=== PATIENT | male | born 1940 | race Caucasian/White ===

== ENCOUNTER 2017-01-17 15:49 | Emergency (ER) | payer OTHER ==
[2017-01-17 15:56] VITALS: BP 139/70; BMI 36.5
--- NOTE | 2017-01-17 16:11 | DR.GENAD ---
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 HE IS HAVING ABDOMINAL PAIN AND INCREASING SOB FOR SEVERAL DAYS NOW. WORSE TODAY. COLOSTOMY BAG CLEAN THE ENTIRE DAY. NO FEVER. DID LAXITIVE WITHOUT RESULT. HE HAVE HISTORY OF CHF. HAVE CHRONIC UTI ALSO. - Complaint/Symptoms Chief Complaint Doctors Comments: ABDOMINAL PAIN, SOB FOR FEW DAYS. Chief Complaint:: patient stated he has a colostostomy bag that he said no body here knows anything about. he stated [facility]. he denies any pain or distress at this time. - Nurses notes reviewed Nurses Notes Review: Yes - Source History Provided: Patient - Mode of Arrival Mode of Arrival: EMS - Timing Onset of Chief Complaint: 01/17/17 Came on: Suddenly - Duration Duration: Constant Duration: Days - Severity Severity: Moderate PMH - PMH Past Medical History: Yes Past Medical History: Anemia, Anxiety, Arthritis, COPD, Coronary Artery Disease , Diabetes, Dyslipidemia, GERD, Hypertension Past Surgical History: Yes - Family History History of Family Medical Conditions: Yes Family Medical History: Diabetes Mellitus, Hypertension - Social History Does patient currently use any type of tobacco product: No Have you used tobacco products in the last 12 months: No Type of Tobacco Use: None Does any household member use tobacco: No Alcohol Use: None Do you use any recreational Drugs:: No Lives With: Family Lives Where: Home - infectious screening In the last 2 months have you had wt loss of >10#?: NO Have you had fever, night sweats or hemotysis?: No Have you traveled outside the country in the last 6 months?: No Isolation: Standard ROS - Review of Systems Constitutional: Weakness, Fatigue. negative: Chills, Diaphoresis, Fever Eyes: No Symptoms Reported. negative: Eye Pain, Discharge ENTM: No Symptoms Reported. negative: Ear Pain, Nose Discharge, Nose Congestion , Throat Pain Respiratoy: Short of Breath, Wheezing. negative: Hemoptysis Cardiovascular: Chest Pain, Edema (ankle edema). negative: Palpitations Gastrointestinal/Abdominal: Abdominal Pain, Constipation, Nausea. negative: Diarrhea, Vomiting Genitourinary: negative: Hematuria Neurological: Other (paraplegia) Musculoskeletal: Back Pain, Back Integumentary: Dryness Hematologic/Lymphatic: Easy Bruising Endocrine: No Symptoms Reported All Other Systems: Reviewed and Negative PE - Vital Signs Vitals: Temperature 98.9 F Pulse Rate 105 Respiratory Rate 16 Blood Pressure [Right Arm] 126/64 Blood Pressure [Left Arm] 157/66 Blood Pressure 139/70 O2 Sat by Pulse Oximetry 98 - General Limitations: No Limitations General Appearance: Alert - Head Head Exam: Normal Inspection - Eyes Eye exam: Normal Appearance, PERRL, EOMI. negative: Scleral Icterus, Conjunctival Injection - ENT ENT Exam: Normal Oropharynx, Normal External Ear Exam, TM's Normal Bilaterally External Ear Exam: Normal External Inspection TM/Canal Exam: Bilateral Normal Nose Exam: Normal Nose Exam Mouth Exam: Normal Inspection Throat Exam: Normal Inspection - Neck Neck Exam: Trachea Midline - Chest Chest Inspection: Symmetric Chest Wall Rise - Respiratory Respiratory Exam: Respiratory Distress Respiratory Exam: Bilateral Wheezing, Bilateral Rhonchi, Upper Rhonchi, Lower Wheezing, Lower Decreased Breath Sounds - Cardiovascular Cardiovascular Exam: Regular Rate, Normal Rhythm, Normal Heart Sounds - Abdominal Exam Abdominal Exam: Normal Bowel Sounds, Soft, Tenderness Abdominal Tenderness: Diffuse, Moderate - Extremities Extremities Exam: Edema - Back Back Exam: Paraspinal Tenderness - Neurologic Neurological Exam: Motor Sensory Deficit (from chest down/ paraplegia) - Psychiatric Psychiatric Exam: Anxious - Skin Skin Exam: Dry MDM - Additional Information Additional Information Obtained From: Family (ABDOMINAL PAIN) - Differential Diagnosis Differential Diagnosis: ABDOMINAL PAIN. CHF, BOWEL OBSTRUCTION, AND UTI. Course - Treatment Treatment: SEE ORDERS - Consultation Consultation Comments: DISCUSS PATIENT WITH DR. STARR AT [facility] IN [place] AND HE ACCEPTED PATIENT FOR TRANSFER. - Education/Counseling Education/Counseling: Patient, Family, Education Educated On: Diagnosis ROR - Labs Reviewed Laboratory Results Reviewed?: Yes Result Diagrams: 01/17/17 16:25 01/17/17 16:25 Laboratory: WBC 10.7 X10^3/uL (3.6-10.0) H 01/17/17 16:25 RBC 3.87 X10^6/uL (4.7-6.0) L 01/17/17 16:25 Hgb 11.6 g/dL (13.5-18.0) L 01/17/17 16:25 Hct 34.3 % (42.0-54.0) L 01/17/17 16:25 MCV 88.5 fL (80.0-100.0) 01/17/17 16:25 MCH 30.0 pg (27.0-34.0) 01/17/17 16:25 MCHC 33.9 g/dL (33.0-35.0) 01/17/17 16:25 RDW 15.5 % (11.6-16.5) 01/17/17 16:25 Plt Count 396 X10^3/uL (150.0-450.0) 01/17/17 16:25 Plt Count Comment Adequate (ADEQUATE) 01/17/17 16:25 MPV 8.2 fL (7.4-11.0) 01/17/17 16:25 Neut % 43.7 % (42.0-75.0) 01/17/17 16:25 Lymph % 12.8 % (21.0-51.0) L 01/17/17 16:25 [place] % 8.2 % (0.0-13.0) 01/17/17 16:25 Eos % 34.1 % (0.9-2.9) H 01/17/17 16:25 Baso % 1.2 % (0.2-1.0) H 01/17/17 16:25 Neut # 4.7 x10^3/uL (2.2-4.8) 01/17/17 16:25 Lymph # 1.4 X10^3/uL (1.3-2.9) 01/17/17 16:25 [place] # 0.9 x10^3/uL (0.3-0.8) H 01/17/17 16:25 Eos # 3.7 x10^3/uL (0.0-0.2) H 01/17/17 16:25 Baso # 0.1 X10^3/uL (0.0-0.1) 01/17/17 16:25 Absolute Nucleated RBC 0.0 /100WBC 01/17/17 16:25 Total Counted 100 01/17/17 16:25 Neutrophils % (Manual) 44 % (39-76) 01/17/17 16:25 Lymphocytes % (Manual) 15 % (13-43) 01/17/17 16:25 Monocytes % (Manual) 5 % (4-9) 01/17/17 16:25 Eosinophils % (Manual) 36 % (0-6) H 01/17/17 16:25 Plt Morphology Comment Normal (NORMAL) 01/17/17 16:25 RBC Morphology Normal (NORMAL) 01/17/17 16:25 Sodium 134 mmol/L (136-145) L 01/17/17 16:25 Corrected Sodium 139 mmol/L (136-145) 01/17/17 16:25 Potassium 3.3 mmol/L (3.5-5.1) L 01/17/17 16:25 Chloride 98 mmol/L (98-107) 01/17/17 16:25 Carbon Dioxide 27.5 mmol/L (21-32) 01/17/17 16:25 BUN 18 mg/dL (7-18) 01/17/17 16:25 Creatinine 0.88 mg/dL (0.70-1.30) 01/17/17 16:25 Est GFR (MDRD) Af Amer > 60 (>60) 01/17/17 16:25 Est GFR (MDRD) Non-Af > 60 (>60) 01/17/17 16:25 Glucose 320 mg/dL (65-99) H 01/17/17 16:25 Calcium 8.9 mg/dL (8.5-10.1) 01/17/17 16:25 Corrected Calcium 10.1 mg/dL (8.5-10.1) 01/17/17 16:25 Total Bilirubin 0.30 mg/dL (0.2-1.0) 01/17/17 16:25 AST 15 Units/L (15-37) 01/17/17 16:25 ALT 13 Units/L (12-78) 01/17/17 16:25 Alkaline Phosphatase 79 Units/L (46-116) 01/17/17 16:25 Total Protein 7.4 g/dL (6.4-8.2) 01/17/17 16:25 Albumin 2.5 g/dL (3.4-5.0) L 01/17/17 16:25 Globulin 4.9 g/dL (2.5-4.5) H 01/17/17 16:25 Albumin/Globulin Ratio 0.5 Ratio (1.1-2.1) L 01/17/17 16:25 Amylase 22 Units/L (25-115) L 01/17/17 16:25 Lipase 82 Units/L (73-393) 01/17/17 16:25 Specimen Type Catherized urine 01/17/17 17:34 Urine Color Yellow (YELLOW) 01/17/17 17:34 Urine Appearance Cloudy (CLEAR) 01/17/17 17:34 Urine pH 5.0 (5.0 - 8.0) 01/17/17 17:34 Ur Specific [place] 1.015 (1.000-1.030) 01/17/17 17:34 Urine Protein Negative (NEGATIVE) 01/17/17 17:34 Urine Glucose (UA) 2+ (NEGATIVE) 01/17/17 17:34 Urine Ketones Negative (NEGATIVE) 01/17/17 17:34 Urine Occult Blood 1+ (NEGATIVE) 01/17/17 17:34 Urine Nitrite Positive (NEGATIVE) 01/17/17 17:34 Urine Bilirubin Negative (NEGATIVE) 01/17/17 17:34 Urine Urobilinogen Normal (NORMAL) 01/17/17 17:34 Ur Leukocyte Esterase 3+ (NEGATIVE) 01/17/17 17:34 Urine RBC 0-2 /HPF (NEGATIVE) 01/17/17 17:34 Urine WBC 50-55 /HPF (NEGATIVE) 01/17/17 17:34 Ur Squamous Epith Cells Rare /HPF (NEGATIVE) 01/17/17 17:34 Amorphous Sediment Trace /HPF (NEGATIVE) 01/17/17 17:34 Urine Bacteria 1+ /HPF (NEGATIVE) 01/17/17 17:34 Urine Yeast Moderate /HPF (NEGATIVE) 01/17/17 17:34 Ur Culture Indicated? Yes/culture set up 01/17/17 17:34 - XRAY XRAY Interpreted by: Radiologist XRAY Findings: REPORT DISCUSS WITH PATIENT AND FAMILY. - Diagnosis Discharge Problem: Pleural effusion Abdominal pain Qualifiers: Abdominal location: generalized Qualified Code(s): R10.84 - Generalized abdominal pain Parastomal hernia Qualifiers: Obstruction and gangrene presence: without obstruction or gangrene Qualified Code(s): K43.5 - Parastomal hernia without obstruction or gangrene Dyspnea Qualifiers: Dyspnea type: shortness of breath Qualified Code(s): R06.02 - Shortness of breath UTI (urinary tract infection) Qualifiers: Urinary tract infection type: catheter-associated UTI - Discharge Plan Disposition: 02 [facility] Condition: Stable - Follow ups/Referrals Follow ups/Referrals: Jose Fish [Primary Care Provider] - 3 days - Instructions
[2017-01-17 16:43] LABS: BASOPHILS # (AUTO) 0.1 X10^3/uL (0.0-0.1); BASOPHILS % (AUTO) 1.2 % (0.2-1.0); EOSINOPHILS # (AUTO) 3.7 x10^3/uL (0.0-0.2); EOSINOPHILS % (AUTO) 34.1 % (0.9-2.9); HEMATOCRIT 34.3 % (42.0-54.0); HEMOGLOBIN 11.6 g/dL (13.5-18.0); LYMPHOCYTES # (AUTO) 1.4 X10^3/uL (1.3-2.9); LYMPHOCYTES % (AUTO) 12.8 % (21.0-51.0); MEAN CORPUSCULAR HGB CONC 33.9 g/dL (33.0-35.0); MEAN CORPUSCULAR VOLUME 88.5 fL (80.0-100.0); MEAN PLATELET VOLUME 8.2 fL (7.4-11.0); MONOCYTES # (AUTO) 0.9 x10^3/uL (0.3-0.8); MONOCYTES % (AUTO) 8.2 % (0.0-13.0); NEUTROPHILS # (AUTO) 4.7 x10^3/uL (2.2-4.8); NEUTROPHILS % (AUTO) 43.7 % (42.0-75.0); PLATELET COUNT 396 X10^3/uL (150.0-450.0); RED BLOOD COUNT 3.87 X10^6/uL (4.7-6.0); RED CELL DISTRIBUTION WIDTH 15.5 % (11.6-16.5); WHITE BLOOD COUNT 10.7 X10^3/uL (3.6-10.0)
[2017-01-17 16:57] LABS: ALANINE AMINOTRANSFERASE 13 Units/L (12-78); ALBUMIN 2.5 g/dL (3.4-5.0); ALKALINE PHOSPHATASE 79 Units/L (46-116); AMYLASE 22 Units/L (25-115); ASPARTATE AMINO TRANSFERASE 15 Units/L (15-37); BLOOD UREA NITROGEN 18 mg/dL (7-18); CALCIUM 8.9 mg/dL (8.5-10.1); CARBON DIOXIDE 27.5 mmol/L (21-32); CHLORIDE 98 mmol/L (98-107); COR CA(FOR HYPOALB) 10.1 mg/dL (8.5-10.1); COR NA(FOR HYPERGLY) 139 mmol/L (136-145); CREATININE 0.88 mg/dL (0.70-1.30); GLUCOSE 320 mg/dL (65-99); LIPASE 82 Units/L (73-393); SODIUM 134 mmol/L (136-145); TOTAL PROTEIN 7.4 g/dL (6.4-8.2); eGFR BLACK RACES > 60 (>60); eGFR NON BLACK RACES > 60 (>60)
[2017-01-17 17:03] LABS: PLATELET MORPHOLOGY COMMENT NORMAL (NORMAL)
[2017-01-17] MEDS ORDERED: POTASSIUM CHLORIDE LIQ 20 MEQ UDC PO ONE (17:10)
[2017-01-17] MEDS ORDERED: POTASSIUM CHLORIDE LIQ 20 MEQ UDC ONE (17:14)
--- NOTE | 2017-01-17 17:14 | CT ---
CT ABDOMEN AND PELVIS WITHOUT CONTRAST CLINICAL HISTORY: 76-year-old male with abdominal pain around the ostomy site. COMPARISON: CT abdomen and pelvis February 01, 2016.. TECHNIQUE: Multiple contiguous computed tomographic axial images of the abdomen and pelvis were obta ined without the use of oral or intravenous contrast. Images were reformatted in the coronal and sag ittal planes. FINDINGS: Large left pleural effusion with compressive atelectasis of the left lower lobe and lingula with und erlying infectious process not excluded. Trace right pleural fluid with unchanged right upper lobe p ulmonary nodules. Right basilar subsegmental dependent atelectasis with redemonstration of pneumatoc eles. Moderate-sized circumferential pericardial effusion that is simple appearing. Mediastinum is otherwi se unremarkable.. The liver is diffusely fatty replaced without intrahepatic or extrahepatic biliary ductal dilatation or mass lesion. Pancreas is mildly fatty replaced. Spleen and gallbladder are unremarkable. Adrenal glands are normal. Mild atrophic appearance of the bilateral kidneys with mild perinephric stranding. There are no neph roureteral stones or perinephric fluid collections. There is no evidence of hydroureteronephrosis an d the ureters run in an unobstructed course to a urinary bladder that is decompressed around a Ryan catheter with balloon inflated and abutting of the superior aspect of the prostate with large volum e intracystic air, likely from placement of Ryan catheter. The prostate, seminal vesicles, and external genitalia are within normal limits. Patient is status post Nissa's procedure with end colostomy with a large subfascial defect and re sultant parastomal hernia containing a single loop of small bowel and colon that are without inflamm atory change to suggest incarceration or strangulation, this is relatively unchanged from examinatio n dated February 01, 2016. The appendix is normal in appearance. The bowel is without obstruction or inflammation and there is no free fluid or free air within the peritoneal cavity. There are no pathologically enlarged lymph nodes in the abdomen or pelvis. Moderate calcific atherosclerotic disease throughout the aorta. The subcutaneous inflammation about the ischial tuberosities that is relatively unchanged without ev idence of sacral decubitus ulcer. The osseous structures are intact without fracture or malalignment. Significant heterotopic calcific ation throughout the imaged thoracolumbar spine anteriorly that is not significantly change with sev ere heterotopic calcification about the left hip and significant degenerative change, all unchanged. IMPRESSION: 1. Moderate size simple appearing pericardial effusion that is circumferential. 2. Large left pleural effusion with compressive atelectasis of the left lower lobe and lingula. 3. Parastomal hernia containing large and small bowel without evidence of incarceration or strangula tion, stable. 4. Remainder of the examination is overall unchanged. Reported By:
[2017-01-17 18:02] LABS: BILIRUBIN,URINE NEGATIVE (NEGATIVE); BLOOD/HEMOGLOBIN,URINE 1+ (NEGATIVE); GLUCOSE, URINE 2+ (NEGATIVE); KETONES,URINE NEGATIVE (NEGATIVE); LEUKOCYTE ESTERASE ,URINE 3+ (NEGATIVE); NITRITES,URINE POSITIVE (NEGATIVE); PROTEIN,URINE NEGATIVE (NEGATIVE); UROBILINOGEN,URINE NORMAL (NORMAL)
[2017-01-17 18:11] LABS: AMORPHOUS SEDIMENT,UR TRACE /HPF (NEGATIVE); APPEARANCE,URINE CLOUDY (CLEAR); BACTERIA,URINE 1+ /HPF (NEGATIVE); COLOR,URINE YELLOW (YELLOW); RBC,URINE 0-2 /HPF (NEGATIVE); SQUAMOUS EPITHELIAL CELL,UR RARE /HPF (NEGATIVE); YEAST,URINE MODERATE /HPF (NEGATIVE)
== END 2017-01-17 19:24 | disposition short-term general hospital (02) ==
LOC: ER 15:52
DX: K43.5 Parastomal hernia without obstruction or gangrene (principal); R10.84 Generalized abdominal pain; R06.02 Shortness of breath; N39.0 Urinary tract infection, site not specified; B96.29 Other Escherichia coli [E. coli] as the cause of diseases classified elsewhere
CPT/HCPCS: 36415; 74176; 80053; 81001; 82150; 83690; 85025; 87086; 87088; 87186; 96365; 99284; 99285; A4222

== ENCOUNTER → 2017-03-30 | Outpatient (CLI) | payer OTHER ==
--- NOTE | 2017-03-31 07:45 | RAD ---
HISTORY: Abdominal mass Study: Flat and upright abdomen Comparison: CT abdomen pelvis January 17, 2017 Findings: The abdominal gas pattern is nonspecific and nonobstructive. No pneumoperitoneum is identified. Ther e is an ostomy in the left lower abdomen. There appear to be some bowel loops far lateral in the abd omen possibly indicating a parastomal hernia. The should be correlated with CT abdomen pelvis examin ation. No abnormal calcifications are identified. Extensive degenerative and spondylitic changes are present in the lumbar spine. There is extensive deformity in the left pelvis possibly postsurgical. IMPRESSION: No evidence for bowel obstruction or pneumoperitoneum Possible left lower quadrant parastomal hernia. CT abdomen pelvis is recommended for further evaluat ion. Reported By:
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
== END | disposition home or self-care (01) ==
LOC: RAD 16:37
PROVIDERS: ATTEND Nurse Practitioner Family
DX: J90 Pleural effusion, not elsewhere classified (principal); R19.09 Other intra-abdominal and pelvic swelling, mass and lump; I51.7 Cardiomegaly
CPT/HCPCS: 71020; 74000

== ENCOUNTER → 2017-04-05 | Outpatient (CLI) | payer OTHER ==
[~2017-04-05] MED LIST: NS 100 ML IV 100 ML IV ONE
[2017-04-05 08:33] LABS: CREATININE 0.87 mg/dL (0.70-1.30)
--- NOTE | 2017-04-05 09:58 | CT ---
CT OF THE ABDOMEN AND PELVIS WITHOUT AND WITH CONTRAST HISTORY: Hernia at colostomy site Comparison: 01/17/2017 Technique: Multiple axial images of the abdomen and pelvis were obtained from the lung bases to the pubic symph ysis before and following the administration of IV contrast. Dose reduction techniques including A utomated Exposure Control (AEC) and adjustment of mA and kV were utlized. Findings: The heart is normal in size. There is no pericardial effusion. Loculated left-sided pleural effusion . Slightly decreased in size compared to prior. Abdomen without: No gallstones, renal stones or proximal ureteral stones. Abdomen with: Liver and spleen are normal in size, enhancement characteristics and contour. There is focal region of somewhat linear hypoattenuation in the subcapsular right lobe of liver near the inf erior tip. This is best seen on series 7 between images 42 and 45. It is unclear what degree this wa s present on prior examinations. The portal vein is patent. No ductal dilitation. Gallbladder is pre sent. No gallbladder wall thickening. The pancreas is unremarkable. Adrenal glands are normal. Kidne ys enhance symmetrically without hydronephrosis. Simple and hemorrhagic renal cysts bilaterally No bowel obstruction or inflammation. Redemonstration of small peristomal hernia in the left lower q uadrant. No obstruction. No abnormal appearing mesenteric or retroperitoneal lymph nodes. No free fl uid or fluid collections. Pelvis without: No distal ureteral stones or bladder stones. Pelvis with: Bladder is thick-walled. Prostate not enlarged. No free fluid or abnormal pelvic lymph nodes. Extensive posttraumatic and degenerative change involving the spine and pelvis. Significant heteroto pic bone formation particularly surrounding the hip on the left. Unchanged. IMPRESSION: 1. Small peristomal hernia without obstruction. This is unchanged over multiple priors. 2. Linear hypo enhancing regions in the distal tip of liver. These are of uncertain etiology. MRI of the abdomen could be obtained for further characterization. 3. Multiple chronic findings that are unchanged from priors. It should be noted that dual phase CT (with and without contrast) is neither recommended nor require d in most situations and should be reserved for patients with known solid organ lesions, hematuria a nd few other specific indications. [email or web address]://acsearch.acr.org/list Reported By:
== END | disposition home or self-care (01) ==
LOC: RAD 08:03
PROVIDERS: ATTEND Nurse Practitioner Family
DX: K45.8 Other specified abdominal hernia without obstruction or gangrene (principal)
CPT/HCPCS: 36415; 74178; 82565; 84520; A4222

== ENCOUNTER → 2017-11-09 | Outpatient (CLI) | payer OTHER, MEDICAID ==
--- NOTE | 2017-11-09 17:04 | CT ---
HISTORY: Left lower quadrant pain Study: CT abdomen and pelvis without contrast Comparison: 04/05/2017, 02/01/2016 Technique: Multiple axial images of the abdomen and pelvis were obtained without IV contrast. Dose reduction t echniques including Automated Exposure Control (AEC) and adjustment of mA and kV were utilized. Findings: Please note evaluation is limited without use of IV contrast. There is chronic left prior thickening and trace effusion. The lung bases are otherwise clear. The u nenhanced spleen, pancreas, liver, and adrenal glands are unremarkable. The gallbladder is normal. Th e right kidney appears unremarkable. There is a hypodense exophytic lesion of the left kidney compati ble with a simple cyst. Adjacent to this there is a uniformly hyperdense exophytic lesion with averag e attenuation of 61 Hounsfield units that has been present on previous studies suggestive of a comple x/hemorrhagic cysts. No calculi or obstructive uropathy identified. No free intraperitoneal air. There are surgical changes of the colon with left lower quadrant colosto my. There is a small parastomal hernia without evidence of obstruction. No ascites is seen. The appen dulce is normal. Proliferative spondylitic changes of the thoracolumbar spine are again noted with large bridging oste ophytes. Scattered areas of heterotopic ossification seen in the pelvis and around the anterior right thigh, also chronic in nature. Limited evaluation of vascular structures due to lack of contrast. No pathologically enlarged lymph nodes are identified. Ryan catheter balloon is malpositioned in the p rostatic urethra. Small amount intraluminal air is seen in the bladder. IMPRESSION: 1. Ryan catheter balloon is positioned in the prostatic urethra, correlate clinically. 2. Stable left abdominal colostomy and parastomal hernia. 3. Multiple additional stable chronic findings detailed above. Reported By:
== END | disposition home or self-care (01) | DRG 392 ==
LOC: RAD 14:16
PROVIDERS: ATTEND Nurse Practitioner Family
DX: R10.32 Left lower quadrant pain (principal); K43.5 Parastomal hernia without obstruction or gangrene
CPT/HCPCS: 74176

== ENCOUNTER 2017-12-04 09:14 | Day surgery (SDC) | payer MEDICAID, OTHER ==
[~2017-12-04 09:14] MED LIST changes: -NS 100 ML IV 100 ML IV ONE; +NS 1000 ML 1,000 ML ONE
[2017-12-04] MEDS ORDERED: VERSED ONE (10:25)
[2017-12-04] MEDS ORDERED: VERSED IVP ONE ×2 (10:25→10:42)
[2017-12-04 11:08] VITALS: BP 137/69
== END 2017-12-04 11:18 | disposition home or self-care (01) ==
LOC: SURG1 09:14
PROVIDERS: ATTEND Surgery
PROC: 0DJD8ZZ Inspection of Lower Intestinal Tract, Via Natural or Artificial Opening Endoscopic (ICD-10-PCS; principal; 2017-12-04 09:30)
DX: R10.84 Generalized abdominal pain (principal); R14.0 Abdominal distension (gaseous); K59.09 Other constipation; G82.20 Paraplegia, unspecified
CPT/HCPCS: A4217; J2250

== ENCOUNTER 2017-12-25 12:37 | Inpatient (IN) | payer OTHER ==
--- NOTE | 2017-12-25 13:05 | DR.URIAD ---
HPI - Time Seen Time seen: 13:20 - PCP Primary Care Physician: GLENROY CHRIS - HPI Comment HPI Comment: COUGH PRODUCTIVE, THICK YELLOW SPUTUM. FEEL FEVERISH. SOME CHEST DISCOMFORTDUE TO COUGHING. - Complaint Chief Complaint Doctors Comments: INCREASING COUGH, CONGESTION AND SOB TIMES FEW DAYS. Chief Complaint:: PATIENT HAS BEEN HAVING C/C/C FOR THE LAST COUPLE OF DAYS. HE STATED THAT HOME HEALTH VISITING NURSE WANTED HIM TO COME IN AND BE SEEN SO THAT HE DON'T HAVE PNEUMONIA SET UP. - Reviewed Nurses Notes Reviewed: Yes - Source History Provided: Patient, EMS - Mode of Arrival Mode of Arrival: EMS - Timing Onset of Chief Complaint: 12/21/17 - Context Recent Treated Infections: URI History of Respiratory: Bronchitis - Quality Quality of Cough: Productive, Yellow Rhinorrhea: None Shortness of Breath: Mild - Associated Signs and Symptoms Other Signs and Symptoms: Cough, Myalgias, Nasal Symptoms, Shortness of Breath, URI, Wheeze PMH - PMH Past Medical History: Yes Past Medical History: Anemia, Anxiety, Arthritis, COPD, Coronary Artery Disease , Diabetes, Dyslipidemia, GERD, Hypertension Past Surgical History: Yes - Family History History of Family Medical Conditions: Yes Family Medical History: Diabetes Mellitus, Hypertension - Social History Does any household member use tobacco: No Alcohol Use: None Do you use any recreational Drugs:: No - infectious screening In the last 2 months have you had wt loss of >10#?: NO Have you had fever, night sweats or hemotysis?: No Have you traveled outside the country in the last 6 months?: No Isolation: Standard ROS - Review of Systems Constitutional: Fever (AT HOME), Weakness, Fatigue Eyes: negative: Eye Pain, Discharge ENTM: Nose Discharge, Nose Congestion. negative: Ear Pain, Throat Pain Respiratoy: Productive Cough, Short of Breath, Wheezing. negative: Hemoptysis Cardiovascular: Chest Pain Gastrointestinal/Abdominal: No Symptoms Reported Genitourinary: No Symptoms Reported Neurological: No Symptoms Reported Musculoskeletal: Muscle Pain Integumentary: Other (SACRAL ULCER PRESENT.) Hematologic/Lymphatic: No Symptoms Reported Endocrine: No Symptoms Reported All Other Systems: Reviewed and Negative PE - Vital Signs Vitals: Temperature 97.4 F Pulse Rate 94 Respiratory Rate 20 Blood Pressure [Right Arm] 126/64 Blood Pressure [Left Arm] 157/66 Blood Pressure 99/52 O2 Sat by Pulse Oximetry 93 - General Limitations: No Limitations General Appearance: Alert - Head Head Exam: Normal Inspection - Eyes Eye exam: Normal Appearance - ENT ENT Exam: Normal External Ear Exam TM/Canal Exam: Bilateral Normal Nose Exam: Normal Nose Exam Mouth Exam: Normal Inspection Throat Exam: Normal Inspection - Neck Neck Exam: Trachea Midline - Chest Chest Inspection: Symmetric Chest Wall Rise - Respiratory Respiratory Exam: Normal Lung Sounds Bilat Respiratory Exam: Bilateral Wheezing, Bilateral Rhonchi, Lower Wheezing, Lower Rhonchi - Cardiovascular Cardiovascular Exam: Regular Rate, Normal Rhythm, Normal Heart Sounds - Abdominal Exam Abdominal Exam: Normal Bowel Sounds, Soft. negative: Tenderness - Extremeties Extremities Exam: Normal Inspection - Back Back Exam: Normal Inspection - Neurologic Neurological Exam: Alert, Oriented X3, Other (PATIENT BED BOUND) - Skin Skin Exam: Other (SACRAL DECUBITUS ULCER.) MDM - Additional Information Additional Information Obtained From: Family - Differential Diagnosis Differential Diagnosis: Pneumonia (BRONCHITIS, CHF, PULMONARY CONGESTION, SINUSITIS) Course - Treatment Treatment: SEE ORDERS. - Consultation Consultation Comments: DISCUSS PATIENT WITH DR. MONACO AFTER LAB ALERTED US THAT BLOOD CULTURE IS GROWING BACTERIA. HE WILL ADMIT PATIENT. PATIENT CALL FROM HOME AND ADMITTED FOR FUTHER MANAGEMENT. - Education/Counseling Education/Counseling: Patient, Family, Education Educated On: Treatment, Diagnosis, Needs for Follow Up ROR - Labs Reviewed Laboratory Results Reviewed?: Yes Result Diagrams: 12/26/17 04:42 12/26/17 04:42 Laboratory: 12/25/17 13:37 Blood Blood Culture - Preliminary 12/25/17 13:45 Blood Blood Culture - Preliminary 12/25/17 14:16 Sputum - Expectorated Sputum Sputum Culture - Preliminary 12/25/17 14:16 Sputum - Expectorated Sputum - Final 12/25/17 14:37 Urine,Catheterized Urine Culture - Preliminary WBC 10.8 X10^3/uL (3.6-10.0) H 12/26/17 04:42 RBC 3.85 X10^6/uL (4.7-6.0) L 12/26/17 04:42 Hgb 11.9 g/dL (13.5-18.0) L 12/26/17 04:42 Hct 34.5 % (42.0-54.0) L 12/26/17 04:42 MCV 89.6 fL (80.0-100.0) 12/26/17 04:42 MCH 30.8 pg (27.0-34.0) 12/26/17 04:42 MCHC 34.4 g/dL (33.0-35.0) 12/26/17 04:42 RDW 15.3 % (11.6-16.5) 12/26/17 04:42 Plt Count 432 X10^3/uL (150.0-450.0) 12/26/17 04:42 Plt Count Comment Adequate (ADEQUATE) 12/26/17 04:42 MPV 8.0 fL (7.4-11.0) 12/26/17 04:42 Neut % (Auto) 94.5 % (42.0-75.0) H 12/26/17 04:42 Lymph % (Auto) 3.4 % (21.0-51.0) L 12/26/17 04:42 [place] % (Auto) 1.2 % (0.0-13.0) 12/26/17 04:42 Eos % (Auto) 0.3 % (0.9-2.9) L 12/26/17 04:42 Baso % (Auto) 0.6 % (0.2-1.0) 12/26/17 04:42 Neut # (Auto) 10.2 x10^3/uL (2.2-4.8) H 12/26/17 04:42 Lymph # (Auto) 0.4 X10^3/uL (1.3-2.9) L 12/26/17 04:42 [place] # (Auto) 0.1 x10^3/uL (0.3-0.8) L 12/26/17 04:42 Eos # (Auto) 0.0 x10^3/uL (0.0-0.2) 12/26/17 04:42 Baso # (Auto) 0.1 X10^3/uL (0.0-0.1) 12/26/17 04:42 Absolute Nucleated RBC 0.1 /100WBC 12/26/17 04:42 Total Counted 100 12/26/17 04:42 Neutrophils % (Manual) 91 % (39-76) H 12/26/17 04:42 Band Neutrophils % 4 % (0-10) 12/26/17 04:42 Lymphocytes % (Manual) 4 % (13-43) L 12/26/17 04:42 Monocytes % (Manual) 1 % (4-9) L 12/26/17 04:42 Plt Morphology Comment Normal (NORMAL) 12/26/17 04:42 RBC Morphology Normal (NORMAL) 12/26/17 04:42 Sodium 134 mmol/L (136-145) L 12/26/17 04:42 Corrected Sodium 139 mmol/L (136-145) 12/26/17 04:42 Potassium 4.9 mmol/L (3.5-5.1) 12/26/17 04:42 Chloride 100 mmol/L (98-107) 12/26/17 04:42 Carbon Dioxide 27.3 mmol/L (21-32) 12/26/17 04:42 BUN 19 mg/dL (7-18) H 12/26/17 04:42 Creatinine 0.87 mg/dL (0.70-1.30) 12/26/17 04:42 Est GFR (MDRD) Af Amer > 60 (>60) 12/26/17 04:42 Est GFR (MDRD) Non-Af > 60 (>60) 12/26/17 04:42 Glucose 323 mg/dL (65-99) H 12/26/17 04:42 POC Glucose (mg/dL) 351 mg/dL (65-99) H 12/26/17 11:31 Lactic Acid 0.8 mmol/L (0.4-2.0) 12/25/17 13:37 Calcium 8.9 mg/dL (8.5-10.1) 12/26/17 04:42 Corrected Calcium TNP 12/25/17 13:37 Total Bilirubin 0.30 mg/dL (0.2-1.0) 12/25/17 13:37 AST 18 Units/L (15-37) 12/25/17 13:37 ALT 18 Units/L (12-78) 12/25/17 13:37 Alkaline Phosphatase 92 Units/L (46-116) 12/25/17 13:37 Creatine Kinase 250 Units/L (39-308) 12/25/17 13:37 CK-MB (CK-2) 1.6 ng/mL (0-4.0) 12/25/17 13:37 CK/CKMB % Calc 0.6 % (<4) 12/25/17 13:37 Troponin I < 0.02 ng/mL (0-1.5) 12/25/17 13:37 C-Reactive Protein 76.20 mg/L (0-3.0) H 12/25/17 13:37 Total Protein 8.5 g/dL (6.4-8.2) H 12/25/17 13:37 Albumin 3.5 g/dL (3.4-5.0) 12/25/17 13:37 Globulin 5.0 g/dL (2.5-4.5) H 12/25/17 13:37 Albumin/Globulin Ratio 0.7 Ratio (1.1-2.1) L 12/25/17 13:37 Specimen Type Catherized urine 12/25/17 14:37 Urine Color Yellow (YELLOW) 12/25/17 14:37 Urine Appearance Slightly hazy (CLEAR) 12/25/17 14:37 Urine pH 6.5 (5.0 - 8.0) 12/25/17 14:37 Ur Specific [place] 1.015 (1.000-1.030) 12/25/17 14:37 Urine Protein 2+ (NEGATIVE) 12/25/17 14:37 Urine Glucose (UA) Negative (NEGATIVE) 12/25/17 14:37 Urine Ketones Negative (NEGATIVE) 12/25/17 14:37 Urine Occult Blood 2+ (NEGATIVE) 12/25/17 14:37 Urine Nitrite Negative (NEGATIVE) 12/25/17 14:37 Urine Bilirubin Negative (NEGATIVE) 12/25/17 14:37 Urine Urobilinogen 1+ (NORMAL) 12/25/17 14:37 Ur Leukocyte Esterase 3+ (NEGATIVE) 12/25/17 14:37 Urine RBC 12-14 /HPF (NONE SEEN) 12/25/17 14:37 Urine WBC 15-18 /HPF (NONE SEEN) 12/25/17 14:37 Ur Squamous Epith Cells Rare /HPF (NEGATIVE) 12/25/17 14:37 Urine Bacteria Trace /HPF (NEGATIVE) 12/25/17 14:37 Ur Culture Indicated? Yes/culture set up 12/25/17 14:37 - XRAY XRAY Interpreted by: Radiologist XRAY Findings: REPORT DISCUSS WITH PATIENT. - Diagnosis Discharge Problem: Bronchitis COPD (chronic obstructive pulmonary disease) Qualifiers: COPD type: COPD with acute exacerbation Qualified Code(s): J44.1 - Chronic obstructive pulmonary disease with (acute) exacerbation - Discharge Plan Disposition: 01 HOME, SELF-CARE Condition: Stable - Follow ups/Referrals - Instructions
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
[2017-12-25 14:11] LABS: LACTIC ACID 0.8 mmol/L (0.4-2.0)
[2017-12-25 14:13] LABS: BLOOD UREA NITROGEN 18 mg/dL (7-18); CALCIUM 9.4 mg/dL (8.5-10.1); CARBON DIOXIDE 28.5 mmol/L (21-32); CHLORIDE 101 mmol/L (98-107); COR NA(FOR HYPERGLY) 138 mmol/L (136-145); SODIUM 137 mmol/L (136-145); TROPONIN I < 0.02 ng/mL (0-1.5); eGFR BLACK RACES > 60 (>60); eGFR NON BLACK RACES > 60 (>60)
[2017-12-25 14:16] LABS: BASOPHILS # (AUTO) 0.1 X10^3/uL (0.0-0.1); BASOPHILS % (AUTO) 0.7 % (0.2-1.0); EOSINOPHILS # (AUTO) 1.5 x10^3/uL (0.0-0.2); EOSINOPHILS % (AUTO) 12.4 % (0.9-2.9); HEMATOCRIT 34.7 % (42.0-54.0); HEMOGLOBIN 11.9 g/dL (13.5-18.0); LYMPHOCYTES # (AUTO) 1.7 X10^3/uL (1.3-2.9); LYMPHOCYTES % (AUTO) 13.3 % (21.0-51.0); MEAN CORPUSCULAR HEMOGLOBIN 30.3 pg (27.0-34.0); MEAN CORPUSCULAR HGB CONC 34.2 g/dL (33.0-35.0); MEAN CORPUSCULAR VOLUME 88.7 fL (80.0-100.0); MEAN PLATELET VOLUME 7.7 fL (7.4-11.0); MONOCYTES # (AUTO) 0.9 x10^3/uL (0.3-0.8); MONOCYTES % (AUTO) 7.3 % (0.0-13.0); NEUTROPHILS # (AUTO) 8.2 x10^3/uL (2.2-4.8); NEUTROPHILS % (AUTO) 66.3 % (42.0-75.0); PLATELET COUNT 459 X10^3/uL (150.0-450.0); RED BLOOD COUNT 3.91 X10^6/uL (4.7-6.0); RED CELL DISTRIBUTION WIDTH 15.4 % (11.6-16.5); WHITE BLOOD COUNT 12.4 X10^3/uL (3.6-10.0)
[2017-12-25 14:17] LABS: ALANINE AMINOTRANSFERASE 18 Units/L (12-78); ALBUMIN 3.5 g/dL (3.4-5.0); ALKALINE PHOSPHATASE 92 Units/L (46-116); ASPARTATE AMINO TRANSFERASE 18 Units/L (15-37); CKMB % 0.6 % (<4); CREATINE KINASE 250 Units/L (39-308); CREATINE KINASE MB 1.6 ng/mL (0-4.0); TOTAL PROTEIN 8.5 g/dL (6.4-8.2)
[2017-12-25 14:45] LABS: BILIRUBIN,URINE NEGATIVE (NEGATIVE); BLOOD/HEMOGLOBIN,URINE 2+ (NEGATIVE); GLUCOSE, URINE NEGATIVE (NEGATIVE); KETONES,URINE NEGATIVE (NEGATIVE); LEUKOCYTE ESTERASE ,URINE 3+ (NEGATIVE); NITRITES,URINE NEGATIVE (NEGATIVE); PH,URINE 6.5 (5.0 - 8.0); PROTEIN,URINE 2+ (NEGATIVE); UROBILINOGEN,URINE 1+ (NORMAL)
[2017-12-25 14:56] LABS: APPEARANCE,URINE SLIGHTLY HAZY (CLEAR); BACTERIA,URINE TRACE /HPF (NEGATIVE); COLOR,URINE YELLOW (YELLOW); SQUAMOUS EPITHELIAL CELL,UR RARE /HPF (NEGATIVE)
[2017-12-25] MEDS ORDERED: ROCEPHIN 1 GM IV PREMIX 1 GM/50 ML IV.SOLN. IV ONE ×2 (15:00→15:02)
[2017-12-25] MEDS ORDERED: ZOFRAN INJ 4 MG VIAL ONE (15:09)
[2017-12-25] MEDS ORDERED: ZOFRAN INJ 4 MG VIAL IVP ONE (15:12)
[2017-12-25] MEDS ORDERED: NS 250 ML IV 250 ML IV ONE (22:39)
[2017-12-25] MEDS ORDERED: MERREM VIAL ONE (22:42)
[2017-12-25] MEDS ORDERED: NS 100 ML IV 100 ML IV ONE (22:42)
[2017-12-25] MEDS: MERREM PREMIX IV 500 MG 500 MG/50 ML BAG IV SCH (22:52)
[2017-12-25] MEDS: SOLU-Medrol 40 MG VIAL IVP SCH (22:53)
[2017-12-26] MEDS: DUONEB 0.5 MG/3 MG NEB SCH ×6 (00:51→21:20)
[2017-12-26] MEDS: SOLU-Medrol 40 MG VIAL IVP SCH ×3 (05:30→21:49)
[2017-12-26] MEDS ORDERED: NS 100 ML IV 100 ML IV ONE (05:31)
[2017-12-26] MEDS ORDERED: MERREM VIAL ONE (05:31)
[2017-12-26] MEDS: MERREM PREMIX IV 500 MG 500 MG/50 ML BAG IV SCH (05:33)
[2017-12-26] MEDS: HumuLIN R SUBCUT PRN ×5 (05:41→21:55)
[2017-12-26 06:26] LABS: BASOPHILS # (AUTO) 0.1 X10^3/uL (0.0-0.1); BASOPHILS % (AUTO) 0.6 % (0.2-1.0); BLOOD UREA NITROGEN 19 mg/dL (7-18); CALCIUM 8.9 mg/dL (8.5-10.1); CARBON DIOXIDE 27.3 mmol/L (21-32); CHLORIDE 100 mmol/L (98-107); COR NA(FOR HYPERGLY) 139 mmol/L (136-145); CREATININE 0.87 mg/dL (0.70-1.30); EOSINOPHILS % (AUTO) 0.3 % (0.9-2.9); HEMATOCRIT 34.5 % (42.0-54.0); HEMOGLOBIN 11.9 g/dL (13.5-18.0); LYMPHOCYTES # (AUTO) 0.4 X10^3/uL (1.3-2.9); LYMPHOCYTES % (AUTO) 3.4 % (21.0-51.0); MEAN CORPUSCULAR HEMOGLOBIN 30.8 pg (27.0-34.0); MEAN CORPUSCULAR HGB CONC 34.4 g/dL (33.0-35.0); MEAN CORPUSCULAR VOLUME 89.6 fL (80.0-100.0); MONOCYTES # (AUTO) 0.1 x10^3/uL (0.3-0.8); MONOCYTES % (AUTO) 1.2 % (0.0-13.0); NEUTROPHILS # (AUTO) 10.2 x10^3/uL (2.2-4.8); NEUTROPHILS % (AUTO) 94.5 % (42.0-75.0); PLATELET COUNT 432 X10^3/uL (150.0-450.0); RED BLOOD COUNT 3.85 X10^6/uL (4.7-6.0); RED CELL DISTRIBUTION WIDTH 15.3 % (11.6-16.5); SODIUM 134 mmol/L (136-145); WHITE BLOOD COUNT 10.8 X10^3/uL (3.6-10.0); eGFR BLACK RACES > 60 (>60); eGFR NON BLACK RACES > 60 (>60)
[2017-12-26 06:57] LABS: BAND NEUTROPHILS % 4 % (0-10); PLATELET MORPHOLOGY COMMENT NORMAL (NORMAL)
--- NOTE | 2017-12-26 11:18 | RAD ---
Exam: Portable chest 12/26/2017 at 11:01 a.m. History: 77-year-old male with COPD and coronary artery disease. Comparison: Previous chest radiograph from 12/25/2017 Findings: Mild cardiomegaly is again noted. Minimal atelectasis is noted in the left mid lung as well as the le ft base. Right lung is clear. No significant effusion on either side. IMPRESSION: Mild cardiomegaly. Minimal atelectasis left mid lung. Reported By:
[2017-12-26] MEDS: MERREM VIAL 500 MG in NS 100 ML IV + SPIKE MINIBAG* 100 ML IV SCH ×2 (14:46→21:49)
[2017-12-26] MEDS ORDERED: TESSALON PERLES PO PRN (16:09)
[2017-12-26] MEDS ORDERED: MIRALAX POWDER (1 DOSE 17GM) PO SCH (17:00)
[2017-12-26] MEDS: LINZESS PO SCH (17:31)
[2017-12-26] MEDS: PROTONIX TAB 40 MG PO SCH (17:31)
[2017-12-26] MEDS: LASIX PO SCH (17:31)
[2017-12-26] MEDS: K-DUR TAB 20 MEQ PO SCH ×2 (17:31→17:42)
[2017-12-26] MEDS: MAXZIDE 37.5/25 MG PO SCH (17:31)
[2017-12-26] MEDS: LOPRESSOR TAB 25 MG PO SCH ×2 (17:32→20:28)
[2017-12-26] MEDS: NORCO 10/325 TAB PO PRN ×2 (17:42→23:45)
[2017-12-26] MEDS: BRILINTA PO SCH (20:20)
[2017-12-26] MEDS: MIRALAX POWDER (1 DOSE 17GM) PO SCH (20:20)
[2017-12-26] MEDS: XANAX PO PRN (20:21)
[2017-12-26] MEDS: NEURONTIN CAP 300 MG PO SCH (20:21)
[2017-12-26] MEDS: SNACK - Diabetic Appropriate PO SCH (20:28)
[2017-12-27] MEDS: DUONEB 0.5 MG/3 MG NEB SCH ×6 (01:08→20:57)
[2017-12-27] MEDS: HumuLIN R SUBCUT PRN ×3 (05:42→21:55)
[2017-12-27] MEDS: SOLU-Medrol 40 MG VIAL IVP SCH ×3 (05:42→21:26)
[2017-12-27] MEDS: MERREM VIAL 500 MG in NS 100 ML IV + SPIKE MINIBAG* 100 ML IV SCH ×3 (05:42→21:20)
[2017-12-27] MEDS: LASIX PO SCH ×2 (06:17→17:44)
[2017-12-27 06:20] LABS: BASOPHILS % (AUTO) 0.2 % (0.2-1.0); HEMATOCRIT 31.5 % (42.0-54.0); HEMOGLOBIN 10.8 g/dL (13.5-18.0); LYMPHOCYTES # (AUTO) 0.6 X10^3/uL (1.3-2.9); LYMPHOCYTES % (AUTO) 6.7 % (21.0-51.0); MEAN CORPUSCULAR HEMOGLOBIN 30.5 pg (27.0-34.0); MEAN CORPUSCULAR HGB CONC 34.5 g/dL (33.0-35.0); MEAN CORPUSCULAR VOLUME 88.6 fL (80.0-100.0); MEAN PLATELET VOLUME 7.8 fL (7.4-11.0); MONOCYTES # (AUTO) 0.4 x10^3/uL (0.3-0.8); MONOCYTES % (AUTO) 4.7 % (0.0-13.0); NEUTROPHILS % (AUTO) 88.4 % (42.0-75.0); PLATELET COUNT 435 X10^3/uL (150.0-450.0); RED BLOOD COUNT 3.55 X10^6/uL (4.7-6.0); RED CELL DISTRIBUTION WIDTH 14.8 % (11.6-16.5); WHITE BLOOD COUNT 9.1 X10^3/uL (3.6-10.0)
[2017-12-27 06:37] LABS: ALANINE AMINOTRANSFERASE 16 Units/L (12-78); ALKALINE PHOSPHATASE 82 Units/L (46-116); ASPARTATE AMINO TRANSFERASE 9 Units/L (15-37); BLOOD UREA NITROGEN 23 mg/dL (7-18); CALCIUM 8.6 mg/dL (8.5-10.1); CARBON DIOXIDE 27.1 mmol/L (21-32); CHLORIDE 99 mmol/L (98-107); COR CA(FOR HYPOALB) 9.4 mg/dL (8.5-10.1); COR NA(FOR HYPERGLY) 141 mmol/L (136-145); SODIUM 135 mmol/L (136-145); TOTAL PROTEIN 7.8 g/dL (6.4-8.2); eGFR BLACK RACES > 60 (>60); eGFR NON BLACK RACES > 60 (>60)
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
[2017-12-27] MEDS: PULMICORT NEB TX 0.5 MG NEB SCH ×2 (09:00→20:58)
[2017-12-27] MEDS: PROTONIX TAB 40 MG PO SCH (09:43)
[2017-12-27] MEDS: BRILINTA PO SCH ×2 (09:43→21:21)
[2017-12-27] MEDS: LOPRESSOR TAB 25 MG PO SCH ×2 (09:43→21:22)
[2017-12-27] MEDS: K-DUR TAB 20 MEQ PO SCH ×2 (09:43→10:01)
[2017-12-27] MEDS: MAXZIDE 37.5/25 MG PO SCH (09:43)
[2017-12-27] MEDS: LINZESS PO SCH (09:43)
[2017-12-27 09:56] VITALS: BMI 33.0
[2017-12-27] MEDS ORDERED: PATIENT'S HOME MEDICATION (Budesonide-Formoterol 2 PUFF) IN SCH (10:15)
[2017-12-27] MEDS ORDERED: NS 250 ML IV 250 ML IV ONE (13:48)
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
[2017-12-27] MEDS: NEURONTIN CAP 300 MG PO SCH (21:22)
[2017-12-27] MEDS: MIRALAX POWDER (1 DOSE 17GM) PO SCH (21:28)
[2017-12-27] MEDS: SNACK - Diabetic Appropriate PO SCH (21:28)
[2017-12-27] MEDS: NORCO 10/325 TAB PO PRN (21:53)
[2017-12-27] MEDS: XANAX PO PRN (21:53)
[2017-12-28] MEDS: DUONEB 0.5 MG/3 MG NEB SCH ×6 (01:09→21:29)
[2017-12-28 05:53] LABS: ALANINE AMINOTRANSFERASE 16 Units/L (12-78); ALBUMIN 3.3 g/dL (3.4-5.0); ALKALINE PHOSPHATASE 83 Units/L (46-116); ASPARTATE AMINO TRANSFERASE 15 Units/L (15-37); BLOOD UREA NITROGEN 25 mg/dL (7-18); CALCIUM 9.1 mg/dL (8.5-10.1); CARBON DIOXIDE 30.6 mmol/L (21-32); CHLORIDE 99 mmol/L (98-107); COR CA(FOR HYPOALB) 9.7 mg/dL (8.5-10.1); COR NA(FOR HYPERGLY) 139 mmol/L (136-145); CREATININE 0.84 mg/dL (0.70-1.30); SODIUM 136 mmol/L (136-145); TOTAL PROTEIN 8.1 g/dL (6.4-8.2); eGFR BLACK RACES > 60 (>60); eGFR NON BLACK RACES > 60 (>60)
[2017-12-28] MEDS: MERREM VIAL 500 MG in NS 100 ML IV + SPIKE MINIBAG* 100 ML IV SCH ×3 (05:56→22:35)
[2017-12-28] MEDS: SOLU-Medrol 40 MG VIAL IVP SCH ×3 (05:56→21:52)
[2017-12-28 05:58] LABS: BASOPHILS % (AUTO) 0.2 % (0.2-1.0); HEMATOCRIT 33.4 % (42.0-54.0); HEMOGLOBIN 11.6 g/dL (13.5-18.0); LYMPHOCYTES # (AUTO) 0.7 X10^3/uL (1.3-2.9); LYMPHOCYTES % (AUTO) 5.7 % (21.0-51.0); MEAN CORPUSCULAR HEMOGLOBIN 30.3 pg (27.0-34.0); MEAN CORPUSCULAR HGB CONC 34.7 g/dL (33.0-35.0); MEAN CORPUSCULAR VOLUME 87.2 fL (80.0-100.0); MEAN PLATELET VOLUME 7.6 fL (7.4-11.0); MONOCYTES # (AUTO) 0.3 x10^3/uL (0.3-0.8); MONOCYTES % (AUTO) 2.8 % (0.0-13.0); NEUTROPHILS # (AUTO) 11.1 x10^3/uL (2.2-4.8); NEUTROPHILS % (AUTO) 91.3 % (42.0-75.0); PLATELET COUNT 498 X10^3/uL (150.0-450.0); RED BLOOD COUNT 3.83 X10^6/uL (4.7-6.0); RED CELL DISTRIBUTION WIDTH 14.9 % (11.6-16.5); WHITE BLOOD COUNT 12.1 X10^3/uL (3.6-10.0)
[2017-12-28] MEDS: LASIX PO SCH ×2 (06:09→18:13)
[2017-12-28 06:34] LABS: PLATELET MORPHOLOGY COMMENT NORMAL (NORMAL)
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
[2017-12-28] MEDS ORDERED: POLYMYXIN B IR SCH (09:00)
[2017-12-28] MEDS ORDERED: NEOMYCIN IR SCH (09:00)
[2017-12-28] MEDS ORDERED: SODIUM CHLORIDE IR NR ×2 (09:00)
[2017-12-28] MEDS ORDERED: NEOMYCIN IR NR ×2 (09:00)
[2017-12-28] MEDS ORDERED: POLYMYXIN B IR NR ×2 (09:00)
[2017-12-28] MEDS: PULMICORT NEB TX 0.5 MG NEB SCH ×2 (09:14→21:29)
[2017-12-28] MEDS: MAXZIDE 37.5/25 MG PO SCH (09:22)
[2017-12-28] MEDS: LOPRESSOR TAB 25 MG PO SCH ×2 (09:22→21:51)
[2017-12-28] MEDS: LINZESS PO SCH (09:22)
[2017-12-28] MEDS: PROTONIX TAB 40 MG PO SCH (09:22)
[2017-12-28] MEDS: BRILINTA PO SCH ×2 (09:22→21:51)
[2017-12-28] MEDS: K-DUR TAB 20 MEQ PO SCH ×2 (09:23→09:28)
--- NOTE | 2017-12-28 11:09 | PCM.PROG ---
Progress Note - Progress Note for Day of Date: 12/26/17 - Subjective Subjective: IS BEING TREATED FOR ACUTE BRONCHITIS, COPD EXACERBATION , AND A URINARY TRACT INFECTION. TODAY, HE IS ALERT AND ORIENTED, LYING IN BED ON MORNING ROUNDS. HE CONTINUES WITH COMPLAINTS OF PRODUCTIVE COUGH, SHORTNESS OF BREATH, GENERALIZED WEAKNESS, AND SUPRAPUBIC PAIN. ON EXAMINATION, HEART IS REGULAR IN RATE AND RHYTHM. BILATERAL LUNGS CONTINUE WITH SCATTERED WHEEZING AND RHONCHI, DIMINISHED THROUGHOUT. ABDOMEN IS ROUND, SOFT, AND NOTED WITH MILD SUPRAPUBIC TENDERNESS TO PALPATION. NORMAL BOWEL SOUNDS ARE NOTED IN ALL QUADRANTS. DRESSING NOTED TO SACRAL WOUND. DRESSING DRY AND INTACT. HIS VITALS THIS MORNING ARE 98.2-110-20-93%-141/67. LABS WERE OBTAINED THIS MORNING. ABNORMAL LAB VALUES INCLUDE THE FOLLOWING: WBC 10.8, RBC 3.85, HGB 11.9, HCT 34.5, SODIUM 134, BUN 19, GLUCOSE 323. BLOOD, SPUTUM, AND URINE CULTURES ARE PENDING. A CHEST XRAY WAS OBTAINED AND REVEALED MILD CARDIOMEGALY. MINIMAL ATELECTASIS LEFT MID LUNG. TODAY, WE WILL CONTINUE IV ANTIBIOTICS AND RESPIRATORY TREATMENTS FOR TREATMENT OF ACUTE BRONCHITIS, COPD, AND A URINARY TRACT INFECTION. OTHERWISE, WE PLAN TO FOLLOW UP WITH AM LABS AND CONTINUE TO MONITOR PATIENT. - Past Medical Family Social History Past Med/Fam/Surg Hx: No changes since H&P Allergies: Allergies Sulfa (Sulfonamide Antibiotics) [SULFA] Allergy (Verified 12/25/17 14:16) - Review of Systems ROS: No change since H&P - Vital Signs and I&O's Vital Signs: Temperature 98.3 F Pulse Rate [Left Radial] 90 Pulse Rate 104 Respiratory Rate 16 Blood Pressure [Right Arm] 145/67 Blood Pressure [Left Arm] 157/66 Blood Pressure 99/52 O2 Sat by Pulse Oximetry 92 Intake and Output: Intake & Output 12/25/17 12/26/17 12/27/17 12/28/17 11:59 11:59 11:59 11:59 Intake Total 685 2480 2328 Output Total 718 [address] [facility] -[phone] - Physical Exam Oriented: Normal Eyes: Normal. negative: Blurred Vision, Diplopia, Discharge, Pain, Redness, Photophobia, Other Ear: Normal. negative: Right, Left, Swelling, Ecchymosis, Hemotypanum, Abrasion , Laceration Nose: Discharge Throat: Normal Respiratory: Right, Left, Generalized, Wheezes, Rhonchi Cardiovascular: Normal : Normal Auscultation: Bowel Sounds: Normal Palpation: Normal Tenderness: Suprapubic, Mild. negative: Rebound, Guarding, Rigidity Skin: Wound (SACRAL DECUBITUS ULCER ) Musculoskeletal: Normal Psychiatric: Normal Mood Description: Calm Affect: Normal Speech Pattern: Clear, Appropriate - Laboratory and Diagnostics Result Diagrams: 12/28/17 05:00 12/28/17 05:00 Labs: 12/25/17 13:45 Blood Blood Culture - Preliminary 12/25/17 13:37 Blood Blood Culture - Preliminary 12/25/17 14:16 Sputum - Expectorated Sputum Sputum Culture - Final 12/25/17 14:16 Sputum - Expectorated Sputum - Final 12/25/17 14:37 Urine,Catheterized Urine Culture - Final Klebsiella Oxytoca Laboratory WBC 12.1 X10^3/uL (3.6-10.0) H 12/28/17 05:00 RBC 3.83 X10^6/uL (4.7-6.0) L 12/28/17 05:00 Hgb 11.6 g/dL (13.5-18.0) L 12/28/17 05:00 Hct 33.4 % (42.0-54.0) L 12/28/17 05:00 MCV 87.2 fL (80.0-100.0) 12/28/17 05:00 MCH 30.3 pg (27.0-34.0) 12/28/17 05:00 MCHC 34.7 g/dL (33.0-35.0) 12/28/17 05:00 RDW 14.9 % (11.6-16.5) 12/28/17 05:00 Plt Count 498 X10^3/uL (150.0-450.0) H 12/28/17 05:00 Plt Count Comment Adequate (ADEQUATE) 12/28/17 05:00 MPV 7.6 fL (7.4-11.0) 12/28/17 05:00 Neut % (Auto) 91.3 % (42.0-75.0) H 12/28/17 05:00 Lymph % (Auto) 5.7 % (21.0-51.0) L 12/28/17 05:00 [place] % (Auto) 2.8 % (0.0-13.0) 12/28/17 05:00 Eos % (Auto) 0.0 % (0.9-2.9) L 12/28/17 05:00 Baso % (Auto) 0.2 % (0.2-1.0) 12/28/17 05:00 Neut # (Auto) 11.1 x10^3/uL (2.2-4.8) H 12/28/17 05:00 Lymph # (Auto) 0.7 X10^3/uL (1.3-2.9) L 12/28/17 05:00 [place] # (Auto) 0.3 x10^3/uL (0.3-0.8) 12/28/17 05:00 Eos # (Auto) 0.0 x10^3/uL (0.0-0.2) 12/28/17 05:00 Baso # (Auto) 0.0 X10^3/uL (0.0-0.1) 12/28/17 05:00 Absolute Nucleated RBC 0.0 /100WBC 12/28/17 05:00 Total Counted 100 12/28/17 05:00 Neutrophils % (Manual) 87 % (39-76) H 12/28/17 05:00 Band Neutrophils % 4 % (0-10) 12/26/17 04:42 Lymphocytes % (Manual) 7 % (13-43) L 12/28/17 05:00 Monocytes % (Manual) 6 % (4-9) 12/28/17 05:00 Plt Morphology Comment Normal (NORMAL) 12/28/17 05:00 RBC Morphology Normal (NORMAL) 12/28/17 05:00 Sodium 136 mmol/L (136-145) 12/28/17 05:00 Corrected Sodium 139 mmol/L (136-145) 12/28/17 05:00 Potassium 5.1 mmol/L (3.5-5.1) 12/28/17 05:00 Chloride 99 mmol/L (98-107) 12/28/17 05:00 Carbon Dioxide 30.6 mmol/L (21-32) 12/28/17 05:00 BUN 25 mg/dL (7-18) H 12/28/17 05:00 Creatinine 0.84 mg/dL (0.70-1.30) 12/28/17 05:00 Est GFR (MDRD) Af Amer > 60 (>60) 12/28/17 05:00 Est GFR (MDRD) Non-Af > 60 (>60) 12/28/17 05:00 Glucose 227 mg/dL (65-99) H 12/28/17 05:00 POC Glucose (mg/dL) 221 mg/dL (65-99) H 12/28/17 05:44 Lactic Acid 0.8 mmol/L (0.4-2.0) 12/25/17 13:37 Calcium 9.1 mg/dL (8.5-10.1) 12/28/17 05:00 Corrected Calcium 9.7 mg/dL (8.5-10.1) 12/28/17 05:00 Total Bilirubin 0.20 mg/dL (0.2-1.0) 12/28/17 05:00 AST 15 Units/L (15-37) 12/28/17 05:00 ALT 16 Units/L (12-78) 12/28/17 05:00 Alkaline Phosphatase 83 Units/L (46-116) 12/28/17 05:00 Creatine Kinase 250 Units/L (39-308) 12/25/17 13:37 CK-MB (CK-2) 1.6 ng/mL (0-4.0) 12/25/17 13:37 CK/CKMB % Calc 0.6 % (<4) 12/25/17 13:37 Troponin I < 0.02 ng/mL (0-1.5) 12/25/17 13:37 C-Reactive Protein 76.20 mg/L (0-3.0) H 12/25/17 13:37 Total Protein 8.1 g/dL (6.4-8.2) 12/28/17 05:00 Albumin 3.3 g/dL (3.4-5.0) L 12/28/17 05:00 Globulin 4.8 g/dL (2.5-4.5) H 12/28/17 05:00 Albumin/Globulin Ratio 0.7 Ratio (1.1-2.1) L 12/28/17 05:00 Specimen Type Catherized urine 12/25/17 14:37 Urine Color Yellow (YELLOW) 12/25/17 14:37 Urine Appearance Slightly hazy (CLEAR) 12/25/17 14:37 Urine pH 6.5 (5.0 - 8.0) 12/25/17 14:37 Ur Specific [place] 1.015 (1.000-1.030) 12/25/17 14:37 Urine Protein 2+ (NEGATIVE) 12/25/17 14:37 Urine Glucose (UA) Negative (NEGATIVE) 12/25/17 14:37 Urine Ketones Negative (NEGATIVE) 12/25/17 14:37 Urine Occult Blood 2+ (NEGATIVE) 12/25/17 14:37 Urine Nitrite Negative (NEGATIVE) 12/25/17 14:37 Urine Bilirubin Negative (NEGATIVE) 12/25/17 14:37 Urine Urobilinogen 1+ (NORMAL) 12/25/17 14:37 Ur Leukocyte Esterase 3+ (NEGATIVE) 12/25/17 14:37 Urine RBC 12-14 /HPF (NONE SEEN) 12/25/17 14:37 Urine WBC 15-18 /HPF (NONE SEEN) 12/25/17 14:37 Ur Squamous Epith Cells Rare /HPF (NEGATIVE) 12/25/17 14:37 Urine Bacteria Trace /HPF (NEGATIVE) 12/25/17 14:37 Ur Culture Indicated? Yes/culture set up 12/25/17 14:37 - Plan (1) Bronchitis Status: Acute Plan: MEROPENEM Q8H, DUONEBS Q4H, PULMICORT NEB [place] BID, TESSALON PERLES PRN, SOLU-MEDROL 40MG IV TID, SUPPLEMENTAL OXYGEN, CONTINUE TO MONITOR (2) COPD (chronic obstructive pulmonary disease) Status: Chronic Qualifiers: COPD type: COPD with acute exacerbation Qualified Code(s): J44.1 - Chronic obstructive pulmonary disease with (acute) exacerbation Plan: MEROPENEM Q8H, DUONEBS Q4H, PULMICORT NEB [place] BID, TESSALON PERLES PRN, SOLU-MEDROL 40MG IV TID, SUPPLEMENTAL OXYGEN, CONTINUE TO MONITOR (3) UTI (urinary tract infection) Status: Acute Qualifiers: Urinary tract infection type: site unspecified Hematuria presence: with hematuria Qualified Code(s): N39.0 - Urinary tract infection, site not specified; R31.9 - Hematuria, unspecified Plan: MEROPENEM Q8H, CONTINUE TO MONITOR (4) Congestive heart failure (CHF) Status: Chronic Qualifiers: Heart failure type: unspecified Heart failure chronicity: chronic Qualified Code(s): I50.9 - Heart failure, unspecified Plan: CONTINUE LASIX, CONTINUE MAXZIDE, CONTINUE LOPRESSOR, CONTINUE TO MONITOR (5) CAD (coronary artery disease) Status: Chronic Qualifiers: Coronary Disease-Associated Artery/Lesion type: [place] artery [place] vs. 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 use: with alf use Diabetes mellitus complication status: with hyperglycemia Qualified Code(s): E11.65 - Type 2 diabetes mellitus with hyperglycemia; Z79.4 - longterm (current) use of insulin; Z79.4 - longterm (current) use of insulin; Z79.4 - longterm (current ) use of insulin; Z79.4 - longterm (current) use of insulin Plan: CONTINUE HUMULIN R SLIDING SCALE, CONTINUE HUMULIN 70/30, CONTINUE TO MONITOR (7) GERD (gastroesophageal reflux disease) Status: Chronic Qualifiers: Esophagitis presence: esophagitis presence not specified Qualified Code(s) : K21.9 - Gastro-esophageal reflux disease without esophagitis Plan: CONTINUE PROTONIX (8) HTN (hypertension) Status: Chronic Qualifiers: Hypertension type: essential hypertension Qualified Code(s): I10 - Essential (primary) hypertension Plan: CONTINUE LOPRESSOR, CONTINUE MAXZIDE
--- NOTE | 2017-12-28 11:16 | PCM.PROG ---
Progress Note - Progress Note for Day of Date: 12/27/17 - Subjective Subjective: IS BEING TREATED FOR ACUTE BRONCHITIS, COPD EXACERBATION , AND A URINARY TRACT INFECTION. TODAY, HE IS ALERT AND ORIENTED, LYING IN BED ON MORNING ROUNDS. HE CONTINUES WITH COMPLAINTS OF PRODUCTIVE COUGH, SHORTNESS OF BREATH, GENERALIZED WEAKNESS, AND SUPRAPUBIC PAIN. ON EXAMINATION, HEART IS REGULAR IN RATE AND RHYTHM. BILATERAL LUNGS CONTINUE WITH SCATTERED WHEEZING AND RHONCHI, DIMINISHED THROUGHOUT. ABDOMEN IS ROUND, SOFT, AND NOTED WITH MILD SUPRAPUBIC TENDERNESS TO PALPATION. NORMAL BOWEL SOUNDS ARE NOTED IN ALL QUADRANTS. DRESSING NOTED TO SACRAL WOUND. DRESSING DRY AND INTACT. HIS VITALS THIS MORNING ARE 97.6-94-20-97%-150/68. LABS WERE OBTAINED THIS MORNING. ABNORMAL LAB VALUES INCLUDE THE FOLLOWING: RBC 3.55, HGB 10.8, HCT 31.5, SODIUM 135, BUN 23, GLUCOSE 346, AST 9, ALBUMIN 3.0. URINE CULTURE REPORTS GROWTH OF KLEBSIELLA OXYTOCA. IT IS SENSITIVE TO THE MEROPENEM THAT HE IS CURRENTLY RECEIVING. A CHEST XRAY WAS OBTAINED AND REVEALED MILD CARDIOMEGALY WITHOUT CONGESTIVE HEART FAILURE. TODAY, WE WILL CONTINUE IV ANTIBIOTICS AND RESPIRATORY TREATMENTS FOR TREATMENT OF ACUTE BRONCHITIS, COPD, AND A URINARY TRACT INFECTION. OTHERWISE, WE PLAN TO FOLLOW UP WITH AM LABS AND CONTINUE TO MONITOR PATIENT. - Past Medical Family Social History Past Med/Fam/Surg Hx: No changes since H&P Allergies: Allergies Sulfa (Sulfonamide Antibiotics) [SULFA] Allergy (Verified 12/25/17 14:16) - Review of Systems ROS: No change since H&P - Vital Signs and I&O's Vital Signs: Temperature 98.3 F Pulse Rate [Left Radial] 90 Pulse Rate 104 Respiratory Rate 16 Blood Pressure [Right Arm] 145/67 Blood Pressure [Left Arm] 157/66 Blood Pressure 99/52 O2 Sat by Pulse Oximetry 92 Intake and Output: Intake & Output 12/25/17 12/26/17 12/27/17 12/28/17 11:59 11:59 11:59 11:59 Intake Total 685 2480 2328 Output Total 812 8700 1711 Balance -52 -601 -9806 - Physical Exam Oriented: Normal Eyes: Normal. negative: Blurred Vision, Diplopia, Discharge, Pain, Redness, Photophobia, Other Ear: Normal. negative: Right, Left, Swelling, Ecchymosis, Hemotypanum, Abrasion , Laceration Nose: Discharge Throat: Normal Respiratory: Right, Left, Generalized, Wheezes, Rhonchi Cardiovascular: Normal : Normal Auscultation: Bowel Sounds: Normal Palpation: Normal Tenderness: Suprapubic, Mild. negative: Rebound, Guarding, Rigidity Skin: Wound (SACRAL DECUBITUS ULCER ) Musculoskeletal: Normal Psychiatric: Normal Mood Description: Calm Affect: Normal Speech Pattern: Clear, Appropriate - Laboratory and Diagnostics Result Diagrams: 12/28/17 05:00 12/28/17 05:00 Labs: 12/25/17 13:45 Blood Blood Culture - Preliminary 12/25/17 13:37 Blood Blood Culture - Preliminary 12/25/17 14:16 Sputum - Expectorated Sputum Sputum Culture - Final 12/25/17 14:16 Sputum - Expectorated Sputum - Final 12/25/17 14:37 Urine,Catheterized Urine Culture - Final Klebsiella Oxytoca Laboratory WBC 12.1 X10^3/uL (3.6-10.0) H 12/28/17 05:00 RBC 3.83 X10^6/uL (4.7-6.0) L 12/28/17 05:00 Hgb 11.6 g/dL (13.5-18.0) L 12/28/17 05:00 Hct 33.4 % (42.0-54.0) L 12/28/17 05:00 MCV 87.2 fL (80.0-100.0) 12/28/17 05:00 MCH 30.3 pg (27.0-34.0) 12/28/17 05:00 MCHC 34.7 g/dL (33.0-35.0) 12/28/17 05:00 RDW 14.9 % (11.6-16.5) 12/28/17 05:00 Plt Count 498 X10^3/uL (150.0-450.0) H 12/28/17 05:00 Plt Count Comment Adequate (ADEQUATE) 12/28/17 05:00 MPV 7.6 fL (7.4-11.0) 12/28/17 05:00 Neut % (Auto) 91.3 % (42.0-75.0) H 12/28/17 05:00 Lymph % (Auto) 5.7 % (21.0-51.0) L 12/28/17 05:00 [place] % (Auto) 2.8 % (0.0-13.0) 12/28/17 05:00 Eos % (Auto) 0.0 % (0.9-2.9) L 12/28/17 05:00 Baso % (Auto) 0.2 % (0.2-1.0) 12/28/17 05:00 Neut # (Auto) 11.1 x10^3/uL (2.2-4.8) H 12/28/17 05:00 Lymph # (Auto) 0.7 X10^3/uL (1.3-2.9) L 12/28/17 05:00 [place] # (Auto) 0.3 x10^3/uL (0.3-0.8) 12/28/17 05:00 Eos # (Auto) 0.0 x10^3/uL (0.0-0.2) 12/28/17 05:00 Baso # (Auto) 0.0 X10^3/uL (0.0-0.1) 12/28/17 05:00 Absolute Nucleated RBC 0.0 /100WBC 12/28/17 05:00 Total Counted 100 12/28/17 05:00 Neutrophils % (Manual) 87 % (39-76) H 12/28/17 05:00 Band Neutrophils % 4 % (0-10) 12/26/17 04:42 Lymphocytes % (Manual) 7 % (13-43) L 12/28/17 05:00 Monocytes % (Manual) 6 % (4-9) 12/28/17 05:00 Plt Morphology Comment Normal (NORMAL) 12/28/17 05:00 RBC Morphology Normal (NORMAL) 12/28/17 05:00 Sodium 136 mmol/L (136-145) 12/28/17 05:00 Corrected Sodium 139 mmol/L (136-145) 12/28/17 05:00 Potassium 5.1 mmol/L (3.5-5.1) 12/28/17 05:00 Chloride 99 mmol/L (98-107) 12/28/17 05:00 Carbon Dioxide 30.6 mmol/L (21-32) 12/28/17 05:00 BUN 25 mg/dL (7-18) H 12/28/17 05:00 Creatinine 0.84 mg/dL (0.70-1.30) 12/28/17 05:00 Est GFR (MDRD) Af Amer > 60 (>60) 12/28/17 05:00 Est GFR (MDRD) Non-Af > 60 (>60) 12/28/17 05:00 Glucose 227 mg/dL (65-99) H 12/28/17 05:00 POC Glucose (mg/dL) 221 mg/dL (65-99) H 12/28/17 05:44 Lactic Acid 0.8 mmol/L (0.4-2.0) 12/25/17 13:37 Calcium 9.1 mg/dL (8.5-10.1) 12/28/17 05:00 Corrected Calcium 9.7 mg/dL (8.5-10.1) 12/28/17 05:00 Total Bilirubin 0.20 mg/dL (0.2-1.0) 12/28/17 05:00 AST 15 Units/L (15-37) 12/28/17 05:00 ALT 16 Units/L (12-78) 12/28/17 05:00 Alkaline Phosphatase 83 Units/L (46-116) 12/28/17 05:00 Creatine Kinase 250 Units/L (39-308) 12/25/17 13:37 CK-MB (CK-2) 1.6 ng/mL (0-4.0) 12/25/17 13:37 CK/CKMB % Calc 0.6 % (<4) 12/25/17 13:37 Troponin I < 0.02 ng/mL (0-1.5) 12/25/17 13:37 C-Reactive Protein 76.20 mg/L (0-3.0) H 12/25/17 13:37 Total Protein 8.1 g/dL (6.4-8.2) 12/28/17 05:00 Albumin 3.3 g/dL (3.4-5.0) L 12/28/17 05:00 Globulin 4.8 g/dL (2.5-4.5) H 12/28/17 05:00 Albumin/Globulin Ratio 0.7 Ratio (1.1-2.1) L 12/28/17 05:00 Specimen Type Catherized urine 12/25/17 14:37 Urine Color Yellow (YELLOW) 12/25/17 14:37 Urine Appearance Slightly hazy (CLEAR) 12/25/17 14:37 Urine pH 6.5 (5.0 - 8.0) 12/25/17 14:37 Ur Specific [place] 1.015 (1.000-1.030) 12/25/17 14:37 Urine Protein 2+ (NEGATIVE) 12/25/17 14:37 Urine Glucose (UA) Negative (NEGATIVE) 12/25/17 14:37 Urine Ketones Negative (NEGATIVE) 12/25/17 14:37 Urine Occult Blood 2+ (NEGATIVE) 12/25/17 14:37 Urine Nitrite Negative (NEGATIVE) 12/25/17 14:37 Urine Bilirubin Negative (NEGATIVE) 12/25/17 14:37 Urine Urobilinogen 1+ (NORMAL) 12/25/17 14:37 Ur Leukocyte Esterase 3+ (NEGATIVE) 12/25/17 14:37 Urine RBC 12-14 /HPF (NONE SEEN) 12/25/17 14:37 Urine WBC 15-18 /HPF (NONE SEEN) 12/25/17 14:37 Ur Squamous Epith Cells Rare /HPF (NEGATIVE) 12/25/17 14:37 Urine Bacteria Trace /HPF (NEGATIVE) 12/25/17 14:37 Ur Culture Indicated? Yes/culture set up 12/25/17 14:37 - Plan (1) Bronchitis Status: Acute Plan: MEROPENEM Q8H, DUONEBS Q4H, PULMICORT NEB TX BID, TESSALON PERLES PRN, SOLU-MEDROL 40MG IV TID, SUPPLEMENTAL OXYGEN, CONTINUE TO MONITOR (2) COPD (chronic obstructive pulmonary disease) Status: Chronic Qualifiers: COPD type: COPD with acute exacerbation Qualified Code(s): J44.1 - Chronic obstructive pulmonary disease with (acute) exacerbation Plan: MEROPENEM Q8H, DUONEBS Q4H, PULMICORT NEB [place] BID, TESSALON PERLES PRN, SOLU-MEDROL 40MG IV TID, SUPPLEMENTAL OXYGEN, CONTINUE TO MONITOR (3) UTI (urinary tract infection) Status: Acute Qualifiers: Urinary tract infection type: site unspecified Hematuria presence: with hematuria Qualified Code(s): N39.0 - Urinary tract infection, site not specified; R31.9 - Hematuria, unspecified Plan: MEROPENEM Q8H, CONTINUE TO MONITOR (4) Congestive heart failure (CHF) Status: Chronic Qualifiers: Heart failure type: unspecified Heart failure chronicity: chronic Qualified Code(s): I50.9 - Heart failure, unspecified Plan: CONTINUE LASIX, CONTINUE MAXZIDE, CONTINUE LOPRESSOR, CONTINUE TO MONITOR (5) CAD (coronary artery disease) Status: Chronic Qualifiers: Coronary Disease-Associated Artery/Lesion type: [place] artery [place] vs. transplanted heart: [place] heart Associated angina: without angina Qualified Code(s): I25.10 - Atherosclerotic heart disease of [place] coronary artery without angina pectoris Plan: CONTINUE BRILANTA, CONTINUE TO MONITOR (6) Diabetes mellitus, type II Status: Chronic Qualifiers: Diabetes mellitus ad terminal makeup operator insulin use: with snf use Diabetes mellitus complication status: with hyperglycemia Qualified Code(s): E11.65 - Type 2 diabetes mellitus with hyperglycemia; Z79.4 - adjunct faculty for [employer] terminology (current) use of insulin; Z79.4 - [facility] (current) use of insulin; Z79.4 - adjunct faculty for medical terminology (current ) use of insulin; Z79.4 - adjunct faculty for medical terminology (current) use of insulin Plan: CONTINUE HUMULIN R SLIDING SCALE, CONTINUE HUMULIN 70/30, CONTINUE TO MONITOR (7) GERD (gastroesophageal reflux disease) Status: Chronic Qualifiers: Esophagitis presence: esophagitis presence not specified Qualified Code(s) : K21.9 - Gastro-esophageal reflux disease without esophagitis Plan: CONTINUE PROTONIX (8) HTN (hypertension) Status: Chronic Qualifiers: Hypertension type: essential hypertension Qualified Code(s): I10 - Essential (primary) hypertension Plan: CONTINUE LOPRESSOR, CONTINUE MAXZIDE
[2017-12-28 11:24] LABS: ABG BASE EXCESS 5.6 mmol/L (-2.0-2.0); ABG HCO3 29.8 mmol/L (22-26)
[2017-12-28] MEDS: HumuLIN R SUBCUT PRN ×4 (13:16→22:41)
[2017-12-28] MEDS: XANAX PO PRN (15:09)
[2017-12-28] MEDS: NORCO 10/325 TAB PO PRN ×2 (15:09→22:35)
[2017-12-28] MEDS: SNACK - Diabetic Appropriate PO SCH (20:30)
[2017-12-28] MEDS: NEURONTIN CAP 300 MG PO SCH (21:51)
[2017-12-28] MEDS: MIRALAX POWDER (1 DOSE 17GM) PO SCH (21:52)
[2017-12-29] MEDS: DUONEB 0.5 MG/3 MG NEB SCH ×7 (01:16→21:41)
[2017-12-29] MEDS: MERREM VIAL 500 MG in NS 100 ML IV + SPIKE MINIBAG* 100 ML IV SCH ×3 (05:37→21:02)
--- NOTE | 2017-12-29 06:04 | RAD ---
HISTORY: Shortness of breath Study: Chest AP portable Comparison: 12/28/2017 Findings: Positioning is less than optimal with the left costophrenic angle not included on the image. The hear t remains enlarged. No congestive heart failure is noted. No acute alveolar infiltrates or pleural ef fusions are identified. The bony thorax is unremarkable. IMPRESSION: 1. Moderate cardiomegaly without congestive heart failure 2. Lungs clear Reported By:
[2017-12-29] MEDS: HumuLIN R SUBCUT PRN ×2 (06:07→12:37)
[2017-12-29] MEDS: LASIX PO SCH ×2 (06:08→16:58)
[2017-12-29 06:11] LABS: BASOPHILS % (AUTO) 0.1 % (0.2-1.0); HEMATOCRIT 33.9 % (42.0-54.0); HEMOGLOBIN 11.5 g/dL (13.5-18.0); LYMPHOCYTES # (AUTO) 0.8 X10^3/uL (1.3-2.9); LYMPHOCYTES % (AUTO) 7.2 % (21.0-51.0); MEAN CORPUSCULAR HEMOGLOBIN 30.2 pg (27.0-34.0); MEAN CORPUSCULAR VOLUME 88.8 fL (80.0-100.0); MEAN PLATELET VOLUME 7.6 fL (7.4-11.0); MONOCYTES # (AUTO) 0.5 x10^3/uL (0.3-0.8); MONOCYTES % (AUTO) 4.6 % (0.0-13.0); NEUTROPHILS # (AUTO) 9.5 x10^3/uL (2.2-4.8); NEUTROPHILS % (AUTO) 88.1 % (42.0-75.0); PLATELET COUNT 487 X10^3/uL (150.0-450.0); RED BLOOD COUNT 3.81 X10^6/uL (4.7-6.0); WHITE BLOOD COUNT 10.8 X10^3/uL (3.6-10.0)
[2017-12-29 06:32] LABS: ALANINE AMINOTRANSFERASE 16 Units/L (12-78); ALBUMIN 3.1 g/dL (3.4-5.0); ALKALINE PHOSPHATASE 72 Units/L (46-116); ASPARTATE AMINO TRANSFERASE 10 Units/L (15-37); BLOOD UREA NITROGEN 27 mg/dL (7-18); CALCIUM 8.7 mg/dL (8.5-10.1); CARBON DIOXIDE 30.6 mmol/L (21-32); CHLORIDE 99 mmol/L (98-107); COR CA(FOR HYPOALB) 9.4 mg/dL (8.5-10.1); COR NA(FOR HYPERGLY) 138 mmol/L (136-145); CREATININE 0.88 mg/dL (0.70-1.30); SODIUM 136 mmol/L (136-145); TOTAL PROTEIN 7.3 g/dL (6.4-8.2); eGFR BLACK RACES > 60 (>60); eGFR NON BLACK RACES > 60 (>60)
[2017-12-29] MEDS: PULMICORT NEB TX 0.5 MG NEB SCH ×2 (08:30→21:42)
[2017-12-29] MEDS: LOPRESSOR TAB 25 MG PO SCH ×2 (09:20→21:00)
[2017-12-29] MEDS: MIRALAX POWDER (1 DOSE 17GM) PO SCH ×2 (09:20→20:58)
[2017-12-29] MEDS: LINZESS PO SCH (09:20)
[2017-12-29] MEDS: PROTONIX TAB 40 MG PO SCH (09:21)
[2017-12-29] MEDS: BRILINTA PO SCH ×2 (09:21→20:59)
[2017-12-29] MEDS: MAXZIDE 37.5/25 MG PO SCH (09:21)
[2017-12-29] MEDS: K-DUR TAB 20 MEQ PO SCH (09:22)
[2017-12-29] MEDS: NORCO 10/325 TAB PO PRN ×2 (09:30→21:02)
[2017-12-29] MEDS: XANAX PO PRN ×2 (09:30→17:30)
--- NOTE | 2017-12-29 11:26 | PCM.PROG ---
Progress Note - Progress Note for Day of Date: 12/28/17 - Subjective Subjective: IS BEING TREATED FOR ACUTE BRONCHITIS, COPD EXACERBATION , AND A URINARY TRACT INFECTION. TODAY, HE IS ALERT AND ORIENTED, LYING IN BED ON MORNING ROUNDS. HE CONTINUES WITH COMPLAINTS OF PRODUCTIVE COUGH, SHORTNESS OF BREATH, GENERALIZED WEAKNESS, AND SUPRAPUBIC PAIN. ON EXAMINATION, HEART IS REGULAR IN RATE AND RHYTHM. BILATERAL LUNGS CONTINUE WITH SCATTERED WHEEZING AND RHONCHI, DIMINISHED THROUGHOUT. SPUTUM NOTED AT BEDSIDE IS THICK AND YELLOW IN COLOR. HE IS CURRENTLY UTILIZING OXYGEN VIA NASAL CANNULA AT 2L/MIN. ABDOMEN IS ROUND, SOFT, AND NOTED WITH MILD SUPRAPUBIC TENDERNESS TO PALPATION. NORMAL BOWEL SOUNDS ARE NOTED IN ALL QUADRANTS. DRESSING NOTED TO SACRAL WOUND. DRESSING DRY AND INTACT. HIS VITALS THIS MORNING ARE 98.2-68-20-95%-134/64. LABS WERE OBTAINED THIS MORNING. ABNORMAL LAB VALUES INCLUDE THE FOLLOWING: WBC 12.1, RBC 3.83, HGB 11.6, HCT 33.4, PLT COUNT 498, BUN 27, GLUCOSE 201, AT 10, ALBUMIN 3.1. A CHEST XRAY WAS OBTAINED AND REVEALED CARDIOMEGALY WITHOUT CONGESTIVE HEART FAILURE. TODAY, WE WILL CONTINUE IV ANTIBIOTICS AND RESPIRATORY TREATMENTS FOR TREATMENT OF ACUTE BRONCHITIS, COPD, AND A URINARY TRACT INFECTION. OTHERWISE, WE PLAN TO FOLLOW UP WITH AM LABS AND CONTINUE TO MONITOR PATIENT. - Past Medical Family Social History Past Med/Fam/Surg Hx: No changes since H&P Allergies: Allergies Sulfa (Sulfonamide Antibiotics) [SULFA] Allergy (Verified 12/25/17 14:16) - Review of Systems ROS: No change since H&P - Vital Signs and I&O's Vital Signs: Temperature 97.6 F Pulse Rate [Left Radial] 88 Pulse Rate 60 Respiratory Rate 18 Blood Pressure [Right Arm] 145/67 Blood Pressure [Left Arm] 155/68 Blood Pressure 99/52 O2 Sat by Pulse Oximetry 89 Intake and Output: Intake & Output 12/26/17 12/27/17 12/28/17 12/29/17 11:59 11:59 11:59 11:59 Intake Total 685 2480 2328 1555 Output Total 905 2650 4126 3223 Balance -70 -215 -6689 -2678 - Physical Exam Oriented: Normal Eyes: Normal. negative: Blurred Vision, Diplopia, Discharge, Pain, Redness, Photophobia, Other Ear: Normal. negative: Right, Left, Swelling, Ecchymosis, Hemotypanum, Abrasion , Laceration Nose: Discharge Throat: Normal Respiratory: Right, Left, Generalized, Wheezes, Rhonchi Cardiovascular: Normal : Normal Auscultation: Bowel Sounds: Normal Palpation: Normal Tenderness: Suprapubic, Mild. negative: Rebound, Guarding, Rigidity Skin: Wound (SACRAL DECUBITUS ULCER ) Musculoskeletal: Normal Psychiatric: Normal Mood Description: Calm Affect: Normal Speech Pattern: Clear, Appropriate - Laboratory and Diagnostics Result Diagrams: 12/29/17 05:46 12/29/17 05:46 Labs: 12/25/17 13:45 Blood Blood Culture - Preliminary 12/25/17 13:37 Blood Blood Culture - Preliminary 12/25/17 14:16 Sputum - Expectorated Sputum Sputum Culture - Final 12/25/17 14:16 Sputum - Expectorated Sputum - Final 12/25/17 14:37 Urine,Catheterized Urine Culture - Final Klebsiella Oxytoca Laboratory WBC 10.8 X10^3/uL (3.6-10.0) H 12/29/17 05:46 RBC 3.81 X10^6/uL (4.7-6.0) L 12/29/17 05:46 Hgb 11.5 g/dL (13.5-18.0) L 12/29/17 05:46 Hct 33.9 % (42.0-54.0) L 12/29/17 05:46 MCV 88.8 fL (80.0-100.0) 12/29/17 05:46 MCH 30.2 pg (27.0-34.0) 12/29/17 05:46 MCHC 34.0 g/dL (33.0-35.0) 12/29/17 05:46 RDW 15.0 % (11.6-16.5) 12/29/17 05:46 Plt Count 487 X10^3/uL (150.0-450.0) H 12/29/17 05:46 Plt Count Comment Adequate (ADEQUATE) 12/28/17 05:00 MPV 7.6 fL (7.4-11.0) 12/29/17 05:46 Neut % (Auto) 88.1 % (42.0-75.0) H 12/29/17 05:46 Lymph % (Auto) 7.2 % (21.0-51.0) L 12/29/17 05:46 [place] % (Auto) 4.6 % (0.0-13.0) 12/29/17 05:46 Eos % (Auto) 0.0 % (0.9-2.9) L 12/29/17 05:46 Baso % (Auto) 0.1 % (0.2-1.0) L 12/29/17 05:46 Neut # (Auto) 9.5 x10^3/uL (2.2-4.8) H 12/29/17 05:46 Lymph # (Auto) 0.8 X10^3/uL (1.3-2.9) L 12/29/17 05:46 [place] # (Auto) 0.5 x10^3/uL (0.3-0.8) 12/29/17 05:46 Eos # (Auto) 0.0 x10^3/uL (0.0-0.2) 12/29/17 05:46 Baso # (Auto) 0.0 X10^3/uL (0.0-0.1) 12/29/17 05:46 Absolute Nucleated RBC 0.0 /100WBC 12/29/17 05:46 Total Counted 100 12/28/17 05:00 Neutrophils % (Manual) 87 % (39-76) H 12/28/17 05:00 Band Neutrophils % 4 % (0-10) 12/26/17 04:42 Lymphocytes % (Manual) 7 % (13-43) L 12/28/17 05:00 Monocytes % (Manual) 6 % (4-9) 12/28/17 05:00 Plt Morphology Comment Normal (NORMAL) 12/28/17 05:00 RBC Morphology Normal (NORMAL) 12/28/17 05:00 Sample Site Rba 12/28/17 11:20 ABG pH 7.470 (7.35-7.45) H 12/28/17 11:20 ABG pCO2 41.0 mmHg (35.0-45.0) 12/28/17 11:20 ABG pO2 70.0 mmHg (80.0-100.0) L 12/28/17 11:20 ABG HCO3 29.8 mmol/L (22-26) H 12/28/17 11:20 ABG O2 Saturation 95.0 % (90-100) 12/28/17 11:20 ABG Base Excess 5.6 mmol/L (-2.0-2.0) H 12/28/17 11:20 Sharhiar Test Na 12/28/17 11:20 A-a Gradient 28.0 mmHg 12/28/17 11:20 FiO2 21.000 12/28/17 11:20 Blood Gas Comments [facility] cn/cs 12/28/17 11:20 Sodium 136 mmol/L (136-145) 12/29/17 05:46 Corrected Sodium 138 mmol/L (136-145) 12/29/17 05:46 Potassium 5.1 mmol/L (3.5-5.1) 12/29/17 05:46 Chloride 99 mmol/L (98-107) 12/29/17 05:46 Carbon Dioxide 30.6 mmol/L (21-32) 12/29/17 05:46 BUN 27 mg/dL (7-18) H 12/29/17 05:46 Creatinine 0.88 mg/dL (0.70-1.30) 12/29/17 05:46 Est GFR (MDRD) Af Amer > 60 (>60) 12/29/17 05:46 Est GFR (MDRD) Non-Af > 60 (>60) 12/29/17 05:46 Glucose 201 mg/dL (65-99) H 12/29/17 05:46 POC Glucose (mg/dL) 204 mg/dL (65-99) H 12/29/17 06:00 Lactic Acid 0.8 mmol/L (0.4-2.0) 12/25/17 13:37 Calcium 8.7 mg/dL (8.5-10.1) 12/29/17 05:46 Corrected Calcium 9.4 mg/dL (8.5-10.1) 12/29/17 05:46 Total Bilirubin 0.20 mg/dL (0.2-1.0) 12/29/17 05:46 AST 10 Units/L (15-37) L 12/29/17 05:46 ALT 16 Units/L (12-78) 12/29/17 05:46 Alkaline Phosphatase 72 Units/L (46-116) 12/29/17 05:46 Creatine Kinase 250 Units/L (39-308) 12/25/17 13:37 CK-MB (CK-2) 1.6 ng/mL (0-4.0) 12/25/17 13:37 CK/CKMB % Calc 0.6 % (<4) 12/25/17 13:37 Troponin I < 0.02 ng/mL (0-1.5) 12/25/17 13:37 C-Reactive Protein 76.20 mg/L (0-3.0) H 12/25/17 13:37 Total Protein 7.3 g/dL (6.4-8.2) 12/29/17 05:46 Albumin 3.1 g/dL (3.4-5.0) L 12/29/17 05:46 Globulin 4.2 g/dL (2.5-4.5) 12/29/17 05:46 Albumin/Globulin Ratio 0.7 Ratio (1.1-2.1) L 12/29/17 05:46 Specimen Type Catherized urine 12/25/17 14:37 Urine Color Yellow (YELLOW) 12/25/17 14:37 Urine Appearance Slightly hazy (CLEAR) 12/25/17 14:37 Urine pH 6.5 (5.0 - 8.0) 12/25/17 14:37 Ur Specific [place] 1.015 (1.000-1.030) 12/25/17 14:37 Urine Protein 2+ (NEGATIVE) 12/25/17 14:37 Urine Glucose (UA) Negative (NEGATIVE) 12/25/17 14:37 Urine Ketones Negative (NEGATIVE) 12/25/17 14:37 Urine Occult Blood 2+ (NEGATIVE) 12/25/17 14:37 Urine Nitrite Negative (NEGATIVE) 12/25/17 14:37 Urine Bilirubin Negative (NEGATIVE) 12/25/17 14:37 Urine Urobilinogen 1+ (NORMAL) 12/25/17 14:37 Ur Leukocyte Esterase 3+ (NEGATIVE) 12/25/17 14:37 Urine RBC 12-14 /HPF (NONE SEEN) 12/25/17 14:37 Urine WBC 15-18 /HPF (NONE SEEN) 12/25/17 14:37 Ur Squamous Epith Cells Rare /HPF (NEGATIVE) 12/25/17 14:37 Urine Bacteria Trace /HPF (NEGATIVE) 12/25/17 14:37 Ur Culture Indicated? Yes/culture set up 12/25/17 14:37 - Plan (1) Bronchitis Status: Acute Plan: MEROPENEM Q8H, DUONEBS Q4H, PULMICORT NEB TX BID, TESSALON PERLES PRN, SOLU-MEDROL 40MG IV TID, SUPPLEMENTAL OXYGEN, CONTINUE TO MONITOR (2) COPD (chronic obstructive pulmonary disease) Status: Chronic Qualifiers: COPD type: COPD with acute exacerbation Qualified Code(s): J44.1 - Chronic obstructive pulmonary disease with (acute) exacerbation Plan: MEROPENEM Q8H, DUONEBS Q4H, PULMICORT NEB [place] BID, TESSALON PERLES PRN, SOLU-MEDROL 40MG IV TID, SUPPLEMENTAL OXYGEN, CONTINUE TO MONITOR (3) UTI (urinary tract infection) Status: Acute Qualifiers: Urinary tract infection type: site unspecified Hematuria presence: with hematuria Qualified Code(s): N39.0 - Urinary tract infection, site not specified; R31.9 - Hematuria, unspecified Plan: MEROPENEM Q8H, CONTINUE TO MONITOR (4) Congestive heart failure (CHF) Status: Chronic Qualifiers: Heart failure type: unspecified Heart failure chronicity: chronic Qualified Code(s): I50.9 - Heart failure, unspecified Plan: CONTINUE LASIX, CONTINUE MAXZIDE, CONTINUE LOPRESSOR, CONTINUE TO MONITOR (5) CAD (coronary artery disease) Status: Chronic Qualifiers: Coronary Disease-Associated Artery/Lesion type: [place] artery [place] vs. transplanted heart: [place] heart Associated angina: without angina Qualified Code(s): I25.10 - Atherosclerotic heart disease of [place] coronary artery without angina pectoris Plan: CONTINUE BRILANTA, CONTINUE TO MONITOR (6) Diabetes mellitus, type II Status: Chronic Qualifiers: Diabetes mellitus correction insulin use: with exterminator helper use Diabetes mellitus complication status: with hyperglycemia Qualified Code(s): E11.65 - Type 2 diabetes mellitus with hyperglycemia; Z79.4 - [employer] (current) use of insulin; Z79.4 - [employer]modal customer service (current) use of insulin; Z79.4 - intermodal customer service (current ) use of insulin; Z79.4 - intermodal customer service (current) use of insulin Plan: CONTINUE HUMULIN R SLIDING SCALE, CONTINUE HUMULIN 70/30, CONTINUE TO MONITOR (7) GERD (gastroesophageal reflux disease) Status: Chronic Qualifiers: Esophagitis presence: esophagitis presence not specified Qualified Code(s) : K21.9 - Gastro-esophageal reflux disease without esophagitis Plan: CONTINUE PROTONIX (8) HTN (hypertension) Status: Chronic Qualifiers: Hypertension type: essential hypertension Qualified Code(s): I10 - Essential (primary) hypertension Plan: CONTINUE LOPRESSOR, CONTINUE MAXZIDE
[2017-12-29] MEDS ORDERED: MILK OF MAGNESIA PO PRN (20:29)
[2017-12-29] MEDS: NEURONTIN CAP 300 MG PO SCH (20:59)
[2017-12-29] MEDS: SNACK - Diabetic Appropriate PO SCH (21:00)
[2017-12-30] MEDS: DUONEB 0.5 MG/3 MG NEB SCH ×6 (01:13→20:53)
--- NOTE | 2017-12-30 05:42 | RAD ---
Examination: Portable AP chest History: SOB Comparison 12/29/2017 Findings: Continued normal heart size with clear right chest. Suspicious appearance for retrocardiac airspace disease in the left lower lobe; the diaphragm and costophrenic sulcus are not well defined. No pneumothorax or large pleural effusion. Metallic foreign body again noted projected over the centr al chest. Impression: Suspect developing infiltrate/atelectasis left lower lobe. Reported By:
[2017-12-30 05:53] LABS: BASOPHILS % (AUTO) 0.2 % (0.2-1.0); EOSINOPHILS # (AUTO) 0.3 x10^3/uL (0.0-0.2); EOSINOPHILS % (AUTO) 1.8 % (0.9-2.9); HEMATOCRIT 34.1 % (42.0-54.0); HEMOGLOBIN 11.6 g/dL (13.5-18.0); LYMPHOCYTES # (AUTO) 2.3 X10^3/uL (1.3-2.9); LYMPHOCYTES % (AUTO) 15.4 % (21.0-51.0); MEAN CORPUSCULAR HEMOGLOBIN 30.2 pg (27.0-34.0); MEAN CORPUSCULAR HGB CONC 34.1 g/dL (33.0-35.0); MEAN CORPUSCULAR VOLUME 88.5 fL (80.0-100.0); MEAN PLATELET VOLUME 7.7 fL (7.4-11.0); MONOCYTES % (AUTO) 7.1 % (0.0-13.0); NEUTROPHILS # (AUTO) 11.1 x10^3/uL (2.2-4.8); NEUTROPHILS % (AUTO) 75.5 % (42.0-75.0); PLATELET COUNT 508 X10^3/uL (150.0-450.0); RED BLOOD COUNT 3.85 X10^6/uL (4.7-6.0); RED CELL DISTRIBUTION WIDTH 15.1 % (11.6-16.5); WHITE BLOOD COUNT 14.7 X10^3/uL (3.6-10.0)
[2017-12-30] MEDS: LASIX PO SCH ×3 (05:57→17:32)
[2017-12-30] MEDS ORDERED: CITROMA PO ONE (06:06)
[2017-12-30 06:12] LABS: ALANINE AMINOTRANSFERASE 15 Units/L (12-78); ALBUMIN 2.9 g/dL (3.4-5.0); ALKALINE PHOSPHATASE 74 Units/L (46-116); ASPARTATE AMINO TRANSFERASE 14 Units/L (15-37); BLOOD UREA NITROGEN 37 mg/dL (7-18); CALCIUM 8.4 mg/dL (8.5-10.1); CARBON DIOXIDE 31.4 mmol/L (21-32); CHLORIDE 99 mmol/L (98-107); COR CA(FOR HYPOALB) 9.3 mg/dL (8.5-10.1); COR NA(FOR HYPERGLY) 140 mmol/L (136-145); SODIUM 137 mmol/L (136-145); TOTAL PROTEIN 6.8 g/dL (6.4-8.2); eGFR BLACK RACES > 60 (>60); eGFR NON BLACK RACES > 60 (>60)
[2017-12-30] MEDS: PULMICORT NEB TX 0.5 MG NEB SCH ×2 (08:55→20:53)
[2017-12-30] MEDS: LOPRESSOR TAB 25 MG PO SCH ×2 (10:07→21:23)
[2017-12-30] MEDS: MAXZIDE 37.5/25 MG PO SCH (10:07)
[2017-12-30] MEDS: LINZESS PO SCH (10:07)
[2017-12-30] MEDS: PROTONIX TAB 40 MG PO SCH (10:07)
[2017-12-30] MEDS: K-DUR TAB 20 MEQ PO SCH ×2 (10:07→10:13)
[2017-12-30] MEDS: BRILINTA PO SCH ×2 (10:08→21:22)
[2017-12-30] MEDS: MIRALAX POWDER (1 DOSE 17GM) PO SCH ×2 (10:13→21:24)
[2017-12-30] MEDS: MILK OF MAGNESIA PO SCH ×3 (13:00→21:24)
[2017-12-30] MEDS: XANAX PO PRN (17:40)
[2017-12-30] MEDS: NORCO 10/325 TAB PO PRN (17:40)
[2017-12-30] MEDS: MERREM VIAL 500 MG in NS 100 ML IV + SPIKE MINIBAG* 100 ML IV SCH ×2 (17:43→21:33)
[2017-12-30] MEDS: HumuLIN R SUBCUT PRN (21:21)
[2017-12-30] MEDS: NEURONTIN CAP 300 MG PO SCH (21:23)
[2017-12-30] MEDS: SNACK - Diabetic Appropriate PO SCH (21:24)
--- NOTE | 2017-12-30 22:21 | PCM.PROG ---
Progress Note - Progress Note for Day of Date: 12/29/17 - Subjective Subjective: IS BEING TREATED FOR ACUTE BRONCHITIS, COPD EXACERBATION , AND A URINARY TRACT INFECTION. TODAY, HE IS ALERT AND ORIENTED, LYING IN BED ON MORNING ROUNDS. HE CONTINUES WITH COMPLAINTS OF PRODUCTIVE COUGH, SHORTNESS OF BREATH, GENERALIZED WEAKNESS, AND SUPRAPUBIC PAIN. STAFF REPORTS THAT PATIENT REPORTED INCREASED SHORTNESS OF BREATH YESTERDAY AFTERNOON AND THROUGHOUT THE NIGHT. THEY REPORT THAT HIS OXYGEN SATURATIONS WHILE RESTING WERE FALLING INTO THE HIGH 80S ON NASAL CANNULA. ON EXAMINATION, HEART IS REGULAR IN RATE AND RHYTHM. BILATERAL LUNGS CONTINUE WITH SCATTERED WHEEZING AND RHONCHI, DIMINISHED THROUGHOUT. SPUTUM NOTED AT BEDSIDE IS THICK AND YELLOW IN COLOR. HE IS CURRENTLY UTILIZING OXYGEN VIA NASAL CANNULA AT 2L/MIN. ABDOMEN IS ROUND, SOFT, AND NOTED WITH MILD SUPRAPUBIC TENDERNESS TO PALPATION. NORMAL BOWEL SOUNDS ARE NOTED IN ALL QUADRANTS. DRESSING NOTED TO SACRAL WOUND. DRESSING DRY AND INTACT. HIS VITALS THIS MORNING ARE 97.6-88-18-96%-155/68. LABS WERE OBTAINED THIS MORNING. ABNORMAL LAB VALUES INCLUDE THE FOLLOWING: WBC 10.8, RBC 3.81, HGB 11.5, HCT 33.9, PLT COUNT 487, BUN 27, GLUCOSE 201, AST 10, ALBUMIN 3.1. A CHEST XRAY WAS OBTAINED AND REVEALED MODERATE CARDIOMEGALY WITHOUT CONGESTIVE HEART FAILURE. TODAY, WE WILL CONTINUE IV ANTIBIOTICS AND RESPIRATORY TREATMENTS FOR TREATMENT OF ACUTE BRONCHITIS, COPD, AND A URINARY TRACT INFECTION. WE WILL ORDER FOR RESPIRATORY THERAPY TO OBTAIN AN OVERNIGHT PULSE OXIMETRY TEST. OTHERWISE, WE PLAN TO FOLLOW UP WITH AM LABS AND CONTINUE TO MONITOR PATIENT. - Past Medical Family Social History Past Med/Fam/Surg Hx: No changes since H&P Allergies: Allergies Sulfa (Sulfonamide Antibiotics) [SULFA] Allergy (Verified 12/25/17 14:16) - Review of Systems ROS: No change since H&P - Vital Signs and I&O's Vital Signs: Temperature 97.7 F Pulse Rate [Right Brachial] 93 Pulse Rate [Left Radial] 93 Pulse Rate 86 Respiratory Rate 20 Blood Pressure [Right Arm] 143/65 Blood Pressure [Left Arm] 109/52 Blood Pressure 99/52 O2 Sat by Pulse Oximetry 91 Intake and Output: Intake & Output 03/22/18 03/23/18 03/24/18 03/25/18 11:59 11:59 11:59 11:59 Intake Total 2328 1555 2240 360 Output Total 4125 3225 2672 1400 Balance -5433 -6920 -424 -3581 - Physical Exam Oriented: Normal Eyes: Normal. negative: Blurred Vision, Diplopia, Discharge, Pain, Redness, Photophobia, Other Ear: Normal. negative: Right, Left, Swelling, Ecchymosis, Hemotypanum, Abrasion , Laceration Nose: Discharge Throat: Normal Respiratory: Right, Left, Generalized, Wheezes, Rhonchi Cardiovascular: Normal : Normal Auscultation: Bowel Sounds: Normal Palpation: Normal Tenderness: Suprapubic, Mild. negative: Rebound, Guarding, Rigidity Skin: Wound (SACRAL DECUBITUS ULCER ) Musculoskeletal: Normal Psychiatric: Normal Mood Description: Calm Affect: Normal Speech Pattern: Clear, Appropriate - Laboratory and Diagnostics Result Diagrams: 12/30/17 04:55 12/30/17 04:55 Labs: 12/25/17 13:45 Blood Blood Culture - Final 12/25/17 13:37 Blood Blood Culture - Final 12/25/17 14:16 Sputum - Expectorated Sputum Sputum Culture - Final 12/25/17 14:16 Sputum - Expectorated Sputum - Final 12/25/17 14:37 Urine,Catheterized Urine Culture - Final Klebsiella Oxytoca Laboratory WBC 14.7 X10^3/uL (3.6-10.0) H 12/30/17 04:55 RBC 3.85 X10^6/uL (4.7-6.0) L 12/30/17 04:55 Hgb 11.6 g/dL (13.5-18.0) L 12/30/17 04:55 Hct 34.1 % (42.0-54.0) L 12/30/17 04:55 MCV 88.5 fL (80.0-100.0) 12/30/17 04:55 MCH 30.2 pg (27.0-34.0) 12/30/17 04:55 MCHC 34.1 g/dL (33.0-35.0) 12/30/17 04:55 RDW 15.1 % (11.6-16.5) 12/30/17 04:55 Plt Count 508 X10^3/uL (150.0-450.0) H 12/30/17 04:55 Plt Count Comment Adequate (ADEQUATE) 12/28/17 05:00 MPV 7.7 fL (7.4-11.0) 12/30/17 04:55 Neut % (Auto) 75.5 % (42.0-75.0) H 12/30/17 04:55 Lymph % (Auto) 15.4 % (21.0-51.0) L 12/30/17 04:55 [place] % (Auto) 7.1 % (0.0-13.0) 12/30/17 04:55 Eos % (Auto) 1.8 % (0.9-2.9) 12/30/17 04:55 Baso % (Auto) 0.2 % (0.2-1.0) 12/30/17 04:55 Neut # (Auto) 11.1 x10^3/uL (2.2-4.8) H 12/30/17 04:55 Lymph # (Auto) 2.3 X10^3/uL (1.3-2.9) 12/30/17 04:55 [place] # (Auto) 1.0 x10^3/uL (0.3-0.8) H 12/30/17 04:55 Eos # (Auto) 0.3 x10^3/uL (0.0-0.2) H 12/30/17 04:55 Baso # (Auto) 0.0 X10^3/uL (0.0-0.1) 12/30/17 04:55 Absolute Nucleated RBC 0.0 /100WBC 12/30/17 04:55 Total Counted 100 12/28/17 05:00 Neutrophils % (Manual) 87 % (39-76) H 12/28/17 05:00 Band Neutrophils % 4 % (0-10) 12/26/17 04:42 Lymphocytes % (Manual) 7 % (13-43) L 12/28/17 05:00 Monocytes % (Manual) 6 % (4-9) 12/28/17 05:00 Plt Morphology Comment Normal (NORMAL) 12/28/17 05:00 RBC Morphology Normal (NORMAL) 12/28/17 05:00 Sample Site Rba 12/28/17 11:20 ABG pH 7.470 (7.35-7.45) H 12/28/17 11:20 ABG pCO2 41.0 mmHg (35.0-45.0) 12/28/17 11:20 ABG pO2 70.0 mmHg (80.0-100.0) L 12/28/17 11:20 ABG HCO3 29.8 mmol/L (22-26) H 12/28/17 11:20 ABG O2 Saturation 95.0 % (90-100) 12/28/17 11:20 ABG Base Excess 5.6 mmol/L (-2.0-2.0) H 12/28/17 11:20 Shahriar Test Na 12/28/17 11:20 A-a Gradient 28.0 mmHg 12/28/17 11:20 FiO2 21.000 12/28/17 11:20 Blood Gas Comments [facility] well cn/cs 12/28/17 11:20 Sodium 137 mmol/L (136-145) 12/30/17 04:55 Corrected Sodium 140 mmol/L (136-145) 12/30/17 04:55 Potassium 4.4 mmol/L (3.5-5.1) 12/30/17 04:55 Chloride 99 mmol/L (98-107) 12/30/17 04:55 Carbon Dioxide 31.4 mmol/L (21-32) 12/30/17 04:55 BUN 37 mg/dL (7-18) H 12/30/17 04:55 Creatinine 1.10 mg/dL (0.70-1.30) 12/30/17 04:55 Est GFR (MDRD) Af Amer > 60 (>60) 12/30/17 04:55 Est GFR (MDRD) Non-Af > 60 (>60) 12/30/17 04:55 Glucose 233 mg/dL (65-99) H 12/30/17 04:55 POC Glucose (mg/dL) 338 mg/dL (65-99) H 12/30/17 20:30 Lactic Acid 0.8 mmol/L (0.4-2.0) 12/25/17 13:37 Calcium 8.4 mg/dL (8.5-10.1) L 12/30/17 04:55 Corrected Calcium 9.3 mg/dL (8.5-10.1) 12/30/17 04:55 Total Bilirubin 0.20 mg/dL (0.2-1.0) 12/30/17 04:55 AST 14 Units/L (15-37) L 12/30/17 04:55 ALT 15 Units/L (12-78) 12/30/17 04:55 Alkaline Phosphatase 74 Units/L (46-116) 12/30/17 04:55 Creatine Kinase 250 Units/L (39-308) 12/25/17 13:37 CK-MB (CK-2) 1.6 ng/mL (0-4.0) 12/25/17 13:37 CK/CKMB % Calc 0.6 % (<4) 12/25/17 13:37 Troponin I < 0.02 ng/mL (0-1.5) 12/25/17 13:37 C-Reactive Protein 76.20 mg/L (0-3.0) H 12/25/17 13:37 Total Protein 6.8 g/dL (6.4-8.2) 12/30/17 04:55 Albumin 2.9 g/dL (3.4-5.0) L 12/30/17 04:55 Globulin 3.9 g/dL (2.5-4.5) 12/30/17 04:55 Albumin/Globulin Ratio 0.7 Ratio (1.1-2.1) L 12/30/17 04:55 Specimen Type Catherized urine 12/25/17 14:37 Urine Color Yellow (YELLOW) 12/25/17 14:37 Urine Appearance Slightly hazy (CLEAR) 12/25/17 14:37 Urine pH 6.5 (5.0 - 8.0) 12/25/17 14:37 Ur Specific [place] 1.015 (1.000-1.030) 12/25/17 14:37 Urine Protein 2+ (NEGATIVE) 12/25/17 14:37 Urine Glucose (UA) Negative (NEGATIVE) 12/25/17 14:37 Urine Ketones Negative (NEGATIVE) 12/25/17 14:37 Urine Occult Blood 2+ (NEGATIVE) 12/25/17 14:37 Urine Nitrite Negative (NEGATIVE) 12/25/17 14:37 Urine Bilirubin Negative (NEGATIVE) 12/25/17 14:37 Urine Urobilinogen 1+ (NORMAL) 12/25/17 14:37 Ur Leukocyte Esterase 3+ (NEGATIVE) 12/25/17 14:37 Urine RBC 12-14 /HPF (NONE SEEN) 12/25/17 14:37 Urine WBC 15-18 /HPF (NONE SEEN) 12/25/17 14:37 Ur Squamous Epith Cells Rare /HPF (NEGATIVE) 12/25/17 14:37 Urine Bacteria Trace /HPF (NEGATIVE) 12/25/17 14:37 Ur Culture Indicated? Yes/culture set up 12/25/17 14:37 - Plan (1) Bronchitis Status: Acute Plan: MEROPENEM Q8H, DUONEBS Q4H, PULMICORT NEB TX BID, TESSALON PERLES PRN, SOLU-MEDROL 40MG IV TID, SUPPLEMENTAL OXYGEN, CONTINUE TO MONITOR (2) COPD (chronic obstructive pulmonary disease) Status: Chronic Qualifiers: COPD type: COPD with acute exacerbation Qualified Code(s): J44.1 - Chronic obstructive pulmonary disease with (acute) exacerbation Plan: MEROPENEM Q8H, DUONEBS Q4H, PULMICORT NEB TX BID, TESSALON PERLES PRN, SOLU-MEDROL 40MG IV TID, SUPPLEMENTAL OXYGEN, CONTINUE TO MONITOR (3) UTI (urinary tract infection) Status: Acute Qualifiers: Urinary tract infection type: site unspecified Hematuria presence: with hematuria Qualified Code(s): N39.0 - Urinary tract infection, site not specified; R31.9 - Hematuria, unspecified Plan: MEROPENEM Q8H, CONTINUE TO MONITOR (4) Congestive heart failure (CHF) Status: Chronic Qualifiers: Heart failure type: unspecified Heart failure chronicity: chronic Qualified Code(s): I50.9 - Heart failure, unspecified Plan: CONTINUE LASIX, CONTINUE MAXZIDE, CONTINUE LOPRESSOR, CONTINUE TO MONITOR (5) CAD (coronary artery disease) Status: Chronic Qualifiers: Coronary Disease-Associated Artery/Lesion type: [place] artery [place] vs. transplanted heart: [place] heart Associated angina: without angina Qualified Code(s): I25.10 - Atherosclerotic heart disease of [place] coronary artery without angina pectoris Plan: CONTINUE BRILANTA, CONTINUE TO MONITOR (6) Diabetes mellitus, type II Status: Chronic Qualifiers: Diabetes mellitus roasterman insulin use: with correction use Diabetes mellitus complication status: with hyperglycemia Qualified Code(s): E11.65 - Type 2 diabetes mellitus with hyperglycemia; Z79.4 - intermediate card tender (current) use of insulin; Z79.4 - half-way (current) use of insulin; Z79.4 - half-way (current ) use of insulin; Z79.4 - intermediate card tender (current) use of insulin Plan: CONTINUE HUMULIN R SLIDING SCALE, CONTINUE HUMULIN 70/30, CONTINUE TO MONITOR (7) GERD (gastroesophageal reflux disease) Status: Chronic Qualifiers: Esophagitis presence: esophagitis presence not specified Qualified Code(s) : K21.9 - Gastro-esophageal reflux disease without esophagitis Plan: CONTINUE PROTONIX (8) HTN (hypertension) Status: Chronic Qualifiers: Hypertension type: essential hypertension Qualified Code(s): I10 - Essential (primary) hypertension Plan: CONTINUE LOPRESSOR, CONTINUE MAXZIDE
[2017-12-31] MEDS: DUONEB 0.5 MG/3 MG NEB SCH ×6 (01:17→21:33)
[2017-12-31] MEDS: MERREM VIAL 500 MG in NS 100 ML IV + SPIKE MINIBAG* 100 ML IV SCH ×3 (05:40→21:45)
[2017-12-31 05:57] LABS: BASOPHILS # (AUTO) 0.1 X10^3/uL (0.0-0.1); BASOPHILS % (AUTO) 0.6 % (0.2-1.0); EOSINOPHILS % (AUTO) 7.4 % (0.9-2.9); HEMATOCRIT 34.8 % (42.0-54.0); LYMPHOCYTES # (AUTO) 1.6 X10^3/uL (1.3-2.9); LYMPHOCYTES % (AUTO) 11.7 % (21.0-51.0); MEAN CORPUSCULAR HEMOGLOBIN 30.5 pg (27.0-34.0); MEAN CORPUSCULAR HGB CONC 34.5 g/dL (33.0-35.0); MEAN CORPUSCULAR VOLUME 88.6 fL (80.0-100.0); MEAN PLATELET VOLUME 7.7 fL (7.4-11.0); MONOCYTES # (AUTO) 0.8 x10^3/uL (0.3-0.8); MONOCYTES % (AUTO) 5.4 % (0.0-13.0); NEUTROPHILS # (AUTO) 10.3 x10^3/uL (2.2-4.8); NEUTROPHILS % (AUTO) 74.9 % (42.0-75.0); PLATELET COUNT 481 X10^3/uL (150.0-450.0); RED BLOOD COUNT 3.93 X10^6/uL (4.7-6.0); RED CELL DISTRIBUTION WIDTH 15.1 % (11.6-16.5); WHITE BLOOD COUNT 13.8 X10^3/uL (3.6-10.0)
[2017-12-31] MEDS: LASIX PO SCH ×2 (06:03→16:53)
[2017-12-31 06:06] LABS: ALANINE AMINOTRANSFERASE 16 Units/L (12-78); ALBUMIN 2.8 g/dL (3.4-5.0); ALKALINE PHOSPHATASE 81 Units/L (46-116); ASPARTATE AMINO TRANSFERASE 10 Units/L (15-37); BLOOD UREA NITROGEN 32 mg/dL (7-18); CALCIUM 8.5 mg/dL (8.5-10.1); CARBON DIOXIDE 30.6 mmol/L (21-32); CHLORIDE 99 mmol/L (98-107); COR CA(FOR HYPOALB) 9.5 mg/dL (8.5-10.1); COR NA(FOR HYPERGLY) 140 mmol/L (136-145); CREATININE 0.87 mg/dL (0.70-1.30); SODIUM 137 mmol/L (136-145); TOTAL PROTEIN 6.9 g/dL (6.4-8.2); eGFR BLACK RACES > 60 (>60); eGFR NON BLACK RACES > 60 (>60)
--- NOTE | 2017-12-31 09:10 | RAD ---
Examination: Portable AP chest History: SOB Comparison 12/30/2017 Findings: Stable cardiac size. Interval improvement in aeration of the left lower lobe. Residual atel ectasis. No new abnormality. Impression: Interval improvement in left lower lobe atelectasis with incomplete resolution. No new ab normality. Reported By:
[2017-12-31] MEDS: PULMICORT NEB TX 0.5 MG NEB SCH ×2 (09:16→21:33)
[2017-12-31] MEDS: LOPRESSOR TAB 25 MG PO SCH ×2 (09:19→21:46)
[2017-12-31] MEDS: LINZESS PO SCH (09:19)
[2017-12-31] MEDS: BRILINTA PO SCH ×2 (09:19→21:45)
[2017-12-31] MEDS: MAXZIDE 37.5/25 MG PO SCH (09:20)
[2017-12-31] MEDS: PROTONIX TAB 40 MG PO SCH (09:20)
[2017-12-31] MEDS: K-DUR TAB 20 MEQ PO SCH (09:21)
[2017-12-31] MEDS: MILK OF MAGNESIA PO SCH ×4 (09:21→21:46)
[2017-12-31] MEDS: MIRALAX POWDER (1 DOSE 17GM) PO SCH ×2 (09:24→21:46)
[2017-12-31] MEDS: NORCO 10/325 TAB PO PRN ×2 (09:24→16:53)
[2017-12-31] MEDS: XANAX PO PRN ×2 (09:24→16:53)
[2017-12-31] MEDS: HumuLIN R SUBCUT PRN ×3 (13:32→21:47)
[2017-12-31] MEDS: SNACK - Diabetic Appropriate PO SCH (21:44)
[2017-12-31] MEDS: NEURONTIN CAP 300 MG PO SCH (21:46)
[2018-01-01] MEDS: DUONEB 0.5 MG/3 MG NEB SCH ×4 (00:48→12:17)
[2018-01-01] MEDS: HumuLIN R SUBCUT PRN (05:51)
[2018-01-01] MEDS: MERREM VIAL 500 MG in NS 100 ML IV + SPIKE MINIBAG* 100 ML IV SCH (05:51)
[2018-01-01 06:01] LABS: BASOPHILS % (AUTO) 0.1 % (0.2-1.0); EOSINOPHILS # (AUTO) 1.3 x10^3/uL (0.0-0.2); HEMATOCRIT 34.1 % (42.0-54.0); HEMOGLOBIN 11.8 g/dL (13.5-18.0); LYMPHOCYTES # (AUTO) 1.3 X10^3/uL (1.3-2.9); LYMPHOCYTES % (AUTO) 9.1 % (21.0-51.0); MEAN CORPUSCULAR HEMOGLOBIN 30.6 pg (27.0-34.0); MEAN CORPUSCULAR HGB CONC 34.6 g/dL (33.0-35.0); MEAN CORPUSCULAR VOLUME 88.4 fL (80.0-100.0); MEAN PLATELET VOLUME 7.8 fL (7.4-11.0); MONOCYTES # (AUTO) 0.9 x10^3/uL (0.3-0.8); MONOCYTES % (AUTO) 6.3 % (0.0-13.0); NEUTROPHILS # (AUTO) 10.7 x10^3/uL (2.2-4.8); NEUTROPHILS % (AUTO) 75.5 % (42.0-75.0); PLATELET COUNT 464 X10^3/uL (150.0-450.0); RED BLOOD COUNT 3.85 X10^6/uL (4.7-6.0); RED CELL DISTRIBUTION WIDTH 15.4 % (11.6-16.5); WHITE BLOOD COUNT 14.2 X10^3/uL (3.6-10.0)
[2018-01-01 06:13] LABS: ALANINE AMINOTRANSFERASE 15 Units/L (12-78); ALBUMIN 2.9 g/dL (3.4-5.0); ALKALINE PHOSPHATASE 85 Units/L (46-116); ASPARTATE AMINO TRANSFERASE 11 Units/L (15-37); BLOOD UREA NITROGEN 28 mg/dL (7-18); CALCIUM 8.7 mg/dL (8.5-10.1); CARBON DIOXIDE 31.2 mmol/L (21-32); CHLORIDE 98 mmol/L (98-107); COR CA(FOR HYPOALB) 9.6 mg/dL (8.5-10.1); COR NA(FOR HYPERGLY) 138 mmol/L (136-145); CREATININE 0.89 mg/dL (0.70-1.30); SODIUM 135 mmol/L (136-145); TOTAL PROTEIN 7.1 g/dL (6.4-8.2); eGFR BLACK RACES > 60 (>60); eGFR NON BLACK RACES > 60 (>60)
[2018-01-01] MEDS: LASIX PO SCH (06:23)
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
[2018-01-01] MEDS: BRILINTA PO SCH (09:00)
[2018-01-01] MEDS: MAXZIDE 37.5/25 MG PO SCH (09:00)
[2018-01-01] MEDS: LINZESS PO SCH (09:00)
[2018-01-01] MEDS: LOPRESSOR TAB 25 MG PO SCH (09:00)
[2018-01-01] MEDS: PROTONIX TAB 40 MG PO SCH (09:01)
[2018-01-01] MEDS: NORCO 10/325 TAB PO PRN (09:01)
[2018-01-01] MEDS: XANAX PO PRN (09:01)
[2018-01-01] MEDS: K-DUR TAB 20 MEQ PO SCH (09:02)
[2018-01-01] MEDS: MILK OF MAGNESIA PO SCH ×2 (09:03→13:15)
[2018-01-01] MEDS: MIRALAX POWDER (1 DOSE 17GM) PO SCH (09:03)
[2018-01-01] MEDS: PULMICORT NEB TX 0.5 MG NEB SCH (09:27)
[2018-01-01 13:03] VITALS: BP 104/62
== END 2018-01-01 13:30 | disposition home health service (06) | DRG 202 ==
LOC: ER 12:44 → MED/SURG 21:52
PROVIDERS: ADMIT Internal Medicine; ATTEND Internal Medicine
DX: J20.8 Acute bronchitis due to other specified organisms (principal); J44.1 Chronic obstructive pulmonary disease with (acute) exacerbation; N39.0 Urinary tract infection, site not specified; B96.1 Klebsiella pneumoniae [K. pneumoniae] as the cause of diseases classified elsewhere; F41.8 Other specified anxiety disorders; I25.10 Atherosclerotic heart disease of native coronary artery without angina pectoris; E11.65 Type 2 diabetes mellitus with hyperglycemia; E78.2 Mixed hyperlipidemia; K21.9 Gastro-esophageal reflux disease without esophagitis; I10 Essential (primary) hypertension; R94.31 Abnormal electrocardiogram [ECG] [EKG]; L89.153 Pressure ulcer of sacral region, stage 3; I51.7 Cardiomegaly; R31.9 Hematuria, unspecified; I50.9 Heart failure, unspecified; Z79.4 Long term (current) use of insulin; R79.82 Elevated C-reactive protein (CRP)
CPT/HCPCS: 36415; 36600; 71045; 80048; 80053; 81001; 82550; 82553; 82803; 82947; 83605; 84484; 85025; 86140; 87040; 87070; 87086; 87088; 87186; 87205; 93005; 93010; 94640; 94760; 94762; 96365; 96374; 96375; 99283; A4216; A4222; J0696; J1815; J2185; J2405; J2920; J7620; J7626

== ENCOUNTER 2018-01-07 00:37 | Emergency (ER) | payer OTHER ==
[2018-01-07 00:54] VITALS: BMI 32.8
--- NOTE | 2018-01-07 01:03 | DR.GENAD ---
HPI - PCP Primary Care Physician: ARIES - Complaint/Symptoms Chief Complaint Doctors Comments: Patient presents with complaint that it feels like he can not get any air. He reports that he was hospitalized for several days and discharged two days ago. Chief Complaint:: PT C/O BEING SOB AFTER TAKING HIS PILLS PT HAS BEEN HAVING SOB FOR SEVERAL DAYS - Source History Provided: Patient - Mode of Arrival Mode of Arrival: EMS - Timing Onset of Chief Complaint: 01/04/18 PMH - PMH Past Medical History: Yes Past Medical History: Anemia, Anxiety, Arthritis, COPD, Coronary Artery Disease , Diabetes, Dyslipidemia, GERD, Hypertension Past Surgical History: Yes Surgical History: Abdominal Surgery, Bowel Resection, Ortho Surgery, Other - Family History History of Family Medical Conditions: Yes Family Medical History: Diabetes Mellitus, Hypertension - Social History Do you use any recreational Drugs:: No Lives Where: Home - infectious screening In the last 2 months have you had wt loss of >10#?: NO Have you had fever, night sweats or hemotysis?: No Have you traveled outside the country in the last 6 months?: No Isolation: Standard ROS - Review of Systems Eyes: No Symptoms Reported ENTM: No Symptoms Reported Respiratoy: No Symptoms Reported Cardiovascular: No Symptoms Reported Gastrointestinal/Abdominal: No Symptoms Reported Genitourinary: No Symptoms Reported Neurological: No Symptoms Reported Musculoskeletal: No Symptoms Reported Integumentary: No Symptoms Reported Hematologic/Lymphatic: No Symptoms Reported Endocrine: No Symptoms Reported Psychiatric: No Symptoms Reported All Other Systems: Reviewed and Negative PE - Vital Signs Vitals: Temperature 97.9 F Pulse Rate 100 Respiratory Rate 18 Blood Pressure [Right Arm] 104/62 Blood Pressure [Left Arm] 109/52 Blood Pressure 193/84 O2 Sat by Pulse Oximetry 99 - General Limitations: Physical Limitation (paraplegia) General Appearance: Alert, In No Apparent Distress - Head Head Exam: Normal Inspection, Atraumatic - Eyes Eye exam: Normal Appearance, PERRL, EOMI - ENT ENT Exam: Normal Exam External Ear Exam: Normal External Inspection TM/Canal Exam: Bilateral Normal Nose Exam: Normal Nose Exam Mouth Exam: Normal Inspection Throat Exam: Normal Inspection - Neck Neck Exam: Normal Inspection, Full ROM - Chest Chest Inspection: Normal Inspection - Respiratory Respiratory Exam: Normal Lung Sounds Bilat Respiratory Exam: Bilateral Clear to Auscultation - Cardiovascular Cardiovascular Exam: Regular Rate, Normal Rhythm - Abdominal Exam Abdominal Exam: Normal Inspection Abdominal Tenderness: negative: RUQ, RLQ, LUQ, LLQ, Epigastrium, Suprapubic, Diffuse, Mild, Moderate, Severe, Other - Extremities Extremities Exam: Normal Inspection - Back Back Exam: Normal Inspection - Neurologic Neurological Exam: Alert, Oriented X3, CN II-XII Intact - Psychiatric Psychiatric Exam: Normal Affect - Skin Skin Exam: Warm, Dry, Intact Course - Reevaluation 1st: Improved - Education/Counseling Educated On: Treatment, Diagnosis, Prognosis, Needs for Follow Up ROR - Labs Reviewed Result Diagrams: 01/07/18 02:57 01/07/18 02:57 Laboratory: WBC 11.4 X10^3/uL (3.6-10.0) H 01/07/18 02:57 RBC 3.74 X10^6/uL (4.7-6.0) L 01/07/18 02:57 Hgb 11.1 g/dL (13.5-18.0) L 01/07/18 02:57 Hct 32.9 % (42.0-54.0) L 01/07/18 02:57 MCV 88.1 fL (80.0-100.0) 01/07/18 02:57 MCH 29.8 pg (27.0-34.0) 01/07/18 02:57 MCHC 33.8 g/dL (33.0-35.0) 01/07/18 02:57 RDW 14.7 % (11.6-16.5) 01/07/18 02:57 Plt Count 422 X10^3/uL (150.0-450.0) 01/07/18 02:57 MPV 7.5 fL (7.4-11.0) 01/07/18 02:57 Neut % (Auto) 71.7 % (42.0-75.0) 01/07/18 02:57 Lymph % (Auto) 13.0 % (21.0-51.0) L 01/07/18 02:57 [place] % (Auto) 7.6 % (0.0-13.0) 01/07/18 02:57 Eos % (Auto) 6.8 % (0.9-2.9) H 01/07/18 02:57 Baso % (Auto) 0.9 % (0.2-1.0) 01/07/18 02:57 Neut # (Auto) 8.2 x10^3/uL (2.2-4.8) H 01/07/18 02:57 Lymph # (Auto) 1.5 X10^3/uL (1.3-2.9) 01/07/18 02:57 [place] # (Auto) 0.9 x10^3/uL (0.3-0.8) H 01/07/18 02:57 Eos # (Auto) 0.8 x10^3/uL (0.0-0.2) H 01/07/18 02:57 Baso # (Auto) 0.1 X10^3/uL (0.0-0.1) 01/07/18 02:57 Absolute Nucleated RBC 0.0 /100WBC 01/07/18 02:57 Sodium 136 mmol/L (136-145) 01/07/18 02:57 Corrected Sodium 142 mmol/L (136-145) 01/07/18 02:57 Potassium 4.5 mmol/L (3.5-5.1) 01/07/18 02:57 Chloride 100 mmol/L (98-107) 01/07/18 02:57 Carbon Dioxide 30.6 mmol/L (21-32) 01/07/18 02:57 BUN 13 mg/dL (7-18) 01/07/18 02:57 Creatinine 0.81 mg/dL (0.70-1.30) 01/07/18 02:57 Est GFR (MDRD) Af Amer > 60 (>60) 01/07/18 02:57 Est GFR (MDRD) Non-Af > 60 (>60) 01/07/18 02:57 Glucose 330 mg/dL (65-99) H 01/07/18 02:57 Calcium 8.7 mg/dL (8.5-10.1) 01/07/18 02:57 C-Reactive Protein 26.60 mg/L (0-3.0) H 01/07/18 02:57 - XRAY XRAY Interpreted by: Radiologist (Chest: There is no pneumothorax or effusion. There is no consolidation. There is cardiomegaly. Metal density projects over the right hilum. Impression: Cardiomegaly. Chronic scarring in the left lung base again noted.) - Diagnosis Discharge Problem: Resolved Respiratory Distress, Non ambulatory - Discharge Plan Condition: Stable - Follow ups/Referrals Follow ups/Referrals: BOB CHRIS [Primary Care Provider] - 3 days - Instructions
[2018-01-07 03:04] LABS: BASOPHILS # (AUTO) 0.1 X10^3/uL (0.0-0.1); BASOPHILS % (AUTO) 0.9 % (0.2-1.0); EOSINOPHILS # (AUTO) 0.8 x10^3/uL (0.0-0.2); EOSINOPHILS % (AUTO) 6.8 % (0.9-2.9); HEMATOCRIT 32.9 % (42.0-54.0); HEMOGLOBIN 11.1 g/dL (13.5-18.0); LYMPHOCYTES # (AUTO) 1.5 X10^3/uL (1.3-2.9); MEAN CORPUSCULAR HEMOGLOBIN 29.8 pg (27.0-34.0); MEAN CORPUSCULAR HGB CONC 33.8 g/dL (33.0-35.0); MEAN CORPUSCULAR VOLUME 88.1 fL (80.0-100.0); MEAN PLATELET VOLUME 7.5 fL (7.4-11.0); MONOCYTES # (AUTO) 0.9 x10^3/uL (0.3-0.8); MONOCYTES % (AUTO) 7.6 % (0.0-13.0); NEUTROPHILS # (AUTO) 8.2 x10^3/uL (2.2-4.8); NEUTROPHILS % (AUTO) 71.7 % (42.0-75.0); PLATELET COUNT 422 X10^3/uL (150.0-450.0); RED BLOOD COUNT 3.74 X10^6/uL (4.7-6.0); RED CELL DISTRIBUTION WIDTH 14.7 % (11.6-16.5); WHITE BLOOD COUNT 11.4 X10^3/uL (3.6-10.0)
[2018-01-07 03:13] LABS: BLOOD UREA NITROGEN 13 mg/dL (7-18); CALCIUM 8.7 mg/dL (8.5-10.1); CARBON DIOXIDE 30.6 mmol/L (21-32); CHLORIDE 100 mmol/L (98-107); COR NA(FOR HYPERGLY) 142 mmol/L (136-145); CREATININE 0.81 mg/dL (0.70-1.30); SODIUM 136 mmol/L (136-145); eGFR BLACK RACES > 60 (>60); eGFR NON BLACK RACES > 60 (>60)
--- NOTE | 2018-01-07 03:44 | RAD ---
Chest AP portable Dyspnea Comparison: 01/01/2018 Findings: There is no pneumothorax or effusion. There is no consolidation. There is cardiomegaly. Met al density projects over the right hilum. Impression: Cardiomegaly. Chronic scarring in the left lung base again noted. Reported By:
[2018-01-07 04:36] VITALS: BP 154/70
== END 2018-01-07 04:45 | disposition home or self-care (01) ==
LOC: SUPCPDRO 00:37 → ER 00:37
DX: R06.03 Acute respiratory distress (principal); I51.7 Cardiomegaly
CPT/HCPCS: 36415; 71045; 80048; 85025; 86140; 99282; 99284

== ENCOUNTER → 2018-01-09 | Day surgery (SDC) | payer OTHER ==
[~2018-01-09] MED LIST changes: +DIPRIVAN VIAL 20 ML ONE
[2018-01-09 11:49] VITALS: BMI 38.7
--- NOTE | 2018-01-09 12:53 | DR.SOBA ---
HPI - Time Seen Time seen: 12:50 - HPI Comment HPI Comment: HISTORY BELOW. PATIENT HAVE PARAPLEGIA. - Complaints Chief Complaint Doctors Comments: SOB, DYSPHAGIA PENDING DILATATION. HERE SEVERATIMES WITH SAME COMPLAINT.HAVING DIFFICULTY SWALLOWING HIS MEDICATIONS WELL FOOD. HAD THROAT CA, S/P RADIATION THERAPY. ESOPHAGEAL PROBLEMS FROM RADIATION THERAPY. Chief Complaint:: EMS OUT TO PT WITH C/O SOB PT IS WHEEZING AND PT C/O THAT HE CANNOT KEEP HIS MEDS DOWN OR FOOD OR DRINK AND HE WAS SCHEDULED TO HAVE HIS THROAT STRECHED AND HE MISSED THE APPT, Self Treatment fo Chief Complaint: PT IS WHEEZING EXP, AND PT HAS 02 ON AT 2 LPM.. BR - Reviewed Nurses Notes Reviewed: Yes - Source History Provided: Patient, EMS - Mode of Arrival Mode of Arrival: EMS - Timing Onset of Chief Complaint: 01/09/18 - Duration Duration: Days, Weeks, Months - Context Onset:: At Rest PE Risk Factors:: None History of:: COPD Currently on:: Inhaled Bronchodilators Prehospital Care:: O2, Inhaled B2 - Modifying Factors Worsens:: Nothing Improves:: Nothing - Associated Signs and Symptoms Associated Signs and Symptoms: Wheeze, Cough, Hemoptysis - If Chest Pain Quality: Pleuritic - If Cough Cough: Productive, Yellow PMH - PMH Past Medical History: Yes Past Medical History: Anemia, Anxiety, Arthritis, COPD, Coronary Artery Disease , Diabetes, Dyslipidemia, GERD, Hypertension Past Surgical History: Yes Surgical History: Abdominal Surgery, Bowel Resection, Ortho Surgery, Other - Family History History of Family Medical Conditions: Yes Family Medical History: Diabetes Mellitus, Hypertension - Social History Does patient currently use any type of tobacco product: No Type of Tobacco Use: None Does any household member use tobacco: No Alcohol Use: None Do you use any recreational Drugs:: No Lives Where: Home - infectious screening In the last 2 months have you had wt loss of >10#?: NO Have you had fever, night sweats or hemotysis?: No Have you traveled outside the country in the last 6 months?: No Isolation: Standard ROS - Review of Systems Constitutional: Weakness, Fatigue Eyes: No Symptoms Reported. negative: Eye Pain, Discharge ENTM: No Symptoms Reported, Ear Pain PE - Vital Signs Vitals: Temperature 97.1 F Pulse Rate 90 Respiratory Rate 18 Blood Pressure [Right Arm] 103/58 Blood Pressure [Left Arm] 109/52 Blood Pressure 106/54 O2 Sat by Pulse Oximetry 97 - General Limitations: Other (SLOW MEMORY) General Appearance: negative: In No Apparent Distress - Head Head Exam: Normal Inspection - Eyes Eye exam: negative: Scleral Icterus, Conjunctival Injection - ENT ENT Exam: Normal External Ear Exam - Neck Neck Exam: Trachea Midline. negative: Tenderness, Meningismus, Lymphadenopathy - Chest Chest Inspection: Symmetric Chest Wall Rise - Respiratory Respiratory Exam: Normal Lung Sounds Bilat Respiratory Exam: Bilateral Rhonchi, Lower Rhonchi - Cardiovascular Cardiovascular Exam: Regular Rate, Normal Rhythm, Normal Heart Sounds - Abdominal Exam Abdominal Exam: Normal Bowel Sounds, Soft. negative: Tenderness - Extremities Extremities Exam: Edema - Back Back Exam: Vertebral Tenderness - Neurologic Neurological Exam: Alert, Other (PARAPLEGIA) MDM - Additional Information Obtained Additional Information Obtained From: Family - Differential Diagnosis Differential Diagnosis: Bronchitis, Other (DYSPHAGIA) Course - Treatment Treatment: SEE ORDERS. - Consultation Consultation Comments: DR PILLAI, SURGEON WILL TAKE PATIENT TO [facility] FOR ESOPHAGEAL DILATATION. - Education/Counseling Education/Counseling: Patient, Family Educated On: Diagnosis ROR - Labs Reviewed Laboratory: Tissue Pathology To follow 01/09/18 13:41 - Diagnosis Discharge Problem: Dyspnea - Discharge Plan Disposition: XFER OTHER Condition: Stable - Follow ups/Referrals - Instructions
[2018-01-09 14:30] VITALS: BP 106/54
== END | disposition home or self-care (01) | DRG 392 ==
LOC: ER 11:51 → SURG1 12:59
PROVIDERS: ATTEND Surgery
PROC: 0DB68ZX Excision of Stomach, Via Natural or Artificial Opening Endoscopic, Diagnostic (ICD-10-PCS; principal; 2018-01-09 13:30)
PROC: 0D717ZZ Dilation of Upper Esophagus, Via Natural or Artificial Opening (ICD-10-PCS; principal; 2018-01-09 13:30)
PROC: 0DJ08ZZ Inspection of Upper Intestinal Tract, Via Natural or Artificial Opening Endoscopic (ICD-10-PCS; principal; 2018-01-09 13:30)
DX: K22.2 Esophageal obstruction (principal); K22.4 Dyskinesia of esophagus; K29.60 Other gastritis without bleeding
CPT/HCPCS: 96365; 96374; 99100; 99283; A4222; A4217; J3490

== ENCOUNTER 2018-04-13 10:41 | Inpatient (IN) ==
[2018-04-13 10:59] VITALS: BMI 40.3
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
[2018-04-13 12:08] LABS: BASOPHILS # (AUTO) 0.1 X10^3/uL (0.0-0.1); BASOPHILS % (AUTO) 1.3 % (0.2-1.0); EOSINOPHILS # (AUTO) 1.3 x10^3/uL (0.0-0.2); EOSINOPHILS % (AUTO) 17.8 % (0.9-2.9); HEMOGLOBIN 9.8 g/dL (13.5-18.0); LYMPHOCYTES # (AUTO) 0.7 X10^3/uL (1.3-2.9); LYMPHOCYTES % (AUTO) 9.7 % (21.0-51.0); MEAN CORPUSCULAR HEMOGLOBIN 28.9 pg (27.0-34.0); MEAN CORPUSCULAR HGB CONC 33.7 g/dL (33.0-35.0); MEAN CORPUSCULAR VOLUME 85.7 fL (80.0-100.0); MEAN PLATELET VOLUME 6.9 fL (7.4-11.0); MONOCYTES # (AUTO) 0.7 x10^3/uL (0.3-0.8); MONOCYTES % (AUTO) 9.8 % (0.0-13.0); NEUTROPHILS # (AUTO) 4.4 x10^3/uL (2.2-4.8); NEUTROPHILS % (AUTO) 61.4 % (42.0-75.0); PLATELET COUNT 550 X10^3/uL (150.0-450.0); RED BLOOD COUNT 3.38 X10^6/uL (4.7-6.0); RED CELL DISTRIBUTION WIDTH 15.7 % (11.6-16.5); WHITE BLOOD COUNT 7.2 X10^3/uL (3.6-10.0)
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
[2018-04-13 12:40] LABS: ALANINE AMINOTRANSFERASE 26 Units/L (12-78); ALBUMIN 2.8 g/dL (3.4-5.0); ALKALINE PHOSPHATASE 104 Units/L (46-116); AMYLASE 41 Units/L (25-115); ASPARTATE AMINO TRANSFERASE 23 Units/L (15-37); BLOOD UREA NITROGEN 19 mg/dL (7-18); CALCIUM 9.9 mg/dL (8.5-10.1); CARBON DIOXIDE 25.4 mmol/L (21-32); CHLORIDE 101 mmol/L (98-107); COR CA(FOR HYPOALB) 10.9 mg/dL (8.5-10.1); COR NA(FOR HYPERGLY) 135 mmol/L (136-145); CREATININE 1.15 mg/dL (0.70-1.30); LIPASE 108 Units/L (73-393); SODIUM 134 mmol/L (136-145); TOTAL PROTEIN 7.6 g/dL (6.4-8.2); eGFR NON BLACK RACES > 60 (>60)
--- NOTE | 2018-04-13 12:47 | CT ---
HISTORY: Fever,, constipation Study: CT abdomen pelvis without contrast Comparison: 11/09/2017 Technique: Axial noncontrast images with coronal and sagittal reformats. Dose reduction procedures we re used with mA/kv adjusted for body size. The examination is limited due to the lack of intravenous and the lack of oral contrast. The examination was performed in this manner at the sole discretion of the ordering caregiver and without any input from Radiology. Findings: The right lung base is clear. Abnormal parenchymal density abuts the posterior pleura on the lateral view. This is unchanged when compared with the prior examination and could represent atelectasis infi ltrate or less likely mass. There is small left pleural effusion present. The liver, spleen, adrenal glands, and pancreas are within normal limits. The kidneys are unobstructed and without stones. Left renal cysts are present unchanged from the prior examination. No ureteral calculi are identified. The re is an ostomy in the left lower quadrant. There is a parastomal hernia containing unobstructed smal l bowel present. Calcific atherosclerotic changes present in a nondilated abdominal aorta. Lymph node s are identified in the para-aortic area unchanged from the prior examination. There are no findings suggestive of diverticulitis or colitis. A moderate amount of stool is present within the colon. Exam ination of the pelvis demonstrated no evidence for pelvic masses, pelvic fluid, or pelvic lymphadenop athy. There is a Ryan catheter with its tip within the bladder. Air densities within the bladder lik tr related to the Ryan catheter. Severe degenerative changes are present in the lower thoracic and lumbar spine with marked spondylosis present. This is unchanged from the prior examination. Extensive heterotopic calcifications are present in and around the left hip. Severe degenerative changes are p resent in the hip joints bilaterally. IMPRESSION: Left lower abdominal ostomy within which there is a parastomal hernia containing nonobstructed small bowel [id number] constipation Abnormal parenchymal density abutting the posterior pleura in the left lower lobe possibly representi ng chronic atelectasis. It is unchanged from the prior examination. 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
[2018-04-13] MEDS ORDERED: ZOSYN VIAL 3.375 GRAMS IV ONE (14:19)
[2018-04-13] MEDS ORDERED: NS 100 ML IV + SPIKE MINIBAG* 100 ML IV ONE (14:19)
[2018-04-13] MEDS ORDERED: PHARMACY CONSULT - VANCOMYCIN XX SCH (15:00)
[2018-04-13] MEDS: ZOSYN VIAL 3.375 GRAMS 3.375 G in NS 100 ML IV + SPIKE MINIBAG* 100 ML IV SCH ×2 (17:19→21:56)
[2018-04-13] MEDS: VANCOMYCIN HCL 1 GM VIAL 1 G in D5W 250 ML IV 250 ML IV SCH ×2 (17:29→20:21)
[2018-04-13] MEDS: NULYTELY or GO-LYTELY PO SCH (18:16)
[2018-04-13 18:28] LABS: CKMB % 2.6 % (<4); CREATINE KINASE 43 Units/L (39-308); CREATINE KINASE MB 1.1 ng/mL (0-4.0); TROPONIN I < 0.02 ng/mL (0-1.5)
[2018-04-13] MEDS: NS 1000 ML 1,000 ML IV SCH ×2 (20:23→22:47)
[2018-04-13] MEDS ORDERED: ZOSYN VIAL 3.375 GRAMS IV SCH (22:00)
[2018-04-13 23:06] LABS: BILIRUBIN,URINE NEGATIVE (NEGATIVE); BLOOD/HEMOGLOBIN,URINE 1+ (NEGATIVE); GLUCOSE, URINE NEGATIVE (NEGATIVE); KETONES,URINE NEGATIVE (NEGATIVE); LEUKOCYTE ESTERASE ,URINE 3+ (NEGATIVE); NITRITES,URINE NEGATIVE (NEGATIVE); PROTEIN,URINE 1+ (NEGATIVE); UROBILINOGEN,URINE NORMAL (NORMAL)
[2018-04-13 23:47] LABS: APPEARANCE,URINE TURBID (CLEAR); COLOR,URINE YELLOW (YELLOW)
[2018-04-13 23:48] LABS: BACTERIA,URINE TRACE /HPF (NEGATIVE); SQUAMOUS EPITHELIAL CELL,UR RARE /HPF (NEGATIVE); YEAST,URINE NUMEROUS /HPF (NEGATIVE)
[2018-04-14 01:25] LABS: CKMB % 2.3 % (<4); CREATINE KINASE 48 Units/L (39-308); CREATINE KINASE MB 1.1 ng/mL (0-4.0); TROPONIN I < 0.02 ng/mL (0-1.5)
[2018-04-14] MEDS: NS 1000 ML 1,000 ML IV SCH ×3 (05:05→20:42)
[2018-04-14 05:16] LABS: BASOPHILS # (AUTO) 0.1 X10^3/uL (0.0-0.1); BASOPHILS % (AUTO) 1.2 % (0.2-1.0); EOSINOPHILS # (AUTO) 0.9 x10^3/uL (0.0-0.2); EOSINOPHILS % (AUTO) 17.6 % (0.9-2.9); HEMATOCRIT 29.6 % (42.0-54.0); HEMOGLOBIN 9.9 g/dL (13.5-18.0); LYMPHOCYTES # (AUTO) 0.7 X10^3/uL (1.3-2.9); LYMPHOCYTES % (AUTO) 12.8 % (21.0-51.0); MEAN CORPUSCULAR HEMOGLOBIN 28.8 pg (27.0-34.0); MEAN CORPUSCULAR HGB CONC 33.6 g/dL (33.0-35.0); MEAN CORPUSCULAR VOLUME 85.8 fL (80.0-100.0); MEAN PLATELET VOLUME 6.9 fL (7.4-11.0); MONOCYTES # (AUTO) 0.7 x10^3/uL (0.3-0.8); MONOCYTES % (AUTO) 14.2 % (0.0-13.0); NEUTROPHILS # (AUTO) 2.8 x10^3/uL (2.2-4.8); NEUTROPHILS % (AUTO) 54.2 % (42.0-75.0); PLATELET COUNT 481 X10^3/uL (150.0-450.0); RED BLOOD COUNT 3.45 X10^6/uL (4.7-6.0); RED CELL DISTRIBUTION WIDTH 15.7 % (11.6-16.5); WHITE BLOOD COUNT 5.2 X10^3/uL (3.6-10.0)
[2018-04-14 05:33] LABS: ALANINE AMINOTRANSFERASE 21 Units/L (12-78); ALBUMIN 2.4 g/dL (3.4-5.0); ALKALINE PHOSPHATASE 91 Units/L (46-116); ASPARTATE AMINO TRANSFERASE 16 Units/L (15-37); BLOOD UREA NITROGEN 17 mg/dL (7-18); CARBON DIOXIDE 25.1 mmol/L (21-32); CHLORIDE 102 mmol/L (98-107); COR CA(FOR HYPOALB) 10.3 mg/dL (8.5-10.1); COR NA(FOR HYPERGLY) 136 mmol/L (136-145); CREATININE 0.95 mg/dL (0.70-1.30); MAGNESIUM 1.9 mg/dL (1.7-2.9); SODIUM 133 mmol/L (136-145); TOTAL PROTEIN 7.2 g/dL (6.4-8.2); eGFR NON BLACK RACES > 60 (>60)
[2018-04-14] MEDS: ZOSYN VIAL 3.375 GRAMS 3.375 G in NS 100 ML IV + SPIKE MINIBAG* 100 ML IV SCH ×3 (05:33→21:10)
[2018-04-14] MEDS: VANCOMYCIN HCL 1 GM VIAL 1 G in D5W 250 ML IV 250 ML IV SCH ×2 (08:38→20:50)
[2018-04-14] MEDS: HumuLIN R SUBCUT PRN (11:18)
[2018-04-14] MEDS ORDERED: PATIENT'S HOME MEDICATION (Budesonide-Formoterol 2 PUFF) IN SCH (13:45)
[2018-04-14] MEDS ORDERED: ALPRAZOLAM 0.5 MG PO PRN (13:45)
[2018-04-14] MEDS ORDERED: NEOMYCIN IR SCH (14:00)
[2018-04-14] MEDS ORDERED: POLYMYXIN B IR SCH (14:00)
[2018-04-14] MEDS: DUONEB 0.5 MG/3 MG NEB SCH ×2 (14:19→20:55)
[2018-04-14] MEDS: NULYTELY or GO-LYTELY PO SCH (15:40)
[2018-04-14] MEDS: SOMA TAB 350 MG PO PRN (16:32)
[2018-04-14] MEDS: XANAX PO PRN (16:32)
[2018-04-14] MEDS: GLUCOPHAGE XR PO SCH ×2 (20:42→20:57)
[2018-04-14] MEDS: LASIX PO SCH (20:42)
[2018-04-14] MEDS: LOPRESSOR TAB 25 MG PO SCH ×2 (20:42→20:57)
[2018-04-14] MEDS: SNACK - Diabetic Appropriate PO SCH (20:43)
[2018-04-14] MEDS: DULCOLAX TAB EC 5 MG PO SCH (20:43)
[2018-04-14] MEDS: PULMICORT NEB TX 0.5 MG NEB SCH (20:55)
[2018-04-14] MEDS ORDERED: BACTRIM DS TAB PO SCH (21:00)
[2018-04-14] MEDS: HumuLIN 70/30 (NovoLIN 70/30) SC SCH (21:08)
[2018-04-14] MEDS: TICAGRELOR 60 MG PO SCH ×2 (21:09→21:30)
[2018-04-14] MEDS: NORCO 10/325 TAB PO PRN (21:09)
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
--- NOTE | 2018-04-14 22:15 | PCM.PROG ---
Progress Note - Progress Note for Day of Date of Exam: 04/14/18 - Subjective Subjective: 78YO WM PARAPLEGIC ADMITTED DUE TO ABDOMINAL PAIN LIKELY SECONDARY TO CONSTIPATION. PATIENT HAD FEVER OF 103F AT HOME. HAS WOUND VAC ON BACK WELL. FAMILY AT BEDSIDE. PATIENT STATES HE HAS CHRONIC CONSTIPATION. HAS BEST RESULTS WITH EPSON SALT BUT WAIT TILL LAST TO TAKE IT. STATES HE IS DOING DAILY IRRIGATIONS FOR UTI WELL. DENIES ANY OTHER COMPLAINTS AT PRESENT. - Past Medical Family Social History Past Med/Fam/Surg Hx: No changes since H&P Allergies: Allergies Sulfa (Sulfonamide Antibiotics) [SULFA] Allergy (Verified 04/13/18 10:43) - Review of Systems ROS: No change since H&P - Vital Signs and I&O's Vital Signs: Temperature 98.5 F Pulse Rate [Left Brachial] 99 Pulse Rate 92 Respiratory Rate 14 Blood Pressure [Right Arm] 119/57 Blood Pressure [Left Arm] 112/58 Blood Pressure 123/57 O2 Sat by Pulse Oximetry 100 Intake and Output: Intake & Output 04/12/18 04/13/18 04/14/18 04/15/18 11:59 11:59 11:59 11:59 Intake Total 2812 / 2812 1930 / 1930 Output Total 900 / 900 1800 / 1800 Balance 1911 / 1911 130 / 130 - Physical Exam Oriented: Normal Eyes: Normal Ear: Normal Nose: Normal Throat: Normal Respiratory: Normal Cardiovascular: Normal : Dysuria (FELDER CATH) Auscultation: Bowel Sounds: Other (DIMINSHED. COLOSTOMY LLQ) Palpation: Normal Tenderness: Normal Skin: Wound (BUTTOCKS WITH WOUND VAC) Musculoskeletal: Motor Deficit (PARAPLEGIA), Sensory Deficit Psychiatric: Normal Mood Description: Calm Affect: Normal Speech Pattern: Clear - Laboratory and Diagnostics Result Diagrams: 04/14/18 04:55 04/14/18 04:55 Labs: 04/13/18 22:45 Urine,Catheterized Urine Culture - Preliminary Laboratory WBC 5.2 X10^3/uL (3.6-10.0) 04/14/18 04:55 RBC 3.45 X10^6/uL (4.7-6.0) L 04/14/18 04:55 Hgb 9.9 g/dL (13.5-18.0) L 04/14/18 04:55 Hct 29.6 % (42.0-54.0) L 04/14/18 04:55 MCV 85.8 fL (80.0-100.0) 04/14/18 04:55 MCH 28.8 pg (27.0-34.0) 04/14/18 04:55 MCHC 33.6 g/dL (33.0-35.0) 04/14/18 04:55 RDW 15.7 % (11.6-16.5) 04/14/18 04:55 Plt Count 481 X10^3/uL (150.0-450.0) H 04/14/18 04:55 MPV 6.9 fL (7.4-11.0) L 04/14/18 04:55 Neut % (Auto) 54.2 % (42.0-75.0) 04/14/18 04:55 Lymph % (Auto) 12.8 % (21.0-51.0) L 04/14/18 04:55 [place] % (Auto) 14.2 % (0.0-13.0) H 04/14/18 04:55 Eos % (Auto) 17.6 % (0.9-2.9) H 04/14/18 04:55 Baso % (Auto) 1.2 % (0.2-1.0) H 04/14/18 04:55 Neut # (Auto) 2.8 x10^3/uL (2.2-4.8) 04/14/18 04:55 Lymph # (Auto) 0.7 X10^3/uL (1.3-2.9) L 04/14/18 04:55 [place] # (Auto) 0.7 x10^3/uL (0.3-0.8) 04/14/18 04:55 Eos # (Auto) 0.9 x10^3/uL (0.0-0.2) H 04/14/18 04:55 Baso # (Auto) 0.1 X10^3/uL (0.0-0.1) 04/14/18 04:55 Absolute Nucleated RBC 0.1 /100WBC 04/14/18 04:55 Sodium 133 mmol/L (136-145) L 04/14/18 04:55 Corrected Sodium 136 mmol/L (136-145) 04/14/18 04:55 Potassium 4.2 mmol/L (3.5-5.1) 04/14/18 04:55 Chloride 102 mmol/L (98-107) 04/14/18 04:55 Carbon Dioxide 25.1 mmol/L (21-32) 04/14/18 04:55 BUN 17 mg/dL (7-18) 04/14/18 04:55 Creatinine 0.95 mg/dL (0.70-1.30) 04/14/18 04:55 Est GFR (MDRD) Af Amer > 60 (>60) 04/14/18 04:55 Est GFR (MDRD) Non-Af > 60 (>60) 04/14/18 04:55 Glucose 217 mg/dL (65-99) H 04/14/18 04:55 POC Glucose (mg/dL) 269 mg/dL (65-99) H 04/14/18 20:59 Lactic Acid 1.0 mmol/L (0.4-2.0) 04/13/18 11:45 Calcium 9.0 mg/dL (8.5-10.1) 04/14/18 04:55 Corrected Calcium 10.3 mg/dL (8.5-10.1) H 04/14/18 04:55 Magnesium 1.9 mg/dL (1.7-2.9) 04/14/18 04:55 Total Bilirubin 0.10 mg/dL (0.2-1.0) L 04/14/18 04:55 AST 16 Units/L (15-37) 04/14/18 04:55 ALT 21 Units/L (12-78) 04/14/18 04:55 Alkaline Phosphatase 91 Units/L (46-116) 04/14/18 04:55 Creatine Kinase 48 Units/L (39-308) 04/14/18 00:20 CK-MB (CK-2) 1.1 ng/mL (0-4.0) 04/14/18 00:20 CK/CKMB % Calc 2.3 % (<4) 04/14/18 00:20 Troponin I < 0.02 ng/mL (0-1.5) 04/14/18 00:20 C-Reactive Protein 129.60 mg/L (0-3.0) H 04/13/18 11:45 Total Protein 7.2 g/dL (6.4-8.2) 04/14/18 04:55 Albumin 2.4 g/dL (3.4-5.0) L 04/14/18 04:55 Globulin 4.8 g/dL (2.5-4.5) H 04/14/18 04:55 Albumin/Globulin Ratio 0.5 Ratio (1.1-2.1) L 04/14/18 04:55 Amylase 41 Units/L (25-115) 04/13/18 11:45 Lipase 108 Units/L (73-393) 04/13/18 11:45 Specimen Type Cancelled 04/13/18 Unknown Urine Color Cancelled 04/13/18 Unknown Urine Appearance Cancelled 04/13/18 Unknown Urine pH Cancelled 04/13/18 Unknown Ur Specific [place] Cancelled 04/13/18 Unknown Urine Protein Cancelled 04/13/18 Unknown Urine Glucose (UA) Cancelled 04/13/18 Unknown Urine Ketones Cancelled 04/13/18 Unknown Urine Occult Blood Cancelled 04/13/18 Unknown Urine Nitrite Cancelled 04/13/18 Unknown Urine Bilirubin Cancelled 04/13/18 Unknown Urine Urobilinogen Cancelled 04/13/18 Unknown Ur Leukocyte Esterase Cancelled 04/13/18 Unknown Urine RBC 3-5 /HPF (NONE SEEN) 04/13/18 22:45 Urine WBC 30-50 /HPF (NONE SEEN) 04/13/18 22:45 Ur Squamous Epith Cells Rare /HPF (NEGATIVE) 04/13/18 22:45 Urine Bacteria Trace /HPF (NEGATIVE) 04/13/18 22:45 Urine Yeast Numerous /HPF (NEGATIVE) 04/13/18 22:45 Ur Culture Indicated? Yes/culture set up 04/13/18 22:45 - Plan (1) Non-healing wound Status: Acute Plan: IV ANTIBIOTICS, WOUND VAC (2) Anemia Status: Acute Plan: MONITOR CBC (3) Cardiomegaly Status: Chronic (4) Abdominal pain Status: Acute Qualifiers: Abdominal location: generalized Qualified Code(s): R10.84 - Generalized abdominal pain Plan: DULCOLAX, LINZESS. MONITOR COLOSTOMY AND STOOL OUTPUT. (5) UTI (urinary tract infection) Status: Acute Qualifiers: Urinary tract infection type: catheter-associated UTI Plan: CULTURE PENDING (6) Constipation Status: Acute Qualifiers: Constipation type: slow transit constipation Qualified Code(s): K59.01 - Slow transit constipation Plan: KALEB TURCIOS (7) Paraplegic spinal paralysis Status: Chronic (8) HTN (hypertension) Status: Chronic Qualifiers: Hypertension type: essential hypertension Qualified Code(s): I10 - Essential (primary) hypertension Plan: MONITOR BP. HOME MEDS. (9) Diabetes mellitus, type II Status: Chronic Qualifiers: Diabetes mellitus group home insulin use: with dedicated intermodal truck driver use Diabetes mellitus complication status: with hyperglycemia Qualified Code(s): E11.65 - Type 2 diabetes mellitus with hyperglycemia; Z79.4 - terminal clerk (current) use of insulin; Z79.4 - terminal clerk (current) use of insulin; Z79.4 - terminal clerk (current ) use of insulin; Z79.4 - jail (current) use of insulin Plan: FSBS CHECKS, SLIDING SCALE.
[2018-04-14] MEDS: PATIENT'S HOME MEDICATION PO SCH (22:16)
[2018-04-15] MEDS: NS 1000 ML 1,000 ML IV SCH ×4 (05:31→21:20)
[2018-04-15] MEDS: ZOSYN VIAL 3.375 GRAMS 3.375 G in NS 100 ML IV + SPIKE MINIBAG* 100 ML IV SCH ×3 (05:31→21:02)
[2018-04-15 06:58] LABS: BASOPHILS # (AUTO) 0.1 X10^3/uL (0.0-0.1); BASOPHILS % (AUTO) 0.9 % (0.2-1.0); EOSINOPHILS # (AUTO) 0.7 x10^3/uL (0.0-0.2); EOSINOPHILS % (AUTO) 9.9 % (0.9-2.9); HEMATOCRIT 29.9 % (42.0-54.0); HEMOGLOBIN 10.1 g/dL (13.5-18.0); LYMPHOCYTES % (AUTO) 15.1 % (21.0-51.0); MEAN CORPUSCULAR HEMOGLOBIN 28.9 pg (27.0-34.0); MEAN CORPUSCULAR HGB CONC 33.7 g/dL (33.0-35.0); MEAN CORPUSCULAR VOLUME 85.5 fL (80.0-100.0); MEAN PLATELET VOLUME 7.1 fL (7.4-11.0); MONOCYTES # (AUTO) 0.8 x10^3/uL (0.3-0.8); MONOCYTES % (AUTO) 11.4 % (0.0-13.0); NEUTROPHILS # (AUTO) 4.2 x10^3/uL (2.2-4.8); NEUTROPHILS % (AUTO) 62.7 % (42.0-75.0); PLATELET COUNT 464 X10^3/uL (150.0-450.0); WHITE BLOOD COUNT 6.7 X10^3/uL (3.6-10.0)
[2018-04-15 07:47] LABS: BLOOD UREA NITROGEN 8 mg/dL (7-18); CALCIUM 9.2 mg/dL (8.5-10.1); CHLORIDE 105 mmol/L (98-107); COR NA(FOR HYPERGLY) 137 mmol/L (136-145); CREATININE 0.82 mg/dL (0.70-1.30); SODIUM 136 mmol/L (136-145); eGFR NON BLACK RACES > 60 (>60)
[2018-04-15] MEDS ORDERED: BRILINTA PO ONE (08:42)
[2018-04-15] MEDS: HumuLIN 70/30 (NovoLIN 70/30) SC SCH ×2 (08:49→21:19)
[2018-04-15] MEDS ORDERED: MIRALAX POWDER (1 DOSE 17 G) PO SCH (09:00)
[2018-04-15] MEDS ORDERED: PATIENT'S HOME MEDICATION (Triamterene-Hydrochlorothiazid [Triamterene-Hydrochlorothiazid] PO SCH (09:00)
[2018-04-15] MEDS: PROTONIX TAB 40 MG PO SCH (09:01)
[2018-04-15] MEDS: LASIX PO SCH ×2 (09:01→21:03)
[2018-04-15] MEDS: K-DUR TAB 20 MEQ PO SCH (09:01)
[2018-04-15] MEDS: LINZESS PO SCH (09:02)
[2018-04-15] MEDS: PATIENT'S HOME MEDICATION PO SCH ×2 (09:02→21:13)
[2018-04-15] MEDS: MAXZIDE 37.5/25 MG PO SCH (09:02)
[2018-04-15] MEDS: TICAGRELOR 60 MG PO SCH ×2 (09:03→21:04)
[2018-04-15] MEDS: PULMICORT NEB TX 0.5 MG NEB SCH ×2 (09:10→20:15)
[2018-04-15] MEDS: DUONEB 0.5 MG/3 MG NEB SCH ×5 (12:10→21:09)
[2018-04-15 12:15] LABS: ALANINE AMINOTRANSFERASE 21 Units/L (12-78); ALBUMIN 2.4 g/dL (3.4-5.0); ALKALINE PHOSPHATASE 91 Units/L (46-116); ASPARTATE AMINO TRANSFERASE 17 Units/L (15-37); COR CA(FOR HYPOALB) 10.5 mg/dL (8.5-10.1); TOTAL PROTEIN 6.8 g/dL (6.4-8.2)
[2018-04-15] MEDS ORDERED: VANCOMYCIN 1 GRAM PREMIX (ADDVANTAGE) 250 ML IV ONE (13:06)
[2018-04-15] MEDS: VANCOMYCIN HCL 1 GM VIAL 1 G in D5W 250 ML IV 250 ML IV SCH ×2 (14:00→21:02)
[2018-04-15] MEDS: NULYTELY or GO-LYTELY PO SCH (16:00)
[2018-04-15] MEDS: PHENERGAN TAB 25 MG PO PRN (19:13)
[2018-04-15] MEDS: NORCO 10/325 TAB PO PRN (19:17)
[2018-04-15] MEDS: XANAX PO PRN (21:03)
[2018-04-15] MEDS: SNACK - Diabetic Appropriate PO SCH (21:05)
[2018-04-15] MEDS: DULCOLAX TAB EC 5 MG PO SCH (21:06)
--- NOTE | 2018-04-15 22:47 | PCM.PROG ---
Progress Note - Progress Note for Day of Date of Exam: 04/15/18 - Subjective Subjective: 78YO WM PARAPLEGIC ADMITTED DUE TO ABDOMINAL PAIN LIKELY SECONDARY TO CONSTIPATION. PATIENT HAD FEVER OF 89F AT HOME. HAS WOUND VAC ON BACK WELL. PATIENT STATES ABDOMEN IS MUCH BETTER. HAS HAD LARGE BM VIA COLOSTOMY. STATES HE IS DOING DAILY IRRIGATIONS FOR UTI AND HAD IT TODAY. DENIES ANY OTHER COMPLAINTS AT PRESENT. - Past Medical Family Social History Past Med/Fam/Surg Hx: No changes since H&P Allergies: Allergies Sulfa (Sulfonamide Antibiotics) [SULFA] Allergy (Verified 04/13/18 10:43) - Review of Systems ROS: No change since H&P - Vital Signs and I&O's Vital Signs: Temperature 98.7 F Pulse Rate [Left Brachial] 135 Pulse Rate 95 Respiratory Rate 10 Blood Pressure [Right Arm] 119/57 Blood Pressure [Left Arm] 84/47 Blood Pressure 123/57 O2 Sat by Pulse Oximetry 99 Intake and Output: Intake & Output 04/13/18 04/14/18 04/15/18 04/16/18 11:59 11:59 11:59 11:59 Intake Total 2812 / 2812 5901 / 5901 3470 / 3470 Output Total 900 / 900 4600 / 4600 3200 / 3200 Balance 1912 / 191 1301 / 1301 270 / 270 - Physical Exam Oriented: Normal Eyes: Normal Ear: Normal Nose: Normal Throat: Normal Respiratory: Normal Cardiovascular: Normal : Dysuria (FELDER CATH) Auscultation: Bowel Sounds: Other (DIMINSHED. COLOSTOMY LLQ) Tenderness: Normal Skin: Wound (BUTTOCKS WITH WOUND VAC) Musculoskeletal: Motor Deficit (PARAPLEGIA), Sensory Deficit Psychiatric: Normal Mood Description: Calm Affect: Normal Speech Pattern: Clear, Appropriate - Laboratory and Diagnostics Result Diagrams: 04/15/18 05:58 04/15/18 05:58 Labs: 04/13/18 22:45 Urine,Catheterized Urine Culture - Final 04/13/18 11:45 Blood Blood Culture - Preliminary 04/13/18 12:00 Blood Blood Culture - Preliminary Laboratory WBC 6.7 X10^3/uL (3.6-10.0) 04/15/18 05:58 RBC 3.50 X10^6/uL (4.7-6.0) L 04/15/18 05:58 Hgb 10.1 g/dL (13.5-18.0) L 04/15/18 05:58 Hct 29.9 % (42.0-54.0) L 04/15/18 05:58 MCV 85.5 fL (80.0-100.0) 04/15/18 05:58 MCH 28.9 pg (27.0-34.0) 04/15/18 05:58 MCHC 33.7 g/dL (33.0-35.0) 04/15/18 05:58 RDW 16.0 % (11.6-16.5) 04/15/18 05:58 Plt Count 464 X10^3/uL (150.0-450.0) H 04/15/18 05:58 MPV 7.1 fL (7.4-11.0) L 04/15/18 05:58 Neut % (Auto) 62.7 % (42.0-75.0) 04/15/18 05:58 Lymph % (Auto) 15.1 % (21.0-51.0) L 04/15/18 05:58 [place] % (Auto) 11.4 % (0.0-13.0) 04/15/18 05:58 Eos % (Auto) 9.9 % (0.9-2.9) H 04/15/18 05:58 Baso % (Auto) 0.9 % (0.2-1.0) 04/15/18 05:58 Neut # (Auto) 4.2 x10^3/uL (2.2-4.8) 04/15/18 05:58 Lymph # (Auto) 1.0 X10^3/uL (1.3-2.9) L 04/15/18 05:58 [place] # (Auto) 0.8 x10^3/uL (0.3-0.8) 04/15/18 05:58 Eos # (Auto) 0.7 x10^3/uL (0.0-0.2) H 04/15/18 05:58 Baso # (Auto) 0.1 X10^3/uL (0.0-0.1) 04/15/18 05:58 Absolute Nucleated RBC 0.0 /100WBC 04/15/18 05:58 Sodium 136 mmol/L (136-145) 04/15/18 05:58 Corrected Sodium 137 mmol/L (136-145) 04/15/18 05:58 Potassium 4.2 mmol/L (3.5-5.1) 04/15/18 05:58 Chloride 105 mmol/L (98-107) 04/15/18 05:58 Carbon Dioxide 24.0 mmol/L (21-32) 04/15/18 05:58 BUN 8 mg/dL (7-18) 04/15/18 05:58 Creatinine 0.82 mg/dL (0.70-1.30) 04/15/18 05:58 Est GFR (MDRD) Af Amer > 60 (>60) 04/15/18 05:58 Est GFR (MDRD) Non-Af > 60 (>60) 04/15/18 05:58 Glucose 161 mg/dL (65-99) H 04/15/18 05:58 POC Glucose (mg/dL) 264 mg/dL (65-99) H 04/15/18 20:58 Lactic Acid 1.0 mmol/L (0.4-2.0) 04/13/18 11:45 Calcium 9.2 mg/dL (8.5-10.1) 04/15/18 05:58 Corrected Calcium 10.5 mg/dL (8.5-10.1) H 04/15/18 05:58 Magnesium 1.9 mg/dL (1.7-2.9) 04/14/18 04:55 Total Bilirubin 0.10 mg/dL (0.2-1.0) L 04/15/18 05:58 AST 17 Units/L (15-37) 04/15/18 05:58 ALT 21 Units/L (12-78) 04/15/18 05:58 Alkaline Phosphatase 91 Units/L (46-116) 04/15/18 05:58 Creatine Kinase 48 Units/L (39-308) 04/14/18 00:20 CK-MB (CK-2) 1.1 ng/mL (0-4.0) 04/14/18 00:20 CK/CKMB % Calc 2.3 % (<4) 04/14/18 00:20 Troponin I < 0.02 ng/mL (0-1.5) 04/14/18 00:20 C-Reactive Protein 129.60 mg/L (0-3.0) H 04/13/18 11:45 Total Protein 6.8 g/dL (6.4-8.2) 04/15/18 05:58 Albumin 2.4 g/dL (3.4-5.0) L 04/15/18 05:58 Globulin 4.4 g/dL (2.5-4.5) 04/15/18 05:58 Albumin/Globulin Ratio 0.5 Ratio (1.1-2.1) L 04/15/18 05:58 Amylase 41 Units/L (25-115) 04/13/18 11:45 Lipase 108 Units/L (73-393) 04/13/18 11:45 Specimen Type Cancelled 04/13/18 Unknown Urine Color Cancelled 04/13/18 Unknown Urine Appearance Cancelled 04/13/18 Unknown Urine pH Cancelled 04/13/18 Unknown Ur Specific [place] Cancelled 04/13/18 Unknown Urine Protein Cancelled 04/13/18 Unknown Urine Glucose (UA) Cancelled 04/13/18 Unknown Urine Ketones Cancelled 04/13/18 Unknown Urine Occult Blood Cancelled 04/13/18 Unknown Urine Nitrite Cancelled 04/13/18 Unknown Urine Bilirubin Cancelled 04/13/18 Unknown Urine Urobilinogen Cancelled 04/13/18 Unknown Ur Leukocyte Esterase Cancelled 04/13/18 Unknown Urine RBC 3-5 /HPF (NONE SEEN) 04/13/18 22:45 Urine WBC 30-50 /HPF (NONE SEEN) 04/13/18 22:45 Ur Squamous Epith Cells Rare /HPF (NEGATIVE) 04/13/18 22:45 Urine Bacteria Trace /HPF (NEGATIVE) 04/13/18 22:45 Urine Yeast Numerous /HPF (NEGATIVE) 04/13/18 22:45 Ur Culture Indicated? Yes/culture set up 04/13/18 22:45 Random Vancomycin 8.8 ug/mL 04/15/18 08:50 - Plan (1) Non-healing wound Status: Acute Plan: IV ANTIBIOTICS, WOUND VAC (2) Anemia Status: Acute Plan: MONITOR CBC (3) Cardiomegaly Status: Chronic (4) Abdominal pain Status: Acute Qualifiers: Abdominal location: generalized Qualified Code(s): R10.84 - Generalized abdominal pain Plan: DULCOLAX, LINZESS. MONITOR COLOSTOMY AND STOOL OUTPUT. (5) UTI (urinary tract infection) Status: Acute Qualifiers: Urinary tract infection type: catheter-associated UTI Plan: CULTURE PENDING (6) Constipation Status: Acute Qualifiers: Constipation type: slow transit constipation Qualified Code(s): K59.01 - Slow transit constipation Plan: LINZESS, DULCOLAX (7) Paraplegic spinal paralysis Status: Chronic (8) HTN (hypertension) Status: Chronic Qualifiers: Hypertension type: essential hypertension Qualified Code(s): I10 - Essential (primary) hypertension Plan: MONITOR BP. HOME MEDS. 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
[2018-04-16] MEDS: XANAX PO PRN ×2 (04:55→21:23)
[2018-04-16] MEDS: NORCO 10/325 TAB PO PRN ×3 (04:55→21:23)
[2018-04-16] MEDS: ZOSYN VIAL 3.375 GRAMS 3.375 G in NS 100 ML IV + SPIKE MINIBAG* 100 ML IV SCH ×3 (05:03→23:06)
[2018-04-16] MEDS: VANCOMYCIN HCL 1 GM VIAL 1 G in D5W 250 ML IV 250 ML IV SCH ×3 (05:03→21:10)
[2018-04-16 05:14] LABS: BASOPHILS # (AUTO) 0.1 X10^3/uL (0.0-0.1); BASOPHILS % (AUTO) 1.1 % (0.2-1.0); EOSINOPHILS # (AUTO) 0.3 x10^3/uL (0.0-0.2); EOSINOPHILS % (AUTO) 4.7 % (0.9-2.9); HEMATOCRIT 28.2 % (42.0-54.0); HEMOGLOBIN 9.5 g/dL (13.5-18.0); LYMPHOCYTES # (AUTO) 1.1 X10^3/uL (1.3-2.9); LYMPHOCYTES % (AUTO) 14.9 % (21.0-51.0); MEAN CORPUSCULAR HEMOGLOBIN 28.6 pg (27.0-34.0); MEAN CORPUSCULAR HGB CONC 33.6 g/dL (33.0-35.0); MEAN CORPUSCULAR VOLUME 84.9 fL (80.0-100.0); MONOCYTES # (AUTO) 0.9 x10^3/uL (0.3-0.8); MONOCYTES % (AUTO) 12.8 % (0.0-13.0); NEUTROPHILS # (AUTO) 4.7 x10^3/uL (2.2-4.8); NEUTROPHILS % (AUTO) 66.5 % (42.0-75.0); PLATELET COUNT 423 X10^3/uL (150.0-450.0); RED BLOOD COUNT 3.32 X10^6/uL (4.7-6.0); WHITE BLOOD COUNT 7.1 X10^3/uL (3.6-10.0)
[2018-04-16] MEDS: DUONEB 0.5 MG/3 MG NEB SCH ×3 (05:16→20:35)
[2018-04-16 05:25] LABS: ALANINE AMINOTRANSFERASE 17 Units/L (12-78); ALBUMIN 2.3 g/dL (3.4-5.0); ALKALINE PHOSPHATASE 80 Units/L (46-116); ASPARTATE AMINO TRANSFERASE 12 Units/L (15-37); BLOOD UREA NITROGEN 6 mg/dL (7-18); CALCIUM 8.7 mg/dL (8.5-10.1); CARBON DIOXIDE 25.2 mmol/L (21-32); CHLORIDE 105 mmol/L (98-107); COR CA(FOR HYPOALB) 10.1 mg/dL (8.5-10.1); COR NA(FOR HYPERGLY) 140 mmol/L (136-145); CREATININE 0.85 mg/dL (0.70-1.30); MAGNESIUM 1.7 mg/dL (1.7-2.9); SODIUM 138 mmol/L (136-145); TOTAL PROTEIN 6.4 g/dL (6.4-8.2); eGFR NON BLACK RACES > 60 (>60)
[2018-04-16] MEDS: NS 1000 ML 1,000 ML IV SCH ×4 (05:27→21:12)
[2018-04-16] MEDS: LINZESS PO SCH (09:11)
[2018-04-16] MEDS: HumuLIN 70/30 (NovoLIN 70/30) SC SCH ×2 (09:11→20:58)
[2018-04-16] MEDS: MAXZIDE 37.5/25 MG PO SCH (09:12)
[2018-04-16] MEDS: K-DUR TAB 20 MEQ PO SCH (09:12)
[2018-04-16] MEDS: PROTONIX TAB 40 MG PO SCH (09:12)
[2018-04-16] MEDS: LASIX PO SCH ×2 (09:12→20:58)
[2018-04-16] MEDS: PATIENT'S HOME MEDICATION PO SCH ×2 (09:14→21:00)
[2018-04-16] MEDS: TICAGRELOR 60 MG PO SCH ×2 (09:18→21:00)
[2018-04-16] MEDS ORDERED: NS IRRIGATION 3000 ML ONE (09:31)
[2018-04-16] MEDS ORDERED: POLYMYXIN B SULFATE ONE (09:31)
[2018-04-16] MEDS ORDERED: POLYMYXIN B IR ONE (09:31)
[2018-04-16] MEDS ORDERED: NEOMYCIN IR ONE (09:31)
[2018-04-16] MEDS: PULMICORT NEB TX 0.5 MG NEB SCH (12:03)
--- NOTE | 2018-04-16 13:09 | PCM.PROG ---
Progress Note - Progress Note for Day of Date of Exam: 04/16/18 - Subjective Subjective: 78YO WM PARAPLEGIC ADMITTED DUE TO ABDOMINAL PAIN LIKELY SECONDARY TO CONSTIPATION. PATIENT HAD FEVER OF 89F AT HOME. HAS WOUND VAC ON BACK WELL. PATIENT STATES ABDOMEN IS MUCH BETTER. HAS HAD LARGE BM VIA COLOSTOMY. STATES HE IS DOING DAILY IRRIGATIONS FOR UTI. STATES HE IS DOING MUCH BETTER. IS CONCERNED ABOUT WOUND AND DOES NOT KNOW WHAT IT LOOKS LIKE. DENIES ANY OTHER COMPLAINTS AT PRESENT. - Past Medical Family Social History Past Med/Fam/Surg Hx: No changes since H&P Allergies: Allergies Sulfa (Sulfonamide Antibiotics) [SULFA] Allergy (Verified 04/13/18 10:43) - Review of Systems ROS: No change since H&P - Vital Signs and I&O's Vital Signs: Temperature 98.4 F Pulse Rate [Left Brachial] 90 Pulse Rate 67 Respiratory Rate 22 Blood Pressure [Right Arm] 119/57 Blood Pressure [Left Arm] 100/55 Blood Pressure 123/57 O2 Sat by Pulse Oximetry 100 Intake and Output: Intake & Output 04/14/18 04/15/18 04/16/18 04/17/18 11:59 11:59 11:59 11:59 Intake Total 2812 / 2812 5901 / 5901 6073 / 6073 Output Total 900 / 900 4600 / 4600 5500 / 5500 Balance 191 / 1911 1301 / 1301 573 / 573 - Physical Exam Oriented: Normal Eyes: Normal Ear: Normal Nose: Normal Throat: Normal Respiratory: Normal Cardiovascular: Normal : Dysuria (FELDER CATH) Auscultation: Bowel Sounds: Normal, Other (DIMINSHED. COLOSTOMY LLQ) Palpation: Normal Tenderness: Normal Skin: Wound (BUTTOCKS WITH WOUND VAC) Musculoskeletal: Motor Deficit (PARAPLEGIA), Sensory Deficit Psychiatric: Normal Mood Description: Calm Affect: Normal Speech Pattern: Clear, Appropriate - Laboratory and Diagnostics Result Diagrams: 04/16/18 04:48 04/16/18 04:48 Labs: 04/13/18 22:45 Urine,Catheterized Urine Culture - Final 04/13/18 11:45 Blood Blood Culture - Preliminary 04/13/18 12:00 Blood Blood Culture - Preliminary Laboratory WBC 7.1 X10^3/uL (3.6-10.0) 04/16/18 04:48 RBC 3.32 X10^6/uL (4.7-6.0) L 04/16/18 04:48 Hgb 9.5 g/dL (13.5-18.0) L 04/16/18 04:48 Hct 28.2 % (42.0-54.0) L 04/16/18 04:48 MCV 84.9 fL (80.0-100.0) 04/16/18 04:48 MCH 28.6 pg (27.0-34.0) 04/16/18 04:48 MCHC 33.6 g/dL (33.0-35.0) 04/16/18 04:48 RDW 16.0 % (11.6-16.5) 04/16/18 04:48 Plt Count 423 X10^3/uL (150.0-450.0) 04/16/18 04:48 MPV 7.0 fL (7.4-11.0) L 04/16/18 04:48 Neut % (Auto) 66.5 % (42.0-75.0) 04/16/18 04:48 Lymph % (Auto) 14.9 % (21.0-51.0) L 04/16/18 04:48 [place] % (Auto) 12.8 % (0.0-13.0) 04/16/18 04:48 Eos % (Auto) 4.7 % (0.9-2.9) H 04/16/18 04:48 Baso % (Auto) 1.1 % (0.2-1.0) H 04/16/18 04:48 Neut # (Auto) 4.7 x10^3/uL (2.2-4.8) 04/16/18 04:48 Lymph # (Auto) 1.1 X10^3/uL (1.3-2.9) L 04/16/18 04:48 [place] # (Auto) 0.9 x10^3/uL (0.3-0.8) H 04/16/18 04:48 Eos # (Auto) 0.3 x10^3/uL (0.0-0.2) H 04/16/18 04:48 Baso # (Auto) 0.1 X10^3/uL (0.0-0.1) 04/16/18 04:48 Absolute Nucleated RBC 0.0 /100WBC 04/16/18 04:48 Sodium 138 mmol/L (136-145) 04/16/18 04:48 Corrected Sodium 140 mmol/L (136-145) 04/16/18 04:48 Potassium 4.0 mmol/L (3.5-5.1) 04/16/18 04:48 Chloride 105 mmol/L (98-107) 04/16/18 04:48 Carbon Dioxide 25.2 mmol/L (21-32) 04/16/18 04:48 BUN 6 mg/dL (7-18) L 04/16/18 04:48 Creatinine 0.85 mg/dL (0.70-1.30) 04/16/18 04:48 Est GFR (MDRD) Af Amer > 60 (>60) 04/16/18 04:48 Est GFR (MDRD) Non-Af > 60 (>60) 04/16/18 04:48 Glucose 183 mg/dL (65-99) H 04/16/18 04:48 POC Glucose (mg/dL) 158 mg/dL (65-99) H 04/16/18 11:17 Lactic Acid 1.0 mmol/L (0.4-2.0) 04/13/18 11:45 Calcium 8.7 mg/dL (8.5-10.1) 04/16/18 04:48 Corrected Calcium 10.1 mg/dL (8.5-10.1) 04/16/18 04:48 Magnesium 1.7 mg/dL (1.7-2.9) 04/16/18 04:48 Total Bilirubin 0.20 mg/dL (0.2-1.0) 04/16/18 04:48 AST 12 Units/L (15-37) L 04/16/18 04:48 ALT 17 Units/L (12-78) 04/16/18 04:48 Alkaline Phosphatase 80 Units/L (46-116) 04/16/18 04:48 Creatine Kinase 48 Units/L (39-308) 04/14/18 00:20 CK-MB (CK-2) 1.1 ng/mL (0-4.0) 04/14/18 00:20 CK/CKMB % Calc 2.3 % (<4) 04/14/18 00:20 Troponin I < 0.02 ng/mL (0-1.5) 04/14/18 00:20 C-Reactive Protein 129.60 mg/L (0-3.0) H 04/13/18 11:45 Total Protein 6.4 g/dL (6.4-8.2) 04/16/18 04:48 Albumin 2.3 g/dL (3.4-5.0) L 04/16/18 04:48 Globulin 4.1 g/dL (2.5-4.5) 04/16/18 04:48 Albumin/Globulin Ratio 0.6 Ratio (1.1-2.1) L 04/16/18 04:48 Amylase 41 Units/L (25-115) 04/13/18 11:45 Lipase 108 Units/L (73-393) 04/13/18 11:45 Specimen Type Cancelled 04/13/18 Unknown Urine Color Cancelled 04/13/18 Unknown Urine Appearance Cancelled 04/13/18 Unknown Urine pH Cancelled 04/13/18 Unknown Ur Specific [place] Cancelled 04/13/18 Unknown Urine Protein Cancelled 04/13/18 Unknown Urine Glucose (UA) Cancelled 04/13/18 Unknown Urine Ketones Cancelled 04/13/18 Unknown Urine Occult Blood Cancelled 04/13/18 Unknown Urine Nitrite Cancelled 04/13/18 Unknown Urine Bilirubin Cancelled 04/13/18 Unknown Urine Urobilinogen Cancelled 04/13/18 Unknown Ur Leukocyte Esterase Cancelled 04/13/18 Unknown Urine RBC 3-5 /HPF (NONE SEEN) 04/13/18 22:45 Urine WBC 30-50 /HPF (NONE SEEN) 04/13/18 22:45 Ur Squamous Epith Cells Rare /HPF (NEGATIVE) 04/13/18 22:45 Urine Bacteria Trace /HPF (NEGATIVE) 04/13/18 22:45 Urine Yeast Numerous /HPF (NEGATIVE) 04/13/18 22:45 Ur Culture Indicated? Yes/culture set up 04/13/18 22:45 Random Vancomycin 8.8 ug/mL 04/15/18 08:50 - Plan (1) Non-healing wound Status: Acute Plan: IV ANTIBIOTICS, WOUND VAC (2) Anemia Status: Acute Plan: MONITOR CBC (3) Cardiomegaly Status: Chronic (4) Abdominal pain Status: Acute Qualifiers: Abdominal location: generalized Qualified Code(s): R10.84 - Generalized abdominal pain Plan: DULCOLAX, LINZESS. MONITOR COLOSTOMY AND STOOL OUTPUT. (5) UTI (urinary tract infection) Status: Acute Qualifiers: Urinary tract infection type: catheter-associated UTI Plan: CULTURE PENDING (6) Constipation Status: Acute Qualifiers: Constipation type: slow transit constipation Qualified Code(s): K59.01 - Slow transit constipation Plan: LINZESS, DULCOLAX (7) Paraplegic spinal paralysis Status: Chronic (8) HTN (hypertension) Status: Chronic Qualifiers: Hypertension type: essential hypertension Qualified Code(s): I10 - Essential (primary) hypertension Plan: MONITOR BP. HOME MEDS. (9) Diabetes mellitus, type II Status: Chronic Qualifiers: Diabetes mellitus senior care insulin use: with javascript application developer use Diabetes mellitus complication status: with hyperglycemia Qualified Code(s): E11.65 - Type 2 diabetes mellitus with hyperglycemia; Z79.4 - keno terminal operator (current) use of insulin; Z79.4 - skilled nursing (current) use of insulin; Z79.4 - skilled nursing (current ) use of insulin; Z79.4 - keno terminal operator (current) use of insulin Plan: FSBS CHECKS, SLIDING SCALE. (10) Open wound Status: Acute Plan: WOUND VAC. ANTIBIOTICS.
[2018-04-16] MEDS ORDERED: PHARMACY COMMENT IV NR (13:30)
[2018-04-16 13:45] LABS: CREATININE 0.81 mg/dL (0.70-1.30); VANCOMYCIN,TROUGH 18.1 ug/mL (15-20)
[2018-04-16] MEDS: NULYTELY or GO-LYTELY PO SCH (15:23)
[2018-04-16] MEDS: SNACK - Diabetic Appropriate PO SCH (20:49)
[2018-04-16] MEDS: DULCOLAX TAB EC 5 MG PO SCH (20:50)
[2018-04-17] MEDS: VANCOMYCIN HCL 1 GM VIAL 1 G in D5W 250 ML IV 250 ML IV SCH ×3 (05:05→23:00)
[2018-04-17] MEDS: NS 1000 ML 1,000 ML IV SCH ×4 (05:05→21:31)
[2018-04-17] MEDS: DUONEB 0.5 MG/3 MG NEB SCH ×3 (05:10→21:02)
[2018-04-17] MEDS: ZOSYN VIAL 3.375 GRAMS 3.375 G in NS 100 ML IV + SPIKE MINIBAG* 100 ML IV SCH ×3 (05:31→22:24)
[2018-04-17 06:13] LABS: BASOPHILS # (AUTO) 0.1 X10^3/uL (0.0-0.1); BASOPHILS % (AUTO) 1.2 % (0.2-1.0); EOSINOPHILS # (AUTO) 0.1 x10^3/uL (0.0-0.2); EOSINOPHILS % (AUTO) 1.6 % (0.9-2.9); HEMATOCRIT 26.2 % (42.0-54.0); HEMOGLOBIN 8.9 g/dL (13.5-18.0); LYMPHOCYTES # (AUTO) 1.2 X10^3/uL (1.3-2.9); LYMPHOCYTES % (AUTO) 14.5 % (21.0-51.0); MEAN CORPUSCULAR HEMOGLOBIN 29.2 pg (27.0-34.0); MEAN CORPUSCULAR VOLUME 85.7 fL (80.0-100.0); MEAN PLATELET VOLUME 7.2 fL (7.4-11.0); MONOCYTES # (AUTO) 1.1 x10^3/uL (0.3-0.8); NEUTROPHILS % (AUTO) 69.7 % (42.0-75.0); PLATELET COUNT 461 X10^3/uL (150.0-450.0); RED BLOOD COUNT 3.05 X10^6/uL (4.7-6.0); RED CELL DISTRIBUTION WIDTH 16.2 % (11.6-16.5); WHITE BLOOD COUNT 8.6 X10^3/uL (3.6-10.0)
[2018-04-17 06:45] LABS: ALANINE AMINOTRANSFERASE 15 Units/L (12-78); ALBUMIN 2.1 g/dL (3.4-5.0); ALKALINE PHOSPHATASE 74 Units/L (46-116); ASPARTATE AMINO TRANSFERASE 11 Units/L (15-37); BLOOD UREA NITROGEN 7 mg/dL (7-18); CARBON DIOXIDE 25.6 mmol/L (21-32); CHLORIDE 103 mmol/L (98-107); COR CA(FOR HYPOALB) 10.5 mg/dL (8.5-10.1); COR NA(FOR HYPERGLY) 137 mmol/L (136-145); CREATININE 0.93 mg/dL (0.70-1.30); SODIUM 135 mmol/L (136-145); TOTAL PROTEIN 6.4 g/dL (6.4-8.2); eGFR NON BLACK RACES > 60 (>60)
[2018-04-17] MEDS: MAXZIDE 37.5/25 MG PO SCH (08:23)
[2018-04-17] MEDS: PHENERGAN TAB 25 MG PO PRN (08:23)
[2018-04-17] MEDS: LASIX PO SCH ×2 (08:23→21:34)
[2018-04-17] MEDS: LINZESS PO SCH (08:24)
[2018-04-17] MEDS: SOMA TAB 350 MG PO PRN (08:24)
[2018-04-17] MEDS: K-DUR TAB 20 MEQ PO SCH (08:24)
[2018-04-17] MEDS: PROTONIX TAB 40 MG PO SCH (08:25)
[2018-04-17] MEDS: TICAGRELOR 60 MG PO SCH ×2 (08:28→21:36)
[2018-04-17] MEDS: HumuLIN 70/30 (NovoLIN 70/30) SC SCH ×2 (08:28→22:21)
[2018-04-17] MEDS: PATIENT'S HOME MEDICATION PO SCH ×2 (08:29→21:35)
[2018-04-17] MEDS: PULMICORT NEB TX 0.5 MG NEB SCH ×2 (09:02→21:02)
[2018-04-17] MEDS: NULYTELY or GO-LYTELY PO SCH (17:13)
[2018-04-17] MEDS: SNACK - Diabetic Appropriate PO SCH (21:00)
[2018-04-17] MEDS: DULCOLAX TAB EC 5 MG PO SCH (21:31)
[2018-04-17] MEDS: XANAX PO PRN (22:00)
[2018-04-17] MEDS: HumuLIN R SUBCUT PRN (22:00)
[2018-04-17] MEDS: NORCO 10/325 TAB PO PRN (22:00)
--- NOTE | 2018-04-17 22:29 | PCM.PROG ---
Progress Note - Progress Note for Day of Date of Exam: 04/17/18 - Subjective Subjective: 78YO WM PARAPLEGIC ADMITTED DUE TO ABDOMINAL PAIN LIKELY SECONDARY TO CONSTIPATION. PATIENT HAD FEVER OF 89F AT HOME. HAS WOUND VAC ON BACK WELL. PATIENT STATES ABDOMEN IS MUCH BETTER. HAS HAD LARGE BM VIA COLOSTOMY. STATES HE IS DOING DAILY IRRIGATIONS FOR UTI. STATES HE IS DOING MUCH BETTER. IS CONCERNED ABOUT WOUND. STATES IS FOLLOWDE BY DR ALLEN. WAS NOTED TO HAVE TEMP LAST NIGHT. DENIES COUGH OR CONGESTION. DENIES ANY OTHER COMPLAINTS AT PRESENT. - Past Medical Family Social History Past Med/Fam/Surg Hx: No changes since H&P Allergies: Allergies Sulfa (Sulfonamide Antibiotics) [SULFA] Allergy (Verified 04/13/18 10:43) - Review of Systems ROS: No change since H&P - Vital Signs and I&O's Vital Signs: Temperature 98.1 F Pulse Rate [Left Brachial] 96 Pulse Rate 99 Respiratory Rate 20 Blood Pressure [Right Arm] 119/57 Blood Pressure [Left Arm] 109/52 Blood Pressure 123/57 O2 Sat by Pulse Oximetry 98 Intake and Output: Intake & Output 04/15/18 04/16/18 04/17/18 04/18/18 11:59 11:59 11:59 11:59 Intake Total 5901 / 5901 6073 / 6073 4671 / 4671 1080 / 1080 Output Total 4600 / 4600 5500 / 5500 4250 / 4250 1200 / 1200 Balance 1301 / 1301 573 / 573 421 / 421 -120 / -120 - Physical Exam Oriented: Normal Eyes: Normal Ear: Normal Nose: Normal Throat: Normal Respiratory: Normal Cardiovascular: Normal : Dysuria (FELDER CATH) Auscultation: Bowel Sounds: Normal, Other (DIMINSHED. COLOSTOMY LLQ) Palpation: Normal Tenderness: Normal Skin: Wound (BUTTOCKS WITH WOUND VAC. WOUND BED WITH GRANULATING TISSUE. TUNNELING ~2CM TO 10-3 O'CLOCK) Musculoskeletal: Motor Deficit (PARAPLEGIA), Sensory Deficit Psychiatric: Normal Mood Description: Calm Affect: Normal Speech Pattern: Clear, Appropriate - Laboratory and Diagnostics Result Diagrams: 04/17/18 05:49 04/17/18 05:49 Labs: 04/13/18 22:45 Urine,Catheterized Urine Culture - Final 04/13/18 11:45 Blood Blood Culture - Preliminary 04/13/18 12:00 Blood Blood Culture - Preliminary Laboratory WBC 8.6 X10^3/uL (3.6-10.0) 04/17/18 05:49 RBC 3.05 X10^6/uL (4.7-6.0) L 04/17/18 05:49 Hgb 8.9 g/dL (13.5-18.0) L 04/17/18 05:49 Hct 26.2 % (42.0-54.0) L 04/17/18 05:49 MCV 85.7 fL (80.0-100.0) 04/17/18 05:49 MCH 29.2 pg (27.0-34.0) 04/17/18 05:49 MCHC 34.0 g/dL (33.0-35.0) 04/17/18 05:49 RDW 16.2 % (11.6-16.5) 04/17/18 05:49 Plt Count 461 X10^3/uL (150.0-450.0) H 04/17/18 05:49 MPV 7.2 fL (7.4-11.0) L 04/17/18 05:49 Neut % (Auto) 69.7 % (42.0-75.0) 04/17/18 05:49 Lymph % (Auto) 14.5 % (21.0-51.0) L 04/17/18 05:49 [place] % (Auto) 13.0 % (0.0-13.0) 04/17/18 05:49 Eos % (Auto) 1.6 % (0.9-2.9) 04/17/18 05:49 Baso % (Auto) 1.2 % (0.2-1.0) H 04/17/18 05:49 Neut # (Auto) 6.0 x10^3/uL (2.2-4.8) H 04/17/18 05:49 Lymph # (Auto) 1.2 X10^3/uL (1.3-2.9) L 04/17/18 05:49 [place] # (Auto) 1.1 x10^3/uL (0.3-0.8) H 04/17/18 05:49 Eos # (Auto) 0.1 x10^3/uL (0.0-0.2) 04/17/18 05:49 Baso # (Auto) 0.1 X10^3/uL (0.0-0.1) 04/17/18 05:49 Absolute Nucleated RBC 0.0 /100WBC 04/17/18 05:49 Sodium 135 mmol/L (136-145) L 04/17/18 05:49 Corrected Sodium 137 mmol/L (136-145) 04/17/18 05:49 Potassium 4.2 mmol/L (3.5-5.1) 04/17/18 05:49 Chloride 103 mmol/L (98-107) 04/17/18 05:49 Carbon Dioxide 25.6 mmol/L (21-32) 04/17/18 05:49 BUN 7 mg/dL (7-18) 04/17/18 05:49 Creatinine 0.93 mg/dL (0.70-1.30) 04/17/18 05:49 Est GFR (MDRD) Af Amer > 60 (>60) 04/17/18 05:49 Est GFR (MDRD) Non-Af > 60 (>60) 04/17/18 05:49 Glucose 189 mg/dL (65-99) H 04/17/18 05:49 POC Glucose (mg/dL) 254 mg/dL (65-99) H 04/17/18 20:48 Lactic Acid 1.0 mmol/L (0.4-2.0) 04/13/18 11:45 Calcium 9.0 mg/dL (8.5-10.1) 04/17/18 05:49 Corrected Calcium 10.5 mg/dL (8.5-10.1) H 04/17/18 05:49 Magnesium 1.7 mg/dL (1.7-2.9) 04/16/18 04:48 Total Bilirubin 0.60 mg/dL (0.2-1.0) 04/17/18 05:49 AST 11 Units/L (15-37) L 04/17/18 05:49 ALT 15 Units/L (12-78) 04/17/18 05:49 Alkaline Phosphatase 74 Units/L (46-116) 04/17/18 05:49 Creatine Kinase 48 Units/L (39-308) 04/14/18 00:20 CK-MB (CK-2) 1.1 ng/mL (0-4.0) 04/14/18 00:20 CK/CKMB % Calc 2.3 % (<4) 04/14/18 00:20 Troponin I < 0.02 ng/mL (0-1.5) 04/14/18 00:20 C-Reactive Protein 129.60 mg/L (0-3.0) H 04/13/18 11:45 Total Protein 6.4 g/dL (6.4-8.2) 04/17/18 05:49 Albumin 2.1 g/dL (3.4-5.0) L 04/17/18 05:49 Globulin 4.3 g/dL (2.5-4.5) 04/17/18 05:49 Albumin/Globulin Ratio 0.5 Ratio (1.1-2.1) L 04/17/18 05:49 Amylase 41 Units/L (25-115) 04/13/18 11:45 Lipase 108 Units/L (73-393) 04/13/18 11:45 Specimen Type Cancelled 04/13/18 Unknown Urine Color Cancelled 04/13/18 Unknown Urine Appearance Cancelled 04/13/18 Unknown Urine pH Cancelled 04/13/18 Unknown Ur Specific [place] Cancelled 04/13/18 Unknown Urine Protein Cancelled 04/13/18 Unknown Urine Glucose (UA) Cancelled 04/13/18 Unknown Urine Ketones Cancelled 04/13/18 Unknown Urine Occult Blood Cancelled 04/13/18 Unknown Urine Nitrite Cancelled 04/13/18 Unknown Urine Bilirubin Cancelled 04/13/18 Unknown Urine Urobilinogen Cancelled 04/13/18 Unknown Ur Leukocyte Esterase Cancelled 04/13/18 Unknown Urine RBC 3-5 /HPF (NONE SEEN) 04/13/18 22:45 Urine WBC 30-50 /HPF (NONE SEEN) 04/13/18 22:45 Ur Squamous Epith Cells Rare /HPF (NEGATIVE) 04/13/18 22:45 Urine Bacteria Trace /HPF (NEGATIVE) 04/13/18 22:45 Urine Yeast Numerous /HPF (NEGATIVE) 04/13/18 22:45 Ur Culture Indicated? Yes/culture set up 04/13/18 22:45 Vancomycin Trough 18.1 ug/mL (15-20) 04/16/18 13:17 Random Vancomycin 8.8 ug/mL 04/15/18 08:50 - Plan (1) Non-healing wound Status: Acute Plan: IV ANTIBIOTICS, WOUND VAC (2) Anemia Status: Acute Plan: MONITOR CBC (3) Cardiomegaly Status: Chronic (4) Abdominal pain Status: Acute Qualifiers: Abdominal location: generalized Qualified Code(s): R10.84 - Generalized abdominal pain Plan: DULCOLAX, LINZESS. MONITOR COLOSTOMY AND STOOL OUTPUT. (5) UTI (urinary tract infection) Status: Inactive Qualifiers: Urinary tract infection type: catheter-associated UTI Plan: CULTURE PENDING (6) Constipation Status: Acute Qualifiers: Constipation type: slow transit constipation Qualified Code(s): K59.01 - Slow transit constipation Plan: LINZESS, DULCOLAX (7) Paraplegic spinal paralysis Status: Chronic (8) HTN (hypertension) Status: Chronic Qualifiers: Hypertension type: essential hypertension Qualified Code(s): I10 - Essential (primary) hypertension Plan: MONITOR BP. HOME MEDS. (9) Diabetes mellitus, type II Status: Chronic Qualifiers: Diabetes mellitus senior care insulin use: with exterminator helper use Diabetes mellitus complication status: with hyperglycemia Qualified Code(s): E11.65 - Type 2 diabetes mellitus with hyperglycemia; Z79.4 - exterminator helper (current) use of insulin; Z79.4 - senior care (current) use of insulin; Z79.4 - senior care (current ) use of insulin; Z79.4 - exterminator helper (current) use of insulin Plan: FSBS CHECKS, SLIDING SCALE. (10) Open wound Status: Acute Plan: WOUND VAC. ANTIBIOTICS.
[2018-04-17 22:44] LABS: VANCOMYCIN,TROUGH 19.9 ug/mL (15-20)
[2018-04-18] MEDS: NS 1000 ML 1,000 ML IV SCH (04:49)
[2018-04-18] MEDS: DUONEB 0.5 MG/3 MG NEB SCH ×2 (05:26→14:00)
[2018-04-18 05:51] LABS: BASOPHILS # (AUTO) 0.1 X10^3/uL (0.0-0.1); BASOPHILS % (AUTO) 1.2 % (0.2-1.0); EOSINOPHILS # (AUTO) 0.1 x10^3/uL (0.0-0.2); HEMATOCRIT 26.3 % (42.0-54.0); HEMOGLOBIN 8.9 g/dL (13.5-18.0); LYMPHOCYTES % (AUTO) 14.5 % (21.0-51.0); MEAN CORPUSCULAR HGB CONC 33.9 g/dL (33.0-35.0); MEAN CORPUSCULAR VOLUME 85.3 fL (80.0-100.0); MEAN PLATELET VOLUME 7.1 fL (7.4-11.0); MONOCYTES % (AUTO) 13.4 % (0.0-13.0); NEUTROPHILS % (AUTO) 69.9 % (42.0-75.0); PLATELET COUNT 534 X10^3/uL (150.0-450.0); RED BLOOD COUNT 3.08 X10^6/uL (4.7-6.0); RED CELL DISTRIBUTION WIDTH 16.1 % (11.6-16.5); WHITE BLOOD COUNT 7.1 X10^3/uL (3.6-10.0)
[2018-04-18] MEDS: VANCOMYCIN HCL 1 GM VIAL 1 G in D5W 250 ML IV 250 ML IV SCH ×2 (05:52→15:51)
[2018-04-18] MEDS: ZOSYN VIAL 3.375 GRAMS 3.375 G in NS 100 ML IV + SPIKE MINIBAG* 100 ML IV SCH ×2 (05:53→15:52)
[2018-04-18 06:27] LABS: ALANINE AMINOTRANSFERASE 13 Units/L (12-78); ALBUMIN 2.2 g/dL (3.4-5.0); ALKALINE PHOSPHATASE 72 Units/L (46-116); ASPARTATE AMINO TRANSFERASE 11 Units/L (15-37); BLOOD UREA NITROGEN 7 mg/dL (7-18); CALCIUM 9.4 mg/dL (8.5-10.1); CARBON DIOXIDE 28.1 mmol/L (21-32); CHLORIDE 104 mmol/L (98-107); COR CA(FOR HYPOALB) 10.8 mg/dL (8.5-10.1); COR NA(FOR HYPERGLY) 138 mmol/L (136-145); CREATININE 0.88 mg/dL (0.70-1.30); SODIUM 138 mmol/L (136-145); TOTAL PROTEIN 6.8 g/dL (6.4-8.2); eGFR NON BLACK RACES > 60 (>60)
[2018-04-18] MEDS: PULMICORT NEB TX 0.5 MG NEB SCH (09:00)
[2018-04-18] MEDS: MAXZIDE 37.5/25 MG PO SCH (09:27)
[2018-04-18] MEDS: LINZESS PO SCH (09:27)
[2018-04-18] MEDS: PROTONIX TAB 40 MG PO SCH (09:27)
[2018-04-18] MEDS: LASIX PO SCH (09:27)
[2018-04-18] MEDS: K-DUR TAB 20 MEQ PO SCH (09:27)
[2018-04-18] MEDS: TICAGRELOR 60 MG PO SCH (09:28)
[2018-04-18] MEDS: PATIENT'S HOME MEDICATION PO SCH (09:28)
[2018-04-18] MEDS: HumuLIN 70/30 (NovoLIN 70/30) SC SCH (09:35)
[2018-04-18 15:26] VITALS: BP 139/68
--- NOTE | 2018-04-28 22:19 | PCM.DCPLAN ---
Discharge Summary - Admission Date Date of Admission: 04/13/18 - Discharge Date Discharge Date: 04/18/18 - Admission Diagnoses (1) Non-healing wound Status: Acute (2) Anemia Status: Acute (3) Cardiomegaly Status: Chronic (4) Abdominal pain Status: Acute (5) UTI (urinary tract infection) Status: Inactive (6) Constipation Status: Acute (7) Paraplegic spinal paralysis Status: Chronic (8) HTN (hypertension) Status: Chronic (9) Diabetes mellitus, type II Status: Chronic (10) Open wound Status: Acute - Discharge Diagnoses Discharge Diagnosis: SAME ADMISSION DIAGNOSIS - Discharge Medications Discharge Medications: Home Medication List carisoprodol 1 tab PO BID PRN 04/13/18 [History] insulin NPH and regular human [Humulin 70/30 U-100 Insulin] 40 units SC BID 03/26 [History] insulin regular human [Humulin R Regular U-100 Insuln] 1 unit SUB-Q PRN PRN 03/26 [History] metformin 2 tab PO BID 04/13/18 [History] polyethylene glycol 3350 [Miralax] 1 tab PO DAILY 04/13/18 [History] promethazine 1 tab PO TID PRN 04/13/18 [History] sulfamethoxazole-trimethoprim 1 tab PO BID 04/13/18 [History] Prescriptions: - Hospital Course Vital Signs: Temperature 98.2 F Pulse Rate [Left Brachial] 95 Pulse Rate 99 Respiratory Rate 17 Blood Pressure [Right Arm] 119/57 Blood Pressure [Left Arm] 139/68 Blood Pressure 123/57 O2 Sat by Pulse Oximetry 100 Latest Lab Results: Laboratory Last Values WBC 7.1 X10^3/uL (3.6-10.0) 04/18/18 05:20 RBC 3.08 X10^6/uL (4.7-6.0) L 04/18/18 05:20 Hgb 8.9 g/dL (13.5-18.0) L 04/18/18 05:20 Hct 26.3 % (42.0-54.0) L 04/18/18 05:20 MCV 85.3 fL (80.0-100.0) 04/18/18 05:20 MCH 29.0 pg (27.0-34.0) 04/18/18 05:20 MCHC 33.9 g/dL (33.0-35.0) 04/18/18 05:20 RDW 16.1 % (11.6-16.5) 04/18/18 05:20 Plt Count 534 X10^3/uL (150.0-450.0) H 04/18/18 05:20 MPV 7.1 fL (7.4-11.0) L 04/18/18 05:20 Neut % (Auto) 69.9 % (42.0-75.0) 04/18/18 05:20 Lymph % (Auto) 14.5 % (21.0-51.0) L 04/18/18 05:20 [place] % (Auto) 13.4 % (0.0-13.0) H 04/18/18 05:20 Eos % (Auto) 1.0 % (0.9-2.9) 04/18/18 05:20 Baso % (Auto) 1.2 % (0.2-1.0) H 04/18/18 05:20 Neut # (Auto) 5.0 x10^3/uL (2.2-4.8) H 04/18/18 05:20 Lymph # (Auto) 1.0 X10^3/uL (1.3-2.9) L 04/18/18 05:20 Dawson # (Auto) 1.0 x10^3/uL (0.3-0.8) H 04/18/18 05:20 Eos # (Auto) 0.1 x10^3/uL (0.0-0.2) 04/18/18 05:20 Baso # (Auto) 0.1 X10^3/uL (0.0-0.1) 04/18/18 05:20 Absolute Nucleated RBC 0.0 /100WBC 04/18/18 05:20 Sodium 138 mmol/L (136-145) 04/18/18 05:20 Corrected Sodium 138 mmol/L (136-145) 04/18/18 05:20 Potassium 3.7 mmol/L (3.5-5.1) 04/18/18 05:20 Chloride 104 mmol/L (98-107) 04/18/18 05:20 Carbon Dioxide 28.1 mmol/L (21-32) 04/18/18 05:20 BUN 7 mg/dL (7-18) 04/18/18 05:20 Creatinine 0.88 mg/dL (0.70-1.30) 04/18/18 05:20 Est GFR (MDRD) Af Amer > 60 (>60) 04/18/18 05:20 Est GFR (MDRD) Non-Af > 60 (>60) 04/18/18 05:20 Glucose 115 mg/dL (65-99) H 04/18/18 05:20 POC Glucose (mg/dL) 151 mg/dL (65-99) H 04/18/18 11:26 Lactic Acid 1.0 mmol/L (0.4-2.0) 04/13/18 11:45 Calcium 9.4 mg/dL (8.5-10.1) 04/18/18 05:20 Corrected Calcium 10.8 mg/dL (8.5-10.1) H 04/18/18 05:20 Magnesium 1.7 mg/dL (1.7-2.9) 04/16/18 04:48 Total Bilirubin 0.40 mg/dL (0.2-1.0) 04/18/18 05:20 AST 11 Units/L (15-37) L 04/18/18 05:20 ALT 13 Units/L (12-78) 04/18/18 05:20 Alkaline Phosphatase 72 Units/L (46-116) 04/18/18 05:20 Creatine Kinase 48 Units/L (39-308) 04/14/18 00:20 CK-MB (CK-2) 1.1 ng/mL (0-4.0) 04/14/18 00:20 CK/CKMB % Calc 2.3 % (<4) 04/14/18 00:20 Troponin I < 0.02 ng/mL (0-1.5) 04/14/18 00:20 C-Reactive Protein 129.60 mg/L (0-3.0) H 04/13/18 11:45 Total Protein 6.8 g/dL (6.4-8.2) 04/18/18 05:20 Albumin 2.2 g/dL (3.4-5.0) L 04/18/18 05:20 Globulin 4.6 g/dL (2.5-4.5) H 04/18/18 05:20 Albumin/Globulin Ratio 0.5 Ratio (1.1-2.1) L 04/18/18 05:20 Amylase 41 Units/L (25-115) 04/13/18 11:45 Lipase 108 Units/L (73-393) 04/13/18 11:45 Specimen Type Cancelled 04/13/18 Unknown Urine Color Cancelled 04/13/18 Unknown Urine Appearance Cancelled 04/13/18 Unknown Urine pH Cancelled 04/13/18 Unknown Ur Specific [place] Cancelled 04/13/18 Unknown Urine Protein Cancelled 04/13/18 Unknown Urine Glucose (UA) Cancelled 04/13/18 Unknown Urine Ketones Cancelled 04/13/18 Unknown Urine Occult Blood Cancelled 04/13/18 Unknown Urine Nitrite Cancelled 04/13/18 Unknown Urine Bilirubin Cancelled 04/13/18 Unknown Urine Urobilinogen Cancelled 04/13/18 Unknown Ur Leukocyte Esterase Cancelled 04/13/18 Unknown Urine RBC 3-5 /HPF (NONE SEEN) 04/13/18 22:45 Urine WBC 30-50 /HPF (NONE SEEN) 04/13/18 22:45 Ur Squamous Epith Cells Rare /HPF (NEGATIVE) 04/13/18 22:45 Urine Bacteria Trace /HPF (NEGATIVE) 04/13/18 22:45 Urine Yeast Numerous /HPF (NEGATIVE) 04/13/18 22:45 Ur Culture Indicated? Yes/culture set up 04/13/18 22:45 Vancomycin Trough 19.9 ug/mL (15-20) 04/17/18 22:02 Random Vancomycin 8.8 ug/mL 04/15/18 08:50 Hospital Course: 78YO WM PARAPLEGIC ADMITTED DUE TO ABDOMINAL PAIN LIKELY SECONDARY TO CONSTIPATION. PATIENT HAD FEVER OF 103F AT HOME. HAS WOUND VAC ON BACK WELL. HAS UTI AND IS DOING DAILY IRRIGATIONS FOR UTI. LABS WERE MONITORED. PATIENT WAS GIVEN IV ANTIBIOTICS. CONSTIPATION RESOLVED WITH PO MEDS. PATIENT SEEN BY DR ALLEN, SURGEON. PATIENT FELT STABLE AND WAS DISCHARGED HOME TO BE FOLLOWED ON OP BASIS. - Discharge Plan Disposition: HOME HEALTH SERVICE Condition: Stable - Follow ups/Referrals Follow ups/Referrals: CHRISHOME HEALT [STAFF PHYSICIAN] - JESSICA PILLAI [Primary Care Provider] - 05/03/18 2:05 pm - Instructions Instructions: Chronic Obstructive Pulmonary Disease Exacerbation, [id number] , How to Take Your Blood Pressure, [id number], Diabetes Mellitus and Sick Day Management, Wound Infection, [id number], Heart Failure, [id number] Additional Instructions: FOLLOW UP WITH DR. PILLAI IN 2 WEEKS. Forms: Patient Portal
== END 2018-04-18 15:00 | disposition home health service (06) | DRG 391 ==
LOC: ER 10:41 → ICU 14:20 → MED/SURG 04-16 15:54
PROVIDERS: ADMIT Internal Medicine; ATTEND Internal Medicine
DX: Z97.8 Presence of other specified devices; D64.89 Other specified anemias; F41.8 Other specified anxiety disorders; E78.2 Mixed hyperlipidemia; L89.153 Pressure ulcer of sacral region, stage 3; R79.82 Elevated C-reactive protein (CRP); L03.317 Cellulitis of buttock; K21.9 Gastro-esophageal reflux disease without esophagitis; I25.10 Atherosclerotic heart disease of native coronary artery without angina pectoris; I51.7 Cardiomegaly; K59.01 Slow transit constipation; R10.84 Generalized abdominal pain; R06.02 Shortness of breath; Z79.4 Long term (current) use of insulin; G82.20 Paraplegia, unspecified; E11.65 Type 2 diabetes mellitus with hyperglycemia; Z93.3 Colostomy status; N39.0 Urinary tract infection, site not specified; R07.89 Other chest pain
CPT/HCPCS: 36415; 71010; 71045; 74176; 80053; 80202; 81001; 82150; 82550; 82553; 82565; 83605; 83690; 83735; 84484; 85025; 86140; 87040; 87086; 93005; 93010; 94640; 96365; 96367; 96374; 97110; 97167; 99231; 99284; A4222; Q0169; J1815; J2543; J3370; J7030; J7050; J7060; J7620; J7626

== ENCOUNTER 2018-05-31 10:44 | Inpatient (IN) ==
[2018-05-31 11:35] LABS: BILIRUBIN,URINE NEGATIVE (NEGATIVE); BLOOD/HEMOGLOBIN,URINE 2+ (NEGATIVE); GLUCOSE, URINE NEGATIVE (NEGATIVE); KETONES,URINE NEGATIVE (NEGATIVE); LEUKOCYTE ESTERASE ,URINE 3+ (NEGATIVE); NITRITES,URINE NEGATIVE (NEGATIVE); PROTEIN,URINE 1+ (NEGATIVE); UROBILINOGEN,URINE NORMAL (NORMAL)
[2018-05-31 11:52] LABS: APPEARANCE,URINE SLIGHTLY HAZY (CLEAR); BACTERIA,URINE TRACE /HPF (NEGATIVE); COLOR,URINE YELLOW (YELLOW); RBC,URINE 0-2 /HPF (NONE SEEN); SQUAMOUS EPITHELIAL CELL,UR RARE /HPF (NEGATIVE)
[2018-05-31 11:53] LABS: AMORPHOUS SEDIMENT,UR TRACE /HPF (NEGATIVE); MUCUS,URINE RARE /HPF (NEGATIVE)
[2018-05-31 11:54] LABS: YEAST,URINE MODERATE /HPF (NEGATIVE)
[2018-05-31 12:41] LABS: BASOPHILS # (AUTO) 0.1 X10^3/uL (0.0-0.1); BASOPHILS % (AUTO) 0.8 % (0.2-1.0); EOSINOPHILS % (AUTO) 0.1 % (0.9-2.9); HEMATOCRIT 29.8 % (42.0-54.0); HEMOGLOBIN 10.2 g/dL (13.5-18.0); LYMPHOCYTES # (AUTO) 1.5 X10^3/uL (1.3-2.9); MEAN CORPUSCULAR HEMOGLOBIN 29.4 pg (27.0-34.0); MEAN CORPUSCULAR HGB CONC 34.3 g/dL (33.0-35.0); MEAN CORPUSCULAR VOLUME 85.7 fL (80.0-100.0); MEAN PLATELET VOLUME 7.5 fL (7.4-11.0); MONOCYTES # (AUTO) 0.7 x10^3/uL (0.3-0.8); NEUTROPHILS # (AUTO) 6.9 x10^3/uL (2.2-4.8); NEUTROPHILS % (AUTO) 75.1 % (42.0-75.0); PLATELET COUNT 358 X10^3/uL (150.0-450.0); RED BLOOD COUNT 3.48 X10^6/uL (4.7-6.0); RED CELL DISTRIBUTION WIDTH 16.1 % (11.6-16.5); WHITE BLOOD COUNT 9.2 X10^3/uL (3.6-10.0)
[2018-05-31 12:51] LABS: ALANINE AMINOTRANSFERASE 12 Units/L (12-78); ALBUMIN 2.8 g/dL (3.4-5.0); ALKALINE PHOSPHATASE 66 Units/L (46-116); ASPARTATE AMINO TRANSFERASE 14 Units/L (15-37); BLOOD UREA NITROGEN 16 mg/dL (7-18); CALCIUM 9.1 mg/dL (8.5-10.1); CHLORIDE 99 mmol/L (98-107); COR CA(FOR HYPOALB) 10.1 mg/dL (8.5-10.1); COR NA(FOR HYPERGLY) 135 mmol/L (136-145); CREATININE 0.93 mg/dL (0.70-1.30); SODIUM 132 mmol/L (136-145); TOTAL PROTEIN 7.7 g/dL (6.4-8.2); eGFR NON BLACK RACES > 60 (>60)
--- NOTE | 2018-05-31 13:31 | ED.ABDFE ---
HPI Time Seen Time Seen by Provider: 05/31/18 11:33 PCP Primary Care Physician: GLENROY CHRIS Complaint Doctors Chief Complaint Comments: Patient presented to the ED via EMS for evaluation of a wound on the left lateral gluteal area of two to three weeks duration. He has been followed by home health nurse. He presents for evaluation of the wound. Wound Vac is in place. Patient has been treated for a UTI as an outpatient. He is afebrile and denies vomiting or diarrhea. He is a paraplegic. Chief Complaint:: FEVER, WOUNDS, POSSIBLE UTI Source History Provided: Patient, EMS and Other Mode of arrival Mode of Arrival: Stretcher Timing Onset of Chief Complaint: 05/31/18 PMH PMH Past Medical History: Yes Past Medical History: Anemia, Anxiety, Arthritis, COPD, Coronary Artery Disease , Diabetes, Dyslipidemia, GERD and Hypertension Past Surgical History: Yes Surgical History: Abdominal Surgery, Bowel Resection, Ortho Surgery and Other Family History History of Family Medical Conditions: Yes Family Medical History: Diabetes Mellitus and Hypertension Social History Does patient currently use any type of tobacco product: No Have you used tobacco products in the last 12 months: No Type of Tobacco Use: None Alcohol Use: None Do you use any recreational Drugs:: No Lives With: Family Lives Where: Home infectious screening In the last 2 months have you had wt loss of >10#?: NO Have you had fever, night sweats or hemotysis?: No Have you traveled outside the country in the last 6 months?: No Isolation: Standard PE Vital Signs Vitals: Temperature 98.4 F Pulse Rate [Left Brachial] 81 Pulse Rate 85 Respiratory Rate 15 Blood Pressure [Right Arm] 119/57 Blood Pressure [Left Arm] 98/53 Blood Pressure 127/67 O2 Sat by Pulse Oximetry 100 General Limitations: Physical Limitation (paraplegic below waist) and Other General Appearance: Alert and In No Apparent Distress Head Head Exam: Normal Inspection and Atraumatic Eyes Eye exam: Normal Appearance, PERRL and EOMI ENT ENT Exam: Normal Exam, Normal Oropharynx and Normal External Ear Exam Neck Neck Exam: Normal Inspection and Full ROM Chest Chest Inspection: Normal Inspection and Symmetric Chest Wall Rise Respiratory Respiratory Exam: Normal Lung Sounds Bilat; negative Accessory Muscle Use Respiratory Exam: Bilateral: Clear to Auscultation Cardiovascular Cardiovascular Exam: Regular Rate and Normal Rhythm Abdominal Exam Abdominal Exam: Normal Inspection Neurologic Neurological Exam: Oriented X3 Psychiatric Psychiatric Exam: Normal Affect and Agitated Skin Skin Exam: Warm, Dry and Other (wound vac intact, no extravasation of fluid, no area of erythema.) COURSE Consultation Consultation Comments: Dr. Gannon came and evaluated the patient and agreed to admit for treatment of UTI due to failed treatment the past two to three week.s ROR Labs Reviewed Laboratory Results Reviewed?: Yes Result Diagrams: 06/02/18 05:52 06/02/18 05:52 Laboratory: WBC 8.1 X10^3/uL (3.6-10.0) 06/02/18 05:52 RBC 3.19 X10^6/uL (4.7-6.0) L 06/02/18 05:52 Hgb 9.5 g/dL (13.5-18.0) L 06/02/18 05:52 Hct 27.8 % (42.0-54.0) L 06/02/18 05:52 MCV 87.0 fL (80.0-100.0) 06/02/18 05:52 MCH 29.6 pg (27.0-34.0) 06/02/18 05:52 MCHC 34.0 g/dL (33.0-35.0) 06/02/18 05:52 RDW 16.1 % (11.6-16.5) 06/02/18 05:52 Plt Count 385 X10^3/uL (150.0-450.0) 06/02/18 05:52 Plt Count Comment Adequate (ADEQUATE) 06/01/18 05:45 MPV 7.7 fL (7.4-11.0) 06/02/18 05:52 Neut % (Auto) 82.1 % (42.0-75.0) H 06/02/18 05:52 Lymph % (Auto) 8.6 % (21.0-51.0) L 06/02/18 05:52 [place] % (Auto) 8.8 % (0.0-13.0) 06/02/18 05:52 Eos % (Auto) 0.0 % (0.9-2.9) L 06/02/18 05:52 Baso % (Auto) 0.5 % (0.2-1.0) 06/02/18 05:52 Neut # (Auto) 6.7 x10^3/uL (2.2-4.8) H 06/02/18 05:52 Lymph # (Auto) 0.7 X10^3/uL (1.3-2.9) L 06/02/18 05:52 [place] # (Auto) 0.7 x10^3/uL (0.3-0.8) 06/02/18 05:52 Eos # (Auto) 0.0 x10^3/uL (0.0-0.2) 06/02/18 05:52 Baso # (Auto) 0.0 X10^3/uL (0.0-0.1) 06/02/18 05:52 Absolute Nucleated RBC 0.0 /100WBC 06/02/18 05:52 Total Counted 100 06/01/18 05:45 Neutrophils % (Manual) 78 % (39-76) H 06/01/18 05:45 Lymphocytes % (Manual) 18 % (13-43) 06/01/18 05:45 Monocytes % (Manual) 4 % (4-9) 06/01/18 05:45 Plt Clumps, EDTA Rare 06/01/18 05:45 Plt Morphology Comment Normal (NORMAL) 06/01/18 05:45 RBC Morphology Normal (NORMAL) 06/01/18 05:45 Sodium 137 mmol/L (136-145) 06/02/18 05:52 Corrected Sodium 137 mmol/L (136-145) 06/02/18 05:52 Potassium 3.8 mmol/L (3.5-5.1) 06/02/18 05:52 Chloride 105 mmol/L (98-107) 06/02/18 05:52 Carbon Dioxide 26.6 mmol/L (21-32) 06/02/18 05:52 BUN 11 mg/dL (7-18) 06/02/18 05:52 Creatinine 0.75 mg/dL (0.70-1.30) 06/02/18 05:52 Est GFR (MDRD) Af Amer > 60 (>60) 06/02/18 05:52 Est GFR (MDRD) Non-Af > 60 (>60) 06/02/18 05:52 Glucose 111 mg/dL (65-99) H 06/02/18 05:52 POC Glucose (mg/dL) 108 mg/dL (65-99) H 06/02/18 05:46 Calcium 8.9 mg/dL (8.5-10.1) 06/02/18 05:52 Corrected Calcium 10.2 mg/dL (8.5-10.1) H 06/02/18 05:52 Total Bilirubin 0.20 mg/dL (0.2-1.0) 06/02/18 05:52 AST 16 Units/L (15-37) 06/02/18 05:52 ALT 11 Units/L (12-78) L 06/02/18 05:52 Alkaline Phosphatase 53 Units/L (46-116) 06/02/18 05:52 Total Protein 7.1 g/dL (6.4-8.2) 06/02/18 05:52 Albumin 2.4 g/dL (3.4-5.0) L 06/02/18 05:52 Globulin 4.7 g/dL (2.5-4.5) H 06/02/18 05:52 Albumin/Globulin Ratio 0.5 Ratio (1.1-2.1) L 06/02/18 05:52 Specimen Type Clean catch urine 05/31/18 11:27 Urine Color Yellow (YELLOW) 05/31/18 11:27 Urine Appearance Slightly hazy (CLEAR) 05/31/18 11:27 Urine pH 5.0 (5.0 - 8.0) 05/31/18 11:27 Ur Specific [place] 1.010 (1.000-1.030) 05/31/18 11:27 Urine Protein 1+ (NEGATIVE) 05/31/18 11:27 Urine Glucose (UA) Negative (NEGATIVE) 05/31/18 11:27 Urine Ketones Negative (NEGATIVE) 05/31/18 11:27 Urine Occult Blood 2+ (NEGATIVE) 05/31/18 11:27 Urine Nitrite Negative (NEGATIVE) 05/31/18 11:27 Urine Bilirubin Negative (NEGATIVE) 05/31/18 11:27 Urine Urobilinogen Normal (NORMAL) 05/31/18 11:27 Ur Leukocyte Esterase 3+ (NEGATIVE) 05/31/18 11:27 Urine RBC 0-2 /HPF (NONE SEEN) 05/31/18 11:27 Urine WBC 10-20 /HPF (NONE SEEN) 05/31/18 11:27 Ur Squamous Epith Cells Rare /HPF (NEGATIVE) 05/31/18 11:27 Amorphous Sediment Trace /HPF (NEGATIVE) 05/31/18 11:27 Urine Bacteria Trace /HPF (NEGATIVE) 05/31/18 11:27 Urine Mucus Rare /HPF (NEGATIVE) 05/31/18 11:27 Urine Yeast Moderate /HPF (NEGATIVE) 05/31/18 11:27 Ur Culture Indicated? No/not indicated 05/31/18 11:27 Random Gentamicin 7.1 ug/mL 06/01/18 07:40 Diagnosis Discharge Problem: Urinary tract infection
[2018-05-31] MEDS ORDERED: NS 500 ML IV 500 ML IV ONE (14:43)
[2018-05-31] MEDS ORDERED: NS 100 ML IV + SPIKE MINIBAG* 100 ML IV ONE (14:45)
[2018-05-31] MEDS: ZOSYN VIAL 3.375 GRAMS 3.375 G in NS 100 ML IV + SPIKE MINIBAG* 100 ML IV SCH ×2 (14:46→16:10)
[2018-05-31] MEDS ORDERED: ZOSYN VIAL 3.375 GRAMS IV SCH ×2 (15:00→22:00)
[2018-05-31] MEDS ORDERED: HumuLIN R SUBCUT PRN ×2 (16:47→18:32)
[2018-05-31 17:01] VITALS: BMI 29.9
[2018-05-31] MEDS ORDERED: NS 1000 ML 2,000 ML ONE (17:21)
[2018-05-31] MEDS ORDERED: NS 1000 ML 2,000 ML IV ONE (17:52)
[2018-05-31] MEDS ORDERED: PHENERGAN TAB 25 MG PO PRN (18:32)
[2018-05-31] MEDS ORDERED: PATIENT'S HOME MEDICATION (Budesonide-Formoterol 2 PUFF) IN SCH (18:45)
[2018-05-31] MEDS ORDERED: GENTAMICIN IV SCH (19:00)
[2018-05-31] MEDS ORDERED: NS IV SCH (19:00)
[2018-05-31] MEDS: NORCO 10/325 TAB PO PRN (19:04)
[2018-05-31] MEDS: SNACK - Diabetic Appropriate PO SCH (20:00)
[2018-05-31] MEDS: DUONEB 0.5 MG/3 MG NEB SCH (20:51)
[2018-05-31] MEDS: PULMICORT NEB TX 0.5 MG NEB SCH (20:51)
[2018-05-31] MEDS: TICAGRELOR 60 MG PO SCH (21:00)
[2018-05-31] MEDS ORDERED: DUONEB 0.5 MG/3 MG NEB SCH (21:00)
[2018-05-31] MEDS: ACTOS PO SCH (21:00)
[2018-05-31] MEDS ORDERED: GLUCOPHAGE XR PO SCH (21:00)
[2018-05-31] MEDS: GLUCOPHAGE XR PO SCH (22:05)
[2018-05-31] MEDS: LOPRESSOR TAB 25 MG PO SCH (22:06)
[2018-05-31] MEDS: HumuLIN R SUBCUT PRN (22:06)
[2018-05-31] MEDS ORDERED: NS 1000 ML 1,000 ML ONE (22:11)
[2018-06-01] MEDS: NS 1000 ML 1,000 ML IV SCH ×3 (01:15→16:15)
[2018-06-01] MEDS ORDERED: PHARMACY COMMENT IV NR (06:00)
[2018-06-01] MEDS: DUONEB 0.5 MG/3 MG NEB SCH ×4 (06:07→20:36)
[2018-06-01] MEDS: HumuLIN R SUBCUT PRN ×3 (06:18→16:14)
[2018-06-01 06:38] LABS: ALANINE AMINOTRANSFERASE 10 Units/L (12-78); ALBUMIN 2.3 g/dL (3.4-5.0); ALKALINE PHOSPHATASE 55 Units/L (46-116); ASPARTATE AMINO TRANSFERASE 14 Units/L (15-37); BLOOD UREA NITROGEN 17 mg/dL (7-18); CALCIUM 8.4 mg/dL (8.5-10.1); CARBON DIOXIDE 25.1 mmol/L (21-32); CHLORIDE 103 mmol/L (98-107); COR CA(FOR HYPOALB) 9.8 mg/dL (8.5-10.1); COR NA(FOR HYPERGLY) 139 mmol/L (136-145); CREATININE 0.97 mg/dL (0.70-1.30); SODIUM 135 mmol/L (136-145); TOTAL PROTEIN 6.8 g/dL (6.4-8.2); eGFR NON BLACK RACES > 60 (>60)
[2018-06-01 06:40] LABS: BASOPHILS # (AUTO) 0.1 X10^3/uL (0.0-0.1)
[2018-06-01 06:44] LABS: MEAN PLATELET VOLUME 8.2 fL (7.4-11.0); MONOCYTES # (AUTO) 0.9 x10^3/uL (0.3-0.8)
[2018-06-01 06:47] LABS: BASOPHILS % (AUTO) 1.1 % (0.2-1.0); EOSINOPHILS % (AUTO) 0.1 % (0.9-2.9); HEMATOCRIT 28.6 % (42.0-54.0); HEMOGLOBIN 9.5 g/dL (13.5-18.0); LYMPHOCYTES # (AUTO) 1.4 X10^3/uL (1.3-2.9); LYMPHOCYTES % (AUTO) 11.5 % (21.0-51.0); MEAN CORPUSCULAR HEMOGLOBIN 29.1 pg (27.0-34.0); MEAN CORPUSCULAR HGB CONC 33.4 g/dL (33.0-35.0); MONOCYTES % (AUTO) 7.2 % (0.0-13.0); NEUTROPHILS # (AUTO) 9.6 x10^3/uL (2.2-4.8); NEUTROPHILS % (AUTO) 80.1 % (42.0-75.0); PLATELET COUNT 373 X10^3/uL (150.0-450.0); RED BLOOD COUNT 3.28 X10^6/uL (4.7-6.0); RED CELL DISTRIBUTION WIDTH 16.2 % (11.6-16.5)
[2018-06-01 07:01] LABS: PLATELET MORPHOLOGY COMMENT NORMAL (NORMAL)
[2018-06-01] MEDS: PULMICORT NEB TX 0.5 MG NEB SCH ×2 (08:35→20:36)
[2018-06-01] MEDS ORDERED: LINZESS PO SCH (09:00)
[2018-06-01] MEDS: K-DUR TAB 20 MEQ PO SCH (09:38)
[2018-06-01] MEDS: ACTOS PO SCH (09:38)
[2018-06-01] MEDS: LASIX PO SCH (09:38)
[2018-06-01] MEDS: PROTONIX TAB 40 MG PO SCH (09:38)
[2018-06-01] MEDS: GLUCOPHAGE XR PO SCH ×2 (09:39→20:45)
[2018-06-01] MEDS: PATIENT'S HOME MEDICATION PO SCH ×3 (09:43→20:45)
[2018-06-01] MEDS: LINZESS PO SCH (09:43)
[2018-06-01] MEDS: LOPRESSOR TAB 25 MG PO SCH ×2 (09:43→20:45)
[2018-06-01] MEDS ORDERED: PHARMACY CONSULT - DOSE _____ XX SCH (10:00)
[2018-06-01] MEDS: TICAGRELOR 60 MG PO SCH ×3 (14:38→21:01)
[2018-06-01] MEDS ORDERED: ZOSYN IV NR (15:00)
[2018-06-01] MEDS ORDERED: NS IV NR (15:00)
[2018-06-01] MEDS ORDERED: ASPIRIN EC 81 MG PO ONE (17:24)
[2018-06-01] MEDS: NORCO 10/325 TAB PO PRN (17:28)
[2018-06-01] MEDS: ASPIRIN EC 81 MG PO SCH (17:28)
[2018-06-01] MEDS: XANAX PO PRN (19:07)
[2018-06-01] MEDS: SNACK - Diabetic Appropriate PO SCH (20:00)
[2018-06-01] MEDS: HumuLIN 70/30 (NovoLIN 70/30) SC SCH (20:49)
[2018-06-01] MEDS: ZOSYN VIAL 3.375 GRAMS 3.375 G in NS 100 ML IV + SPIKE MINIBAG* 100 ML IV SCH (22:28)
[2018-06-02] MEDS: NORCO 10/325 TAB PO PRN ×3 (01:41→22:15)
[2018-06-02] MEDS: XANAX PO PRN ×2 (03:19→21:38)
[2018-06-02] MEDS: GENTAMICIN IV SCH (05:20)
[2018-06-02] MEDS: NS IV SCH (05:20)
[2018-06-02] MEDS: DUONEB 0.5 MG/3 MG NEB SCH ×3 (05:39→20:16)
[2018-06-02] MEDS: NS 1000 ML 1,000 ML IV SCH ×2 (06:05→18:22)
[2018-06-02] MEDS: ZOSYN VIAL 3.375 GRAMS 3.375 G in NS 100 ML IV + SPIKE MINIBAG* 100 ML IV SCH ×3 (06:15→21:37)
[2018-06-02] MEDS: HumuLIN 70/30 (NovoLIN 70/30) SC SCH ×2 (06:25→18:22)
[2018-06-02 06:28] LABS: BASOPHILS % (AUTO) 0.5 % (0.2-1.0); HEMATOCRIT 27.8 % (42.0-54.0); HEMOGLOBIN 9.5 g/dL (13.5-18.0); LYMPHOCYTES # (AUTO) 0.7 X10^3/uL (1.3-2.9); LYMPHOCYTES % (AUTO) 8.6 % (21.0-51.0); MEAN CORPUSCULAR HEMOGLOBIN 29.6 pg (27.0-34.0); MEAN PLATELET VOLUME 7.7 fL (7.4-11.0); MONOCYTES # (AUTO) 0.7 x10^3/uL (0.3-0.8); MONOCYTES % (AUTO) 8.8 % (0.0-13.0); NEUTROPHILS # (AUTO) 6.7 x10^3/uL (2.2-4.8); NEUTROPHILS % (AUTO) 82.1 % (42.0-75.0); PLATELET COUNT 385 X10^3/uL (150.0-450.0); RED BLOOD COUNT 3.19 X10^6/uL (4.7-6.0); RED CELL DISTRIBUTION WIDTH 16.1 % (11.6-16.5); WHITE BLOOD COUNT 8.1 X10^3/uL (3.6-10.0)
[2018-06-02 06:41] LABS: ALANINE AMINOTRANSFERASE 11 Units/L (12-78); ALBUMIN 2.4 g/dL (3.4-5.0); ALKALINE PHOSPHATASE 53 Units/L (46-116); ASPARTATE AMINO TRANSFERASE 16 Units/L (15-37); BLOOD UREA NITROGEN 11 mg/dL (7-18); CALCIUM 8.9 mg/dL (8.5-10.1); CARBON DIOXIDE 26.6 mmol/L (21-32); CHLORIDE 105 mmol/L (98-107); COR CA(FOR HYPOALB) 10.2 mg/dL (8.5-10.1); COR NA(FOR HYPERGLY) 137 mmol/L (136-145); CREATININE 0.75 mg/dL (0.70-1.30); SODIUM 137 mmol/L (136-145); TOTAL PROTEIN 7.1 g/dL (6.4-8.2); eGFR NON BLACK RACES > 60 (>60)
[2018-06-02] MEDS: TICAGRELOR 60 MG PO SCH ×2 (08:01→21:38)
[2018-06-02] MEDS: GLUCOPHAGE XR PO SCH ×2 (08:01→22:06)
[2018-06-02] MEDS: LASIX PO SCH (08:02)
[2018-06-02] MEDS: ASPIRIN EC 81 MG PO SCH (08:02)
[2018-06-02] MEDS: ACTOS PO SCH (08:02)
[2018-06-02] MEDS: K-DUR TAB 20 MEQ PO SCH ×2 (08:02→08:10)
[2018-06-02] MEDS: LOPRESSOR TAB 25 MG PO SCH ×2 (08:02→21:39)
[2018-06-02] MEDS: PROTONIX TAB 40 MG PO SCH (08:02)
[2018-06-02] MEDS: LINZESS PO SCH (08:03)
[2018-06-02] MEDS: PATIENT'S HOME MEDICATION PO SCH ×3 (08:04→18:22)
[2018-06-02] MEDS: PULMICORT NEB TX 0.5 MG NEB SCH ×2 (09:34→20:16)
[2018-06-02] MEDS: SOMA TAB 350 MG PO PRN ×2 (12:26→21:39)
[2018-06-02] MEDS: HumuLIN R SUBCUT PRN ×2 (12:30→16:30)
[2018-06-02] MEDS: SNACK - Diabetic Appropriate PO SCH (22:08)
[2018-06-03] MEDS: DUONEB 0.5 MG/3 MG NEB SCH ×3 (05:09→21:10)
[2018-06-03] MEDS: ZOSYN VIAL 3.375 GRAMS 3.375 G in NS 100 ML IV + SPIKE MINIBAG* 100 ML IV SCH ×3 (05:43→21:01)
[2018-06-03] MEDS: HumuLIN 70/30 (NovoLIN 70/30) SC SCH ×2 (05:44→16:54)
[2018-06-03 06:06] LABS: BASOPHILS # (AUTO) 0.1 X10^3/uL (0.0-0.1); BASOPHILS % (AUTO) 1.2 % (0.2-1.0); HEMATOCRIT 23.6 % (42.0-54.0); HEMOGLOBIN 8.2 g/dL (13.5-18.0); LYMPHOCYTES # (AUTO) 0.7 X10^3/uL (1.3-2.9); LYMPHOCYTES % (AUTO) 9.3 % (21.0-51.0); MEAN CORPUSCULAR HEMOGLOBIN 30.1 pg (27.0-34.0); MEAN CORPUSCULAR HGB CONC 34.6 g/dL (33.0-35.0); MEAN PLATELET VOLUME 7.7 fL (7.4-11.0); MONOCYTES # (AUTO) 0.5 x10^3/uL (0.3-0.8); MONOCYTES % (AUTO) 6.2 % (0.0-13.0); NEUTROPHILS # (AUTO) 6.4 x10^3/uL (2.2-4.8); NEUTROPHILS % (AUTO) 83.3 % (42.0-75.0); PLATELET COUNT 367 X10^3/uL (150.0-450.0); RED BLOOD COUNT 2.72 X10^6/uL (4.7-6.0); RED CELL DISTRIBUTION WIDTH 16.2 % (11.6-16.5); WHITE BLOOD COUNT 7.7 X10^3/uL (3.6-10.0)
[2018-06-03 06:30] LABS: ALANINE AMINOTRANSFERASE 12 Units/L (12-78); ALBUMIN 2.2 g/dL (3.4-5.0); ALKALINE PHOSPHATASE 51 Units/L (46-116); ASPARTATE AMINO TRANSFERASE 24 Units/L (15-37); BLOOD UREA NITROGEN 11 mg/dL (7-18); CALCIUM 8.8 mg/dL (8.5-10.1); CARBON DIOXIDE 28.1 mmol/L (21-32); CHLORIDE 104 mmol/L (98-107); COR CA(FOR HYPOALB) 10.2 mg/dL (8.5-10.1); CREATININE 0.95 mg/dL (0.70-1.30); SODIUM 139 mmol/L (136-145); TOTAL PROTEIN 6.8 g/dL (6.4-8.2); eGFR NON BLACK RACES > 60 (>60)
[2018-06-03] MEDS: SOMA TAB 350 MG PO PRN ×2 (09:30→23:29)
[2018-06-03] MEDS: PULMICORT NEB TX 0.5 MG NEB SCH ×2 (09:37→21:10)
[2018-06-03] MEDS: ACTOS PO SCH (09:44)
[2018-06-03] MEDS: GLUCOPHAGE XR PO SCH ×3 (09:45→21:09)
[2018-06-03] MEDS: LINZESS PO SCH (09:45)
[2018-06-03] MEDS: ASPIRIN EC 81 MG PO SCH (09:46)
[2018-06-03] MEDS: LOPRESSOR TAB 25 MG PO SCH ×2 (09:46→21:01)
[2018-06-03] MEDS: LASIX PO SCH (09:46)
[2018-06-03] MEDS: K-DUR TAB 20 MEQ PO SCH (09:46)
[2018-06-03] MEDS: NS 1000 ML 1,000 ML IV SCH ×2 (09:47→23:28)
[2018-06-03] MEDS: TICAGRELOR 60 MG PO SCH ×2 (09:47→21:03)
[2018-06-03] MEDS: PROTONIX TAB 40 MG PO SCH (09:47)
[2018-06-03] MEDS: PATIENT'S HOME MEDICATION PO SCH ×3 (09:49→17:19)
[2018-06-03] MEDS: GENTAMICIN IV SCH (17:13)
[2018-06-03] MEDS: NS IV SCH (17:13)
[2018-06-03] MEDS: SNACK - Diabetic Appropriate PO SCH (21:01)
[2018-06-03] MEDS: HumuLIN R SUBCUT PRN (21:02)
[2018-06-03] MEDS: XANAX PO PRN (23:28)
[2018-06-04] MEDS ORDERED: PHARMACY COMMENT IV NR (05:00)
[2018-06-04] MEDS: ZOSYN VIAL 3.375 GRAMS 3.375 G in NS 100 ML IV + SPIKE MINIBAG* 100 ML IV SCH (05:10)
[2018-06-04 05:18] LABS: BASOPHILS # (AUTO) 0.1 X10^3/uL (0.0-0.1); BASOPHILS % (AUTO) 1.2 % (0.2-1.0); HEMATOCRIT 27.9 % (42.0-54.0); HEMOGLOBIN 9.5 g/dL (13.5-18.0); LYMPHOCYTES # (AUTO) 0.7 X10^3/uL (1.3-2.9); LYMPHOCYTES % (AUTO) 10.8 % (21.0-51.0); MEAN CORPUSCULAR HEMOGLOBIN 29.2 pg (27.0-34.0); MEAN CORPUSCULAR HGB CONC 34.1 g/dL (33.0-35.0); MEAN CORPUSCULAR VOLUME 85.8 fL (80.0-100.0); MEAN PLATELET VOLUME 7.6 fL (7.4-11.0); MONOCYTES # (AUTO) 0.5 x10^3/uL (0.3-0.8); MONOCYTES % (AUTO) 7.5 % (0.0-13.0); NEUTROPHILS # (AUTO) 4.9 x10^3/uL (2.2-4.8); NEUTROPHILS % (AUTO) 80.5 % (42.0-75.0); PLATELET COUNT 407 X10^3/uL (150.0-450.0); RED BLOOD COUNT 3.25 X10^6/uL (4.7-6.0); RED CELL DISTRIBUTION WIDTH 15.7 % (11.6-16.5); WHITE BLOOD COUNT 6.1 X10^3/uL (3.6-10.0)
[2018-06-04 05:31] LABS: ALANINE AMINOTRANSFERASE 13 Units/L (12-78); ALBUMIN 2.3 g/dL (3.4-5.0); ALKALINE PHOSPHATASE 55 Units/L (46-116); ASPARTATE AMINO TRANSFERASE 31 Units/L (15-37); BLOOD UREA NITROGEN 6 mg/dL (7-18); CALCIUM 8.9 mg/dL (8.5-10.1); CARBON DIOXIDE 28.9 mmol/L (21-32); CHLORIDE 101 mmol/L (98-107); COR CA(FOR HYPOALB) 10.3 mg/dL (8.5-10.1); COR NA(FOR HYPERGLY) 139 mmol/L (136-145); CREATININE 0.84 mg/dL (0.70-1.30); SODIUM 137 mmol/L (136-145); TOTAL PROTEIN 7.2 g/dL (6.4-8.2); eGFR NON BLACK RACES > 60 (>60)
[2018-06-04] MEDS: HumuLIN 70/30 (NovoLIN 70/30) SC SCH (05:44)
[2018-06-04] MEDS: HumuLIN R SUBCUT PRN (05:51)
[2018-06-04] MEDS: DUONEB 0.5 MG/3 MG NEB SCH (06:08)
[2018-06-04] MEDS: LOPRESSOR TAB 25 MG PO SCH (08:56)
[2018-06-04] MEDS: PROTONIX TAB 40 MG PO SCH (08:56)
[2018-06-04] MEDS: ACTOS PO SCH (08:56)
[2018-06-04] MEDS: LINZESS PO SCH (08:57)
[2018-06-04] MEDS: LASIX PO SCH (08:57)
[2018-06-04] MEDS: GLUCOPHAGE XR PO SCH (08:58)
[2018-06-04] MEDS: K-DUR TAB 20 MEQ PO SCH (08:58)
[2018-06-04] MEDS: ASPIRIN EC 81 MG PO SCH (08:58)
[2018-06-04] MEDS: TICAGRELOR 60 MG PO SCH (09:04)
[2018-06-04] MEDS: PATIENT'S HOME MEDICATION PO SCH (09:04)
[2018-06-04 12:59] VITALS: BP 147/84
== END 2018-06-04 15:20 | disposition home health service (06) | DRG 689 ==
LOC: ER 10:46 → ICU 12:45 → MED/SURG 06-03 15:15
PROVIDERS: ADMIT Obstetrics & Gynecology Obstetrics; ATTEND Obstetrics & Gynecology Obstetrics
DX: I25.10 Atherosclerotic heart disease of native coronary artery without angina pectoris; E78.2 Mixed hyperlipidemia; Z97.8 Presence of other specified devices; K21.9 Gastro-esophageal reflux disease without esophagitis; I10 Essential (primary) hypertension; F41.8 Other specified anxiety disorders; N39.0 Urinary tract infection, site not specified; J44.9 Chronic obstructive pulmonary disease, unspecified; L89.324 Pressure ulcer of left buttock, stage 4; B96.5 Pseudomonas (aeruginosa) (mallei) (pseudomallei) as the cause of diseases classified elsewhere
CPT/HCPCS: 36415; 80053; 80170; 81001; 85025; 94640; 96365; 96374; 99282; 99284; A4222; Q0169; J1580; J1815; J2543; J7030; J7040; J7050; J7620; J7626

== ENCOUNTER 2018-12-28 11:02 | Inpatient (IN) ==
[2018-12-28] MEDS ORDERED: SALINE 3% 15 ML NEB TX NEB ONE (11:45)
[2018-12-28 11:46] LABS: BASOPHILS # (AUTO) 0.1 X10^3/uL (0.0-0.1); BASOPHILS % (AUTO) 0.5 % (0.2-1.0); EOSINOPHILS # (AUTO) 0.1 x10^3/uL (0.0-0.2); EOSINOPHILS % (AUTO) 0.7 % (0.9-2.9); HEMATOCRIT 37.4 % (42.0-54.0); HEMOGLOBIN 12.4 g/dL (13.5-18.0); LYMPHOCYTES # (AUTO) 0.8 X10^3/uL (1.3-2.9); LYMPHOCYTES % (AUTO) 6.3 % (21.0-51.0); MEAN CORPUSCULAR HEMOGLOBIN 30.2 pg (27.0-34.0); MEAN CORPUSCULAR HGB CONC 33.2 g/dL (33.0-35.0); MEAN CORPUSCULAR VOLUME 91.1 fL (80.0-100.0); MONOCYTES # (AUTO) 0.4 x10^3/uL (0.3-0.8); MONOCYTES % (AUTO) 3.2 % (0.0-13.0); NEUTROPHILS # (AUTO) 10.9 x10^3/uL (2.2-4.8); NEUTROPHILS % (AUTO) 89.3 % (42.0-75.0); PLATELET COUNT 418 X10^3/uL (150.0-450.0); RED CELL DISTRIBUTION WIDTH 15.7 % (11.6-16.5); WHITE BLOOD COUNT 12.2 X10^3/uL (3.6-10.0)
[2018-12-28 11:58] LABS: ALANINE AMINOTRANSFERASE 25 Units/L (12-78); ALBUMIN 3.4 g/dL (3.4-5.0); ALKALINE PHOSPHATASE 73 Units/L (46-116); ASPARTATE AMINO TRANSFERASE 15 Units/L (15-37); BLOOD UREA NITROGEN 32 mg/dL (7-18); CALCIUM 9.8 mg/dL (8.5-10.1); CARBON DIOXIDE 31.5 mmol/L (21-32); CHLORIDE 102 mmol/L (98-107); CREATININE 1.01 mg/dL (0.70-1.30); SODIUM 140 mmol/L (136-145); TOTAL PROTEIN 7.3 g/dL (6.4-8.2); eGFR NON BLACK RACES > 60 (>60)
[2018-12-28] MEDS ORDERED: PHARMACY CONSULT - DOSE _____ XX SCH (12:00)
[2018-12-28] MEDS: DUONEB 0.5 MG/3 MG NEB SCH ×3 (13:02→19:59)
[2018-12-28] MEDS ORDERED: NS 1/2 1000 ML IV 1,000 ML ONE (13:16)
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
[2018-12-28] MEDS: NS 1/2 1000 ML IV 1,000 ML IV SCH (13:30)
[2018-12-28] MEDS: ROBITUSSIN DM PO SCH ×3 (13:30→21:14)
[2018-12-28] MEDS: LEVAQUIN PREMIX IV 500 MG 500 MG/100 ML BAG IV SCH (13:30)
[2018-12-28] MEDS: FORTAZ or TAZICEF VIAL INJ IVP SCH ×2 (13:31→21:14)
[2018-12-28 17:01] VITALS: BMI 24.3
[2018-12-28] MEDS: PULMICORT NEB TX 0.5 MG NEB SCH (19:59)
[2018-12-28] MEDS: HumuLIN R SUBCUT PRN (21:13)
[2018-12-28] MEDS ORDERED: NS 100 ML IV + SPIKE MINIBAG* 100 ML ONE (21:31)
[2018-12-29] MEDS: NS 1/2 1000 ML IV 1,000 ML IV SCH ×3 (04:13→19:44)
[2018-12-29] MEDS ORDERED: NS 1/2 1000 ML IV 1,000 ML ONE ×2 (04:39→19:21)
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
[2018-12-29 05:31] LABS: BASOPHILS # (AUTO) 0.1 X10^3/uL (0.0-0.1); BASOPHILS % (AUTO) 0.7 % (0.2-1.0); EOSINOPHILS # (AUTO) 0.1 x10^3/uL (0.0-0.2); EOSINOPHILS % (AUTO) 0.5 % (0.9-2.9); HEMATOCRIT 34.1 % (42.0-54.0); HEMOGLOBIN 11.2 g/dL (13.5-18.0); LYMPHOCYTES # (AUTO) 1.3 X10^3/uL (1.3-2.9); LYMPHOCYTES % (AUTO) 11.4 % (21.0-51.0); MEAN CORPUSCULAR HEMOGLOBIN 30.4 pg (27.0-34.0); MEAN CORPUSCULAR HGB CONC 32.8 g/dL (33.0-35.0); MEAN CORPUSCULAR VOLUME 92.6 fL (80.0-100.0); MEAN PLATELET VOLUME 8.1 fL (7.4-11.0); MONOCYTES # (AUTO) 0.8 x10^3/uL (0.3-0.8); MONOCYTES % (AUTO) 7.1 % (0.0-13.0); NEUTROPHILS # (AUTO) 9.5 x10^3/uL (2.2-4.8); NEUTROPHILS % (AUTO) 80.3 % (42.0-75.0); PLATELET COUNT 316 X10^3/uL (150.0-450.0); RED BLOOD COUNT 3.68 X10^6/uL (4.7-6.0); RED CELL DISTRIBUTION WIDTH 16.2 % (11.6-16.5); WHITE BLOOD COUNT 11.8 X10^3/uL (3.6-10.0)
[2018-12-29] MEDS: FORTAZ or TAZICEF VIAL INJ IVP SCH ×3 (05:46→21:41)
[2018-12-29 05:57] LABS: ALANINE AMINOTRANSFERASE 21 Units/L (12-78); ALBUMIN 2.8 g/dL (3.4-5.0); ALKALINE PHOSPHATASE 60 Units/L (46-116); ASPARTATE AMINO TRANSFERASE 10 Units/L (15-37); BLOOD UREA NITROGEN 26 mg/dL (7-18); CALCIUM 8.5 mg/dL (8.5-10.1); CARBON DIOXIDE 28.9 mmol/L (21-32); CHLORIDE 102 mmol/L (98-107); COR CA(FOR HYPOALB) 9.5 mg/dL (8.5-10.1); COR NA(FOR HYPERGLY) 144 mmol/L (136-145); CREATININE 1.01 mg/dL (0.70-1.30); SODIUM 138 mmol/L (136-145); TOTAL PROTEIN 6.2 g/dL (6.4-8.2); eGFR NON BLACK RACES > 60 (>60)
[2018-12-29] MEDS: HumuLIN R SUBCUT PRN ×3 (06:25→17:38)
[2018-12-29] MEDS: ROBITUSSIN DM PO SCH ×4 (08:48→21:41)
[2018-12-29] MEDS: LEVAQUIN PREMIX IV 500 MG 500 MG/100 ML BAG IV SCH (08:48)
[2018-12-29] MEDS: TUSSIONEX PENNKINETIC SUSP PO PRN ×2 (08:48→21:42)
[2018-12-29] MEDS: DUONEB 0.5 MG/3 MG NEB SCH ×4 (09:10→21:03)
[2018-12-29] MEDS: PULMICORT NEB TX 0.5 MG NEB SCH ×2 (09:10→21:03)
[2018-12-29 10:21] LABS: BILIRUBIN,URINE NEGATIVE (NEGATIVE); BLOOD/HEMOGLOBIN,URINE 1+ (NEGATIVE); GLUCOSE, URINE 4+ (NEGATIVE); KETONES,URINE NEGATIVE (NEGATIVE); LEUKOCYTE ESTERASE ,URINE 3+ (NEGATIVE); NITRITES,URINE NEGATIVE (NEGATIVE); PROTEIN,URINE 2+ (NEGATIVE); UROBILINOGEN,URINE NORMAL (NORMAL)
[2018-12-29 11:01] LABS: APPEARANCE,URINE CLOUDY (CLEAR); COLOR,URINE YELLOW (YELLOW)
[2018-12-29 11:05] LABS: RBC,URINE 0-2 /HPF (NONE SEEN)
[2018-12-29 11:06] LABS: AMORPHOUS SEDIMENT,UR TRACE /HPF (NEGATIVE); BACTERIA,URINE NEGATIVE /HPF (NEGATIVE); SQUAMOUS EPITHELIAL CELL,UR RARE /HPF (NEGATIVE)
[2018-12-29 11:07] LABS: YEAST,URINE MANY /HPF (NEGATIVE)
--- NOTE | 2018-12-29 11:29 | DR.UPDATE ---
H&P Update History and Physical Update: History and Physical reviewed and patient examined. 12/28/2018 Changes noted: NO
--- NOTE | 2018-12-29 11:32 | PCM.PROG ---
Progress Note - Progress Note for Day of Date of Exam: 12/29/18 - Subjective Subjective: 78 WM ADMITTED ON 12/28 WITH PNEUMONIA. PT HAS PMH OF PARAPLEGIA AND REOCCURRING COUGH, BRONCHITIS. PT STATES HE HAS INCREASED REFLUX AND COUGH WHILE EATING OR DRINKING LIQUIDS. PT IS CURRENTLY ON IV ATBX, PNEUMONIA PROTOCOL. WE DISCUSSED FUTURE EGD. PT STARTED ON PROTONIX AND CARAFATE. PT NEED SPEECH EVALUATE SWALLOWING. CT CHEST - Past Medical Family Social History Past Med/Fam/Surg Hx: No changes since H&P Allergies: Allergies piperacillin [From Zosyn] Allergy (Verified 12/18/18 19:19) Sulfa (Sulfonamide Antibiotics) [SULFA] Allergy (Verified 04/13/18 10:43) tazobactam [From Zosyn] Allergy (Verified 12/18/18 19:19) - Review of Systems ROS: No change since H&P - Vital Signs and I&O's Vital Signs: Temperature 97.9 F Pulse Rate [Right Brachial] 100 Pulse Rate 94 Respiratory Rate 18 Blood Pressure [Right Arm] 143/63 Blood Pressure [Left Arm] 148/93 Blood Pressure 148/93 O2 Sat by Pulse Oximetry 96 Intake and Output: Intake & Output 12/26/18 12/27/18 12/28/18 12/29/18 11:59 11:59 11:59 11:59 Intake Total 1440 / 1440 Output Total 1175 / 1175 Balance 265 / 265 - Physical Exam Oriented: Normal Eyes: Normal Ear: Normal Nose: Normal Throat: Normal Respiratory: Diminished, Rhonchi Cardiovascular: Normal : Normal Auscultation: Bowel Sounds: Normal Palpation: Other (COLOSTOMY) Tenderness: Normal Skin: Normal Musculoskeletal: Right, Left, Leg, Motor Deficit, Sensory Deficit Mood Description: Calm Speech Pattern: Clear, Appropriate - Laboratory and Diagnostics Result Diagrams: 12/29/18 04:58 12/29/18 04:58 Labs: Laboratory WBC 11.8 X10^3/uL (3.6-10.0) H 12/29/18 04:58 RBC 3.68 X10^6/uL (4.7-6.0) L 12/29/18 04:58 Hgb 11.2 g/dL (13.5-18.0) L 12/29/18 04:58 Hct 34.1 % (42.0-54.0) L 12/29/18 04:58 MCV 92.6 fL (80.0-100.0) 12/29/18 04:58 MCH 30.4 pg (27.0-34.0) 12/29/18 04:58 MCHC 32.8 g/dL (33.0-35.0) L 12/29/18 04:58 RDW 16.2 % (11.6-16.5) 12/29/18 04:58 Plt Count 316 X10^3/uL (150.0-450.0) 12/29/18 04:58 MPV 8.1 fL (7.4-11.0) 12/29/18 04:58 Neut % (Auto) 80.3 % (42.0-75.0) H 12/29/18 04:58 Lymph % (Auto) 11.4 % (21.0-51.0) L 12/29/18 04:58 [place] % (Auto) 7.1 % (0.0-13.0) 12/29/18 04:58 Eos % (Auto) 0.5 % (0.9-2.9) L 12/29/18 04:58 Baso % (Auto) 0.7 % (0.2-1.0) 12/29/18 04:58 Neut # (Auto) 9.5 x10^3/uL (2.2-4.8) H 12/29/18 04:58 Lymph # (Auto) 1.3 X10^3/uL (1.3-2.9) 12/29/18 04:58 Craig # (Auto) 0.8 x10^3/uL (0.3-0.8) 12/29/18 04:58 Eos # (Auto) 0.1 x10^3/uL (0.0-0.2) 12/29/18 04:58 Baso # (Auto) 0.1 X10^3/uL (0.0-0.1) 12/29/18 04:58 Absolute Nucleated RBC 0.0 /100WBC 12/29/18 04:58 Sodium 138 mmol/L (136-145) 12/29/18 04:58 Corrected Sodium 144 mmol/L (136-145) 12/29/18 04:58 Potassium 4.8 mmol/L (3.5-5.1) 12/29/18 04:58 Chloride 102 mmol/L (98-107) 12/29/18 04:58 Carbon Dioxide 28.9 mmol/L (21-32) 12/29/18 04:58 BUN 26 mg/dL (7-18) H 12/29/18 04:58 Creatinine 1.01 mg/dL (0.70-1.30) 12/29/18 04:58 Est GFR (MDRD) Af Amer > 60 (>60) 12/29/18 04:58 Est GFR (MDRD) Non-Af > 60 (>60) 12/29/18 04:58 Glucose 360 mg/dL (65-99) H 12/29/18 04:58 POC Glucose (mg/dL) 332 mg/dL (65-99) H 12/29/18 06:15 Calcium 8.5 mg/dL (8.5-10.1) 12/29/18 04:58 Corrected Calcium 9.5 mg/dL (8.5-10.1) 12/29/18 04:58 Total Bilirubin 0.40 mg/dL (0.2-1.0) 12/29/18 04:58 AST 10 Units/L (15-37) L 12/29/18 04:58 ALT 21 Units/L (12-78) 12/29/18 04:58 Alkaline Phosphatase 60 Units/L (46-116) 12/29/18 04:58 Total Protein 6.2 g/dL (6.4-8.2) L 12/29/18 04:58 Albumin 2.8 g/dL (3.4-5.0) L 12/29/18 04:58 Globulin 3.4 g/dL (2.5-4.5) 12/29/18 04:58 Albumin/Globulin Ratio 0.8 Ratio (1.1-2.1) L 12/29/18 04:58 Specimen Type Catherized urine 12/29/18 09:50 Urine Color Yellow (YELLOW) 12/29/18 09:50 Urine Appearance Cloudy (CLEAR) 12/29/18 09:50 Urine pH 6.0 (5.0 - 8.0) 12/29/18 09:50 Ur Specific [place] 1.030 (1.000-1.030) 12/29/18 09:50 Urine Protein 2+ (NEGATIVE) 12/29/18 09:50 Urine Glucose (UA) 4+ (NEGATIVE) 12/29/18 09:50 Urine Ketones Negative (NEGATIVE) 12/29/18 09:50 Urine Occult Blood 1+ (NEGATIVE) 12/29/18 09:50 Urine Nitrite Negative (NEGATIVE) 12/29/18 09:50 Urine Bilirubin Negative (NEGATIVE) 12/29/18 09:50 Urine Urobilinogen Normal (NORMAL) 12/29/18 09:50 Ur Leukocyte Esterase 3+ (NEGATIVE) 12/29/18 09:50 Urine RBC 0-2 /HPF (NONE SEEN) 12/29/18 09:50 Urine WBC 5-10 /HPF (NONE SEEN) 12/29/18 09:50 Ur Squamous Epith Cells Rare /HPF (NEGATIVE) 12/29/18 09:50 Amorphous Sediment Trace /HPF (NEGATIVE) 12/29/18 09:50 Urine Bacteria Negative /HPF (NEGATIVE) 12/29/18 09:50 Urine Yeast Many /HPF (NEGATIVE) 12/29/18 09:50 Ur Culture Indicated? Yes/culture set up 12/29/18 09:50 Influenza Type A (PCR) Negative (NEGATIVE) 12/28/18 11:34 Influenza Type B (PCR) Negative (NEGATIVE) 12/28/18 11:34 - Plan (1) Pneumonia Status: Acute Plan: PNEUMONIA PROTOCOL, IV ATBX. BLOOD AND SPUTUM CULTURES. SUPPLEMENTAL O2, RESP THERAPY. PPI, ELEVATE HOB 45. VERIFY HOME MEDICATION, BS CONTROL (2) Paraplegic spinal paralysis Status: Chronic (3) GERD (gastroesophageal reflux disease) Status: Chronic Qualifiers: (4) COPD (chronic obstructive pulmonary disease) Status: Chronic (5) CAD (coronary artery disease) Status: Chronic Qualifiers: (6) Diabetes mellitus, type II Status: Chronic Qualifiers:
[2018-12-29] MEDS: CARAFATE ORAL SUSP PO SCH ×3 (12:40→21:39)
[2018-12-29] MEDS: PROTONIX INJ 40 MG VIAL IVP SCH ×2 (12:45→21:40)
[2018-12-29] MEDS: NORCO 10/325 TAB PO PRN ×2 (12:48→21:41)
[2018-12-29] MEDS: XANAX PO PRN (12:48)
[2018-12-29] MEDS: ASPIRIN EC 81 MG PO SCH ×2 (12:48→21:39)
--- NOTE | 2018-12-29 14:11 | CT ---
HISTORY: Possible aspiration Study: CT chest without contrast Comparison: Same-day chest x-ray, CT chest without July 05, 2016 Technique: Multiple axial images of the chest were obtained from the thoracic inlet to the upper abdomen after the administration of IV contrast. Findings: The mediastinum demonstrates stable heart size and coronary artery calcifications. Stable mild ectasia of the ascending thoracic aorta measuring 4.0 cm. No mediastinal or hilar lymphadenopathy. Evaluation of the lung parenchyma demonstrates no focal consolidation. 1 cm ground-glass nodule within the central right upper lobe is stable when compared to June 2016. Stable bilateral calcified granulomas. Right middle lobe pleural based pulmonary nodule measuring 7 mm is stable when compared to June 2016. 2-3 mm right upper lobe pulmonary nodule is stable when compared to 2016. Left basilar bronchiectasis with peribronchial thickening. Bibasilar atelectasis. No pneumothorax. The bony thorax demonstrates stable diffuse osteophytosis and multilevel thoracic vertebral fusion. No acute fractures identified. The visualized portions of the upper abdomen are grossly unremarkable. IMPRESSION: No focal consolidation. Mild bibasilar bronchiectasis with peribronchial thickening. Stable pulmonary nodularity as above when compared to June 2016. Reported By:
[2018-12-29] MEDS ORDERED: SNACK - Diabetic Appropriate PO SCH (20:00)
[2018-12-29] MEDS: HumuLIN 70/30 (NovoLIN 70/30) SC SCH (21:39)
[2018-12-29] MEDS: SNACK - Diabetic Appropriate PO SCH (21:39)
[2018-12-29] MEDS: BRILINTA PO SCH (21:39)
[2018-12-29] MEDS: LASIX PO SCH (21:40)
[2018-12-30] MEDS ORDERED: NS 1/2 1000 ML IV 1,000 ML ONE (05:29)
[2018-12-30] MEDS: FORTAZ or TAZICEF VIAL INJ IVP SCH ×3 (05:42→21:26)
[2018-12-30] MEDS: NS 1/2 1000 ML IV 1,000 ML IV SCH (05:42)
[2018-12-30] MEDS: CARAFATE ORAL SUSP PO SCH ×4 (05:43→21:23)
[2018-12-30 06:16] LABS: BASOPHILS # (AUTO) 0.1 X10^3/uL (0.0-0.1); BASOPHILS % (AUTO) 0.3 % (0.2-1.0); EOSINOPHILS # (AUTO) 0.1 x10^3/uL (0.0-0.2); EOSINOPHILS % (AUTO) 0.2 % (0.9-2.9); HEMATOCRIT 33.7 % (42.0-54.0); HEMOGLOBIN 11.2 g/dL (13.5-18.0); LYMPHOCYTES % (AUTO) 3.3 % (21.0-51.0); MEAN CORPUSCULAR HEMOGLOBIN 30.4 pg (27.0-34.0); MEAN CORPUSCULAR HGB CONC 33.1 g/dL (33.0-35.0); MEAN CORPUSCULAR VOLUME 91.9 fL (80.0-100.0); MEAN PLATELET VOLUME 8.2 fL (7.4-11.0); MONOCYTES % (AUTO) 3.3 % (0.0-13.0); NEUTROPHILS # (AUTO) 28.3 x10^3/uL (2.2-4.8); NEUTROPHILS % (AUTO) 92.9 % (42.0-75.0); PLATELET COUNT 298 X10^3/uL (150.0-450.0); RED BLOOD COUNT 3.67 X10^6/uL (4.7-6.0)
[2018-12-30 06:31] LABS: ALANINE AMINOTRANSFERASE 21 Units/L (12-78); ALBUMIN 2.8 g/dL (3.4-5.0); ALKALINE PHOSPHATASE 59 Units/L (46-116); ASPARTATE AMINO TRANSFERASE 22 Units/L (15-37); BLOOD UREA NITROGEN 20 mg/dL (7-18); CARBON DIOXIDE 28.2 mmol/L (21-32); CHLORIDE 102 mmol/L (98-107); CREATININE 0.91 mg/dL (0.70-1.30); SODIUM 138 mmol/L (136-145); TOTAL PROTEIN 6.3 g/dL (6.4-8.2); eGFR NON BLACK RACES > 60 (>60)
[2018-12-30 06:34] LABS: WHITE BLOOD COUNT 30.5 X10^3/uL (3.6-10.0)
[2018-12-30 07:12] LABS: BAND NEUTROPHILS % 13 % (0-10); PLATELET MORPHOLOGY COMMENT NORMAL (NORMAL)
[2018-12-30] MEDS: ROBITUSSIN DM PO SCH ×4 (08:59→21:25)
[2018-12-30] MEDS: LASIX PO SCH (08:59)
[2018-12-30] MEDS: BRILINTA PO SCH ×2 (09:00→21:23)
[2018-12-30] MEDS: PROTONIX INJ 40 MG VIAL IVP SCH ×2 (09:00→21:22)
[2018-12-30] MEDS: XANAX PO PRN (09:00)
[2018-12-30] MEDS: TUSSIONEX PENNKINETIC SUSP PO PRN ×2 (09:00→21:23)
[2018-12-30] MEDS: ASPIRIN EC 81 MG PO SCH ×2 (09:00→21:23)
[2018-12-30] MEDS: HumuLIN 70/30 (NovoLIN 70/30) SC SCH (09:00)
[2018-12-30] MEDS: LEVAQUIN PREMIX IV 500 MG 500 MG/100 ML BAG IV SCH (09:00)
[2018-12-30] MEDS: DUONEB 0.5 MG/3 MG NEB SCH ×4 (09:12→20:07)
[2018-12-30] MEDS: PULMICORT NEB TX 0.5 MG NEB SCH ×2 (09:12→20:07)
[2018-12-30] MEDS ORDERED: LASIX IVP ONE ×2 (10:43→21:00)
[2018-12-30] MEDS ORDERED: MORPHINE SULFATE JET NEB NEB ONE (10:46)
[2018-12-30] MEDS ORDERED: LASIX ONE (10:46)
[2018-12-30] MEDS ORDERED: D50W ABBOJECT SYR IV ONE ×2 (11:36→15:52)
[2018-12-30 11:45] LABS: BILIRUBIN,URINE NEGATIVE (NEGATIVE); BLOOD/HEMOGLOBIN,URINE 5+ (NEGATIVE); GLUCOSE, URINE NEGATIVE (NEGATIVE); KETONES,URINE NEGATIVE (NEGATIVE); LEUKOCYTE ESTERASE ,URINE 3+ (NEGATIVE); NITRITES,URINE NEGATIVE (NEGATIVE); PROTEIN,URINE 2+ (NEGATIVE); UROBILINOGEN,URINE NORMAL (NORMAL)
[2018-12-30 12:32] LABS: COLOR,URINE YELLOW (YELLOW)
[2018-12-30 12:35] LABS: APPEARANCE,URINE CLOUDY (CLEAR); RBC,URINE 20-30 /HPF (NONE SEEN)
[2018-12-30 12:36] LABS: AMORPHOUS SEDIMENT,UR TRACE /HPF (NEGATIVE); BACTERIA,URINE NEGATIVE /HPF (NEGATIVE); SQUAMOUS EPITHELIAL CELL,UR FEW /HPF (NEGATIVE); YEAST,URINE FEW /HPF (NEGATIVE)
[2018-12-30] MEDS: DIFLUCAN 200 MG IV PREMIX* 200 MG/100 ML BAG IV SCH (13:23)
[2018-12-30] MEDS ORDERED: NS 100 ML IV 100 ML ONE (13:44)
--- NOTE | 2018-12-30 15:21 | CT ---
HISTORY: Abdominal pain. Study: CT abdomen and pelvis with contrast Comparison: CT abdomen/pelvis dated April 13, 2018. Technique: Multiple axial images of the abdomen and pelvis were obtained from the lung bases to the pubic symphysis after the administration of IV contrast. Dose reduction techniques including Automated Exposure Control (AEC) and adjustment of mA and kV were utilized. Findings: Bibasilar scarring versus atelectasis. Mild associated traction bronchiectasis. A pneumatocele is seen within the right lower lobe. Trace right pleural effusion. Too small to characterize sub cm hypodensities within the right kidney. The right kidney is otherwise unremarkable. Within the left inferior renal pole there is a 3.3 cm hyperdense renal lesion with internal Hounsfield units of 69. This is indeterminate and appears unchanged from prior exam. Other simple appearing cysts and too small to characterize hypodensities within the left kidney appear unchanged given technique. Remaining left kidney is unremarkable. Question of a small posterior stomach diverticulum. The liver, spleen, pancreas, and adrenal glands are unremarkable in their CT appearance. The gallbladder is unremarkable in its CT appearance. No significant mesenteric lymphadenopathy or stranding can be observed. No free fluid or free air is seen within the abdomen. Limited evaluation of the large and small bowel secondary to lack of oral contrast. Stable appearing postsurgical changes of the bowel with associated left lower quadrant ostomy. 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 No obvious bowel compromise. This appears unchanged. Remaining visualized large and small bowel are unremarkable. The appendix appears normal. A Ryan catheter is seen with bladder. The prostate is unremarkable. Severe degenerative changes of the spine. Degenerative changes are seen of the left greater than right hips. Marked heterotopic bone formation is seen about the left hip with associated large hip effusion. This appears unchanged given technique. No aggressive osseous lesions. IMPRESSION: 1. No CT evidence of acute abdominal/pelvic pathology. 2. Indeterminate 3.3 cm left renal lesion as above. Recommend dedicated CT three-phase kidney or MRI of the abdomen with contrast on outpatient basis for further characterization. 3. Other chronic findings as above. Reported By:
[2018-12-30 15:34] LABS: MYCOPLASMA PNEUMONIAE IGM AB NEGATIVE (NEGATIVE)
[2018-12-30] MEDS ORDERED: D50W ABBOJECT SYR ONE (15:54)
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
[2018-12-30 17:00] LABS: BASOPHILS # (AUTO) 0.1 X10^3/uL (0.0-0.1); BASOPHILS % (AUTO) 0.3 % (0.2-1.0); EOSINOPHILS # (AUTO) 0.1 x10^3/uL (0.0-0.2); EOSINOPHILS % (AUTO) 0.3 % (0.9-2.9); HEMATOCRIT 32.2 % (42.0-54.0); HEMOGLOBIN 10.6 g/dL (13.5-18.0); LYMPHOCYTES # (AUTO) 0.8 X10^3/uL (1.3-2.9); LYMPHOCYTES % (AUTO) 3.8 % (21.0-51.0); MEAN CORPUSCULAR HEMOGLOBIN 30.4 pg (27.0-34.0); MEAN CORPUSCULAR VOLUME 92.2 fL (80.0-100.0); MEAN PLATELET VOLUME 8.3 fL (7.4-11.0); MONOCYTES # (AUTO) 1.4 x10^3/uL (0.3-0.8); MONOCYTES % (AUTO) 6.2 % (0.0-13.0); NEUTROPHILS # (AUTO) 19.8 x10^3/uL (2.2-4.8); NEUTROPHILS % (AUTO) 89.4 % (42.0-75.0); PLATELET COUNT 272 X10^3/uL (150.0-450.0); RED BLOOD COUNT 3.49 X10^6/uL (4.7-6.0); WHITE BLOOD COUNT 22.1 X10^3/uL (3.6-10.0)
[2018-12-30] MEDS: D5W 1000 ML IV 1,000 ML IV SCH (17:04)
[2018-12-30 17:12] LABS: ALANINE AMINOTRANSFERASE 23 Units/L (12-78); ALBUMIN 2.8 g/dL (3.4-5.0); ALKALINE PHOSPHATASE 65 Units/L (46-116); ASPARTATE AMINO TRANSFERASE 19 Units/L (15-37); BLOOD UREA NITROGEN 19 mg/dL (7-18); CALCIUM 9.2 mg/dL (8.5-10.1); CARBON DIOXIDE 29.6 mmol/L (21-32); CHLORIDE 100 mmol/L (98-107); COR CA(FOR HYPOALB) 10.2 mg/dL (8.5-10.1); SODIUM 138 mmol/L (136-145); TOTAL PROTEIN 5.9 g/dL (6.4-8.2); eGFR NON BLACK RACES > 60 (>60)
[2018-12-30 17:19] LABS: BAND NEUTROPHILS % 6 % (0-10); PLATELET MORPHOLOGY COMMENT NORMAL (NORMAL)
[2018-12-30] MEDS ORDERED: NS 100 ML IV + SPIKE MINIBAG* 100 ML ONE (19:57)
[2018-12-30] MEDS: SNACK - Diabetic Appropriate PO SCH (20:44)
[2018-12-30] MEDS: NORCO 10/325 TAB PO PRN (20:44)
[2018-12-30] MEDS: MERREM VIAL 1,000 MG in NS 100 ML IV + SPIKE MINIBAG* 100 ML IV SCH ×2 (21:23→22:45)
[2018-12-30] MEDS: MILK OF MAGNESIA PO PRN (22:25)
[2018-12-30] MEDS: SOMA TAB 350 MG PO PRN (23:31)
[2018-12-31] MEDS: MORPHINE SULFATE INJ 2 MG INJ IVP PRN (00:30)
[2018-12-31] MEDS ORDERED: NS 100 ML IV + SPIKE MINIBAG* 100 ML ONE (05:05)
[2018-12-31] MEDS: FORTAZ or TAZICEF VIAL INJ IVP SCH ×3 (05:43→21:52)
[2018-12-31] MEDS: CARAFATE ORAL SUSP PO SCH ×4 (05:44→21:50)
[2018-12-31] MEDS: D5W 1000 ML IV 1,000 ML IV SCH ×3 (06:17→20:01)
[2018-12-31 06:46] LABS: BASOPHILS # (AUTO) 0.1 X10^3/uL (0.0-0.1); BASOPHILS % (AUTO) 0.6 % (0.2-1.0); EOSINOPHILS % (AUTO) 0.2 % (0.9-2.9); LYMPHOCYTES # (AUTO) 0.8 X10^3/uL (1.3-2.9); LYMPHOCYTES % (AUTO) 5.2 % (21.0-51.0); MEAN CORPUSCULAR HEMOGLOBIN 30.5 pg (27.0-34.0); MEAN CORPUSCULAR HGB CONC 33.2 g/dL (33.0-35.0); MEAN CORPUSCULAR VOLUME 91.9 fL (80.0-100.0); MEAN PLATELET VOLUME 8.8 fL (7.4-11.0); MONOCYTES # (AUTO) 0.9 x10^3/uL (0.3-0.8); MONOCYTES % (AUTO) 5.6 % (0.0-13.0); NEUTROPHILS # (AUTO) 14.4 x10^3/uL (2.2-4.8); NEUTROPHILS % (AUTO) 88.4 % (42.0-75.0); PLATELET COUNT 256 X10^3/uL (150.0-450.0); RED BLOOD COUNT 3.59 X10^6/uL (4.7-6.0); WHITE BLOOD COUNT 16.3 X10^3/uL (3.6-10.0)
[2018-12-31 06:59] LABS: ALANINE AMINOTRANSFERASE 21 Units/L (12-78); ALBUMIN 2.5 g/dL (3.4-5.0); ALKALINE PHOSPHATASE 66 Units/L (46-116); ASPARTATE AMINO TRANSFERASE 17 Units/L (15-37); BLOOD UREA NITROGEN 18 mg/dL (7-18); CALCIUM 9.2 mg/dL (8.5-10.1); CARBON DIOXIDE 27.9 mmol/L (21-32); CHLORIDE 99 mmol/L (98-107); COR CA(FOR HYPOALB) 10.4 mg/dL (8.5-10.1); COR NA(FOR HYPERGLY) 140 mmol/L (136-145); CREATININE 1.06 mg/dL (0.70-1.30); SODIUM 136 mmol/L (136-145); TOTAL PROTEIN 6.5 g/dL (6.4-8.2); eGFR NON BLACK RACES > 60 (>60)
--- NOTE | 2018-12-31 07:11 | RAD ---
AP Chest Indication: Elevated white blood cell count Comparison: 12/30/2018 Findings: The trachea is midline. Heart size is enlarged, unchanged. Metallic foreign body projecting over the mid thorax is unchanged in positioning. There is persistent airspace opacity within the right upper lobe with slightly increased opacity/peribronchial thickening within the right lung base again suspicious for multifocal infiltrates. Left lung demonstrates no new airspace opacity. No pleural effusion or pneumothorax. IMPRESSION: 1. Stable right upper lobe airspace opacity with increasing interstitial opacities/peribronchial thickening within the right lung base likely represents multifocal infiltrates. When clinically feasible correlation with follow-up PA and lateral chest radiograph would be recommended. 2. Stable cardiomegaly. Reported By:
[2018-12-31] MEDS: PULMICORT NEB TX 0.5 MG NEB SCH ×2 (09:07→20:51)
[2018-12-31] MEDS: DUONEB 0.5 MG/3 MG NEB SCH ×4 (09:07→20:51)
[2018-12-31] MEDS: LASIX PO SCH ×2 (09:15→21:51)
[2018-12-31] MEDS: ASPIRIN EC 81 MG PO SCH ×2 (09:15→21:50)
[2018-12-31] MEDS: ROBITUSSIN DM PO SCH ×4 (09:15→21:52)
[2018-12-31] MEDS: DIFLUCAN 200 MG IV PREMIX* 200 MG/100 ML BAG IV SCH (09:16)
[2018-12-31] MEDS: BRILINTA PO SCH ×2 (09:16→21:50)
[2018-12-31] MEDS: PROTONIX INJ 40 MG VIAL IVP SCH ×2 (09:16→21:52)
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
[2018-12-31] MEDS: HumuLIN R SUBCUT PRN ×2 (12:55→17:16)
[2018-12-31] MEDS: MILK OF MAGNESIA PO PRN ×2 (17:18→21:53)
[2018-12-31] MEDS: SNACK - Diabetic Appropriate PO SCH (21:29)
[2018-12-31] MEDS: HumuLIN 70/30 (NovoLIN 70/30) SC SCH (21:51)
[2018-12-31] MEDS: NORCO 10/325 TAB PO PRN (21:52)
[2019-01-01] MEDS: CARAFATE ORAL SUSP PO SCH ×5 (05:52→21:20)
[2019-01-01] MEDS: FORTAZ or TAZICEF VIAL INJ IVP SCH ×3 (05:52→21:18)
[2019-01-01 06:51] LABS: ALANINE AMINOTRANSFERASE 16 Units/L (12-78); ALBUMIN 2.3 g/dL (3.4-5.0); ALKALINE PHOSPHATASE 67 Units/L (46-116); ASPARTATE AMINO TRANSFERASE 13 Units/L (15-37); BLOOD UREA NITROGEN 21 mg/dL (7-18); CALCIUM 9.1 mg/dL (8.5-10.1); CHLORIDE 98 mmol/L (98-107); COR CA(FOR HYPOALB) 10.5 mg/dL (8.5-10.1); COR NA(FOR HYPERGLY) 138 mmol/L (136-145); CREATININE 1.06 mg/dL (0.70-1.30); SODIUM 134 mmol/L (136-145); TOTAL PROTEIN 6.4 g/dL (6.4-8.2); eGFR NON BLACK RACES > 60 (>60)
[2019-01-01 07:00] LABS: BASOPHILS # (AUTO) 0.1 X10^3/uL (0.0-0.1); BASOPHILS % (AUTO) 0.4 % (0.2-1.0); EOSINOPHILS % (AUTO) 0.2 % (0.9-2.9); HEMATOCRIT 30.3 % (42.0-54.0); LYMPHOCYTES # (AUTO) 0.8 X10^3/uL (1.3-2.9); LYMPHOCYTES % (AUTO) 5.2 % (21.0-51.0); MEAN CORPUSCULAR HEMOGLOBIN 30.4 pg (27.0-34.0); MEAN CORPUSCULAR HGB CONC 32.9 g/dL (33.0-35.0); MEAN CORPUSCULAR VOLUME 92.4 fL (80.0-100.0); MEAN PLATELET VOLUME 8.7 fL (7.4-11.0); MONOCYTES % (AUTO) 6.4 % (0.0-13.0); NEUTROPHILS # (AUTO) 14.1 x10^3/uL (2.2-4.8); NEUTROPHILS % (AUTO) 87.8 % (42.0-75.0); PLATELET COUNT 247 X10^3/uL (150.0-450.0); RED BLOOD COUNT 3.28 X10^6/uL (4.7-6.0); WHITE BLOOD COUNT 16.1 X10^3/uL (3.6-10.0)
[2019-01-01] MEDS: DUONEB 0.5 MG/3 MG NEB SCH ×4 (09:29→20:37)
[2019-01-01] MEDS: PULMICORT NEB TX 0.5 MG NEB SCH ×2 (09:29→20:37)
[2019-01-01] MEDS: DIFLUCAN 200 MG IV PREMIX* 200 MG/100 ML BAG IV SCH (09:41)
[2019-01-01] MEDS: LASIX PO SCH ×2 (09:42→21:18)
[2019-01-01] MEDS: ROBITUSSIN DM PO SCH ×4 (09:42→21:18)
[2019-01-01] MEDS: ASPIRIN EC 81 MG PO SCH ×3 (09:42→21:20)
[2019-01-01] MEDS: BRILINTA PO SCH ×4 (09:42→21:19)
[2019-01-01] MEDS: HumuLIN 70/30 (NovoLIN 70/30) SC SCH ×2 (09:43→21:21)
[2019-01-01] MEDS: PROTONIX INJ 40 MG VIAL IVP SCH ×2 (09:53→21:18)
[2019-01-01] MEDS: MILK OF MAGNESIA PO PRN (09:53)
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
--- NOTE | 2019-01-01 12:14 | PCM.PROG ---
Progress Note - Progress Note for Day of Date of Exam: 12/31/18 - Subjective Subjective: IS A 78 YEAR OLD PATIENT OF [facility] WHO WAS ADMITTED FOR PNEUMONIA AND RESPIRATORY DISTRESS. HE IS A PARAPLEGIC. ON ADMISSION, HE WAS ALSO NOTED WITH COMPLAINTS OF INCREASED REFLUX AND COUGH WHEN EATING OR DRINKING. HE WAS STARTED ON PROTONIX AND CARAFATE OVER THE WEEKEND. A CHEST CT WAS OBTAINED ON MONDAY AND REVEALED: No focal consolidation. Mild bibasilar bronchiectasis with peribronchial thickening. Stable pulmonary nodularity as above when compared to June 2016. TODAY, HE IS ALERT AND ORIENTED, LYING IN BED ON MORNING ROUNDS. HE CONTINUES WITH COMPLAINTS OF A PRODUCTIVE COUGH AND SHORTNESS OF BREATH. HE REPORTS DIFFICULTY SWALLOWING AT TIMES. ON EXAMINATION, HEART IS REGULAR IN RATE AND RHYTHM. BILATERAL LUNGS ARE NOTED WITH SCATTERED WHEEZING AND RHONCHI. ABDOMEN IS ROUND, SOFT, AND NON- TENDER WITH NORMAL BOWEL SOUNDS NOTED IN ALL QUADRANTS. HIS VITALS THIS MORNING ARE 99.2-109-20-95%-134/62. LABS WERE OBTAINED. ABNORMAL LAB VALUES INCLUDE THE FOLLOWING: WBC 16.3, RBC 3.59, HGB 11.0, HCT 33.0, GLUCOSE 268, ALBUMIN 2.5. BLOOD, SPUTUM, AND URINE CULTURES PENDING. A CHEST XRAY WAS OBTAINED AND REVEALED: Stable right upper lobe airspace opacity with increasing interstitial opacities/peribronchial thickening within the right lung base likely represents multifocal infiltrates. When clinically feasible correlation with follow-up PA and lateral chest radiograph would be recommended. Stable cardiomegaly. TODAY, WE WILL START THE SMART[facility] AND CONSULT FOR AN EGD. OTHERWISE, WE WILL CONTINUE HIS IV FLUIDS, FORTAZ IV, DIFLUCAN 200MG IV, AND RESPIRATORY TX. WE WILL FOLLOW UP WITH AM LABS AND CONTINUE TO MONITOR. - Past Medical Family Social History Past Med/Fam/Surg Hx: No changes since H&P Allergies: Allergies meropenem Allergy (Verified 12/31/18 01:04) piperacillin [From Zosyn] Allergy (Verified 12/18/18 19:19) Sulfa (Sulfonamide Antibiotics) [SULFA] Allergy (Verified 04/13/18 10:43) tazobactam [From Zosyn] Allergy (Verified 12/18/18 19:19) - Review of Systems ROS: No change since H&P - Vital Signs and I&O's Vital Signs: Temperature 98.8 F Pulse Rate [Right Brachial] 102 Pulse Rate 96 Respiratory Rate 20 Blood Pressure [Right Arm] 114/56 Blood Pressure [Left Arm] 107/49 Blood Pressure 148/93 O2 Sat by Pulse Oximetry 96 Intake and Output: Intake & Output 12/30/18 12/31/18 01/01/19 01/02/19 11:59 11:59 11:59 11:59 Intake Total 2910 / 2910 2110 / 2110 1205 / 1205 Output Total 900 / 900 2650 / 2650 650 / 650 Balance 2009 -540 / -540 555 / 555 - Physical Exam Oriented: Normal Eyes: Normal Ear: Normal Nose: Normal Throat: Normal Respiratory: Diminished, Wheezes, Rhonchi Cardiovascular: Normal : Normal Auscultation: Bowel Sounds: Normal Palpation: Normal Tenderness: Normal (no tenderness) Skin: Normal Musculoskeletal: Normal Psychiatric: Normal Mood Description: Calm Affect: Normal Speech Pattern: Clear, Appropriate - Laboratory and Diagnostics Result Diagrams: 01/01/19 05:46 01/01/19 05:46 Labs: 12/30/18 16:31 Blood Blood Culture - Preliminary 12/30/18 16:13 Blood Blood Culture - Preliminary 12/29/18 21:00 Sputum - Expectorated Sputum Sputum Culture - Final 12/29/18 21:00 Sputum - Expectorated Sputum - Final 12/30/18 10:44 Urine,Clean Catch Urine Culture - Final 12/30/18 12:05 Sputum - Expectorated Sputum Sputum Culture - Final 12/30/18 12:05 Sputum - Expectorated Sputum - Final 12/29/18 09:50 Urine,Clean Catch Urine Culture - Final 12/28/18 11:32 Blood Blood Culture - Preliminary 12/28/18 11:27 Blood Blood Culture - Preliminary Laboratory WBC 16.1 X10^3/uL (3.6-10.0) H 01/01/19 05:46 RBC 3.28 X10^6/uL (4.7-6.0) L 01/01/19 05:46 Hgb 10.0 g/dL (13.5-18.0) L 01/01/19 05:46 Hct 30.3 % (42.0-54.0) L 01/01/19 05:46 MCV 92.4 fL (80.0-100.0) 01/01/19 05:46 MCH 30.4 pg (27.0-34.0) 01/01/19 05:46 MCHC 32.9 g/dL (33.0-35.0) L 01/01/19 05:46 RDW 16.0 % (11.6-16.5) 01/01/19 05:46 Plt Count 247 X10^3/uL (150.0-450.0) 01/01/19 05:46 Plt Count Comment Adequate (ADEQUATE) 12/30/18 16:31 MPV 8.7 fL (7.4-11.0) 01/01/19 05:46 Neut % (Auto) 87.8 % (42.0-75.0) H 01/01/19 05:46 Lymph % (Auto) 5.2 % (21.0-51.0) L 01/01/19 05:46 [place] % (Auto) 6.4 % (0.0-13.0) 01/01/19 05:46 Eos % (Auto) 0.2 % (0.9-2.9) L 01/01/19 05:46 Baso % (Auto) 0.4 % (0.2-1.0) 01/01/19 05:46 Neut # (Auto) 14.1 x10^3/uL (2.2-4.8) H 01/01/19 05:46 Lymph # (Auto) 0.8 X10^3/uL (1.3-2.9) L 01/01/19 05:46 [place] # (Auto) 1.0 x10^3/uL (0.3-0.8) H 01/01/19 05:46 Eos # (Auto) 0.0 x10^3/uL (0.0-0.2) 01/01/19 05:46 Baso # (Auto) 0.1 X10^3/uL (0.0-0.1) 01/01/19 05:46 Absolute Nucleated RBC 0.0 /100WBC 01/01/19 05:46 Total Counted 100 12/30/18 16:31 Neutrophils % (Manual) 89 % (39-76) H 12/30/18 16:31 Band Neutrophils % 6 % (0-10) 12/30/18 16:31 Lymphocytes % (Manual) 2 % (13-43) L 12/30/18 16:31 Monocytes % (Manual) 3 % (4-9) L 12/30/18 16:31 Plt Morphology Comment Normal (NORMAL) 12/30/18 16:31 RBC Morphology Normal (NORMAL) 12/30/18 16:31 Sodium 134 mmol/L (136-145) L 01/01/19 05:46 Corrected Sodium 138 mmol/L (136-145) 01/01/19 05:46 Potassium 4.4 mmol/L (3.5-5.1) 01/01/19 05:46 Chloride 98 mmol/L (98-107) 01/01/19 05:46 Carbon Dioxide 28.0 mmol/L (21-32) 01/01/19 05:46 BUN 21 mg/dL (7-18) H 01/01/19 05:46 Creatinine 1.06 mg/dL (0.70-1.30) 01/01/19 05:46 Est GFR (MDRD) Af Amer > 60 (>60) 01/01/19 05:46 Est GFR (MDRD) Non-Af > 60 (>60) 01/01/19 05:46 Glucose 282 mg/dL (65-99) H 01/01/19 05:46 POC Glucose (mg/dL) 239 mg/dL (65-99) H 01/01/19 11:23 Lactic Acid 1.9 mmol/L (0.4-2.0) 12/30/18 16:31 Calcium 9.1 mg/dL (8.5-10.1) 01/01/19 05:46 Corrected Calcium 10.5 mg/dL (8.5-10.1) H 01/01/19 05:46 Total Bilirubin 0.70 mg/dL (0.2-1.0) 01/01/19 05:46 AST 13 Units/L (15-37) L 01/01/19 05:46 ALT 16 Units/L (12-78) 01/01/19 05:46 Alkaline Phosphatase 67 Units/L (46-116) 01/01/19 05:46 Total Protein 6.4 g/dL (6.4-8.2) 01/01/19 05:46 Albumin 2.3 g/dL (3.4-5.0) L 01/01/19 05:46 Globulin 4.1 g/dL (2.5-4.5) 01/01/19 05:46 Albumin/Globulin Ratio 0.6 Ratio (1.1-2.1) L 01/01/19 05:46 Specimen Type Catherized urine 12/30/18 10:45 Urine Color Yellow (YELLOW) 12/30/18 10:45 Urine Appearance Cloudy (CLEAR) 12/30/18 10:45 Urine pH 5.0 (5.0 - 8.0) 12/30/18 10:45 Ur Specific [place] 1.010 (1.000-1.030) 12/30/18 10:45 Urine Protein 2+ (NEGATIVE) 12/30/18 10:45 Urine Glucose (UA) Negative (NEGATIVE) 12/30/18 10:45 Urine Ketones Negative (NEGATIVE) 12/30/18 10:45 Urine Occult Blood 5+ (NEGATIVE) 12/30/18 10:45 Urine Nitrite Negative (NEGATIVE) 12/30/18 10:45 Urine Bilirubin Negative (NEGATIVE) 12/30/18 10:45 Urine Urobilinogen Normal (NORMAL) 12/30/18 10:45 Ur Leukocyte Esterase 3+ (NEGATIVE) 12/30/18 10:45 Urine RBC 20-30 /HPF (NONE SEEN) 12/30/18 10:45 Urine WBC Tntc /HPF (NONE SEEN) 12/30/18 10:45 Ur Squamous Epith Cells Few /HPF (NEGATIVE) 12/30/18 10:45 Amorphous Sediment Trace /HPF (NEGATIVE) 12/30/18 10:45 Urine Bacteria Negative /HPF (NEGATIVE) 12/30/18 10:45 Urine Yeast Few /HPF (NEGATIVE) 12/30/18 10:45 Urine Sperm Pressurizer 12/30/18 10:45 Ur Culture Indicated? Yes/culture set up 12/30/18 10:45 Influenza Type A (PCR) Negative (NEGATIVE) 12/28/18 11:34 Influenza Type B (PCR) Negative (NEGATIVE) 12/28/18 11:34 Mycoplasma pneumon IgG Negative (NEGATIVE) 12/30/18 09:00
[2019-01-01] MEDS: D5W 1000 ML IV 1,000 ML IV SCH ×2 (13:59→23:15)
--- NOTE | 2019-01-01 19:40 | RAD ---
HISTORY: Shortness of breath and decreasing O2 sats. Findings: Comparison is single-view chest dated 12/31/2018. Worsening consolidation within the right upper and lower lobes observed with probable developing left basilar atelectasis and/or effusion. Small to moderate right layering pleural effusion persist. Heart size upper limits of normal. Central vascular congestive changes of mild interstitial thickening persists. IMPRESSION: Slight interval worsening of multi focal airspace disease in keeping with pneumonitis. Reported By:
[2019-01-01] MEDS: SNACK - Diabetic Appropriate PO SCH (21:17)
[2019-01-01] MEDS: SOMA TAB 350 MG PO PRN (21:30)
[2019-01-01] MEDS: XANAX PO PRN (21:30)
[2019-01-02] MEDS: CARAFATE ORAL SUSP PO SCH ×4 (05:58→20:15)
[2019-01-02] MEDS: FORTAZ or TAZICEF VIAL INJ IVP SCH ×3 (05:58→21:39)
[2019-01-02] MEDS: HumuLIN R SUBCUT PRN ×2 (06:02→17:51)
[2019-01-02 06:38] LABS: ALANINE AMINOTRANSFERASE 15 Units/L (12-78); ALBUMIN 2.1 g/dL (3.4-5.0); ALKALINE PHOSPHATASE 70 Units/L (46-116); ASPARTATE AMINO TRANSFERASE 13 Units/L (15-37); BLOOD UREA NITROGEN 17 mg/dL (7-18); CALCIUM 9.1 mg/dL (8.5-10.1); CARBON DIOXIDE 29.9 mmol/L (21-32); CHLORIDE 98 mmol/L (98-107); COR CA(FOR HYPOALB) 10.6 mg/dL (8.5-10.1); COR NA(FOR HYPERGLY) 139 mmol/L (136-145); CREATININE 0.97 mg/dL (0.70-1.30); SODIUM 134 mmol/L (136-145); TOTAL PROTEIN 6.5 g/dL (6.4-8.2); eGFR NON BLACK RACES > 60 (>60)
[2019-01-02 06:39] LABS: BASOPHILS # (AUTO) 0.2 X10^3/uL (0.0-0.1); BASOPHILS % (AUTO) 1.3 % (0.2-1.0); EOSINOPHILS # (AUTO) 0.1 x10^3/uL (0.0-0.2); EOSINOPHILS % (AUTO) 0.8 % (0.9-2.9); HEMATOCRIT 31.4 % (42.0-54.0); HEMOGLOBIN 10.3 g/dL (13.5-18.0); LYMPHOCYTES % (AUTO) 8.1 % (21.0-51.0); MEAN CORPUSCULAR HEMOGLOBIN 30.4 pg (27.0-34.0); MEAN CORPUSCULAR HGB CONC 32.9 g/dL (33.0-35.0); MEAN CORPUSCULAR VOLUME 92.4 fL (80.0-100.0); NEUTROPHILS # (AUTO) 10.2 x10^3/uL (2.2-4.8); NEUTROPHILS % (AUTO) 81.8 % (42.0-75.0); PLATELET COUNT 245 X10^3/uL (150.0-450.0); RED CELL DISTRIBUTION WIDTH 15.9 % (11.6-16.5); WHITE BLOOD COUNT 12.5 X10^3/uL (3.6-10.0)
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
--- NOTE | 2019-01-02 08:37 | PCM.PROG ---
Progress Note - Progress Note for Day of Date of Exam: 01/01/19 - Subjective Subjective: IS A 78 YEAR OLD PATIENT OF [facility] WHO WAS ADMITTED FOR PNEUMONIA AND RESPIRATORY DISTRESS. HE IS A PARAPLEGIC. ON ADMISSION, HE WAS ALSO NOTED WITH COMPLAINTS OF INCREASED REFLUX AND COUGH WHEN EATING OR DRINKING. HE WAS STARTED ON PROTONIX AND CARAFATE OVER THE WEEKEND. T ERNST, HE IS ALERT AND ORIENTED, LYING IN BED ON MORNING ROUNDS. HE CONTINUES WITH COMPLAINTS OF A PRODUCTIVE COUGH, SHORTNESS OF BREATH, AND DIFFICULTY SWALLOWING AT TIMES. ON EXAMINATION, HEART IS REGULAR IN RATE AND RHYTHM. BILATERAL LUNGS ARE NOTED WITH SCATTERED WHEEZING AND RHONCHI. ABDOMEN IS ROUND, SOFT, AND NON-TENDER WITH NORMAL BOWEL SOUNDS NOTED IN ALL QUADRANTS. HIS VITALS THIS MORNING ARE 98.8-102-20-96%-114/56. LABS WERE OBTAINED. ABNORMAL LAB VALUES INCLUDE THE FOLLOWING: WBC 16.1, RBC 3.28, HGB 10.0, HCT 30.3, SODIUM 134, BUN 21, GLUCOSE 282, AST 13, ALBUMIN 2.3. BLOOD, SPUTUM, AND URINE CULTURES PENDING. A CHEST XRAY WAS OBTAINED AND REVEALED: Slight interval worsening of multi focal airspace disease in keeping with pneumonitis. WILL CONSULT WITH PATIENT TODAY. OTHERWISE, WE WILL CONTINUE WITH IV ANTIBIOTICS, RESPIRATORY TREATMENTS, CURRENT PLAN OF CARE. WE WILL FOLLOW UP WITH AM LABS AND CONTINUE TO MONITOR. - Past Medical Family Social History Past Med/Fam/Surg Hx: No changes since H&P Allergies: Allergies meropenem Allergy (Verified 12/31/18 01:04) piperacillin [From Zosyn] Allergy (Verified 12/18/18 19:19) Sulfa (Sulfonamide Antibiotics) [SULFA] Allergy (Verified 04/13/18 10:43) tazobactam [From Zosyn] Allergy (Verified 12/18/18 19:19) - Review of Systems ROS: No change since H&P - Vital Signs and I&O's Vital Signs: Temperature 98.4 F Pulse Rate [Right Brachial] 104 Pulse Rate 101 Respiratory Rate 24 Blood Pressure [Right Arm] 115/56 Blood Pressure [Left Arm] 107/49 Blood Pressure 148/93 O2 Sat by Pulse Oximetry 93 Intake and Output: Intake & Output 12/30/18 12/31/18 01/01/19 01/02/19 11:59 11:59 11:59 11:59 Intake Total 2910 / 2910 2110 / 2110 1205 / 1205 1220 / 1220 Output Total 900 / 900 2650 / 2650 650 / 650 1175 / 1175 Balance 2009 -540 / -540 555 / 555 45 / 45 - Physical Exam Oriented: Normal Eyes: Normal Ear: Normal Nose: Normal Throat: Normal Respiratory: Diminished, Wheezes, Rhonchi Cardiovascular: Normal : Normal Auscultation: Bowel Sounds: Normal Tenderness: Normal (no tenderness) Skin: Normal Musculoskeletal: Normal Psychiatric: Normal Mood Description: Calm Affect: Normal Speech Pattern: Clear, Appropriate - Laboratory and Diagnostics Result Diagrams: 01/02/19 05:55 01/02/19 05:55 Labs: 12/30/18 16:31 Blood Blood Culture - Preliminary 12/30/18 16:13 Blood Blood Culture - Preliminary 12/29/18 21:00 Sputum - Expectorated Sputum Sputum Culture - Final 12/29/18 21:00 Sputum - Expectorated Sputum - Final 12/30/18 10:44 Urine,Clean Catch Urine Culture - Final 12/30/18 12:05 Sputum - Expectorated Sputum Sputum Culture - Final 12/30/18 12:05 Sputum - Expectorated Sputum - Final 12/29/18 09:50 Urine,Clean Catch Urine Culture - Final 12/28/18 11:32 Blood Blood Culture - Preliminary 12/28/18 11:27 Blood Blood Culture - Preliminary Laboratory WBC 12.5 X10^3/uL (3.6-10.0) H 01/02/19 05:55 RBC 3.40 X10^6/uL (4.7-6.0) L 01/02/19 05:55 Hgb 10.3 g/dL (13.5-18.0) L 01/02/19 05:55 Hct 31.4 % (42.0-54.0) L 01/02/19 05:55 MCV 92.4 fL (80.0-100.0) 01/02/19 05:55 MCH 30.4 pg (27.0-34.0) 01/02/19 05:55 MCHC 32.9 g/dL (33.0-35.0) L 01/02/19 05:55 RDW 15.9 % (11.6-16.5) 01/02/19 05:55 Plt Count 245 X10^3/uL (150.0-450.0) 01/02/19 05:55 Plt Count Comment Adequate (ADEQUATE) 12/30/18 16:31 MPV 9.0 fL (7.4-11.0) 01/02/19 05:55 Neut % (Auto) 81.8 % (42.0-75.0) H 01/02/19 05:55 Lymph % (Auto) 8.1 % (21.0-51.0) L 01/02/19 05:55 [place] % (Auto) 8.0 % (0.0-13.0) 01/02/19 05:55 Eos % (Auto) 0.8 % (0.9-2.9) L 01/02/19 05:55 Baso % (Auto) 1.3 % (0.2-1.0) H 01/02/19 05:55 Neut # (Auto) 10.2 x10^3/uL (2.2-4.8) H 01/02/19 05:55 Lymph # (Auto) 1.0 X10^3/uL (1.3-2.9) L 01/02/19 05:55 [place] # (Auto) 1.0 x10^3/uL (0.3-0.8) H 01/02/19 05:55 Eos # (Auto) 0.1 x10^3/uL (0.0-0.2) 01/02/19 05:55 Baso # (Auto) 0.2 X10^3/uL (0.0-0.1) H 01/02/19 05:55 Absolute Nucleated RBC 0.0 /100WBC 01/02/19 05:55 Total Counted 100 12/30/18 16:31 Neutrophils % (Manual) 89 % (39-76) H 12/30/18 16:31 Band Neutrophils % 6 % (0-10) 12/30/18 16:31 Lymphocytes % (Manual) 2 % (13-43) L 12/30/18 16:31 Monocytes % (Manual) 3 % (4-9) L 12/30/18 16:31 Plt Morphology Comment Normal (NORMAL) 12/30/18 16:31 RBC Morphology Normal (NORMAL) 12/30/18 16:31 Sodium 134 mmol/L (136-145) L 01/02/19 05:55 Corrected Sodium 139 mmol/L (136-145) 01/02/19 05:55 Potassium 4.3 mmol/L (3.5-5.1) 01/02/19 05:55 Chloride 98 mmol/L (98-107) 01/02/19 05:55 Carbon Dioxide 29.9 mmol/L (21-32) 01/02/19 05:55 BUN 17 mg/dL (7-18) 01/02/19 05:55 Creatinine 0.97 mg/dL (0.70-1.30) 01/02/19 05:55 Est GFR (MDRD) Af Amer > 60 (>60) 01/02/19 05:55 Est GFR (MDRD) Non-Af > 60 (>60) 01/02/19 05:55 Glucose 291 mg/dL (65-99) H 01/02/19 05:55 POC Glucose (mg/dL) 279 mg/dL (65-99) H 01/02/19 05:55 Lactic Acid 1.9 mmol/L (0.4-2.0) 12/30/18 16:31 Calcium 9.1 mg/dL (8.5-10.1) 01/02/19 05:55 Corrected Calcium 10.6 mg/dL (8.5-10.1) H 01/02/19 05:55 Total Bilirubin 0.50 mg/dL (0.2-1.0) 01/02/19 05:55 AST 13 Units/L (15-37) L 01/02/19 05:55 ALT 15 Units/L (12-78) 01/02/19 05:55 Alkaline Phosphatase 70 Units/L (46-116) 01/02/19 05:55 Total Protein 6.5 g/dL (6.4-8.2) 01/02/19 05:55 Albumin 2.1 g/dL (3.4-5.0) L 01/02/19 05:55 Globulin 4.4 g/dL (2.5-4.5) 01/02/19 05:55 Albumin/Globulin Ratio 0.5 Ratio (1.1-2.1) L 01/02/19 05:55 Specimen Type Catherized urine 12/30/18 10:45 Urine Color Yellow (YELLOW) 12/30/18 10:45 Urine Appearance Cloudy (CLEAR) 12/30/18 10:45 Urine pH 5.0 (5.0 - 8.0) 12/30/18 10:45 Ur Specific [place] 1.010 (1.000-1.030) 12/30/18 10:45 Urine Protein 2+ (NEGATIVE) 12/30/18 10:45 Urine Glucose (UA) Negative (NEGATIVE) 12/30/18 10:45 Urine Ketones Negative (NEGATIVE) 12/30/18 10:45 Urine Occult Blood 5+ (NEGATIVE) 12/30/18 10:45 Urine Nitrite Negative (NEGATIVE) 12/30/18 10:45 Urine Bilirubin Negative (NEGATIVE) 12/30/18 10:45 Urine Urobilinogen Normal (NORMAL) 12/30/18 10:45 Ur Leukocyte Esterase 3+ (NEGATIVE) 12/30/18 10:45 Urine RBC 20-30 /HPF (NONE SEEN) 12/30/18 10:45 Urine WBC Tntc /HPF (NONE SEEN) 12/30/18 10:45 Ur Squamous Epith Cells Few /HPF (NEGATIVE) 12/30/18 10:45 Amorphous Sediment Trace /HPF (NEGATIVE) 12/30/18 10:45 Urine Bacteria Negative /HPF (NEGATIVE) 12/30/18 10:45 Urine Yeast Few /HPF (NEGATIVE) 12/30/18 10:45 Urine Sperm 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 Yes/culture set up 12/30/18 10:45 Influenza Type A (PCR) Negative (NEGATIVE) 12/28/18 11:34 Influenza Type B (PCR) Negative (NEGATIVE) 12/28/18 11:34 Mycoplasma pneumon IgG Negative (NEGATIVE) 12/30/18 09:00 - Plan (1) Pneumonia Status: Acute Qualifiers: Pneumonia type: due to unspecified organism Laterality: unspecified laterality Lung location: unspecified part of lung Qualified Code(s): J18.9 - Pneumonia, unspecified organism Plan: PNEUMONIA PROTOCOL, IV ATBX. BLOOD AND SPUTUM CULTURES. SUPPLEMENTAL O2, RESP THERAPY. PPI, ELEVATE HOB 45. VERIFY HOME MEDICATION, BS CONTROL (2) Dysphasia Status: Acute (3) CAD (coronary artery disease) Status: Chronic Qualifiers: Coronary Disease-Associated Artery/Lesion type: elem artery [place] vs. transplanted heart: elem heart Associated angina: angina presence unspecified Qualified Code(s): I25.10 - Atherosclerotic heart disease of [place] coronary artery without angina pectoris (4) COPD (chronic obstructive pulmonary disease) Status: Chronic Qualifiers: COPD type: chronic bronchitis Chronic bronchitis type: unspecified Qualified Code(s): J42 - Unspecified chronic bronchitis (5) Diabetes mellitus, type II Status: Chronic Qualifiers: Diabetes mellitus intermediate insulin use: with intermediate use Diabetes mellitus complication status: with unspecified complications Qualified Code(s): E11.8 - Type 2 diabetes mellitus with unspecified complications; Z79.4 - FDC (current) use of insulin (6) GERD (gastroesophageal reflux disease) Status: Chronic Qualifiers: Esophagitis presence: esophagitis presence not specified (7) Paraplegic spinal paralysis Status: Chronic
[2019-01-02] MEDS: DUONEB 0.5 MG/3 MG NEB SCH ×4 (08:45→20:08)
[2019-01-02] MEDS: PULMICORT NEB TX 0.5 MG NEB SCH ×2 (08:46→20:08)
[2019-01-02] MEDS: DIFLUCAN 200 MG IV PREMIX* 200 MG/100 ML BAG IV SCH (09:06)
[2019-01-02] MEDS: ROBITUSSIN DM PO SCH ×5 (09:06→20:16)
[2019-01-02] MEDS: ASPIRIN EC 81 MG PO SCH ×4 (09:06→20:14)
[2019-01-02] MEDS: D5W 1000 ML IV 1,000 ML IV SCH ×2 (09:06→17:28)
[2019-01-02] MEDS: LASIX PO SCH ×2 (09:06→20:16)
[2019-01-02] MEDS: PROTONIX INJ 40 MG VIAL IVP SCH ×2 (09:06→20:16)
[2019-01-02] MEDS: BRILINTA PO SCH ×2 (09:12→20:15)
[2019-01-02 09:38] LABS: ABG BASE EXCESS 9.2 mmol/L (-2.0-2.0)
[2019-01-02 09:41] LABS: ABG ALLEN TEST POS; ABG HCO3 35.2 mmol/L (22-26)
[2019-01-02] MEDS: HumuLIN 70/30 (NovoLIN 70/30) SC SCH ×2 (10:00→20:15)
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
[2019-01-02] MEDS: SNACK - Diabetic Appropriate PO SCH (20:13)
[2019-01-02] MEDS: NORCO 10/325 TAB PO PRN (22:33)
[2019-01-02] MEDS: XANAX PO PRN (22:40)
[2019-01-02] MEDS: TUSSIONEX PENNKINETIC SUSP PO PRN (22:40)
[2019-01-03] MEDS: D5W 1000 ML IV 1,000 ML IV SCH ×2 (05:00→20:43)
[2019-01-03] MEDS: FORTAZ or TAZICEF VIAL INJ IVP SCH ×3 (05:00→21:00)
[2019-01-03] MEDS: HumuLIN R SUBCUT PRN (05:32)
[2019-01-03] MEDS: CARAFATE ORAL SUSP PO SCH ×4 (05:34→20:42)
[2019-01-03 06:31] LABS: BASOPHILS # (AUTO) 0.1 X10^3/uL (0.0-0.1); BASOPHILS % (AUTO) 0.7 % (0.2-1.0); EOSINOPHILS # (AUTO) 0.1 x10^3/uL (0.0-0.2); EOSINOPHILS % (AUTO) 1.5 % (0.9-2.9); HEMATOCRIT 29.4 % (42.0-54.0); HEMOGLOBIN 9.8 g/dL (13.5-18.0); LYMPHOCYTES # (AUTO) 0.9 X10^3/uL (1.3-2.9); LYMPHOCYTES % (AUTO) 10.1 % (21.0-51.0); MEAN CORPUSCULAR HEMOGLOBIN 30.6 pg (27.0-34.0); MEAN CORPUSCULAR HGB CONC 33.2 g/dL (33.0-35.0); MEAN CORPUSCULAR VOLUME 92.2 fL (80.0-100.0); MEAN PLATELET VOLUME 8.4 fL (7.4-11.0); MONOCYTES # (AUTO) 0.7 x10^3/uL (0.3-0.8); MONOCYTES % (AUTO) 7.6 % (0.0-13.0); NEUTROPHILS # (AUTO) 7.4 x10^3/uL (2.2-4.8); NEUTROPHILS % (AUTO) 80.1 % (42.0-75.0); PLATELET COUNT 256 X10^3/uL (150.0-450.0); RED BLOOD COUNT 3.19 X10^6/uL (4.7-6.0); RED CELL DISTRIBUTION WIDTH 15.7 % (11.6-16.5); WHITE BLOOD COUNT 9.3 X10^3/uL (3.6-10.0)
[2019-01-03 06:36] LABS: ALANINE AMINOTRANSFERASE 15 Units/L (12-78); ALKALINE PHOSPHATASE 70 Units/L (46-116); ASPARTATE AMINO TRANSFERASE 14 Units/L (15-37); BLOOD UREA NITROGEN 15 mg/dL (7-18); CALCIUM 9.3 mg/dL (8.5-10.1); CARBON DIOXIDE 32.6 mmol/L (21-32); CHLORIDE 99 mmol/L (98-107); COR CA(FOR HYPOALB) 10.9 mg/dL (8.5-10.1); COR NA(FOR HYPERGLY) 139 mmol/L (136-145); CREATININE 0.91 mg/dL (0.70-1.30); SODIUM 136 mmol/L (136-145); TOTAL PROTEIN 6.4 g/dL (6.4-8.2); eGFR NON BLACK RACES > 60 (>60)
--- NOTE | 2019-01-03 08:32 | RAD ---
HISTORY: Shortness of breath Study: Chest AP portable Comparison: 01/02/2019 Findings: The heart remains upper limits normal in size. No congestive heart failure is noted. Right upper and right lower lobe infiltrates are unchanged. The left lung is clear with the exception of subsegmental atelectasis in the left lung base. No definite pleural effusions are identified. The bony thorax is unremarkable. IMPRESSION: No significant change right upper right lower lobe infiltrates Reported By:
[2019-01-03] MEDS: DIFLUCAN 200 MG IV PREMIX* 200 MG/100 ML BAG IV SCH (09:11)
[2019-01-03] MEDS: PROTONIX INJ 40 MG VIAL IVP SCH ×2 (09:11→20:43)
[2019-01-03] MEDS: HumuLIN 70/30 (NovoLIN 70/30) SC SCH ×2 (09:22→20:44)
[2019-01-03] MEDS: PULMICORT NEB TX 0.5 MG NEB SCH ×2 (09:27→20:52)
[2019-01-03] MEDS: DUONEB 0.5 MG/3 MG NEB SCH ×6 (09:27→20:52)
[2019-01-03] MEDS ORDERED: DIPRIVAN VIAL 20 ML ONE (11:06)
[2019-01-03] MEDS: BRILINTA PO SCH ×2 (14:59→20:44)
[2019-01-03] MEDS: LASIX PO SCH ×2 (14:59→20:42)
[2019-01-03] MEDS: ASPIRIN EC 81 MG PO SCH ×2 (14:59→20:44)
[2019-01-03] MEDS: ROBITUSSIN DM PO SCH ×4 (15:01→20:43)
[2019-01-03] MEDS: SNACK - Diabetic Appropriate PO SCH (20:43)
[2019-01-03] MEDS: MORPHINE SULFATE INJ 2 MG INJ IVP PRN (20:53)
[2019-01-03] MEDS: SOMA TAB 350 MG PO PRN (23:06)
[2019-01-04] MEDS: XANAX PO PRN ×3 (02:12→22:22)
[2019-01-04 02:14] LABS: ABG BASE EXCESS 12.9 mmol/L (-2.0-2.0)
[2019-01-04 02:15] LABS: ABG ALLEN TEST POS; ABG HCO3 38.1 mmol/L (22-26)
[2019-01-04] MEDS: NORCO 10/325 TAB PO PRN ×2 (02:51→20:34)
[2019-01-04] MEDS: MILK OF MAGNESIA PO PRN ×2 (03:10→21:18)
[2019-01-04 04:34] LABS: ABG HCO3 38.5 mmol/L (22-26)
[2019-01-04] MEDS: FORTAZ or TAZICEF VIAL INJ IVP SCH ×3 (05:01→21:11)
[2019-01-04] MEDS: CARAFATE ORAL SUSP PO SCH ×4 (05:35→20:35)
[2019-01-04] MEDS: HumuLIN R SUBCUT PRN (05:36)
[2019-01-04 06:10] LABS: BASOPHILS # (AUTO) 0.1 X10^3/uL (0.0-0.1); BASOPHILS % (AUTO) 0.8 % (0.2-1.0); EOSINOPHILS # (AUTO) 0.2 x10^3/uL (0.0-0.2); HEMATOCRIT 28.1 % (42.0-54.0); HEMOGLOBIN 9.5 g/dL (13.5-18.0); LYMPHOCYTES # (AUTO) 0.8 X10^3/uL (1.3-2.9); LYMPHOCYTES % (AUTO) 9.7 % (21.0-51.0); MEAN CORPUSCULAR HEMOGLOBIN 30.9 pg (27.0-34.0); MEAN CORPUSCULAR HGB CONC 33.9 g/dL (33.0-35.0); MEAN CORPUSCULAR VOLUME 91.3 fL (80.0-100.0); MEAN PLATELET VOLUME 8.5 fL (7.4-11.0); MONOCYTES # (AUTO) 0.5 x10^3/uL (0.3-0.8); MONOCYTES % (AUTO) 6.4 % (0.0-13.0); NEUTROPHILS # (AUTO) 6.8 x10^3/uL (2.2-4.8); NEUTROPHILS % (AUTO) 81.1 % (42.0-75.0); PLATELET COUNT 261 X10^3/uL (150.0-450.0); RED BLOOD COUNT 3.08 X10^6/uL (4.7-6.0); RED CELL DISTRIBUTION WIDTH 15.2 % (11.6-16.5); WHITE BLOOD COUNT 8.4 X10^3/uL (3.6-10.0)
[2019-01-04 06:24] LABS: ALANINE AMINOTRANSFERASE 15 Units/L (12-78); ALBUMIN 1.9 g/dL (3.4-5.0); ALKALINE PHOSPHATASE 66 Units/L (46-116); ASPARTATE AMINO TRANSFERASE 16 Units/L (15-37); BLOOD UREA NITROGEN 15 mg/dL (7-18); CALCIUM 9.2 mg/dL (8.5-10.1); CARBON DIOXIDE 33.2 mmol/L (21-32); CHLORIDE 97 mmol/L (98-107); COR CA(FOR HYPOALB) 10.9 mg/dL (8.5-10.1); COR NA(FOR HYPERGLY) 140 mmol/L (136-145); SODIUM 136 mmol/L (136-145); TOTAL PROTEIN 6.4 g/dL (6.4-8.2); eGFR NON BLACK RACES > 60 (>60)
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
[2019-01-04] MEDS: DUONEB 0.5 MG/3 MG NEB SCH ×4 (09:39→20:28)
[2019-01-04] MEDS: PULMICORT NEB TX 0.5 MG NEB SCH ×2 (09:39→20:28)
[2019-01-04] MEDS: DIFLUCAN 200 MG IV PREMIX* 200 MG/100 ML BAG IV SCH (09:45)
[2019-01-04] MEDS: LASIX PO SCH ×2 (09:46→20:35)
[2019-01-04] MEDS: MORPHINE SULFATE INJ 2 MG INJ IVP PRN (09:46)
[2019-01-04] MEDS: ROBITUSSIN DM PO SCH ×4 (09:46→20:33)
[2019-01-04] MEDS: PROTONIX INJ 40 MG VIAL IVP SCH ×2 (09:56→20:35)
[2019-01-04] MEDS: ASPIRIN EC 81 MG PO SCH ×2 (09:57→20:33)
[2019-01-04] MEDS: BRILINTA PO SCH ×2 (09:57→20:33)
[2019-01-04] MEDS: HumuLIN 70/30 (NovoLIN 70/30) SC SCH ×2 (10:17→20:36)
--- NOTE | 2019-01-04 11:14 | PCM.PROG ---
Progress Note - Progress Note for Day of Date of Exam: 01/03/19 - Subjective Subjective: IS A 78 YEAR OLD PATIENT OF [facility] WHO WAS ADMITTED FOR PNEUMONIA AND RESPIRATORY DISTRESS. HE IS A PARAPLEGIC. ON ADMISSION, HE WAS ALSO NOTED WITH COMPLAINTS OF INCREASED REFLUX AND COUGH WHEN EATING OR DRINKING. HE WAS STARTED ON PROTONIX AND CARAFATE OVER THE WEEKEND. T ERNST, HE IS ALERT AND ORIENTED, LYING IN BED ON MORNING ROUNDS. HE CONTINUES WITH COMPLAINTS OF A PRODUCTIVE COUGH, SHORTNESS OF BREATH, AND DIFFICULTY SWALLOWING AT TIMES. ON EXAMINATION, HEART IS REGULAR IN RATE AND RHYTHM. BILATERAL LUNGS ARE NOTED WITH SCATTERED WHEEZING AND RHONCHI. ABDOMEN IS ROUND, SOFT, AND NON-TENDER WITH NORMAL BOWEL SOUNDS NOTED IN ALL QUADRANTS. HIS VITALS THIS MORNING ARE 98.0-79-18-94%NC-126/60. LABS WERE OBTAINED. ABNORMAL LAB VALUES INCLUDE THE FOLLOWING: RBC 3.19, HGB 9.8, HCT 29.4, CARBON DIOXIDE 32.6, GLUCOSE 231, AST 14, ALBUMIN 2.0. BLOOD, SPUTUM, AND URINE CULTURES PENDING. ABG OBTAINED YESTERDAY AND REVEALED: PH 7.430, PC02 53, P02 65.0, HC03 35.2, 02 SATURATION 93.0, BASE EXCESS 9.2. A CHEST XRAY WAS OBTAINED AND REVEALED: No significant change right upper right lower lobe infiltrates . CONSULTED WITH PATIENT AND PLANS FOR AN EGD TODAY. OTHERWISE, WE WILL CONTINUE WITH IV ANTIBIOTICS, RESPIRATORY TREATMENTS, CURRENT PLAN OF CARE. WE WILL FOLLOW UP WITH AM LABS AND CHEST XRAY AND CONTINUE TO MONITOR. - Past Medical Family Social History Past Med/Fam/Surg Hx: No changes since H&P Allergies: Allergies meropenem Allergy (Verified 12/31/18 01:04) piperacillin [From Zosyn] Allergy (Verified 12/18/18 19:19) Sulfa (Sulfonamide Antibiotics) [SULFA] Allergy (Verified 04/13/18 10:43) tazobactam [From Zosyn] Allergy (Verified 12/18/18 19:19) - Review of Systems ROS: No change since H&P - Vital Signs and I&O's Vital Signs: Temperature 98.0 F Pulse Rate [Right Brachial] 91 Pulse Rate 87 Respiratory Rate 22 Blood Pressure [Right Arm] 112/54 Blood Pressure [Left Arm] 107/49 Blood Pressure 148/93 O2 Sat by Pulse Oximetry 97 Intake and Output: Intake & Output 01/01/19 01/02/19 01/03/19 01/04/19 11:59 11:59 11:59 11:59 Intake Total 1205 / 1205 1220 / 1220 725 / 725 918 / 918 Output Total 650 / 650 1175 / 1175 1600 / 1600 1250 / 1250 Balance 555 / 555 45 / 45 -875 / -875 -332 / -332 - Physical Exam Oriented: Normal Eyes: Normal Ear: Normal Nose: Normal Throat: Normal Respiratory: Diminished, Wheezes, Rhonchi Cardiovascular: Normal : Normal Auscultation: Bowel Sounds: Normal Palpation: Normal Tenderness: Normal (no tenderness) Skin: Normal Musculoskeletal: Normal Psychiatric: Normal Mood Description: Calm Affect: Normal Speech Pattern: Clear, Appropriate - Laboratory and Diagnostics Result Diagrams: 01/04/19 05:11 01/04/19 05:11 Labs: 12/28/18 11:32 Blood Blood Culture - Final 12/28/18 11:27 Blood Blood Culture - Final 12/30/18 16:31 Blood Blood Culture - Preliminary 12/30/18 16:13 Blood Blood Culture - Preliminary 12/29/18 21:00 Sputum - Expectorated Sputum Sputum Culture - Final 12/29/18 21:00 Sputum - Expectorated Sputum - Final 12/30/18 10:44 Urine,Clean Catch Urine Culture - Final 12/30/18 12:05 Sputum - Expectorated Sputum Sputum Culture - Final 12/30/18 12:05 Sputum - Expectorated Sputum - Final 12/29/18 09:50 Urine,Clean Catch Urine Culture - Final Laboratory WBC 8.4 X10^3/uL (3.6-10.0) 01/04/19 05:11 RBC 3.08 X10^6/uL (4.7-6.0) L 01/04/19 05:11 Hgb 9.5 g/dL (13.5-18.0) L 01/04/19 05:11 Hct 28.1 % (42.0-54.0) L 01/04/19 05:11 MCV 91.3 fL (80.0-100.0) 01/04/19 05:11 MCH 30.9 pg (27.0-34.0) 01/04/19 05:11 MCHC 33.9 g/dL (33.0-35.0) 01/04/19 05:11 RDW 15.2 % (11.6-16.5) 01/04/19 05:11 Plt Count 261 X10^3/uL (150.0-450.0) 01/04/19 05:11 Plt Count Comment Adequate (ADEQUATE) 12/30/18 16:31 MPV 8.5 fL (7.4-11.0) 01/04/19 05:11 Neut % (Auto) 81.1 % (42.0-75.0) H 01/04/19 05:11 Lymph % (Auto) 9.7 % (21.0-51.0) L 01/04/19 05:11 [place] % (Auto) 6.4 % (0.0-13.0) 01/04/19 05:11 Eos % (Auto) 2.0 % (0.9-2.9) 01/04/19 05:11 Baso % (Auto) 0.8 % (0.2-1.0) 01/04/19 05:11 Neut # (Auto) 6.8 x10^3/uL (2.2-4.8) H 01/04/19 05:11 Lymph # (Auto) 0.8 X10^3/uL (1.3-2.9) L 01/04/19 05:11 [place] # (Auto) 0.5 x10^3/uL (0.3-0.8) 01/04/19 05:11 Eos # (Auto) 0.2 x10^3/uL (0.0-0.2) 01/04/19 05:11 Baso # (Auto) 0.1 X10^3/uL (0.0-0.1) 01/04/19 05:11 Absolute Nucleated RBC 0.0 /100WBC 01/04/19 05:11 Total Counted 100 12/30/18 16:31 Neutrophils % (Manual) 89 % (39-76) H 12/30/18 16:31 Band Neutrophils % 6 % (0-10) 12/30/18 16:31 Lymphocytes % (Manual) 2 % (13-43) L 12/30/18 16:31 Monocytes % (Manual) 3 % (4-9) L 12/30/18 16:31 Plt Morphology Comment Normal (NORMAL) 12/30/18 16:31 RBC Morphology Normal (NORMAL) 12/30/18 16:31 Smear Path Review See note 12/30/18 09:00 Sample Site Rbra 01/04/19 04:28 ABG pH 7.430 (7.35-7.45) 01/04/19 04:28 ABG pCO2 58.0 mmHg (35.0-45.0) H* 01/04/19 04:28 ABG pO2 170.0 mmHg (80.0-100.0) H 01/04/19 04:28 ABG HCO3 38.5 mmol/L (22-26) H* 01/04/19 04:28 ABG O2 Saturation 100.0 % (90-100) 01/04/19 04:28 ABG Base Excess 12.0 mmol/L (-2.0-2.0) H 01/04/19 04:28 Shahriar Test Na 01/04/19 04:28 A-a Gradient 471.0 mmHg 01/04/19 04:28 FiO2 100.0 01/04/19 04:28 Blood Gas Comments Osmin abg well-mtf 01/04/19 04:28 Sodium 136 mmol/L (136-145) 01/04/19 05:11 Corrected Sodium 140 mmol/L (136-145) 01/04/19 05:11 Potassium 3.9 mmol/L (3.5-5.1) 01/04/19 05:11 Chloride 97 mmol/L (98-107) L 01/04/19 05:11 Carbon Dioxide 33.2 mmol/L (21-32) H 01/04/19 05:11 BUN 15 mg/dL (7-18) 01/04/19 05:11 Creatinine 0.90 mg/dL (0.70-1.30) 01/04/19 05:11 Est GFR (MDRD) Af Amer > 60 (>60) 01/04/19 05:11 Est GFR (MDRD) Non-Af > 60 (>60) 01/04/19 05:11 Glucose 252 mg/dL (65-99) H 01/04/19 05:11 POC Glucose (mg/dL) 246 mg/dL (65-99) H 01/04/19 05:14 Lactic Acid 1.9 mmol/L (0.4-2.0) 12/30/18 16:31 Calcium 9.2 mg/dL (8.5-10.1) 01/04/19 05:11 Corrected Calcium 10.9 mg/dL (8.5-10.1) H 01/04/19 05:11 Total Bilirubin 0.20 mg/dL (0.2-1.0) 01/04/19 05:11 AST 16 Units/L (15-37) 01/04/19 05:11 ALT 15 Units/L (12-78) 01/04/19 05:11 Alkaline Phosphatase 66 Units/L (46-116) 01/04/19 05:11 Total Protein 6.4 g/dL (6.4-8.2) 01/04/19 05:11 Albumin 1.9 g/dL (3.4-5.0) L 01/04/19 05:11 Globulin 4.5 g/dL (2.5-4.5) 01/04/19 05:11 Albumin/Globulin Ratio 0.4 Ratio (1.1-2.1) L 01/04/19 05:11 Specimen Type Catherized urine 12/30/18 10:45 Urine Color Yellow (YELLOW) 12/30/18 10:45 Urine Appearance Cloudy (CLEAR) 12/30/18 10:45 Urine pH 5.0 (5.0 - 8.0) 12/30/18 10:45 Ur Specific [place] 1.010 (1.000-1.030) 12/30/18 10:45 Urine Protein 2+ (NEGATIVE) 12/30/18 10:45 Urine Glucose (UA) Negative (NEGATIVE) 12/30/18 10:45 Urine Ketones Negative (NEGATIVE) 12/30/18 10:45 Urine Occult Blood 5+ (NEGATIVE) 12/30/18 10:45 Urine Nitrite Negative (NEGATIVE) 12/30/18 10:45 Urine Bilirubin Negative (NEGATIVE) 12/30/18 10:45 Urine Urobilinogen Normal (NORMAL) 12/30/18 10:45 Ur Leukocyte Esterase 3+ (NEGATIVE) 12/30/18 10:45 Urine RBC 20-30 /HPF (NONE SEEN) 12/30/18 10:45 Urine WBC Tntc /HPF (NONE SEEN) 12/30/18 10:45 Ur Squamous Epith Cells Few /HPF (NEGATIVE) 12/30/18 10:45 Amorphous Sediment Trace /HPF (NEGATIVE) 12/30/18 10:45 Urine Bacteria Negative /HPF (NEGATIVE) 12/30/18 10:45 Urine Yeast Few /HPF (NEGATIVE) 12/30/18 10:45 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 Yes/culture set up 12/30/18 10:45 Influenza Type A (PCR) Negative (NEGATIVE) 12/28/18 11:34 Influenza Type B (PCR) Negative (NEGATIVE) 12/28/18 11:34 Mycoplasma pneumon IgG Negative (NEGATIVE) 12/30/18 09:00 Tissue Pathology To follow 01/03/19 11:22 - Plan (1) Pneumonia Status: Acute Qualifiers: Pneumonia type: due to unspecified organism Laterality: unspecified laterality Lung location: unspecified part of lung Qualified Code(s): J18.9 - Pneumonia, unspecified organism Plan: PNEUMONIA PROTOCOL, IV ATBX. BLOOD AND SPUTUM CULTURES. SUPPLEMENTAL O2, RESP THERAPY. PPI, ELEVATE HOB 45. VERIFY HOME MEDICATION, BS CONTROL (2) Dysphasia Status: Acute Plan: EGD TODAY (3) CAD (coronary artery disease) Status: Chronic Qualifiers: Coronary Disease-Associated Artery/Lesion type: [place] artery [place] vs. 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
[2019-01-04] MEDS ORDERED: COLACE CAP 100 MG PO PRN (19:38)
[2019-01-04] MEDS: SNACK - Diabetic Appropriate PO SCH (20:35)
[2019-01-04] MEDS: D5W 1000 ML IV 1,000 ML IV SCH (20:38)
--- NOTE | 2019-01-04 23:22 | PCM.PROG ---
Progress Note - Progress Note for Day of Date of Exam: 01/04/19 - Subjective Subjective: IS A 78 YEAR OLD PATIENT OF [facility] WHO WAS ADMITTED FOR PNEUMONIA AND RESPIRATORY DISTRESS. HE IS A PARAPLEGIC. ON ADMISSION, HE WAS ALSO NOTED DYSPHAGIA. TODAY, HE IS ALERT AND ORIENTED, LYING IN BED ON MORNING ROUNDS. HE CONTINUES WITH COMPLAINTS OF A PRODUCTIVE COUGH, SH ORTNESS OF BREATH, AND DIFFICULTY SWALLOWING AT TIMES. ON EXAMINATION, HEART IS REGULAR IN RATE AND RHYTHM. BILATERAL LUNGS ARE NOTED WITH SCATTERED WHEEZING AND RHONCHI. ABDOMEN IS ROUND, SOFT, AND NON-TENDER WITH NORMAL BOWEL SOUNDS NOTED IN ALL QUADRANTS. HIS VITALS THIS MORNING ARE 97.6-81-22-94%-120/54. LABS WERE OBTAINED. ABNORMAL LAB VALUES INCLUDE THE FOLLOWING: RBC 3.08, HGB 9.5, HCT 28.1, CHLORIDE 97, CARBON DIOXIDE 33.2, GLUCOSE 252, ALBUMIN 1.9. ABG OBTAINED THIS MORNING AND REVEALED: PH 7.430, PC02 58.0, P02 170.0, HC03 38.5, 02 SATURATION 100, BASE EXCESS 12.0. A CHEST XRAY WAS OBTAINED AND REVEALED: No significant change right upper right lower lobe infiltrates . TOOK PATIENT FOR EGD AND DILATION OF THE ESOPHAGUS YESTERDAY. POST OPERATIVE DIAGNOSES INCLUDED: Upper esophageal ulcers with mild distal esophagitis. Probable small hiatal hernia. Small amount of retained food consistent with possible gastroparesis. Antral gastritis. TODAY, WE WILL CONSULT PER PATIENTS REQUEST FOR HIS HERNIA. OTHERWISE, WE WILL CONTINUE WITH IV ANTIBIOTICS, RESPIRATORY TREATMENTS, CURRENT PLAN OF CARE. WE WILL FOLLOW UP WITH AM LABS AND CHEST XRAY AND CONTINUE TO MONITOR. - Past Medical Family Social History Past Med/Fam/Surg Hx: No changes since H&P Allergies: Allergies meropenem Allergy (Verified 12/31/18 01:04) piperacillin [From Zosyn] Allergy (Verified 12/18/18 19:19) Sulfa (Sulfonamide Antibiotics) [SULFA] Allergy (Verified 04/13/18 10:43) tazobactam [From Zosyn] Allergy (Verified 12/18/18 19:19) - Review of Systems ROS: No change since H&P - Vital Signs and I&O's Vital Signs: Temperature 98.4 F Pulse Rate [Right Brachial] 97 Pulse Rate 83 Respiratory Rate 22 Blood Pressure [Right Arm] 96/51 Blood Pressure [Left Arm] 107/49 Blood Pressure 148/93 O2 Sat by Pulse Oximetry 100 Intake and Output: Intake & Output 01/02/19 01/03/19 01/04/19 01/05/19 11:59 11:59 11:59 11:59 Intake Total 1220 / 1220 725 / 725 918 / 918 0 / 0 Output Total 1175 / 1175 1600 / 1600 1250 / 1250 200 / 200 Balance 45 / 45 -875 / -875 -332 / -332 -200 / -200 - Physical Exam Oriented: Normal Eyes: Normal Ear: Normal Nose: Normal Throat: Normal Respiratory: Diminished, Wheezes, Rhonchi Cardiovascular: Normal : Normal Auscultation: Bowel Sounds: Normal Tenderness: Normal (no tenderness) Skin: Normal Musculoskeletal: Normal Psychiatric: Normal Mood Description: Calm Affect: Normal Speech Pattern: Clear, Appropriate - Laboratory and Diagnostics Result Diagrams: 01/04/19 05:11 01/04/19 05:11 Labs: 12/30/18 16:31 Blood Blood Culture - Final 12/30/18 16:13 Blood Blood Culture - Final 12/28/18 11:32 Blood Blood Culture - Final 12/28/18 11:27 Blood Blood Culture - Final 12/29/18 21:00 Sputum - Expectorated Sputum Sputum Culture - Final 12/29/18 21:00 Sputum - Expectorated Sputum - Final 12/30/18 10:44 Urine,Clean Catch Urine Culture - Final 12/30/18 12:05 Sputum - Expectorated Sputum Sputum Culture - Final 12/30/18 12:05 Sputum - Expectorated Sputum - Final 12/29/18 09:50 Urine,Clean Catch Urine Culture - Final Laboratory WBC 8.4 X10^3/uL (3.6-10.0) 01/04/19 05:11 RBC 3.08 X10^6/uL (4.7-6.0) L 01/04/19 05:11 Hgb 9.5 g/dL (13.5-18.0) L 01/04/19 05:11 Hct 28.1 % (42.0-54.0) L 01/04/19 05:11 MCV 91.3 fL (80.0-100.0) 01/04/19 05:11 MCH 30.9 pg (27.0-34.0) 01/04/19 05:11 MCHC 33.9 g/dL (33.0-35.0) 01/04/19 05:11 RDW 15.2 % (11.6-16.5) 01/04/19 05:11 Plt Count 261 X10^3/uL (150.0-450.0) 01/04/19 05:11 Plt Count Comment Adequate (ADEQUATE) 12/30/18 16:31 MPV 8.5 fL (7.4-11.0) 01/04/19 05:11 Neut % (Auto) 81.1 % (42.0-75.0) H 01/04/19 05:11 Lymph % (Auto) 9.7 % (21.0-51.0) L 01/04/19 05:11 [place] % (Auto) 6.4 % (0.0-13.0) 01/04/19 05:11 Eos % (Auto) 2.0 % (0.9-2.9) 01/04/19 05:11 Baso % (Auto) 0.8 % (0.2-1.0) 01/04/19 05:11 Neut # (Auto) 6.8 x10^3/uL (2.2-4.8) H 01/04/19 05:11 Lymph # (Auto) 0.8 X10^3/uL (1.3-2.9) L 01/04/19 05:11 [place] # (Auto) 0.5 x10^3/uL (0.3-0.8) 01/04/19 05:11 Eos # (Auto) 0.2 x10^3/uL (0.0-0.2) 01/04/19 05:11 Baso # (Auto) 0.1 X10^3/uL (0.0-0.1) 01/04/19 05:11 Absolute Nucleated RBC 0.0 /100WBC 01/04/19 05:11 Total Counted 100 12/30/18 16:31 Neutrophils % (Manual) 89 % (39-76) H 12/30/18 16:31 Band Neutrophils % 6 % (0-10) 12/30/18 16:31 Lymphocytes % (Manual) 2 % (13-43) L 12/30/18 16:31 Monocytes % (Manual) 3 % (4-9) L 12/30/18 16:31 Plt Morphology Comment Normal (NORMAL) 12/30/18 16:31 RBC Morphology Normal (NORMAL) 12/30/18 16:31 Smear Path Review See note 12/30/18 09:00 Sample Site Rbra 01/04/19 04:28 ABG pH 7.430 (7.35-7.45) 01/04/19 04:28 ABG pCO2 58.0 mmHg (35.0-45.0) H* 01/04/19 04:28 ABG pO2 170.0 mmHg (80.0-100.0) H 01/04/19 04:28 ABG HCO3 38.5 mmol/L (22-26) H* 01/04/19 04:28 ABG O2 Saturation 100.0 % (90-100) 01/04/19 04:28 ABG Base Excess 12.0 mmol/L (-2.0-2.0) H 01/04/19 04:28 Shahriar Test Na 01/04/19 04:28 A-a Gradient 471.0 mmHg 01/04/19 04:28 FiO2 100.0 01/04/19 04:28 Blood Gas Comments Osmin abg well-mtf 01/04/19 04:28 Sodium 136 mmol/L (136-145) 01/04/19 05:11 Corrected Sodium 140 mmol/L (136-145) 01/04/19 05:11 Potassium 3.9 mmol/L (3.5-5.1) 01/04/19 05:11 Chloride 97 mmol/L (98-107) L 01/04/19 05:11 Carbon Dioxide 33.2 mmol/L (21-32) H 01/04/19 05:11 BUN 15 mg/dL (7-18) 01/04/19 05:11 Creatinine 0.90 mg/dL (0.70-1.30) 01/04/19 05:11 Est GFR (MDRD) Af Amer > 60 (>60) 01/04/19 05:11 Est GFR (MDRD) Non-Af > 60 (>60) 01/04/19 05:11 Glucose 252 mg/dL (65-99) H 01/04/19 05:11 POC Glucose (mg/dL) 243 mg/dL (65-99) H 01/04/19 20:04 Lactic Acid 1.9 mmol/L (0.4-2.0) 12/30/18 16:31 Calcium 9.2 mg/dL (8.5-10.1) 01/04/19 05:11 Corrected Calcium 10.9 mg/dL (8.5-10.1) H 01/04/19 05:11 Total Bilirubin 0.20 mg/dL (0.2-1.0) 01/04/19 05:11 AST 16 Units/L (15-37) 01/04/19 05:11 ALT 15 Units/L (12-78) 01/04/19 05:11 Alkaline Phosphatase 66 Units/L (46-116) 01/04/19 05:11 Total Protein 6.4 g/dL (6.4-8.2) 01/04/19 05:11 Albumin 1.9 g/dL (3.4-5.0) L 01/04/19 05:11 Globulin 4.5 g/dL (2.5-4.5) 01/04/19 05:11 Albumin/Globulin Ratio 0.4 Ratio (1.1-2.1) L 01/04/19 05:11 Specimen Type Catherized urine 12/30/18 10:45 Urine Color Yellow (YELLOW) 12/30/18 10:45 Urine Appearance Cloudy (CLEAR) 12/30/18 10:45 Urine pH 5.0 (5.0 - 8.0) 12/30/18 10:45 Ur Specific [place] 1.010 (1.000-1.030) 12/30/18 10:45 Urine Protein 2+ (NEGATIVE) 12/30/18 10:45 Urine Glucose (UA) Negative (NEGATIVE) 12/30/18 10:45 Urine Ketones Negative (NEGATIVE) 12/30/18 10:45 Urine Occult Blood 5+ (NEGATIVE) 12/30/18 10:45 Urine Nitrite Negative (NEGATIVE) 12/30/18 10:45 Urine Bilirubin Negative (NEGATIVE) 12/30/18 10:45 Urine Urobilinogen Normal (NORMAL) 12/30/18 10:45 Ur Leukocyte Esterase 3+ (NEGATIVE) 12/30/18 10:45 Urine RBC 20-30 /HPF (NONE SEEN) 12/30/18 10:45 Urine WBC Tntc /HPF (NONE SEEN) 12/30/18 10:45 Ur Squamous Epith Cells Few /HPF (NEGATIVE) 12/30/18 10:45 Amorphous Sediment Trace /HPF (NEGATIVE) 12/30/18 10:45 Urine Bacteria Negative /HPF (NEGATIVE) 12/30/18 10:45 Urine Yeast Few /HPF (NEGATIVE) 12/30/18 10:45 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 Yes/culture set up 12/30/18 10:45 Influenza Type A (PCR) Negative (NEGATIVE) 12/28/18 11:34 Influenza Type B (PCR) Negative (NEGATIVE) 12/28/18 11:34 Mycoplasma pneumon IgG Negative (NEGATIVE) 12/30/18 09:00 Tissue Pathology To follow 01/03/19 11:22 - Plan (1) Pneumonia Status: Acute Qualifiers: Pneumonia type: due to unspecified organism Laterality: unspecified laterality Lung location: unspecified part of lung Qualified Code(s): J18.9 - Pneumonia, unspecified organism Plan: PNEUMONIA PROTOCOL, IV ATBX. BLOOD AND SPUTUM CULTURES. SUPPLEMENTAL O2, RESP THERAPY. PPI, ELEVATE HOB 45. VERIFY HOME MEDICATION, BS CONTROL (2) Dysphasia Status: Acute Plan: EGD TODAY (3) CAD (coronary artery disease) Status: Chronic Qualifiers: Coronary Disease-Associated Artery/Lesion type: [place] artery [place] vs. 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
[2019-01-05] MEDS: HumuLIN 70/30 (NovoLIN 70/30) SC SCH ×3 (00:39→21:00)
[2019-01-05] MEDS: FORTAZ or TAZICEF VIAL INJ IVP SCH ×3 (05:17→22:30)
--- NOTE | 2019-01-05 05:23 | RAD ---
Examination: AP chest History: SOB Comparison 01/04/2019 Findings: Continued cardiomegaly with infiltrates in right upper lobe and airspace disease retrocardiac left lower lung. There is no evidence for developing pleural effusion or extrapulmonary air. Impression: Stable appearance of cardiomegaly and bilateral infiltrates. No change since 1 day earlier. Reported By:
[2019-01-05 05:29] LABS: BASOPHILS # (AUTO) 0.1 X10^3/uL (0.0-0.1); BASOPHILS % (AUTO) 1.4 % (0.2-1.0); EOSINOPHILS # (AUTO) 0.2 x10^3/uL (0.0-0.2); EOSINOPHILS % (AUTO) 2.3 % (0.9-2.9); HEMATOCRIT 28.2 % (42.0-54.0); HEMOGLOBIN 9.6 g/dL (13.5-18.0); LYMPHOCYTES # (AUTO) 0.9 X10^3/uL (1.3-2.9); MEAN CORPUSCULAR HGB CONC 33.9 g/dL (33.0-35.0); MEAN CORPUSCULAR VOLUME 91.3 fL (80.0-100.0); MEAN PLATELET VOLUME 8.1 fL (7.4-11.0); MONOCYTES # (AUTO) 0.5 x10^3/uL (0.3-0.8); MONOCYTES % (AUTO) 6.3 % (0.0-13.0); NEUTROPHILS # (AUTO) 6.2 x10^3/uL (2.2-4.8); PLATELET COUNT 296 X10^3/uL (150.0-450.0); RED BLOOD COUNT 3.09 X10^6/uL (4.7-6.0); RED CELL DISTRIBUTION WIDTH 15.6 % (11.6-16.5); WHITE BLOOD COUNT 7.8 X10^3/uL (3.6-10.0)
[2019-01-05] MEDS: CARAFATE ORAL SUSP PO SCH ×4 (05:33→20:59)
[2019-01-05 05:38] LABS: ALANINE AMINOTRANSFERASE 14 Units/L (12-78); ALKALINE PHOSPHATASE 64 Units/L (46-116); ASPARTATE AMINO TRANSFERASE 13 Units/L (15-37); BLOOD UREA NITROGEN 12 mg/dL (7-18); CALCIUM 9.2 mg/dL (8.5-10.1); CARBON DIOXIDE 34.7 mmol/L (21-32); CHLORIDE 97 mmol/L (98-107); COR CA(FOR HYPOALB) 10.8 mg/dL (8.5-10.1); COR NA(FOR HYPERGLY) 140 mmol/L (136-145); CREATININE 0.87 mg/dL (0.70-1.30); SODIUM 137 mmol/L (136-145); TOTAL PROTEIN 6.5 g/dL (6.4-8.2); eGFR NON BLACK RACES > 60 (>60)
[2019-01-05] MEDS ORDERED: K-DUR TAB 20 MEQ PO PRN (06:09)
[2019-01-05] MEDS ORDERED: POTASSIUM CHLORIDE LIQ 20 MEQ UDC PO PRN (06:09)
[2019-01-05] MEDS ORDERED: MICRO K EXTEN CAP 10 MEQ PO PRN (06:09)
[2019-01-05] MEDS ORDERED: POTASSIUM CHL 60 MEQ/NS 0.45% 500 ML IV PRN (06:09)
[2019-01-05] MEDS ORDERED: K-RIDER 10 MEQ/NS 100 ML 10 MEQ/100 ML BAG IV PRN (06:09)
[2019-01-05] MEDS ORDERED: KLOR-CON PO PRN (06:09)
[2019-01-05] MEDS ORDERED: POTASSIUM CHL 40 MEQ/NS 0.45% 500 ML IV PRN (06:09)
[2019-01-05] MEDS ORDERED: MAGNESIUM SULFATE 1 GRAM/100 mL PREMIX 1 GM/100 ML BAG IV PRN (06:09)
[2019-01-05] MEDS: PROTONIX INJ 40 MG VIAL IVP SCH ×2 (08:26→20:55)
[2019-01-05] MEDS: CHRONULAC PO SCH ×2 (08:27→20:59)
[2019-01-05] MEDS: LASIX PO SCH ×2 (08:28→21:00)
[2019-01-05] MEDS: BRILINTA PO SCH ×2 (08:28→20:59)
[2019-01-05] MEDS: ASPIRIN EC 81 MG PO SCH ×2 (08:28→20:59)
[2019-01-05] MEDS: ROBITUSSIN DM PO SCH ×5 (08:33→21:00)
[2019-01-05] MEDS: DIFLUCAN 200 MG IV PREMIX* 200 MG/100 ML BAG IV SCH (08:33)
[2019-01-05] MEDS: DUONEB 0.5 MG/3 MG NEB SCH ×4 (09:04→21:00)
[2019-01-05] MEDS: PULMICORT NEB TX 0.5 MG NEB SCH ×2 (09:04→21:00)
[2019-01-05] MEDS: HumuLIN R SUBCUT PRN ×2 (11:46→22:23)
[2019-01-05] MEDS: D5W 1000 ML IV 1,000 ML IV SCH ×2 (13:50→22:32)
[2019-01-05] MEDS ORDERED: MYLICON TAB 80 MG CHEW PO PRN (13:57)
[2019-01-05] MEDS ORDERED: MYLICON TAB 80 MG CHEW PO ONE (14:09)
[2019-01-05] MEDS: MORPHINE SULFATE INJ 2 MG INJ IVP PRN (20:54)
[2019-01-05] MEDS: XANAX PO PRN (20:55)
[2019-01-05] MEDS: SNACK - Diabetic Appropriate PO SCH (20:57)
[2019-01-06] MEDS: MORPHINE SULFATE INJ 2 MG INJ IVP PRN ×5 (01:30→20:32)
[2019-01-06] MEDS ORDERED: PROVENTIL NEB TX 0.083% 2.5MG/ 3ML NEB PRN (05:00)
[2019-01-06] MEDS: CARAFATE ORAL SUSP PO SCH ×4 (06:05→20:25)
[2019-01-06] MEDS: FORTAZ or TAZICEF VIAL INJ IVP SCH ×3 (06:05→22:32)
[2019-01-06 06:20] LABS: BASOPHILS # (AUTO) 0.1 X10^3/uL (0.0-0.1); BASOPHILS % (AUTO) 1.1 % (0.2-1.0); EOSINOPHILS # (AUTO) 0.2 x10^3/uL (0.0-0.2); EOSINOPHILS % (AUTO) 1.7 % (0.9-2.9); HEMATOCRIT 31.4 % (42.0-54.0); HEMOGLOBIN 10.6 g/dL (13.5-18.0); LYMPHOCYTES # (AUTO) 0.7 X10^3/uL (1.3-2.9); LYMPHOCYTES % (AUTO) 6.7 % (21.0-51.0); MEAN CORPUSCULAR HGB CONC 33.8 g/dL (33.0-35.0); MEAN CORPUSCULAR VOLUME 91.6 fL (80.0-100.0); MEAN PLATELET VOLUME 7.9 fL (7.4-11.0); MONOCYTES # (AUTO) 0.4 x10^3/uL (0.3-0.8); MONOCYTES % (AUTO) 4.2 % (0.0-13.0); NEUTROPHILS # (AUTO) 8.6 x10^3/uL (2.2-4.8); NEUTROPHILS % (AUTO) 86.3 % (42.0-75.0); PLATELET COUNT 349 X10^3/uL (150.0-450.0); RED BLOOD COUNT 3.43 X10^6/uL (4.7-6.0); RED CELL DISTRIBUTION WIDTH 15.5 % (11.6-16.5)
[2019-01-06 06:29] LABS: ALANINE AMINOTRANSFERASE 15 Units/L (12-78); ALBUMIN 2.2 g/dL (3.4-5.0); ALKALINE PHOSPHATASE 71 Units/L (46-116); ASPARTATE AMINO TRANSFERASE 16 Units/L (15-37); BLOOD UREA NITROGEN 10 mg/dL (7-18); CALCIUM 9.2 mg/dL (8.5-10.1); CARBON DIOXIDE 31.7 mmol/L (21-32); CHLORIDE 97 mmol/L (98-107); COR CA(FOR HYPOALB) 10.6 mg/dL (8.5-10.1); COR NA(FOR HYPERGLY) 141 mmol/L (136-145); CREATININE 0.68 mg/dL (0.70-1.30); SODIUM 138 mmol/L (136-145); TOTAL PROTEIN 6.1 g/dL (6.4-8.2); eGFR NON BLACK RACES > 60 (>60)
[2019-01-06] MEDS: NORCO 10/325 TAB PO PRN ×2 (07:25→21:00)
[2019-01-06] MEDS: PULMICORT NEB TX 0.5 MG NEB SCH ×2 (08:28→20:57)
[2019-01-06] MEDS: DUONEB 0.5 MG/3 MG NEB SCH ×4 (08:28→20:57)
[2019-01-06] MEDS: LASIX PO SCH ×2 (08:35→20:24)
[2019-01-06] MEDS: ASPIRIN EC 81 MG PO SCH (08:35)
[2019-01-06] MEDS: D5W 1000 ML IV 1,000 ML IV SCH ×2 (08:36→11:51)
[2019-01-06] MEDS: CHRONULAC PO SCH ×2 (08:36→22:00)
[2019-01-06] MEDS: ROBITUSSIN DM PO SCH ×4 (08:36→20:29)
[2019-01-06] MEDS: PROTONIX INJ 40 MG VIAL IVP SCH ×2 (08:36→21:00)
[2019-01-06] MEDS: DIFLUCAN 200 MG IV PREMIX* 200 MG/100 ML BAG IV SCH (08:36)
[2019-01-06] MEDS: BRILINTA PO SCH (08:37)
[2019-01-06] MEDS: HumuLIN 70/30 (NovoLIN 70/30) SC SCH ×2 (09:41→22:00)
[2019-01-06] MEDS: HumuLIN R SUBCUT PRN (16:27)
[2019-01-06] MEDS: XANAX PO PRN (20:24)
[2019-01-06] MEDS: SNACK - Diabetic Appropriate PO SCH ×2 (20:29→22:24)
--- NOTE | 2019-01-06 21:02 | PCM.PROG ---
Progress Note - Progress Note for Day of Date of Exam: 01/05/19 - Subjective Subjective: IS A 78 YEAR OLD PATIENT OF [facility] WHO WAS ADMITTED FOR PNEUMONIA AND RESPIRATORY DISTRESS. HE IS A PARAPLEGIC. ON ADMISSION, HE WAS ALSO NOTED DYSPHAGIA. TODAY, HE IS ALERT AND ORIENTED, LYING IN BED ON MORNING ROUNDS. ESOPHAGUS WAS STRETCHED BY ON MONDAY. HE CO NTINUES WITH COMPLAINTS OF A PRODUCTIVE COUGH AND SHORTNESS OF BREATH. ON EXAMINATION, HEART IS REGULAR IN RATE AND RHYTHM. BILATERAL LUNGS ARE NOTED WITH SCATTERED WHEEZING AND RHONCHI. ABDOMEN IS ROUND, SOFT, AND NON-TENDER WITH NORMAL BOWEL SOUNDS NOTED IN ALL QUADRANTS. HIS VITALS THIS MORNING ARE 97.8-78-18-94%-144/63. LABS WERE OBTAINED. ABNORMAL LAB VALUES INCLUDE THE FOLLOWING: RBC 3.09, HGB 9.6, HCT 28.2, CHLORIDE 97, CARBON DIOXIDE 34.7, GLUCOSE 219, AST 13, ALBUMIN 2.0. A CHEST XRAY WAS OBTAINED AND REVEALED: Stable appearance of cardiomegaly and bilateral infiltrates. No change since 1 day earlier. CONSULTED WITH PATIENT AND REPORTS THAT HIS HERNIA DOES NOT REQUIRE SURGICAL INTERVENTION AT THIS TIME. TODAY, WE WILL CONTINUE WITH IV ANTIBIOTICS, RESPIRATORY TREATMENTS, CURRENT PLAN OF CARE. OTHERWISE, WE WILL FOLLOW UP WITH AM LABS AND CHEST XRAY AND CONTINUE TO MONITOR. - Past Medical Family Social History Past Med/Fam/Surg Hx: No changes since H&P Allergies: Allergies meropenem Allergy (Verified 12/31/18 01:04) piperacillin [From Zosyn] Allergy (Verified 12/18/18 19:19) Sulfa (Sulfonamide Antibiotics) [SULFA] Allergy (Verified 04/13/18 10:43) tazobactam [From Zosyn] Allergy (Verified 12/18/18 19:19) - Review of Systems ROS: No change since H&P - Vital Signs and I&O's Vital Signs: Temperature 98.0 F Pulse Rate [Right Brachial] 89 Pulse Rate 104 Respiratory Rate 22 Blood Pressure [Right Arm] 130/60 Blood Pressure [Left Arm] 133/61 Blood Pressure 148/93 O2 Sat by Pulse Oximetry 93 Intake and Output: Intake & Output 03/29/19 03/30/19 03/31/19 04/01/19 11:59 11:59 11:59 11:59 Intake Total 918 / 918 860 / 860 950 / 950 430 / 430 Output Total 1250 / 1250 1500 / 1500 500 / 500 100 / 100 Balance -332 / -332 -640 / -640 450 / 450 330 / 330 - Physical Exam Oriented: Normal Eyes: Normal Ear: Normal Nose: Normal Throat: Normal Respiratory: Diminished, Wheezes, Rhonchi Cardiovascular: Normal : Normal Auscultation: Bowel Sounds: Normal Palpation: Normal Tenderness: Normal (no tenderness) Skin: Normal Musculoskeletal: Normal Psychiatric: Normal Mood Description: Calm Affect: Normal Speech Pattern: Clear, Appropriate - Laboratory and Diagnostics Result Diagrams: 01/06/19 05:40 01/06/19 05:40 Labs: 12/30/18 16:31 Blood Blood Culture - Final 12/30/18 16:13 Blood Blood Culture - Final 12/28/18 11:32 Blood Blood Culture - Final 12/28/18 11:27 Blood Blood Culture - Final 12/29/18 21:00 Sputum - Expectorated Sputum Sputum Culture - Final 12/29/18 21:00 Sputum - Expectorated Sputum - Final 12/30/18 10:44 Urine,Clean Catch Urine Culture - Final 12/30/18 12:05 Sputum - Expectorated Sputum Sputum Culture - Final 12/30/18 12:05 Sputum - Expectorated Sputum - Final 12/29/18 09:50 Urine,Clean Catch Urine Culture - Final Laboratory WBC 10.0 X10^3/uL (3.6-10.0) 01/06/19 05:40 RBC 3.43 X10^6/uL (4.7-6.0) L 01/06/19 05:40 Hgb 10.6 g/dL (13.5-18.0) L 01/06/19 05:40 Hct 31.4 % (42.0-54.0) L 01/06/19 05:40 MCV 91.6 fL (80.0-100.0) 01/06/19 05:40 MCH 31.0 pg (27.0-34.0) 01/06/19 05:40 MCHC 33.8 g/dL (33.0-35.0) 01/06/19 05:40 RDW 15.5 % (11.6-16.5) 01/06/19 05:40 Plt Count 349 X10^3/uL (150.0-450.0) 01/06/19 05:40 Plt Count Comment Adequate (ADEQUATE) 12/30/18 16:31 MPV 7.9 fL (7.4-11.0) 01/06/19 05:40 Neut % (Auto) 86.3 % (42.0-75.0) H 01/06/19 05:40 Lymph % (Auto) 6.7 % (21.0-51.0) L 01/06/19 05:40 [place] % (Auto) 4.2 % (0.0-13.0) 01/06/19 05:40 Eos % (Auto) 1.7 % (0.9-2.9) 01/06/19 05:40 Baso % (Auto) 1.1 % (0.2-1.0) H 01/06/19 05:40 Neut # (Auto) 8.6 x10^3/uL (2.2-4.8) H 01/06/19 05:40 Lymph # (Auto) 0.7 X10^3/uL (1.3-2.9) L 01/06/19 05:40 [place] # (Auto) 0.4 x10^3/uL (0.3-0.8) 01/06/19 05:40 Eos # (Auto) 0.2 x10^3/uL (0.0-0.2) 01/06/19 05:40 Baso # (Auto) 0.1 X10^3/uL (0.0-0.1) 01/06/19 05:40 Absolute Nucleated RBC 0.0 /100WBC 01/06/19 05:40 Total Counted 100 12/30/18 16:31 Neutrophils % (Manual) 89 % (39-76) H 12/30/18 16:31 Band Neutrophils % 6 % (0-10) 12/30/18 16:31 Lymphocytes % (Manual) 2 % (13-43) L 12/30/18 16:31 Monocytes % (Manual) 3 % (4-9) L 12/30/18 16:31 Plt Morphology Comment Normal (NORMAL) 12/30/18 16:31 RBC Morphology Normal (NORMAL) 12/30/18 16:31 Smear Path Review See note 12/30/18 09:00 Sample Site Rbra 01/04/19 04:28 ABG pH 7.430 (7.35-7.45) 01/04/19 04:28 ABG pCO2 58.0 mmHg (35.0-45.0) H* 01/04/19 04:28 ABG pO2 170.0 mmHg (80.0-100.0) H 01/04/19 04:28 ABG HCO3 38.5 mmol/L (22-26) H* 01/04/19 04:28 ABG O2 Saturation 100.0 % (90-100) 01/04/19 04:28 ABG Base Excess 12.0 mmol/L (-2.0-2.0) H 01/04/19 04:28 Shahriar Test Na 01/04/19 04:28 A-a Gradient 471.0 mmHg 01/04/19 04:28 FiO2 100.0 01/04/19 04:28 Blood Gas Comments Osmin abg well-mtf 01/04/19 04:28 Sodium 138 mmol/L (136-145) 01/06/19 05:40 Corrected Sodium 141 mmol/L (136-145) 01/06/19 05:40 Potassium 4.1 mmol/L (3.5-5.1) 01/06/19 05:40 Chloride 97 mmol/L (98-107) L 01/06/19 05:40 Carbon Dioxide 31.7 mmol/L (21-32) 01/06/19 05:40 BUN 10 mg/dL (7-18) 01/06/19 05:40 Creatinine 0.68 mg/dL (0.70-1.30) L 01/06/19 05:40 Est GFR (MDRD) Af Amer > 60 (>60) 01/06/19 05:40 Est GFR (MDRD) Non-Af > 60 (>60) 01/06/19 05:40 Glucose 239 mg/dL (65-99) H 01/06/19 05:40 POC Glucose (mg/dL) 200 mg/dL (65-99) H 01/06/19 19:51 Lactic Acid 1.9 mmol/L (0.4-2.0) 12/30/18 16:31 Calcium 9.2 mg/dL (8.5-10.1) 01/06/19 05:40 Corrected Calcium 10.6 mg/dL (8.5-10.1) H 01/06/19 05:40 Magnesium 1.8 mg/dL (1.7-2.9) 01/05/19 04:40 Total Bilirubin 0.30 mg/dL (0.2-1.0) 01/06/19 05:40 AST 16 Units/L (15-37) 01/06/19 05:40 ALT 15 Units/L (12-78) 01/06/19 05:40 Alkaline Phosphatase 71 Units/L (46-116) 01/06/19 05:40 Total Protein 6.1 g/dL (6.4-8.2) L 01/06/19 05:40 Albumin 2.2 g/dL (3.4-5.0) L 01/06/19 05:40 Globulin 3.9 g/dL (2.5-4.5) 01/06/19 05:40 Albumin/Globulin Ratio 0.6 Ratio (1.1-2.1) L 01/06/19 05:40 Specimen Type Catherized urine 12/30/18 10:45 Urine Color Yellow (YELLOW) 12/30/18 10:45 Urine Appearance Cloudy (CLEAR) 12/30/18 10:45 Urine pH 5.0 (5.0 - 8.0) 12/30/18 10:45 Ur Specific Icard 1.010 (1.000-1.030) 12/30/18 10:45 Urine Protein 2+ (NEGATIVE) 12/30/18 10:45 Urine Glucose (UA) Negative (NEGATIVE) 12/30/18 10:45 Urine Ketones Negative (NEGATIVE) 12/30/18 10:45 Urine Occult Blood 5+ (NEGATIVE) 12/30/18 10:45 Urine Nitrite Negative (NEGATIVE) 12/30/18 10:45 Urine Bilirubin Negative (NEGATIVE) 12/30/18 10:45 Urine Urobilinogen Normal (NORMAL) 12/30/18 10:45 Ur Leukocyte Esterase 3+ (NEGATIVE) 12/30/18 10:45 Urine RBC 20-30 /HPF (NONE SEEN) 12/30/18 10:45 Urine WBC Tntc /HPF (NONE SEEN) 12/30/18 10:45 Ur Squamous Epith Cells Few /HPF (NEGATIVE) 12/30/18 10:45 Amorphous Sediment Trace /HPF (NEGATIVE) 12/30/18 10:45 Urine Bacteria Negative /HPF (NEGATIVE) 12/30/18 10:45 Urine Yeast Few /HPF (NEGATIVE) 12/30/18 10:45 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 Yes/culture set up 12/30/18 10:45 Influenza Type A (PCR) Negative (NEGATIVE) 12/28/18 11:34 Influenza Type B (PCR) Negative (NEGATIVE) 12/28/18 11:34 Mycoplasma pneumon IgG Negative (NEGATIVE) 12/30/18 09:00 Tissue Pathology To follow 01/03/19 11:22 - Plan (1) Pneumonia Status: Acute Qualifiers: Pneumonia type: due to unspecified organism Laterality: unspecified laterality Lung location: unspecified part of lung Qualified Code(s): J18.9 - Pneumonia, unspecified organism Plan: PNEUMONIA PROTOCOL, IV ATBX. BLOOD AND SPUTUM CULTURES. SUPPLEMENTAL O2, RESP THERAPY. PPI, ELEVATE HOB 45. VERIFY HOME MEDICATION, BS CONTROL (2) Dysphasia Status: Acute Plan: EGD TODAY (3) CAD (coronary artery disease) Status: Chronic Qualifiers: Coronary Disease-Associated Artery/Lesion type: [place] artery [place] vs. transplanted heart: [place] heart Associated angina: angina presence unspecified Qualified Code(s): I25.10 - Atherosclerotic heart disease of [place] coronary artery without angina pectoris (4) COPD (chronic obstructive pulmonary disease) Status: Chronic Qualifiers: COPD type: chronic bronchitis Chronic bronchitis type: unspecified Qualified Code(s): J42 - Unspecified chronic bronchitis (5) Diabetes mellitus, type II Status: Chronic Qualifiers: Diabetes mellitus terminal clerk insulin use: with usp use Diabetes mellitus complication status: with unspecified complications Qualified Code(s): E11.8 - Type 2 diabetes mellitus with unspecified complications; Z79.4 - marine 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
--- NOTE | 2019-01-06 21:54 | PCM.PROG ---
Progress Note - Progress Note for Day of Date of Exam: 01/06/19 - Subjective Subjective: IS A 78 YEAR OLD PATIENT OF [facility] WHO WAS ADMITTED FOR PNEUMONIA AND RESPIRATORY DISTRESS. HE IS A PARAPLEGIC. ON ADMISSION, HE WAS ALSO NOTED DYSPHAGIA. TODAY, HE IS ALERT AND ORIENTED, LYING IN BED ON MORNING ROUNDS. ESOPHAGUS WAS STRETCHED BY ON MONDAY. HE CO NTINUES WITH COMPLAINTS OF A PRODUCTIVE COUGH AND SHORTNESS OF BREATH. HE ALSO REPORTS NAUSEA AND DIFFICULTY KEEPING HIS FOOD DOWN. ON EXAMINATION, HEART IS REGULAR IN RATE AND RHYTHM. BILATERAL LUNGS ARE NOTED WITH SCATTERED WHEEZING AND RHONCHI. ABDOMEN IS ROUND, SOFT, AND NON-TENDER WITH NORMAL BOWEL SOUNDS NOTED IN ALL QUADRANTS. HIS VITALS THIS MORNING ARE 98.1-107-18-92%NC-130/67. LABS WERE OBTAINED. ABNORMAL LAB VALUES INCLUDE THE FOLLOWING: RBC 3.43, HGB 10.6, HCT 31.4, CHLORIDE 97, CREATININE 0.68, GLUCOSE 239, TOTAL PROTEIN 6.1, ALBUMIN 2.2. TODAY, WE WILL CONTINUE WITH IV ANTIBIOTICS, RESPIRATORY TREATMENTS, CURRENT PLAN OF CARE. WE WILL CONSULT FOR PLACEMENT OF A PEG TUBE DUE TO GASTROPARESIS. OTHERWISE, WE WILL FOLLOW UP WITH AM LABS AND CHEST XRAY AND CONTINUE TO MONITOR. - Past Medical Family Social History Past Med/Fam/Surg Hx: No changes since H&P Allergies: Allergies meropenem Allergy (Verified 12/31/18 01:04) piperacillin [From Zosyn] Allergy (Verified 12/18/18 19:19) Sulfa (Sulfonamide Antibiotics) [SULFA] Allergy (Verified 04/13/18 10:43) tazobactam [From Zosyn] Allergy (Verified 12/18/18 19:19) - Review of Systems ROS: No change since H&P - Vital Signs and I&O's Vital Signs: Temperature 98.0 F Pulse Rate [Right Brachial] 89 Pulse Rate 98 Respiratory Rate 22 Blood Pressure [Right Arm] 130/60 Blood Pressure [Left Arm] 133/61 Blood Pressure 148/93 O2 Sat by Pulse Oximetry 93 Intake and Output: Intake & Output 01/04/19 01/05/19 01/06/19 01/07/19 11:59 11:59 11:59 11:59 Intake Total 918 / 918 860 / 860 950 / 950 430 / 430 Output Total 1250 / 1250 1500 / 1500 500 / 500 100 / 100 Balance -332 / -332 -640 / -640 450 / 450 330 / 330 - Physical Exam Oriented: Normal Eyes: Normal Ear: Normal Nose: Normal Throat: Normal Respiratory: Diminished, Wheezes, Rhonchi Cardiovascular: Normal : Normal Auscultation: Bowel Sounds: Normal Tenderness: Normal (no tenderness) Skin: Normal Musculoskeletal: Normal Psychiatric: Normal Mood Description: Calm Affect: Normal Speech Pattern: Clear, Appropriate - Laboratory and Diagnostics Result Diagrams: 01/06/19 05:40 01/06/19 05:40 Labs: 12/30/18 16:31 Blood Blood Culture - Final 12/30/18 16:13 Blood Blood Culture - Final 12/28/18 11:32 Blood Blood Culture - Final 12/28/18 11:27 Blood Blood Culture - Final 12/29/18 21:00 Sputum - Expectorated Sputum Sputum Culture - Final 12/29/18 21:00 Sputum - Expectorated Sputum - Final 12/30/18 10:44 Urine,Clean Catch Urine Culture - Final 12/30/18 12:05 Sputum - Expectorated Sputum Sputum Culture - Final 12/30/18 12:05 Sputum - Expectorated Sputum - Final 12/29/18 09:50 Urine,Clean Catch Urine Culture - Final Laboratory WBC 10.0 X10^3/uL (3.6-10.0) 01/06/19 05:40 RBC 3.43 X10^6/uL (4.7-6.0) L 01/06/19 05:40 Hgb 10.6 g/dL (13.5-18.0) L 01/06/19 05:40 Hct 31.4 % (42.0-54.0) L 01/06/19 05:40 MCV 91.6 fL (80.0-100.0) 01/06/19 05:40 MCH 31.0 pg (27.0-34.0) 01/06/19 05:40 MCHC 33.8 g/dL (33.0-35.0) 01/06/19 05:40 RDW 15.5 % (11.6-16.5) 01/06/19 05:40 Plt Count 349 X10^3/uL (150.0-450.0) 01/06/19 05:40 Plt Count Comment Adequate (ADEQUATE) 12/30/18 16:31 MPV 7.9 fL (7.4-11.0) 01/06/19 05:40 Neut % (Auto) 86.3 % (42.0-75.0) H 01/06/19 05:40 Lymph % (Auto) 6.7 % (21.0-51.0) L 01/06/19 05:40 [place] % (Auto) 4.2 % (0.0-13.0) 01/06/19 05:40 Eos % (Auto) 1.7 % (0.9-2.9) 01/06/19 05:40 Baso % (Auto) 1.1 % (0.2-1.0) H 01/06/19 05:40 Neut # (Auto) 8.6 x10^3/uL (2.2-4.8) H 01/06/19 05:40 Lymph # (Auto) 0.7 X10^3/uL (1.3-2.9) L 01/06/19 05:40 [place] # (Auto) 0.4 x10^3/uL (0.3-0.8) 01/06/19 05:40 Eos # (Auto) 0.2 x10^3/uL (0.0-0.2) 01/06/19 05:40 Baso # (Auto) 0.1 X10^3/uL (0.0-0.1) 01/06/19 05:40 Absolute Nucleated RBC 0.0 /100WBC 01/06/19 05:40 Total Counted 100 12/30/18 16:31 Neutrophils % (Manual) 89 % (39-76) H 12/30/18 16:31 Band Neutrophils % 6 % (0-10) 12/30/18 16:31 Lymphocytes % (Manual) 2 % (13-43) L 12/30/18 16:31 Monocytes % (Manual) 3 % (4-9) L 12/30/18 16:31 Plt Morphology Comment Normal (NORMAL) 12/30/18 16:31 RBC Morphology Normal (NORMAL) 12/30/18 16:31 Smear Path Review See note 12/30/18 09:00 Sample Site Rbra 01/04/19 04:28 ABG pH 7.430 (7.35-7.45) 01/04/19 04:28 ABG pCO2 58.0 mmHg (35.0-45.0) H* 01/04/19 04:28 ABG pO2 170.0 mmHg (80.0-100.0) H 01/04/19 04:28 ABG HCO3 38.5 mmol/L (22-26) H* 01/04/19 04:28 ABG O2 Saturation 100.0 % (90-100) 01/04/19 04:28 ABG Base Excess 12.0 mmol/L (-2.0-2.0) H 01/04/19 04:28 Shahriar Test Na 01/04/19 04:28 A-a Gradient 471.0 mmHg 01/04/19 04:28 FiO2 100.0 01/04/19 04:28 Blood Gas Comments Osmin abg well-mtf 01/04/19 04:28 Sodium 138 mmol/L (136-145) 01/06/19 05:40 Corrected Sodium 141 mmol/L (136-145) 01/06/19 05:40 Potassium 4.1 mmol/L (3.5-5.1) 01/06/19 05:40 Chloride 97 mmol/L (98-107) L 01/06/19 05:40 Carbon Dioxide 31.7 mmol/L (21-32) 01/06/19 05:40 BUN 10 mg/dL (7-18) 01/06/19 05:40 Creatinine 0.68 mg/dL (0.70-1.30) L 01/06/19 05:40 Est GFR (MDRD) Af Amer > 60 (>60) 01/06/19 05:40 Est GFR (MDRD) Non-Af > 60 (>60) 01/06/19 05:40 Glucose 239 mg/dL (65-99) H 01/06/19 05:40 POC Glucose (mg/dL) 200 mg/dL (65-99) H 01/06/19 19:51 Lactic Acid 1.9 mmol/L (0.4-2.0) 12/30/18 16:31 Calcium 9.2 mg/dL (8.5-10.1) 01/06/19 05:40 Corrected Calcium 10.6 mg/dL (8.5-10.1) H 01/06/19 05:40 Magnesium 1.8 mg/dL (1.7-2.9) 01/05/19 04:40 Total Bilirubin 0.30 mg/dL (0.2-1.0) 01/06/19 05:40 AST 16 Units/L (15-37) 01/06/19 05:40 ALT 15 Units/L (12-78) 01/06/19 05:40 Alkaline Phosphatase 71 Units/L (46-116) 01/06/19 05:40 Total Protein 6.1 g/dL (6.4-8.2) L 01/06/19 05:40 Albumin 2.2 g/dL (3.4-5.0) L 01/06/19 05:40 Globulin 3.9 g/dL (2.5-4.5) 01/06/19 05:40 Albumin/Globulin Ratio 0.6 Ratio (1.1-2.1) L 01/06/19 05:40 Specimen Type Catherized urine 12/30/18 10:45 Urine Color Yellow (YELLOW) 12/30/18 10:45 Urine Appearance Cloudy (CLEAR) 12/30/18 10:45 Urine pH 5.0 (5.0 - 8.0) 12/30/18 10:45 Ur Specific [place] 1.010 (1.000-1.030) 12/30/18 10:45 Urine Protein 2+ (NEGATIVE) 12/30/18 10:45 Urine Glucose (UA) Negative (NEGATIVE) 12/30/18 10:45 Urine Ketones Negative (NEGATIVE) 12/30/18 10:45 Urine Occult Blood 5+ (NEGATIVE) 12/30/18 10:45 Urine Nitrite Negative (NEGATIVE) 12/30/18 10:45 Urine Bilirubin Negative (NEGATIVE) 12/30/18 10:45 Urine Urobilinogen Normal (NORMAL) 12/30/18 10:45 Ur Leukocyte Esterase 3+ (NEGATIVE) 12/30/18 10:45 Urine RBC 20-30 /HPF (NONE SEEN) 12/30/18 10:45 Urine WBC Tntc /HPF (NONE SEEN) 12/30/18 10:45 Ur Squamous Epith Cells Few /HPF (NEGATIVE) 12/30/18 10:45 Amorphous Sediment Trace /HPF (NEGATIVE) 12/30/18 10:45 Urine Bacteria Negative /HPF (NEGATIVE) 12/30/18 10:45 Urine Yeast Few /HPF (NEGATIVE) 12/30/18 10:45 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 Yes/culture set up 12/30/18 10:45 Influenza Type A (PCR) Negative (NEGATIVE) 12/28/18 11:34 Influenza Type B (PCR) Negative (NEGATIVE) 12/28/18 11:34 Mycoplasma pneumon IgG Negative (NEGATIVE) 12/30/18 09:00 Tissue Pathology To follow 01/03/19 11:22 - Plan (1) Pneumonia Status: Acute Qualifiers: Pneumonia type: due to unspecified organism Laterality: unspecified laterality Lung location: unspecified part of lung Qualified Code(s): J18.9 - Pneumonia, unspecified organism Plan: PNEUMONIA PROTOCOL, IV ATBX. BLOOD AND SPUTUM CULTURES. SUPPLEMENTAL O2, RESP THERAPY. PPI, ELEVATE HOB 45. VERIFY HOME MEDICATION, BS CONTROL (2) Diabetic gastroparesis Status: Acute Plan: CONSULT FOR PEG TUBE, CONTINUE CARAFATE (3) Dysphasia Status: Resolved (4) CAD (coronary artery disease) Status: Chronic Qualifiers: Coronary Disease-Associated Artery/Lesion type: [place] artery [place] vs. transplanted heart: [place] heart Associated angina: angina presence unspecified Qualified Code(s): I25.10 - Atherosclerotic heart disease of [place] coronary artery without angina pectoris (5) COPD (chronic obstructive pulmonary disease) Status: Chronic Qualifiers: COPD type: chronic bronchitis Chronic bronchitis type: unspecified Qualified Code(s): J42 - Unspecified chronic bronchitis (6) Diabetes mellitus, type II Status: Chronic Qualifiers: Diabetes mellitus senior living insulin use: with senior living use Diabetes mellitus complication status: with unspecified complications Qualified Code(s): E11.8 - Type 2 diabetes mellitus with unspecified complications; Z79.4 - intermediate (current) use of insulin (7) GERD (gastroesophageal reflux disease) Status: Chronic Qualifiers: Esophagitis presence: esophagitis presence not specified (8) Paraplegic spinal paralysis Status: Chronic
[2019-01-07] MEDS: D5W 1000 ML IV 1,000 ML IV SCH (04:37)
[2019-01-07] MEDS: FORTAZ or TAZICEF VIAL INJ IVP SCH ×3 (05:49→21:30)
[2019-01-07] MEDS: CARAFATE ORAL SUSP PO SCH ×4 (05:49→22:40)
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
[2019-01-07 06:11] LABS: BASOPHILS # (AUTO) 0.1 X10^3/uL (0.0-0.1); BASOPHILS % (AUTO) 0.9 % (0.2-1.0); EOSINOPHILS # (AUTO) 0.2 x10^3/uL (0.0-0.2); EOSINOPHILS % (AUTO) 3.3 % (0.9-2.9); HEMATOCRIT 29.3 % (42.0-54.0); HEMOGLOBIN 9.9 g/dL (13.5-18.0); LYMPHOCYTES # (AUTO) 0.9 X10^3/uL (1.3-2.9); LYMPHOCYTES % (AUTO) 11.7 % (21.0-51.0); MEAN CORPUSCULAR HEMOGLOBIN 30.7 pg (27.0-34.0); MEAN CORPUSCULAR HGB CONC 33.7 g/dL (33.0-35.0); MEAN CORPUSCULAR VOLUME 91.1 fL (80.0-100.0); MONOCYTES # (AUTO) 0.4 x10^3/uL (0.3-0.8); MONOCYTES % (AUTO) 5.8 % (0.0-13.0); NEUTROPHILS # (AUTO) 5.7 x10^3/uL (2.2-4.8); NEUTROPHILS % (AUTO) 78.3 % (42.0-75.0); PLATELET COUNT 367 X10^3/uL (150.0-450.0); RED BLOOD COUNT 3.21 X10^6/uL (4.7-6.0); RED CELL DISTRIBUTION WIDTH 15.8 % (11.6-16.5); WHITE BLOOD COUNT 7.3 X10^3/uL (3.6-10.0)
[2019-01-07 06:16] LABS: ALANINE AMINOTRANSFERASE 11 Units/L (12-78); ALKALINE PHOSPHATASE 62 Units/L (46-116); ASPARTATE AMINO TRANSFERASE 11 Units/L (15-37); BLOOD UREA NITROGEN 10 mg/dL (7-18); CALCIUM 9.3 mg/dL (8.5-10.1); CARBON DIOXIDE 33.6 mmol/L (21-32); CHLORIDE 97 mmol/L (98-107); COR CA(FOR HYPOALB) 10.9 mg/dL (8.5-10.1); COR NA(FOR HYPERGLY) 140 mmol/L (136-145); CREATININE 0.77 mg/dL (0.70-1.30); SODIUM 137 mmol/L (136-145); TOTAL PROTEIN 6.6 g/dL (6.4-8.2); eGFR NON BLACK RACES > 60 (>60)
[2019-01-07] MEDS: DUONEB 0.5 MG/3 MG NEB SCH ×4 (08:20→20:26)
[2019-01-07] MEDS: PULMICORT NEB TX 0.5 MG NEB SCH ×2 (08:20→20:27)
[2019-01-07] MEDS: DIFLUCAN 200 MG IV PREMIX* 200 MG/100 ML BAG IV SCH (09:11)
[2019-01-07] MEDS: PROTONIX INJ 40 MG VIAL IVP SCH ×2 (09:12→21:30)
[2019-01-07] MEDS: MORPHINE SULFATE INJ 2 MG INJ IVP PRN ×2 (09:19→21:30)
[2019-01-07] MEDS: HumuLIN 70/30 (NovoLIN 70/30) SC SCH ×2 (11:53→22:41)
--- NOTE | 2019-01-07 14:08 | PCM.PROG ---
Progress Note - Progress Note for Day of Date of Exam: 01/07/19 - Subjective Subjective: IS A 78 YEAR OLD PATIENT OF [facility] WHO WAS ADMITTED FOR PNEUMONIA AND RESPIRATORY DISTRESS. HE IS A PARAPLEGIC. ON ADMISSION, HE WAS ALSO NOTED DYSPHAGIA. TODAY, HE IS LYING IN BED WITH EYES CLOSED ON MORNING ROUNDS. HE AWAKENS AND RESPONDS TO VERBAL STIMULI. ESOPHAGUS WAS STRETCHED BY ON MONDAY. HE CONTINUES WITH COMPLAINTS OF A PRODUCTIVE COUGH AND SHORTNESS OF BREATH. HE ALSO REPORTS NAUSEA AND DIFFICULTY KEEPING HIS FOOD DOWN. ON EXAMINATION, HEART IS REGULAR IN RATE AND RHYTHM. BILATERAL LUNGS ARE NOTED WITH SCATTERED WHEEZING AND RHONCHI. ABDOMEN IS ROUND, SOFT, AND NON-TENDER WITH NORMAL BOWEL SOUNDS NOTED IN ALL QUADRANTS. HIS VITALS THIS MORNING ARE 97.8-75-20-91%NC-127/58. LABS WERE OBTAINED. ABNORMAL LAB VALUES INCLUDE THE FOLLOWING: RBC 3.21, HGB 9.9, HCT 29.3, CHLORIDE 97, CARBON DIOXIDE 33.6, GLUCOSE 221, AST 11, ALT 11, ALBUMIN 2.0, GLOBULIN 4.6. TODAY, WE WILL CONTINUE WITH IV ANTIBIOTICS, RESPIRATORY TREATMENTS, CURRENT PLAN OF CARE. WE WILL CONSULT FOR PLACEMENT OF A PEG TUBE DUE TO GASTROPARESIS. OTHERWISE, WE WILL FOLLOW UP WITH AM LABS AND CHEST XRAY AND CONTINUE TO MONITOR. - Past Medical Family Social History Past Med/Fam/Surg Hx: No changes since H&P Allergies: Allergies meropenem Allergy (Verified 12/31/18 01:04) piperacillin [From Zosyn] Allergy (Verified 12/18/18 19:19) Sulfa (Sulfonamide Antibiotics) [SULFA] Allergy (Verified 04/13/18 10:43) tazobactam [From Zosyn] Allergy (Verified 12/18/18 19:19) - Review of Systems ROS: No change since H&P - Vital Signs and I&O's Vital Signs: Temperature 97.8 F Pulse Rate [Right Brachial] 94 Pulse Rate 75 Respiratory Rate 18 Blood Pressure [Right Arm] 115/58 Blood Pressure [Left Arm] 133/61 Blood Pressure 148/93 O2 Sat by Pulse Oximetry 91 Intake and Output: Intake & Output 01/05/19 01/06/19 01/07/19 01/08/19 11:59 11:59 11:59 11:59 Intake Total 860 / 860 950 / 950 710 / 710 0 / 0 Output Total 1500 / 1500 500 / 500 550 / 550 300 / 300 Balance -640 / -640 450 / 450 160 / 160 -300 / -300 - Physical Exam Oriented: Normal Eyes: Normal Ear: Normal Nose: Normal Throat: Normal Respiratory: Diminished, Wheezes, Rhonchi Cardiovascular: Normal : Normal Auscultation: Bowel Sounds: Normal Palpation: Normal Tenderness: Normal (no tenderness) Skin: Normal Musculoskeletal: Normal Psychiatric: Normal Mood Description: Calm Affect: Normal Speech Pattern: Clear, Appropriate - Laboratory and Diagnostics Result Diagrams: 01/07/19 04:26 01/07/19 04:26 Labs: 12/30/18 16:31 Blood Blood Culture - Final 12/30/18 16:13 Blood Blood Culture - Final 12/28/18 11:32 Blood Blood Culture - Final 12/28/18 11:27 Blood Blood Culture - Final 12/29/18 21:00 Sputum - Expectorated Sputum Sputum Culture - Final 12/29/18 21:00 Sputum - Expectorated Sputum - Final 12/30/18 10:44 Urine,Clean Catch Urine Culture - Final 12/30/18 12:05 Sputum - Expectorated Sputum Sputum Culture - Final 12/30/18 12:05 Sputum - Expectorated Sputum - Final 12/29/18 09:50 Urine,Clean Catch Urine Culture - Final Laboratory WBC 7.3 X10^3/uL (3.6-10.0) 01/07/19 04:26 RBC 3.21 X10^6/uL (4.7-6.0) L 01/07/19 04:26 Hgb 9.9 g/dL (13.5-18.0) L 01/07/19 04:26 Hct 29.3 % (42.0-54.0) L 01/07/19 04:26 MCV 91.1 fL (80.0-100.0) 01/07/19 04:26 MCH 30.7 pg (27.0-34.0) 01/07/19 04:26 MCHC 33.7 g/dL (33.0-35.0) 01/07/19 04:26 RDW 15.8 % (11.6-16.5) 01/07/19 04:26 Plt Count 367 X10^3/uL (150.0-450.0) 01/07/19 04:26 Plt Count Comment Adequate (ADEQUATE) 12/30/18 16:31 MPV 8.0 fL (7.4-11.0) 01/07/19 04:26 Neut % (Auto) 78.3 % (42.0-75.0) H 01/07/19 04:26 Lymph % (Auto) 11.7 % (21.0-51.0) L 01/07/19 04:26 [place] % (Auto) 5.8 % (0.0-13.0) 01/07/19 04:26 Eos % (Auto) 3.3 % (0.9-2.9) H 01/07/19 04:26 Baso % (Auto) 0.9 % (0.2-1.0) 01/07/19 04:26 Neut # (Auto) 5.7 x10^3/uL (2.2-4.8) H 01/07/19 04:26 Lymph # (Auto) 0.9 X10^3/uL (1.3-2.9) L 01/07/19 04:26 [place] # (Auto) 0.4 x10^3/uL (0.3-0.8) 01/07/19 04:26 Eos # (Auto) 0.2 x10^3/uL (0.0-0.2) 01/07/19 04:26 Baso # (Auto) 0.1 X10^3/uL (0.0-0.1) 01/07/19 04:26 Absolute Nucleated RBC 0.0 /100WBC 01/07/19 04:26 Total Counted 100 12/30/18 16:31 Neutrophils % (Manual) 89 % (39-76) H 12/30/18 16:31 Band Neutrophils % 6 % (0-10) 12/30/18 16:31 Lymphocytes % (Manual) 2 % (13-43) L 12/30/18 16:31 Monocytes % (Manual) 3 % (4-9) L 12/30/18 16:31 Plt Morphology Comment Normal (NORMAL) 12/30/18 16:31 RBC Morphology Normal (NORMAL) 12/30/18 16:31 Smear Path Review See note 12/30/18 09:00 Sample Site Rbra 01/04/19 04:28 ABG pH 7.430 (7.35-7.45) 01/04/19 04:28 ABG pCO2 58.0 mmHg (35.0-45.0) H* 01/04/19 04:28 ABG pO2 170.0 mmHg (80.0-100.0) H 01/04/19 04:28 ABG HCO3 38.5 mmol/L (22-26) H* 01/04/19 04:28 ABG O2 Saturation 100.0 % (90-100) 01/04/19 04:28 ABG Base Excess 12.0 mmol/L (-2.0-2.0) H 01/04/19 04:28 Shahriar Test Na 01/04/19 04:28 A-a Gradient 471.0 mmHg 01/04/19 04:28 FiO2 100.0 01/04/19 04:28 Blood Gas Comments Osmin abg well-mtf 01/04/19 04:28 Sodium 137 mmol/L (136-145) 01/07/19 04:26 Corrected Sodium 140 mmol/L (136-145) 01/07/19 04:26 Potassium 3.6 mmol/L (3.5-5.1) 01/07/19 04:26 Chloride 97 mmol/L (98-107) L 01/07/19 04:26 Carbon Dioxide 33.6 mmol/L (21-32) H 01/07/19 04:26 BUN 10 mg/dL (7-18) 01/07/19 04:26 Creatinine 0.77 mg/dL (0.70-1.30) 01/07/19 04:26 Est GFR (MDRD) Af Amer > 60 (>60) 01/07/19 04:26 Est GFR (MDRD) Non-Af > 60 (>60) 01/07/19 04:26 Glucose 221 mg/dL (65-99) H 01/07/19 04:26 POC Glucose (mg/dL) 207 mg/dL (65-99) H 01/07/19 11:19 Lactic Acid 1.9 mmol/L (0.4-2.0) 12/30/18 16:31 Calcium 9.3 mg/dL (8.5-10.1) 01/07/19 04:26 Corrected Calcium 10.9 mg/dL (8.5-10.1) H 01/07/19 04:26 Magnesium 1.8 mg/dL (1.7-2.9) 01/05/19 04:40 Total Bilirubin 0.20 mg/dL (0.2-1.0) 01/07/19 04:26 AST 11 Units/L (15-37) L 01/07/19 04:26 ALT 11 Units/L (12-78) L 01/07/19 04:26 Alkaline Phosphatase 62 Units/L (46-116) 01/07/19 04:26 Total Protein 6.6 g/dL (6.4-8.2) 01/07/19 04:26 Albumin 2.0 g/dL (3.4-5.0) L 01/07/19 04:26 Globulin 4.6 g/dL (2.5-4.5) H 01/07/19 04:26 Albumin/Globulin Ratio 0.4 Ratio (1.1-2.1) L 01/07/19 04:26 Specimen Type Catherized urine 12/30/18 10:45 Urine Color Yellow (YELLOW) 12/30/18 10:45 Urine Appearance Cloudy (CLEAR) 12/30/18 10:45 Urine pH 5.0 (5.0 - 8.0) 12/30/18 10:45 Ur Specific [place] 1.010 (1.000-1.030) 12/30/18 10:45 Urine Protein 2+ (NEGATIVE) 12/30/18 10:45 Urine Glucose (UA) Negative (NEGATIVE) 12/30/18 10:45 Urine Ketones Negative (NEGATIVE) 12/30/18 10:45 Urine Occult Blood 5+ (NEGATIVE) 12/30/18 10:45 Urine Nitrite Negative (NEGATIVE) 12/30/18 10:45 Urine Bilirubin Negative (NEGATIVE) 12/30/18 10:45 Urine Urobilinogen Normal (NORMAL) 12/30/18 10:45 Ur Leukocyte Esterase 3+ (NEGATIVE) 12/30/18 10:45 Urine RBC 20-30 /HPF (NONE SEEN) 12/30/18 10:45 Urine WBC Tntc /HPF (NONE SEEN) 12/30/18 10:45 Ur Squamous Epith Cells Few /HPF (NEGATIVE) 12/30/18 10:45 Amorphous Sediment Trace /HPF (NEGATIVE) 12/30/18 10:45 Urine Bacteria Negative /HPF (NEGATIVE) 12/30/18 10:45 Urine Yeast Few /HPF (NEGATIVE) 12/30/18 10:45 Urine Sperm Assistant Guest Services Manager 12/30/18 10:45 Ur Culture Indicated? Yes/culture set up 12/30/18 10:45 Influenza Type A (PCR) Negative (NEGATIVE) 12/28/18 11:34 Influenza Type B (PCR) Negative (NEGATIVE) 12/28/18 11:34 Mycoplasma pneumon IgG Negative (NEGATIVE) 12/30/18 09:00 Tissue Pathology To follow 01/03/19 11:22 - Plan (1) Pneumonia Status: Acute Qualifiers: Pneumonia type: due to unspecified organism Laterality: unspecified laterality Lung location: unspecified part of lung Qualified Code(s): J18.9 - Pneumonia, unspecified organism Plan: PNEUMONIA PROTOCOL, IV ATBX. BLOOD AND SPUTUM CULTURES. SUPPLEMENTAL O2, RESP THERAPY. PPI, ELEVATE HOB 45. VERIFY HOME MEDICATION, BS CONTROL (2) Diabetic gastroparesis Status: Acute Plan: CONSULT FOR PEG TUBE, CONTINUE CARAFATE (3) Dysphasia Status: Resolved Plan: CONSULT FOR PEG TUBE (4) CAD (coronary artery disease) Status: Chronic Qualifiers: Coronary Disease-Associated Artery/Lesion type: [place] artery [place] vs. transplanted heart: [place] heart Associated angina: angina presence unspecified Qualified Code(s): I25.10 - Atherosclerotic heart disease of [place] coronary artery without angina pectoris (5) COPD (chronic obstructive pulmonary disease) Status: Chronic Qualifiers: COPD type: chronic bronchitis Chronic bronchitis type: unspecified Qualified Code(s): J42 - Unspecified chronic bronchitis (6) Diabetes mellitus, type II Status: Chronic Qualifiers: Diabetes mellitus usp insulin use: with termination clerk use Diabetes mellitus complication status: with unspecified complications Qualified Code(s): E11.8 - Type 2 diabetes mellitus with unspecified complications; Z79.4 - USP (current) use of insulin (7) GERD (gastroesophageal reflux disease) Status: Chronic Qualifiers: Esophagitis presence: esophagitis presence not specified (8) Paraplegic spinal paralysis Status: Chronic
[2019-01-07] MEDS: CHRONULAC PO SCH ×2 (16:37→22:42)
[2019-01-07] MEDS: LASIX PO SCH ×2 (16:37→22:41)
[2019-01-07] MEDS: ROBITUSSIN DM PO SCH ×4 (16:37→22:40)
[2019-01-07] MEDS: SNACK - Diabetic Appropriate PO SCH (22:39)
[2019-01-08] MEDS: D5W 1000 ML IV 1,000 ML IV SCH (03:30)
[2019-01-08 05:45] LABS: ALANINE AMINOTRANSFERASE 11 Units/L (12-78); ALKALINE PHOSPHATASE 59 Units/L (46-116); ASPARTATE AMINO TRANSFERASE 12 Units/L (15-37); BLOOD UREA NITROGEN 9 mg/dL (7-18); CALCIUM 9.2 mg/dL (8.5-10.1); CARBON DIOXIDE 31.5 mmol/L (21-32); CHLORIDE 98 mmol/L (98-107); COR CA(FOR HYPOALB) 10.8 mg/dL (8.5-10.1); COR NA(FOR HYPERGLY) 141 mmol/L (136-145); CREATININE 0.76 mg/dL (0.70-1.30); SODIUM 139 mmol/L (136-145); TOTAL PROTEIN 6.6 g/dL (6.4-8.2); eGFR NON BLACK RACES > 60 (>60)
[2019-01-08] MEDS: FORTAZ or TAZICEF VIAL INJ IVP SCH ×3 (06:02→21:41)
[2019-01-08] MEDS: CARAFATE ORAL SUSP PO SCH ×4 (06:04→21:40)
[2019-01-08 06:18] LABS: BASOPHILS # (AUTO) 0.1 X10^3/uL (0.0-0.1); BASOPHILS % (AUTO) 0.8 % (0.2-1.0); EOSINOPHILS # (AUTO) 0.2 x10^3/uL (0.0-0.2); EOSINOPHILS % (AUTO) 2.6 % (0.9-2.9); HEMATOCRIT 29.7 % (42.0-54.0); HEMOGLOBIN 10.1 g/dL (13.5-18.0); LYMPHOCYTES # (AUTO) 0.9 X10^3/uL (1.3-2.9); LYMPHOCYTES % (AUTO) 12.3 % (21.0-51.0); MEAN CORPUSCULAR HEMOGLOBIN 30.9 pg (27.0-34.0); MEAN CORPUSCULAR VOLUME 90.9 fL (80.0-100.0); MEAN PLATELET VOLUME 7.7 fL (7.4-11.0); MONOCYTES # (AUTO) 0.4 x10^3/uL (0.3-0.8); MONOCYTES % (AUTO) 4.9 % (0.0-13.0); NEUTROPHILS % (AUTO) 79.4 % (42.0-75.0); PLATELET COUNT 422 X10^3/uL (150.0-450.0); RED BLOOD COUNT 3.27 X10^6/uL (4.7-6.0); RED CELL DISTRIBUTION WIDTH 15.7 % (11.6-16.5); WHITE BLOOD COUNT 7.6 X10^3/uL (3.6-10.0)
--- NOTE | 2019-01-08 06:33 | RAD ---
History: Shortness of breath Study: Portable AP chest Comparison: Yesterday Findings: There is persistent left lower lobe retrocardiac density. The heart appears shifted to the left. There is blunting of the left costophrenic angle as before. There is chronic diffuse interstitial lung disease as before. Impression: Persistent left lower lobe consolidation and atelectasis with apparent shift of the mediastinum toward the left. Reported By:
[2019-01-08] MEDS: PROTONIX INJ 40 MG VIAL IVP SCH ×2 (08:37→20:59)
[2019-01-08] MEDS: DIFLUCAN 200 MG IV PREMIX* 200 MG/100 ML BAG IV SCH (08:37)
[2019-01-08] MEDS: DUONEB 0.5 MG/3 MG NEB SCH ×4 (09:34→20:52)
[2019-01-08] MEDS: PULMICORT NEB TX 0.5 MG NEB SCH ×2 (09:34→20:52)
[2019-01-08] MEDS ORDERED: DIPRIVAN VIAL 20 ML ONE (10:09)
[2019-01-08] MEDS: LASIX PO SCH ×2 (11:08→21:40)
[2019-01-08] MEDS: CHRONULAC PO SCH ×2 (11:08→21:40)
[2019-01-08] MEDS: HumuLIN 70/30 (NovoLIN 70/30) SC SCH ×2 (11:08→21:40)
[2019-01-08] MEDS: ROBITUSSIN DM PO SCH ×4 (11:09→21:41)
[2019-01-08] MEDS: D5 1/2 NS 1000 ML 1,000 ML IV SCH (12:07)
--- NOTE | 2019-01-08 19:50 | PCM.PROG ---
Progress Note - Progress Note for Day of Date of Exam: 01/08/19 - Subjective Subjective: IS A 78 YEAR OLD PATIENT OF [facility] WHO WAS ADMITTED FOR PNEUMONIA AND RESPIRATORY DISTRESS. HE IS A PARAPLEGIC. ON ADMISSION, HE WAS ALSO NOTED DYSPHAGIA. TODAY, HE IS LYING IN BED WITH EYES CLOSED ON MORNING ROUNDS. HE AWAKENS AND RESPONDS TO VERBAL STIMULI. ESOPHAGUS WAS STRETCHED BY LAST WEEK. HE CONTINUES WITH COMPLAINTS OF A PRODUCTIVE COUGH AND SHORTNESS OF BREATH AND NAUSEA/VOMTING AFTER EATING. ON EXAMINATION, HEART IS REGULAR IN RATE AND RHYTHM. BILATERAL LUNGS ARE NOTED WITH SCATTERED WHEEZING AND RHONCHI. ABDOMEN IS ROUND, SOFT, AND NON-TENDER WITH NORMAL BOWEL SOUNDS NOTED IN ALL QUADRANTS. HIS VITALS THIS MORNING ARE 98.0-91-18-96%-128/60. LABS WERE OBTAINED. ABNORMAL LAB VALUES INCLUDE THE FOLLOWING: RBC 3.27, HGB 10.1, HCT 29.7, POTASSIUM 3.3, GLUCOSE 164, AST 12, ALT 11, ALBUMIN 2.0, GLOBULIN 4.6. TODAY, WE WILL CONTINUE WITH IV ANTIBIOTICS, RESPIRATORY TREATMENTS, CURRENT PLAN OF CARE. PLANS TO TAKE PATIENT TO THE OR TODAY FOR PLACEMENT OF A PEG TUBE. WE ARE IN AGREEMENT WITH PLAN. OTHERWISE, WE WILL FOLLOW UP WITH AM LABS AND CHEST XRAY AND CONTINUE TO MONITOR. - Past Medical Family Social History Past Med/Fam/Surg Hx: No changes since H&P Allergies: Allergies meropenem Allergy (Verified 12/31/18 01:04) piperacillin [From Zosyn] Allergy (Verified 12/18/18 19:19) Sulfa (Sulfonamide Antibiotics) [SULFA] Allergy (Verified 04/13/18 10:43) tazobactam [From Zosyn] Allergy (Verified 12/18/18 19:19) - Review of Systems ROS: No change since H&P - Vital Signs and I&O's Vital Signs: Temperature 97.7 F Pulse Rate [Right Brachial] 90 Pulse Rate 93 Respiratory Rate 20 Blood Pressure [Right Arm] 179/73 Blood Pressure [Left Arm] 133/61 Blood Pressure 148/93 O2 Sat by Pulse Oximetry 96 Intake and Output: Intake & Output 01/06/19 01/07/19 01/08/19 01/09/19 11:59 11:59 11:59 11:59 Intake Total 950 / 950 710 / 710 240 / 240 0 / 0 Output Total 500 / 500 550 / 550 700 / 700 300 / 300 Balance 450 / 450 160 / 160 -460 / -460 -300 / -300 - Physical Exam Oriented: Normal Eyes: Normal Ear: Normal Nose: Normal Throat: Normal Respiratory: Diminished, Wheezes, Rhonchi Cardiovascular: Normal : Normal Auscultation: Bowel Sounds: Normal Tenderness: Normal (no tenderness) Skin: Normal Musculoskeletal: Normal Psychiatric: Normal Mood Description: Calm Affect: Normal Speech Pattern: Clear, Appropriate - Laboratory and Diagnostics Result Diagrams: 01/08/19 04:31 01/08/19 04:31 Labs: 12/30/18 16:31 Blood Blood Culture - Final 12/30/18 16:13 Blood Blood Culture - Final 12/28/18 11:32 Blood Blood Culture - Final 12/28/18 11:27 Blood Blood Culture - Final 12/29/18 21:00 Sputum - Expectorated Sputum Sputum Culture - Final 12/29/18 21:00 Sputum - Expectorated Sputum - Final 12/30/18 10:44 Urine,Clean Catch Urine Culture - Final 12/30/18 12:05 Sputum - Expectorated Sputum Sputum Culture - Final 12/30/18 12:05 Sputum - Expectorated Sputum - Final 12/29/18 09:50 Urine,Clean Catch Urine Culture - Final Laboratory WBC 7.6 X10^3/uL (3.6-10.0) 01/08/19 04:31 RBC 3.27 X10^6/uL (4.7-6.0) L 01/08/19 04:31 Hgb 10.1 g/dL (13.5-18.0) L 01/08/19 04:31 Hct 29.7 % (42.0-54.0) L 01/08/19 04:31 MCV 90.9 fL (80.0-100.0) 01/08/19 04:31 MCH 30.9 pg (27.0-34.0) 01/08/19 04:31 MCHC 34.0 g/dL (33.0-35.0) 01/08/19 04:31 RDW 15.7 % (11.6-16.5) 01/08/19 04:31 Plt Count 422 X10^3/uL (150.0-450.0) 01/08/19 04:31 Plt Count Comment Adequate (ADEQUATE) 12/30/18 16:31 MPV 7.7 fL (7.4-11.0) 01/08/19 04:31 Neut % (Auto) 79.4 % (42.0-75.0) H 01/08/19 04:31 Lymph % (Auto) 12.3 % (21.0-51.0) L 01/08/19 04:31 [place] % (Auto) 4.9 % (0.0-13.0) 01/08/19 04:31 Eos % (Auto) 2.6 % (0.9-2.9) 01/08/19 04:31 Baso % (Auto) 0.8 % (0.2-1.0) 01/08/19 04:31 Neut # (Auto) 6.0 x10^3/uL (2.2-4.8) H 01/08/19 04:31 Lymph # (Auto) 0.9 X10^3/uL (1.3-2.9) L 01/08/19 04:31 [place] # (Auto) 0.4 x10^3/uL (0.3-0.8) 01/08/19 04:31 Eos # (Auto) 0.2 x10^3/uL (0.0-0.2) 01/08/19 04:31 Baso # (Auto) 0.1 X10^3/uL (0.0-0.1) 01/08/19 04:31 Absolute Nucleated RBC 0.0 /100WBC 01/08/19 04:31 Total Counted 100 12/30/18 16:31 Neutrophils % (Manual) 89 % (39-76) H 12/30/18 16:31 Band Neutrophils % 6 % (0-10) 12/30/18 16:31 Lymphocytes % (Manual) 2 % (13-43) L 12/30/18 16:31 Monocytes % (Manual) 3 % (4-9) L 12/30/18 16:31 Plt Morphology Comment Normal (NORMAL) 12/30/18 16:31 RBC Morphology Normal (NORMAL) 12/30/18 16:31 Smear Path Review See note 12/30/18 09:00 Sample Site Rbra 01/04/19 04:28 ABG pH 7.430 (7.35-7.45) 01/04/19 04:28 ABG pCO2 58.0 mmHg (35.0-45.0) H* 01/04/19 04:28 ABG pO2 170.0 mmHg (80.0-100.0) H 01/04/19 04:28 ABG HCO3 38.5 mmol/L (22-26) H* 01/04/19 04:28 ABG O2 Saturation 100.0 % (90-100) 01/04/19 04:28 ABG Base Excess 12.0 mmol/L (-2.0-2.0) H 01/04/19 04:28 Shahriar Test Na 01/04/19 04:28 A-a Gradient 471.0 mmHg 01/04/19 04:28 FiO2 100.0 01/04/19 04:28 Blood Gas Comments Osmin abg well-mtf 01/04/19 04:28 Sodium 139 mmol/L (136-145) 01/08/19 04:31 Corrected Sodium 141 mmol/L (136-145) 01/08/19 04:31 Potassium 3.3 mmol/L (3.5-5.1) L 01/08/19 04:31 Chloride 98 mmol/L (98-107) 01/08/19 04:31 Carbon Dioxide 31.5 mmol/L (21-32) 01/08/19 04:31 BUN 9 mg/dL (7-18) 01/08/19 04:31 Creatinine 0.76 mg/dL (0.70-1.30) 01/08/19 04:31 Est GFR (MDRD) Af Amer > 60 (>60) 01/08/19 04:31 Est GFR (MDRD) Non-Af > 60 (>60) 01/08/19 04:31 Glucose 164 mg/dL (65-99) H 01/08/19 04:31 POC Glucose (mg/dL) 161 mg/dL (65-99) H 01/08/19 16:56 Lactic Acid 1.9 mmol/L (0.4-2.0) 12/30/18 16:31 Calcium 9.2 mg/dL (8.5-10.1) 01/08/19 04:31 Corrected Calcium 10.8 mg/dL (8.5-10.1) H 01/08/19 04:31 Magnesium 1.8 mg/dL (1.7-2.9) 01/05/19 04:40 Total Bilirubin 0.20 mg/dL (0.2-1.0) 01/08/19 04:31 AST 12 Units/L (15-37) L 01/08/19 04:31 ALT 11 Units/L (12-78) L 01/08/19 04:31 Alkaline Phosphatase 59 Units/L (46-116) 01/08/19 04:31 Total Protein 6.6 g/dL (6.4-8.2) 01/08/19 04:31 Albumin 2.0 g/dL (3.4-5.0) L 01/08/19 04:31 Globulin 4.6 g/dL (2.5-4.5) H 01/08/19 04:31 Albumin/Globulin Ratio 0.4 Ratio (1.1-2.1) L 01/08/19 04:31 Specimen Type Catherized urine 12/30/18 10:45 Urine Color Yellow (YELLOW) 12/30/18 10:45 Urine Appearance Cloudy (CLEAR) 12/30/18 10:45 Urine pH 5.0 (5.0 - 8.0) 12/30/18 10:45 Ur Specific [place] 1.010 (1.000-1.030) 12/30/18 10:45 Urine Protein 2+ (NEGATIVE) 12/30/18 10:45 Urine Glucose (UA) Negative (NEGATIVE) 12/30/18 10:45 Urine Ketones Negative (NEGATIVE) 12/30/18 10:45 Urine Occult Blood 5+ (NEGATIVE) 12/30/18 10:45 Urine Nitrite Negative (NEGATIVE) 12/30/18 10:45 Urine Bilirubin Negative (NEGATIVE) 12/30/18 10:45 Urine Urobilinogen Normal (NORMAL) 12/30/18 10:45 Ur Leukocyte Esterase 3+ (NEGATIVE) 12/30/18 10:45 Urine RBC 20-30 /HPF (NONE SEEN) 12/30/18 10:45 Urine WBC Tntc /HPF (NONE SEEN) 12/30/18 10:45 Ur Squamous Epith Cells Few /HPF (NEGATIVE) 12/30/18 10:45 Amorphous Sediment Trace /HPF (NEGATIVE) 12/30/18 10:45 Urine Bacteria Negative /HPF (NEGATIVE) 12/30/18 10:45 Urine Yeast Few /HPF (NEGATIVE) 12/30/18 10:45 Urine Sperm Dynamite Cartridge Crimper 12/30/18 10:45 Ur Culture Indicated? Yes/culture set up 12/30/18 10:45 Influenza Type A (PCR) Negative (NEGATIVE) 12/28/18 11:34 Influenza Type B (PCR) Negative (NEGATIVE) 12/28/18 11:34 Mycoplasma pneumon IgG Negative (NEGATIVE) 12/30/18 09:00 Tissue Pathology To follow 01/03/19 11:22 - Plan (1) Pneumonia Status: Acute Qualifiers: Pneumonia type: due to unspecified organism Laterality: unspecified laterality Lung location: unspecified part of lung Qualified Code(s): J18.9 - Pneumonia, unspecified organism Plan: PNEUMONIA PROTOCOL, IV ATBX. BLOOD AND SPUTUM CULTURES. SUPPLEMENTAL O2, RESP THERAPY. PPI, ELEVATE HOB 45. VERIFY HOME MEDICATION, BS CONTROL (2) Diabetic gastroparesis Status: Acute Plan: CONSULT FOR PEG TUBE, CONTINUE CARAFATE (3) Dysphasia Status: Resolved Plan: CONSULT FOR PEG TUBE (4) CAD (coronary artery disease) Status: Chronic Qualifiers: Coronary Disease-Associated Artery/Lesion type: [place] artery [place] vs. transplanted heart: [place] heart Associated angina: angina presence unspecified Qualified Code(s): I25.10 - Atherosclerotic heart disease of [place] coronary artery without angina pectoris (5) COPD (chronic obstructive pulmonary disease) Status: Chronic Qualifiers: COPD type: chronic bronchitis Chronic bronchitis type: unspecified Qualified Code(s): J42 - Unspecified chronic bronchitis (6) Diabetes mellitus, type II Status: Chronic Qualifiers: Diabetes mellitus forensic accountant insulin use: with forensic accountant use Diabetes mellitus complication status: with unspecified complications Qualified Code(s): E11.8 - Type 2 diabetes mellitus with unspecified complications; Z79.4 - group home (current) use of insulin (7) GERD (gastroesophageal reflux disease) Status: Chronic Qualifiers: Esophagitis presence: esophagitis presence not specified (8) Paraplegic spinal paralysis Status: Chronic
[2019-01-08] MEDS: MORPHINE SULFATE INJ 2 MG INJ IVP PRN (20:58)
[2019-01-08] MEDS: SNACK - Diabetic Appropriate PO SCH (21:40)
[2019-01-09] MEDS: FORTAZ or TAZICEF VIAL INJ IVP SCH ×4 (06:00→22:19)
[2019-01-09 07:14] LABS: BASOPHILS # (AUTO) 0.1 X10^3/uL (0.0-0.1); BASOPHILS % (AUTO) 1.2 % (0.2-1.0); EOSINOPHILS # (AUTO) 0.2 x10^3/uL (0.0-0.2); HEMATOCRIT 30.2 % (42.0-54.0); HEMOGLOBIN 10.2 g/dL (13.5-18.0); LYMPHOCYTES # (AUTO) 1.1 X10^3/uL (1.3-2.9); LYMPHOCYTES % (AUTO) 19.9 % (21.0-51.0); MEAN CORPUSCULAR HEMOGLOBIN 30.7 pg (27.0-34.0); MEAN CORPUSCULAR HGB CONC 33.8 g/dL (33.0-35.0); MEAN CORPUSCULAR VOLUME 90.8 fL (80.0-100.0); MEAN PLATELET VOLUME 7.6 fL (7.4-11.0); MONOCYTES # (AUTO) 0.4 x10^3/uL (0.3-0.8); MONOCYTES % (AUTO) 6.6 % (0.0-13.0); NEUTROPHILS # (AUTO) 3.9 x10^3/uL (2.2-4.8); NEUTROPHILS % (AUTO) 68.3 % (42.0-75.0); PLATELET COUNT 466 X10^3/uL (150.0-450.0); RED BLOOD COUNT 3.32 X10^6/uL (4.7-6.0); RED CELL DISTRIBUTION WIDTH 16.1 % (11.6-16.5); WHITE BLOOD COUNT 5.7 X10^3/uL (3.6-10.0)
[2019-01-09 07:19] LABS: ALANINE AMINOTRANSFERASE 12 Units/L (12-78); ALBUMIN 2.1 g/dL (3.4-5.0); ALKALINE PHOSPHATASE 56 Units/L (46-116); ASPARTATE AMINO TRANSFERASE 13 Units/L (15-37); BLOOD UREA NITROGEN 10 mg/dL (7-18); CALCIUM 9.4 mg/dL (8.5-10.1); CARBON DIOXIDE 31.6 mmol/L (21-32); CHLORIDE 98 mmol/L (98-107); COR CA(FOR HYPOALB) 10.9 mg/dL (8.5-10.1); COR NA(FOR HYPERGLY) 142 mmol/L (136-145); CREATININE 0.83 mg/dL (0.70-1.30); SODIUM 140 mmol/L (136-145); TOTAL PROTEIN 6.7 g/dL (6.4-8.2); eGFR NON BLACK RACES > 60 (>60)
[2019-01-09] MEDS: CARAFATE ORAL SUSP PO SCH ×5 (07:56→20:19)
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
[2019-01-09] MEDS ORDERED: STERILE WATER IRRIGATION ONE (09:47)
[2019-01-09] MEDS: DUONEB 0.5 MG/3 MG NEB SCH ×4 (09:48→21:45)
[2019-01-09] MEDS: PULMICORT NEB TX 0.5 MG NEB SCH ×2 (09:48→21:45)
[2019-01-09] MEDS: DIFLUCAN 200 MG IV PREMIX* 200 MG/100 ML BAG IV SCH (10:06)
[2019-01-09] MEDS: PROTONIX INJ 40 MG VIAL IVP SCH ×2 (10:06→20:19)
[2019-01-09] MEDS: HumuLIN 70/30 (NovoLIN 70/30) SC SCH ×2 (10:08→22:17)
[2019-01-09] MEDS: CHRONULAC PO SCH ×2 (10:44→20:19)
[2019-01-09] MEDS: D5 1/2 NS 1000 ML 1,000 ML IV SCH (10:45)
[2019-01-09] MEDS: LASIX PO SCH ×2 (10:45→20:20)
[2019-01-09] MEDS: ROBITUSSIN DM PO SCH ×4 (10:45→20:21)
[2019-01-09] MEDS: BENADRYL CREAM 2% TOP SCH ×2 (17:38→20:20)
[2019-01-09] MEDS: HumuLIN R SUBCUT PRN (17:39)
[2019-01-09] MEDS: MORPHINE SULFATE INJ 2 MG INJ IVP PRN (20:19)
[2019-01-09] MEDS: SNACK - Diabetic Appropriate PO SCH (22:17)
[2019-01-10] MEDS: FORTAZ or TAZICEF VIAL INJ IVP SCH (05:39)
[2019-01-10] MEDS: CARAFATE ORAL SUSP PO SCH ×2 (05:39→11:45)
[2019-01-10 06:16] LABS: BASOPHILS # (AUTO) 0.1 X10^3/uL (0.0-0.1); BASOPHILS % (AUTO) 0.9 % (0.2-1.0); EOSINOPHILS # (AUTO) 0.3 x10^3/uL (0.0-0.2); EOSINOPHILS % (AUTO) 4.5 % (0.9-2.9); HEMATOCRIT 30.8 % (42.0-54.0); HEMOGLOBIN 10.4 g/dL (13.5-18.0); LYMPHOCYTES # (AUTO) 1.1 X10^3/uL (1.3-2.9); LYMPHOCYTES % (AUTO) 16.8 % (21.0-51.0); MEAN CORPUSCULAR HEMOGLOBIN 30.6 pg (27.0-34.0); MEAN CORPUSCULAR HGB CONC 33.9 g/dL (33.0-35.0); MEAN CORPUSCULAR VOLUME 90.4 fL (80.0-100.0); MEAN PLATELET VOLUME 7.6 fL (7.4-11.0); MONOCYTES # (AUTO) 0.5 x10^3/uL (0.3-0.8); MONOCYTES % (AUTO) 7.8 % (0.0-13.0); NEUTROPHILS # (AUTO) 4.6 x10^3/uL (2.2-4.8); PLATELET COUNT 499 X10^3/uL (150.0-450.0); RED BLOOD COUNT 3.41 X10^6/uL (4.7-6.0); RED CELL DISTRIBUTION WIDTH 15.8 % (11.6-16.5); WHITE BLOOD COUNT 6.5 X10^3/uL (3.6-10.0)
[2019-01-10 06:41] LABS: ALANINE AMINOTRANSFERASE 13 Units/L (12-78); ALBUMIN 2.2 g/dL (3.4-5.0); ALKALINE PHOSPHATASE 59 Units/L (46-116); ASPARTATE AMINO TRANSFERASE 14 Units/L (15-37); BLOOD UREA NITROGEN 11 mg/dL (7-18); CALCIUM 9.3 mg/dL (8.5-10.1); CARBON DIOXIDE 32.9 mmol/L (21-32); CHLORIDE 98 mmol/L (98-107); COR CA(FOR HYPOALB) 10.7 mg/dL (8.5-10.1); COR NA(FOR HYPERGLY) 141 mmol/L (136-145); CREATININE 0.83 mg/dL (0.70-1.30); SODIUM 138 mmol/L (136-145); TOTAL PROTEIN 6.8 g/dL (6.4-8.2); eGFR NON BLACK RACES > 60 (>60)
[2019-01-10] MEDS: DUONEB 0.5 MG/3 MG NEB SCH ×2 (08:18→12:02)
[2019-01-10] MEDS: PULMICORT NEB TX 0.5 MG NEB SCH (08:18)
[2019-01-10] MEDS: PROTONIX INJ 40 MG VIAL IVP SCH (09:26)
[2019-01-10] MEDS: CHRONULAC PO SCH (09:26)
[2019-01-10] MEDS: ROBITUSSIN DM PO SCH ×2 (09:26→13:50)
[2019-01-10] MEDS: LASIX PO SCH (09:26)
[2019-01-10] MEDS: DIFLUCAN 200 MG IV PREMIX* 200 MG/100 ML BAG IV SCH (09:26)
[2019-01-10] MEDS: BENADRYL CREAM 2% TOP SCH ×2 (09:28→13:55)
[2019-01-10] MEDS: HumuLIN 70/30 (NovoLIN 70/30) SC SCH (09:44)
[2019-01-10] MEDS: D5 1/2 NS 1000 ML 1,000 ML IV SCH (10:11)
[2019-01-10] MEDS: HumuLIN R SUBCUT PRN (11:45)
[2019-01-10 15:24] VITALS: BP 165/72
== END 2019-01-10 15:20 | disposition hospice, home (50) | DRG 194 ==
LOC: MED/SURG 11:19
PROVIDERS: ADMIT Internal Medicine; ATTEND Internal Medicine
DX: G82.20 Paraplegia, unspecified; K31.84 Gastroparesis; Z93.3 Colostomy status; J42 Unspecified chronic bronchitis; L89.323 Pressure ulcer of left buttock, stage 3; L89.322 Pressure ulcer of left buttock, stage 2; R13.11 Dysphagia, oral phase; K22.10 Ulcer of esophagus without bleeding; J44.9 Chronic obstructive pulmonary disease, unspecified; E11.65 Type 2 diabetes mellitus with hyperglycemia; K21.9 Gastro-esophageal reflux disease without esophagitis; K44.9 Diaphragmatic hernia without obstruction or gangrene; J18.8 Other pneumonia, unspecified organism; I25.10 Atherosclerotic heart disease of native coronary artery without angina pectoris; Z79.4 Long term (current) use of insulin; K29.60 Other gastritis without bleeding; R06.03 Acute respiratory distress
CPT/HCPCS: 36415; 36600; 71010; 71045; 71250; 74177; 80053; 81001; 82803; 82947; 83605; 83735; 84132; 85025; 85060; 86738; 87040; 87070; 87086; 87205; 87502; 92610; 94640; 94669; 94760; 97110; 97162; 97166; 97530; 99100; A4216; A4217; A4222; C9113; J0713; J1450; J1815; J1940; J1956; J2270; J2704; J3480; J3490; J7050; J7060; J7613; J7620; J7626; S5010

== ENCOUNTER 2019-09-07 19:25 | Inpatient (IN) ==
--- NOTE | 2019-09-07 19:52 | DR.GENAD ---
HPI Time Seen Time Seen by Provider: 09/07/19 19:51 PCP Primary Care Physician: CARLOS ENRIQUE HPI Comment HPI Comment: 79 yo m w/ prev hx of parapalegia, chf, cad, htn, hld, copd, type 2 dm presents w/ hypotension. Reportedly had near syncopal episode at home. SBP per home machine was 60 systolic range. Resolved w/o intervention. NO LOC. On arrival by ems, sbp was in 120 range. Takes Lasix at home, no recent change in medications. No CP, SOB, abd pain, n/v/d, urinary irritative sx's. Has indwelling george at home. Complaint/Symptoms Chief Complaint:: HYPOTENSIVE AT HOME; EMS STATES FAMILY CHECKED BP AND NOTED AT 60'S/40'S; PATIENT IS AWAKE AND ALERT DURING TRIAGE; ABLE TO ANSWER QUESTIONS APPROPRIATELY; BP IN TRIAGE IS NOTED AT 124/55; EMS STATES PATIENT BEGAN C/O CHEST PAIN ON WAY TO ED. EKG DONE PER MANAGEMENT ASSOCIATE Self Treatment fo Chief Complaint: NO TREATMENT SOURCE [employer]OTECTION SPECIALIST Nurses notes reviewed Nurses Notes Review: Yes Source History Provided: Patient Mode of Arrival Mode of Arrival: EMS Timing Onset of Chief Complaint: 09/07/19 Duration Duration: Since Onset How lon Duration: Hours Severity Severity: Mild PMH PMH Past Medical History: Yes Past Medical History: Anxiety and Hypertension Past Medical History Comment: THROAT CANCER PEG TUBE COLOSTOMY Past Surgical History: Yes Surgical History: Abdominal Surgery, Bowel Resection, Ortho Surgery and Other Family History History of Family Medical Conditions: No Family Medical History: Diabetes Mellitus and Hypertension Social History Alcohol Use: None Do you use any recreational Drugs:: No Lives With: Alone Lives Where: Home infectious screening In the last 2 months have you had wt loss of >10#?: NO Have you had fever, night sweats or hemotysis?: No Have you traveled outside the country in the last 6 months?: No Isolation: Standard ROS Review of Systems Constitutional: Weakness; negative Chills and Fever Eyes: No Symptoms Reported ENTM: No Symptoms Reported Respiratoy: No Symptoms Reported Cardiovascular: negative Chest Pain, Edema, Palpitations and Syncope Gastrointestinal/Abdominal: negative Abdominal Pain, Diarrhea, Nausea and Vomiting Genitourinary: No Symptoms Reported Neurological: No Symptoms Reported Musculoskeletal: No Symptoms Reported Integumentary: No Symptoms Reported Hematologic/Lymphatic: No Symptoms Reported Endocrine: No Symptoms Reported Psychiatric: No Symptoms Reported All Other Systems: Reviewed and Negative PE Vital Signs Vitals: Temperature 97.3 F Pulse Rate 94 Respiratory Rate 20 Blood Pressure [Right Arm] 124/60 Blood Pressure [Left Arm] 133/61 Blood Pressure 178/76 O2 Sat by Pulse Oximetry 99 General Limitations: No Limitations General Appearance: Alert and In No Apparent Distress Head Head Exam: Normal Inspection Eyes Eye exam: Normal Appearance ENT ENT Exam: Normal Exam External Ear Exam: Normal External Inspection TM/Canal Exam: Bilateral: Normal Nose Exam: Normal Nose Exam Mouth Exam: Normal Inspection Throat Exam: Normal Inspection Neck Neck Exam: Normal Inspection Chest Chest Inspection: Normal Inspection Respiratory Respiratory Exam: Normal Lung Sounds Bilat Respiratory Exam: Bilateral: Clear to Auscultation Cardiovascular Cardiovascular Exam: Regular Rate and Normal Rhythm Abdominal Exam Abdominal Exam: Normal Inspection, Normal Bowel Sounds and Soft Extremities Extremities Exam: Normal Inspection Back Back Exam: Normal Inspection Neurologic Neurological Exam: Alert, Oriented X3, CN II-XII Intact and Other (parapalegic (chronic) no other focal motor defecits, no facial droop, no dysarthria or apahasia. ) Psychiatric Psychiatric Exam: Normal Affect and Normal Mood Skin Skin Exam: Warm, Dry, Intact and Normal Color MDM Additional Information Additional Information Obtained From: Old Records and Family Differential Diagnosis Differential Diagnosis: syncope, AR, CHF, hypovolemia, cva COURSE Treatment Treatment: 79 yo m w/ prev hx of chf presented for near syncope and reported hypotension. BP normal w/ ems as well as t/o ed course. EKG / trop unremarkable. Labs reviewed. CRISTINA noted. Cre 1.3 up from 0.8 baseline as well as a mild hyperkalemia at 5.3. Given 1L IVF bolus. no s/o fluid overload at this time. Also given 1g Ca and 1 amp bicarb. Will recheck K/ CRe in am. George catheter exchanged. UA currently pending. WBC elevated mildly. Will eval for uti, no other obvious source of infection. Patient afebrile and non toxic. d/w Dr Razo whom agrees to admit. 2309: Upon gathering further info from patient, patient had had urinary retention yesterday. George placed w/ copious return of urine. George Cath exchanged in ED. Mild output of urine. Urine with noted puralence. Placed on levaquin. Recommend renal US in am to r/o further urinary obstruction. CRISTINA likely obstructive in etiology. Monitor in's/ outs. Education/Counseling Education/Counseling: Patient, Family and Education Educated On: Treatment, Diagnosis, Prognosis and Needs for Follow Up ROR Labs Reviewed Result Diagrams: 09/07/19 20:12 09/07/19 20:12 Laboratory: WBC 22.1 X10^3/uL (3.6-10.0) H 09/07/19 20:12 RBC 3.80 X10^6/uL (4.7-6.0) L 09/07/19 20:12 Hgb 11.6 g/dL (13.5-18.0) L 09/07/19 20:12 Hct 34.0 % (42.0-54.0) L 09/07/19 20:12 MCV 89.7 fL (80.0-100.0) 09/07/19 20:12 MCH 30.6 pg (27.0-34.0) 09/07/19 20:12 MCHC 34.2 g/dL (33.0-35.0) 09/07/19 20:12 RDW 14.2 % (11.6-16.5) 09/07/19 20:12 Plt Count 395 X10^3/uL (150.0-450.0) 09/07/19 20:12 Plt Count Comment Adequate (ADEQUATE) 09/07/19 20:12 MPV 7.7 fL (7.4-11.0) 09/07/19 20:12 Neut % (Auto) 81.3 % (42.0-75.0) H 09/07/19 20:12 Lymph % (Auto) 5.9 % (21.0-51.0) L 09/07/19 20:12 [place] % (Auto) 7.8 % (0.0-13.0) 09/07/19 20:12 Eos % (Auto) 4.3 % (0.9-2.9) H 09/07/19 20:12 Baso % (Auto) 0.7 % (0.2-1.0) 09/07/19 20:12 Neut # (Auto) 16.0 x10^3/uL (2.2-4.8) H 09/07/19 20:12 Lymph # (Auto) 1.2 X10^3/uL (1.3-2.9) L 09/07/19 20:12 [place] # (Auto) 1.5 x10^3/uL (0.3-0.8) H 09/07/19 20:12 Eos # (Auto) 0.8 x10^3/uL (0.0-0.2) H 09/07/19 20:12 Baso # (Auto) 0.1 X10^3/uL (0.0-0.1) 09/07/19 20:12 Absolute Nucleated RBC 0.1 /100WBC 09/07/19 20:12 Plt Morphology Comment Normal (NORMAL) 09/07/19 20:12 RBC Morphology Normal (NORMAL) 09/07/19 20:12 Sodium 128 mmol/L (136-145) L 09/07/19 20:12 Corrected Sodium 130 mmol/L (136-145) L 09/07/19 20:12 Potassium 5.3 mmol/L (3.5-5.1) H 09/07/19 20:12 Chloride 91 mmol/L (98-107) L 09/07/19 20:12 Carbon Dioxide 29.7 mmol/L (21-32) 09/07/19 20:12 BUN 21 mg/dL (7-18) H 09/07/19 20:12 Creatinine 1.39 mg/dL (0.70-1.30) H 09/07/19 20:12 Est GFR (MDRD) Af Amer > 60 (>60) 09/07/19 20:12 Est GFR (MDRD) Non-Af 52 (>60) L 09/07/19 20:12 Glucose 196 mg/dL (65-99) H 09/07/19 20:12 Calcium 9.7 mg/dL (8.5-10.1) 09/07/19 20:12 Troponin I 0.03 ng/mL (0-1.5) 09/07/19 20:12 Opioid Opioid Risk Tool Total: 0 Total Score Risk Category: Low Risk Copyright: Martin ORTEZ predicting aberrant behaviors Diagnosis Discharge Problem: CRISTINA (acute kidney injury), Paraplegic spinal paralysis, Hyperlipidemia, HTN (hypertension), COPD (chronic obstructive pulmonary disease), Diabetes mellitus, type II, Congestive heart failure (CHF), Acute hyperkalemia CAD (coronary artery disease) Qualifiers: Coronary Disease-Associated Artery/Lesion type: unspecified vessel or lesion type
[2019-09-07 20:24] LABS: BASOPHILS # (AUTO) 0.1 X10^3/uL (0.0-0.1); BASOPHILS % (AUTO) 0.7 % (0.2-1.0); EOSINOPHILS # (AUTO) 0.8 x10^3/uL (0.0-0.2); EOSINOPHILS % (AUTO) 4.3 % (0.9-2.9); HEMOGLOBIN 11.6 g/dL (13.5-18.0); LYMPHOCYTES # (AUTO) 1.2 X10^3/uL (1.3-2.9); LYMPHOCYTES % (AUTO) 5.9 % (21.0-51.0); MEAN CORPUSCULAR HEMOGLOBIN 30.6 pg (27.0-34.0); MEAN CORPUSCULAR HGB CONC 34.2 g/dL (33.0-35.0); MEAN CORPUSCULAR VOLUME 89.7 fL (80.0-100.0); MEAN PLATELET VOLUME 7.7 fL (7.4-11.0); MONOCYTES # (AUTO) 1.5 x10^3/uL (0.3-0.8); MONOCYTES % (AUTO) 7.8 % (0.0-13.0); NEUTROPHILS % (AUTO) 81.3 % (42.0-75.0); PLATELET COUNT 395 X10^3/uL (150.0-450.0); RED CELL DISTRIBUTION WIDTH 14.2 % (11.6-16.5)
[2019-09-07 20:25] LABS: WHITE BLOOD COUNT 22.1 X10^3/uL (3.6-10.0)
[2019-09-07 20:33] LABS: BLOOD UREA NITROGEN 21 mg/dL (7-18); CALCIUM 9.7 mg/dL (8.5-10.1); CARBON DIOXIDE 29.7 mmol/L (21-32); CHLORIDE 91 mmol/L (98-107); COR NA(FOR HYPERGLY) 130 mmol/L (136-145); CREATININE 1.39 mg/dL (0.70-1.30); SODIUM 128 mmol/L (136-145); TROPONIN I 0.03 ng/mL (0-1.5); eGFR NON BLACK RACES 52 (>60)
[2019-09-07 20:34] LABS: PLATELET MORPHOLOGY COMMENT NORMAL (NORMAL)
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
[2019-09-07] MEDS ORDERED: NS 1000 ML 1,000 ML IV ONE (20:45)
[2019-09-07] MEDS ORDERED: NS 1000 ML 1,000 ML ONE (20:54)
[2019-09-07] MEDS ORDERED: SODIUM BICARBONATE 8.4% INJ ADULT IVP ONE (22:08)
[2019-09-07] MEDS ORDERED: CALCIUM GLUCONATE 10% IV ONE ×2 (22:08→22:20)
[2019-09-07] MEDS ORDERED: SODIUM BICARBONATE 8.4% INJ ADULT ONE (22:20)
[2019-09-07] MEDS ORDERED: NS 100 ML IV 100 ML IV ONE (22:20)
[2019-09-07] MEDS ORDERED: LEVAQUIN PREMIX IV 750 MG 750 MG/150 ML BAG IV ONE ×2 (22:23→22:32)
[2019-09-07] MEDS: NS 1000 ML 1,000 ML IV SCH (22:25)
[2019-09-07] MEDS ORDERED: D50W ABBOJECT SYR IV ONE (22:49)
[2019-09-07] MEDS ORDERED: HumuLIN R IV ONE (22:54)
[2019-09-07] MEDS ORDERED: D50W ABBOJECT SYR ONE (22:55)
[2019-09-07 23:24] LABS: APPEARANCE,URINE CLOUDY (CLEAR); BILIRUBIN,URINE NEGATIVE (NEGATIVE); BLOOD/HEMOGLOBIN,URINE 3+ (NEGATIVE); COLOR,URINE YELLOW (YELLOW); GLUCOSE, URINE 3+ (NEGATIVE); KETONES,URINE NEGATIVE (NEGATIVE); LEUKOCYTE ESTERASE ,URINE 3+ (NEGATIVE); NITRITES,URINE NEGATIVE (NEGATIVE); PH,URINE 6.5 (5.0 - 8.0); PROTEIN,URINE 3+ (NEGATIVE); UROBILINOGEN,URINE NORMAL (NORMAL)
[2019-09-07 23:32] LABS: BACTERIA,URINE TRACE /HPF (NEGATIVE); SQUAMOUS EPITHELIAL CELL,UR NEGATIVE /HPF (NEGATIVE); YEAST,URINE MANY /HPF (NEGATIVE)
[2019-09-08 03:13] VITALS: BMI 36.1
[2019-09-08 05:21] LABS: ALANINE AMINOTRANSFERASE 14 Units/L (12-78); ALBUMIN 3.2 g/dL (3.4-5.0); ALKALINE PHOSPHATASE 77 Units/L (46-116); ASPARTATE AMINO TRANSFERASE 12 Units/L (15-37); BLOOD UREA NITROGEN 23 mg/dL (7-18); CALCIUM 9.2 mg/dL (8.5-10.1); CARBON DIOXIDE 27.8 mmol/L (21-32); CHLORIDE 94 mmol/L (98-107); COR CA(FOR HYPOALB) 9.8 mg/dL (8.5-10.1); COR NA(FOR HYPERGLY) 132 mmol/L (136-145); CREATININE 1.34 mg/dL (0.70-1.30); SODIUM 129 mmol/L (136-145); eGFR NON BLACK RACES 55 (>60)
[2019-09-08 06:17] LABS: BASOPHILS % (AUTO) 0.3 % (0.2-1.0); EOSINOPHILS # (AUTO) 0.3 x10^3/uL (0.0-0.2); EOSINOPHILS % (AUTO) 2.9 % (0.9-2.9); HEMATOCRIT 31.4 % (42.0-54.0); HEMOGLOBIN 10.9 g/dL (13.5-18.0); LYMPHOCYTES # (AUTO) 0.8 X10^3/uL (1.3-2.9); LYMPHOCYTES % (AUTO) 7.9 % (21.0-51.0); MEAN CORPUSCULAR HEMOGLOBIN 31.3 pg (27.0-34.0); MEAN CORPUSCULAR HGB CONC 34.8 g/dL (33.0-35.0); MEAN CORPUSCULAR VOLUME 89.8 fL (80.0-100.0); MEAN PLATELET VOLUME 7.9 fL (7.4-11.0); MONOCYTES # (AUTO) 0.7 x10^3/uL (0.3-0.8); MONOCYTES % (AUTO) 6.8 % (0.0-13.0); NEUTROPHILS # (AUTO) 8.8 x10^3/uL (2.2-4.8); NEUTROPHILS % (AUTO) 82.1 % (42.0-75.0); PLATELET COUNT 362 X10^3/uL (150.0-450.0); WHITE BLOOD COUNT 10.7 X10^3/uL (3.6-10.0)
[2019-09-08] MEDS ORDERED: TICAGRELOR 60 MG PO SCH (09:45)
[2019-09-08] MEDS ORDERED: PATIENT'S HOME MEDICATION (Budesonide-Formoterol 2 PUFF) IN SCH (09:45)
[2019-09-08] MEDS ORDERED: XANAX PO SCH (10:00)
[2019-09-08] MEDS ORDERED: NexIUM ONE (10:29)
[2019-09-08] MEDS ORDERED: XANAX ONE (10:29)
[2019-09-08] MEDS ORDERED: SOMA TAB 350 MG PO ONE (10:29)
[2019-09-08] MEDS ORDERED: DIFLUCAN ONE (10:30)
[2019-09-08] MEDS ORDERED: LOPRESSOR TAB 25 MG ONE (10:30)
[2019-09-08] MEDS ORDERED: ASPIRIN EC 81 MG PO ONE (10:30)
[2019-09-08] MEDS ORDERED: NORCO 10/325 TAB ONE (10:30)
[2019-09-08] MEDS: ASPIRIN EC 81 MG PO SCH ×2 (10:52→23:32)
[2019-09-08] MEDS: NexIUM PO SCH (10:54)
[2019-09-08] MEDS: DIFLUCAN PO SCH (10:54)
[2019-09-08] MEDS: LOPRESSOR TAB 25 MG PO SCH ×2 (10:54→23:33)
[2019-09-08] MEDS: SOMA TAB 350 MG PO PRN ×2 (10:55→23:36)
[2019-09-08] MEDS: NORCO 10/325 TAB PO PRN ×3 (10:56→23:34)
[2019-09-08] MEDS: HumuLIN 70/30 (NovoLIN 70/30) SC SCH ×2 (12:02→21:44)
[2019-09-08] MEDS: FLONASE NASAL SPRAY ENOSTRIL SCH (12:02)
[2019-09-08] MEDS: DUONEB 0.5 MG/3 MG NEB SCH ×3 (12:16→20:50)
[2019-09-08] MEDS: BRILINTA PO SCH ×2 (12:57→23:33)
[2019-09-08] MEDS: NS 1000 ML 1,000 ML IV SCH (13:41)
[2019-09-08] MEDS ORDERED: CHRONULAC PO PRN (17:15)
[2019-09-08] MEDS: XANAX PO PRN ×2 (17:37→23:34)
[2019-09-08] MEDS: PULMICORT NEB TX 0.5 MG NEB SCH (20:50)
[2019-09-08] MEDS: SNACK - Diabetic Appropriate PO SCH (23:32)
[2019-09-09] MEDS: NS 1000 ML 1,000 ML IV SCH ×2 (00:43→15:18)
[2019-09-09 06:19] LABS: BASOPHILS # (AUTO) 0.1 X10^3/uL (0.0-0.1); EOSINOPHILS # (AUTO) 0.9 x10^3/uL (0.0-0.2); EOSINOPHILS % (AUTO) 9.6 % (0.9-2.9); HEMOGLOBIN 10.4 g/dL (13.5-18.0); LYMPHOCYTES # (AUTO) 1.7 X10^3/uL (1.3-2.9); LYMPHOCYTES % (AUTO) 18.6 % (21.0-51.0); MEAN CORPUSCULAR HEMOGLOBIN 31.3 pg (27.0-34.0); MEAN CORPUSCULAR HGB CONC 34.8 g/dL (33.0-35.0); MEAN PLATELET VOLUME 7.5 fL (7.4-11.0); MONOCYTES # (AUTO) 0.8 x10^3/uL (0.3-0.8); MONOCYTES % (AUTO) 8.7 % (0.0-13.0); NEUTROPHILS # (AUTO) 5.7 x10^3/uL (2.2-4.8); NEUTROPHILS % (AUTO) 62.1 % (42.0-75.0); PLATELET COUNT 333 X10^3/uL (150.0-450.0); RED BLOOD COUNT 3.33 X10^6/uL (4.7-6.0); RED CELL DISTRIBUTION WIDTH 14.4 % (11.6-16.5); WHITE BLOOD COUNT 9.2 X10^3/uL (3.6-10.0)
[2019-09-09 06:24] LABS: ALANINE AMINOTRANSFERASE 12 Units/L (12-78); ALBUMIN 3.2 g/dL (3.4-5.0); ALKALINE PHOSPHATASE 67 Units/L (46-116); ASPARTATE AMINO TRANSFERASE 12 Units/L (15-37); BLOOD UREA NITROGEN 20 mg/dL (7-18); CALCIUM 9.3 mg/dL (8.5-10.1); CARBON DIOXIDE 30.7 mmol/L (21-32); CHLORIDE 96 mmol/L (98-107); COR CA(FOR HYPOALB) 9.9 mg/dL (8.5-10.1); COR NA(FOR HYPERGLY) 132 mmol/L (136-145); CREATININE 1.03 mg/dL (0.70-1.30); SODIUM 131 mmol/L (136-145); eGFR NON BLACK RACES > 60 (>60)
[2019-09-09] MEDS: NORCO 10/325 TAB PO PRN ×3 (06:25→17:51)
[2019-09-09] MEDS: XANAX PO PRN ×2 (06:25→21:09)
[2019-09-09 07:01] LABS: PLATELET MORPHOLOGY COMMENT NORMAL (NORMAL)
[2019-09-09] MEDS: PATIENT'S HOME MEDICATION PO SCH ×2 (09:10→21:05)
[2019-09-09] MEDS: FLONASE NASAL SPRAY ENOSTRIL SCH (09:11)
[2019-09-09] MEDS: ASPIRIN EC 81 MG PO SCH ×2 (09:11→21:03)
[2019-09-09] MEDS: HumuLIN 70/30 (NovoLIN 70/30) SC SCH ×2 (09:15→21:03)
[2019-09-09] MEDS: LOPRESSOR TAB 25 MG PO SCH ×2 (09:16→21:04)
[2019-09-09] MEDS: NexIUM PO SCH (09:16)
[2019-09-09] MEDS: DUONEB 0.5 MG/3 MG NEB SCH ×4 (09:29→20:25)
[2019-09-09] MEDS: PULMICORT NEB TX 0.5 MG NEB SCH ×2 (09:29→20:25)
[2019-09-09] MEDS: DIFLUCAN PO SCH (10:26)
[2019-09-09] MEDS: LOVENOX INJ 30 MG SYR SC SCH (12:21)
[2019-09-09] MEDS: HumuLIN R SC PRN ×3 (12:22→21:10)
[2019-09-09] MEDS: JUVEN PO SCH ×2 (12:24→21:03)
[2019-09-09] MEDS: ROBITUSSIN AC PO PRN (12:26)
[2019-09-09] MEDS: CHRONULAC PO PRN ×2 (12:27→21:07)
--- NOTE | 2019-09-09 14:07 | PCM.PROG ---
Progress Note - Progress Note for Day of Date of Exam: 09/09/19 - Subjective Subjective: IS BEING TREATED FOR ACUTE KIDNEY INJURY, HYPERKALEMIA, AND A URINARY TRACT INFECTION. TODAY, HE IS ALERT AND ORIENTED, LYING IN BED ON MORNING ROUNDS. HE REPORTS COMPLAINTS OF LOWER ABDOMINAL PAIN AND WEAKNESS. ON EXAMINATION, HEART IS REGULAR IN RATE AND RHYTHM. BILATERAL LUNGS ARE NOTED WITH DIMINISHED LUNG SOUNDS THROUGHOUT. ABDOMEN IS ROUND, SOFT, AND NON-TENDER WITH NORMAL BOWEL SOUNDS NOTED IN ALL QUADRANTS. HIS VITALS THIS MORNING ARE: 98.0-93-20-100%-103/42. LABS WERE OBTAINED. ABNORMAL LAB VALUES INCLUDE THE FOLLOWING: RBC 3.33, HGB 10.4, HCT 30.0, SODIUM 131, CHLORIDE 96, BUN 20, GLUCOSE 161, AST 12, ALBUMIN 3.2. URINE CULTURE IS PENDING. TODAY, WE WILL START IV FORTAZ AND IV LEVAQUIN. OTHERWISE, WE WILL CONTINUE WITH CURRENT PLAN OF CARE. WE PLAN TO FOLLOW UP WITH AM LABS AND CONTINUE TO MONITOR. - Past Medical Family Social History Past Med/Fam/Surg Hx: No changes since H&P Allergies: Allergies meropenem Allergy (Verified 12/31/18 01:04) piperacillin [From Zosyn] Allergy (Verified 12/18/18 19:19) Sulfa (Sulfonamide Antibiotics) [SULFA] Allergy (Verified 04/13/18 10:43) tazobactam [From Zosyn] Allergy (Verified 12/18/18 19:19) - Review of Systems ROS: No change since H&P - Vital Signs and I&O's Vital Signs: Temperature 97.4 F Pulse Rate [Left] 92 Pulse Rate 84 Respiratory Rate 20 Blood Pressure [Right Arm] 124/60 Blood Pressure [Left Arm] 130/58 Blood Pressure 178/76 O2 Sat by Pulse Oximetry 100 Intake and Output: Intake & Output 09/07/19 09/08/19 09/09/19 09/10/19 11:59 11:59 11:59 11:59 Intake Total 347 / 347 2826 / 2826 Output Total 475 / 475 1850 / 1850 Balance -128 / -128 976 / 976 - Physical Exam Oriented: Normal Eyes: Normal Ear: Normal Nose: Normal Throat: Normal Respiratory: Normal Cardiovascular: Normal : Normal Auscultation: Bowel Sounds: Normal Palpation: Normal Tenderness: Suprapubic, Mild. negative: Rebound, Guarding, Rigidity Skin: Normal Psychiatric: Normal Mood Description: Calm Speech Pattern: Clear, Appropriate - Laboratory and Diagnostics Result Diagrams: 09/09/19 05:20 09/09/19 05:20 Labs: 09/07/19 23:17 Urine,Catheterized Urine Culture - Preliminary Laboratory WBC 9.2 X10^3/uL (3.6-10.0) 09/09/19 05:20 RBC 3.33 X10^6/uL (4.7-6.0) L 09/09/19 05:20 Hgb 10.4 g/dL (13.5-18.0) L 09/09/19 05:20 Hct 30.0 % (42.0-54.0) L 09/09/19 05:20 MCV 90.0 fL (80.0-100.0) 09/09/19 05:20 MCH 31.3 pg (27.0-34.0) 09/09/19 05:20 MCHC 34.8 g/dL (33.0-35.0) 09/09/19 05:20 RDW 14.4 % (11.6-16.5) 09/09/19 05:20 Plt Count 333 X10^3/uL (150.0-450.0) 09/09/19 05:20 Plt Count Comment Adequate (ADEQUATE) 09/09/19 05:20 MPV 7.5 fL (7.4-11.0) 09/09/19 05:20 Neut % (Auto) 62.1 % (42.0-75.0) 09/09/19 05:20 Lymph % (Auto) 18.6 % (21.0-51.0) L 09/09/19 05:20 [place] % (Auto) 8.7 % (0.0-13.0) 09/09/19 05:20 Eos % (Auto) 9.6 % (0.9-2.9) H 09/09/19 05:20 Baso % (Auto) 1.0 % (0.2-1.0) 09/09/19 05:20 Neut # (Auto) 5.7 x10^3/uL (2.2-4.8) H 09/09/19 05:20 Lymph # (Auto) 1.7 X10^3/uL (1.3-2.9) 09/09/19 05:20 [place] # (Auto) 0.8 x10^3/uL (0.3-0.8) 09/09/19 05:20 Eos # (Auto) 0.9 x10^3/uL (0.0-0.2) H 09/09/19 05:20 Baso # (Auto) 0.1 X10^3/uL (0.0-0.1) 09/09/19 05:20 Absolute Nucleated RBC 0.4 /100WBC 09/09/19 05:20 Total Counted 100 09/09/19 05:20 Neutrophils % (Manual) 62 % (39-76) 09/09/19 05:20 Lymphocytes % (Manual) 18 % (13-43) 09/09/19 05:20 Monocytes % (Manual) 6 % (4-9) 09/09/19 05:20 Eosinophils % (Manual) 14 % (0-6) H 09/09/19 05:20 Plt Clumps, EDTA Rare 09/09/19 05:20 Plt Morphology Comment Normal (NORMAL) 09/09/19 05:20 RBC Morphology Normal (NORMAL) 09/09/19 05:20 Sodium 131 mmol/L (136-145) L 09/09/19 05:20 Corrected Sodium 132 mmol/L (136-145) L 09/09/19 05:20 Potassium 4.9 mmol/L (3.5-5.1) 09/09/19 05:20 Chloride 96 mmol/L (98-107) L 09/09/19 05:20 Carbon Dioxide 30.7 mmol/L (21-32) 09/09/19 05:20 BUN 20 mg/dL (7-18) H 09/09/19 05:20 Creatinine 1.03 mg/dL (0.70-1.30) 09/09/19 05:20 Est GFR (MDRD) Af Amer > 60 (>60) 09/09/19 05:20 Est GFR (MDRD) Non-Af > 60 (>60) 09/09/19 05:20 Glucose 161 mg/dL (65-99) H 09/09/19 05:20 POC Glucose (mg/dL) 208 mg/dL (65-99) H 09/09/19 11:38 Calcium 9.3 mg/dL (8.5-10.1) 09/09/19 05:20 Corrected Calcium 9.9 mg/dL (8.5-10.1) 09/09/19 05:20 Total Bilirubin 0.20 mg/dL (0.2-1.0) 09/09/19 05:20 AST 12 Units/L (15-37) L 09/09/19 05:20 ALT 12 Units/L (12-78) 09/09/19 05:20 Alkaline Phosphatase 67 Units/L (46-116) 09/09/19 05:20 Troponin I 0.03 ng/mL (0-1.5) 09/07/19 20:12 Total Protein 7.0 g/dL (6.4-8.2) 09/09/19 05:20 Albumin 3.2 g/dL (3.4-5.0) L 09/09/19 05:20 Globulin 3.8 g/dL (2.5-4.5) 09/09/19 05:20 Albumin/Globulin Ratio 0.8 Ratio (1.1-2.1) L 09/09/19 05:20 Specimen Type Catherized urine 09/07/19 23:17 Urine Color Yellow (YELLOW) 09/07/19 23:17 Urine Appearance Cloudy (CLEAR) 09/07/19 23:17 Urine pH 6.5 (5.0 - 8.0) 09/07/19 23:17 Ur Specific [place] 1.010 (1.000-1.030) 09/07/19 23:17 Urine Protein 3+ (NEGATIVE) 09/07/19 23:17 Urine Glucose (UA) 3+ (NEGATIVE) 09/07/19 23:17 Urine Ketones Negative (NEGATIVE) 09/07/19 23:17 Urine Occult Blood 3+ (NEGATIVE) 09/07/19 23:17 Urine Nitrite Negative (NEGATIVE) 09/07/19 23:17 Urine Bilirubin Negative (NEGATIVE) 09/07/19 23:17 Urine Urobilinogen Normal (NORMAL) 09/07/19 23:17 Ur Leukocyte Esterase 3+ (NEGATIVE) 09/07/19 23:17 Urine RBC 3-5 /HPF (0-3) A 09/07/19 23:17 Urine WBC 20-30 /HPF (0-5) A 09/07/19 23:17 Ur Squamous Epith Cells Negative /HPF (NEGATIVE) 09/07/19 23:17 Urine Bacteria Trace /HPF (NEGATIVE) 09/07/19 23:17 Urine Yeast Many /HPF (NEGATIVE) 09/07/19 23:17 Ur Culture Indicated? Yes/culture set up 09/07/19 23:17 - Plan (1) Urinary tract infection Status: Acute Qualifiers: Urinary tract infection type: acute cystitis Hematuria presence: without hematuria Qualified Code(s): N30.00 - Acute cystitis without hematuria Plan: IV FORTAZ, IV LEVAQUIN, IV FLUIDS, CONTINUE TO MONITOR (2) Hyponatremia Status: Acute (3) CRISTINA (acute kidney injury) Status: Acute
[2019-09-09] MEDS: FORTAZ or TAZICEF VIAL INJ 2 G in NS 100 ML IV + SPIKE MINIBAG* 100 ML IV SCH ×2 (15:33→21:02)
[2019-09-09] MEDS: LEVAQUIN PREMIX IV 750 MG 750 MG/150 ML BAG IV SCH (16:28)
[2019-09-09] MEDS: SOMA TAB 350 MG PO PRN (17:52)
[2019-09-09] MEDS: SNACK - Diabetic Appropriate PO SCH (21:02)
[2019-09-10] MEDS: NS 1000 ML 1,000 ML IV SCH ×4 (04:27→22:00)
[2019-09-10] MEDS: NORCO 10/325 TAB PO PRN ×2 (05:34→13:43)
[2019-09-10] MEDS: SOMA TAB 350 MG PO PRN ×2 (05:34→17:29)
[2019-09-10] MEDS: FORTAZ or TAZICEF VIAL INJ 2 G in NS 100 ML IV + SPIKE MINIBAG* 100 ML IV SCH ×3 (06:35→22:00)
[2019-09-10 06:41] LABS: BASOPHILS # (AUTO) 0.1 X10^3/uL (0.0-0.1); BASOPHILS % (AUTO) 0.5 % (0.2-1.0); EOSINOPHILS # (AUTO) 1.2 x10^3/uL (0.0-0.2); EOSINOPHILS % (AUTO) 8.6 % (0.9-2.9); HEMATOCRIT 30.6 % (42.0-54.0); HEMOGLOBIN 10.5 g/dL (13.5-18.0); LYMPHOCYTES # (AUTO) 0.8 X10^3/uL (1.3-2.9); LYMPHOCYTES % (AUTO) 5.6 % (21.0-51.0); MEAN CORPUSCULAR HEMOGLOBIN 30.8 pg (27.0-34.0); MEAN CORPUSCULAR HGB CONC 34.4 g/dL (33.0-35.0); MEAN CORPUSCULAR VOLUME 89.7 fL (80.0-100.0); MEAN PLATELET VOLUME 7.3 fL (7.4-11.0); MONOCYTES # (AUTO) 0.9 x10^3/uL (0.3-0.8); MONOCYTES % (AUTO) 6.6 % (0.0-13.0); NEUTROPHILS # (AUTO) 10.6 x10^3/uL (2.2-4.8); NEUTROPHILS % (AUTO) 78.7 % (42.0-75.0); PLATELET COUNT 346 X10^3/uL (150.0-450.0); RED BLOOD COUNT 3.41 X10^6/uL (4.7-6.0); RED CELL DISTRIBUTION WIDTH 14.3 % (11.6-16.5); WHITE BLOOD COUNT 13.5 X10^3/uL (3.6-10.0)
[2019-09-10 06:51] LABS: ALANINE AMINOTRANSFERASE 14 Units/L (12-78); ALBUMIN 3.3 g/dL (3.4-5.0); ALKALINE PHOSPHATASE 69 Units/L (46-116); ASPARTATE AMINO TRANSFERASE 12 Units/L (15-37); BLOOD UREA NITROGEN 22 mg/dL (7-18); CALCIUM 9.4 mg/dL (8.5-10.1); CARBON DIOXIDE 29.1 mmol/L (21-32); CHLORIDE 96 mmol/L (98-107); COR NA(FOR HYPERGLY) 133 mmol/L (136-145); CREATININE 0.88 mg/dL (0.70-1.30); SODIUM 131 mmol/L (136-145); TOTAL PROTEIN 7.2 g/dL (6.4-8.2); eGFR NON BLACK RACES > 60 (>60)
[2019-09-10] MEDS: PATIENT'S HOME MEDICATION PO SCH ×2 (09:15→22:00)
[2019-09-10] MEDS: HumuLIN 70/30 (NovoLIN 70/30) SC SCH ×2 (09:39→22:31)
[2019-09-10] MEDS: LEVAQUIN PREMIX IV 750 MG 750 MG/150 ML BAG IV SCH (09:40)
[2019-09-10] MEDS: JUVEN PO SCH ×2 (09:41→22:00)
[2019-09-10] MEDS: ASPIRIN EC 81 MG PO SCH ×2 (09:41→22:00)
[2019-09-10] MEDS: DIFLUCAN PO SCH (09:41)
[2019-09-10] MEDS: XANAX PO PRN ×2 (09:42→17:29)
[2019-09-10] MEDS: LOPRESSOR TAB 25 MG PO SCH ×2 (09:43→22:32)
[2019-09-10] MEDS: LOVENOX INJ 30 MG SYR SC SCH (09:43)
[2019-09-10] MEDS: NexIUM PO SCH (09:43)
[2019-09-10] MEDS: CHRONULAC PO PRN (09:44)
[2019-09-10] MEDS: FLONASE NASAL SPRAY ENOSTRIL SCH (09:44)
[2019-09-10] MEDS: PULMICORT NEB TX 0.5 MG NEB SCH ×2 (09:45→20:33)
[2019-09-10] MEDS: DUONEB 0.5 MG/3 MG NEB SCH ×4 (09:45→20:33)
[2019-09-10] MEDS ORDERED: CHRONULAC PO SCH (10:00)
[2019-09-10] MEDS: CHRONULAC PO SCH ×4 (10:28→22:31)
--- NOTE | 2019-09-10 18:06 | PCM.PROG ---
Progress Note - Progress Note for Day of Date of Exam: 09/10/19 - Subjective Subjective: IS BEING TREATED FOR ACUTE KIDNEY INJURY, HYPERKALEMIA, AND A URINARY TRACT INFECTION. TODAY, HE IS ALERT AND ORIENTED, LYING IN BED ON MORNING ROUNDS. HE REPORTS COMPLAINTS OF LOWER ABDOMINAL PAIN AND WEAKNESS. HE DENIES A BOWEL MOVEMENT THROUGH COLOSTOMY IN SEVERAL DAYS. ON EXAMINATION, HEART IS REGULAR IN RATE AND RHYTHM. BILATERAL LUNGS ARE NOTED WITH DIMINISHED LUNG SOUNDS THROUGHOUT. ABDOMEN IS ROUND, SOFT, AND NON-TENDER WITH NORMAL BOWEL SOUNDS NOTED IN ALL QUADRANTS. HIS VITALS THIS MORNING ARE: 98.8-94-20-99%-147/64. LABS WERE OBTAINED. ABNORMAL LAB VALUES INCLUDE THE FOLLOWING: WBC 13.5, RBC 3.41, HGB 10.5, HCT 30.6, SODIUM 131, CHLORIDE 96, BUN 22, GLUCOSE 172, AST 12, ALBUMIN 3.3. URINE CULTURE IS PENDING. HE IS CURRENTLY RECEIVING IV FORTAZ AND LEVAQUIN. TODAY, WE WILL INCREASE LACTULOSE TO 30ML PO QID. WE WILL OBTAIN A KUB. OTHERWISE, WE WILL CONTINUE WITH CURRENT PLAN OF CARE. WE PLAN TO FOLLOW UP WITH AM LABS AND CONTINUE TO MONITOR. - Past Medical Family Social History Past Med/Fam/Surg Hx: No changes since H&P Allergies: Allergies meropenem Allergy (Verified 12/31/18 01:04) piperacillin [From Zosyn] Allergy (Verified 12/18/18 19:19) Sulfa (Sulfonamide Antibiotics) [SULFA] Allergy (Verified 04/13/18 10:43) tazobactam [From Zosyn] Allergy (Verified 12/18/18 19:19) - Review of Systems ROS: No change since H&P - Vital Signs and I&O's Vital Signs: Temperature 98.7 F Pulse Rate [Left] 99 Pulse Rate 94 Respiratory Rate 18 Blood Pressure [Right Arm] 124/60 Blood Pressure [Left Arm] 118/48 Blood Pressure 178/76 O2 Sat by Pulse Oximetry 99 Intake and Output: Intake & Output 09/08/19 09/09/19 09/10/19 09/11/19 11:59 11:59 11:59 11:59 Intake Total 347 / 347 2826 / 2826 900 / 900 0 / 0 Output Total 475 / 475 1850 / 1850 3025 / 3025 1775 / 1775 Balance -128 / -128 976 / 976 -5 / -2124 -1774 / -1774 - Physical Exam Oriented: Normal Eyes: Normal Ear: Normal Nose: Normal Throat: Normal Respiratory: Normal Cardiovascular: Normal : Normal Auscultation: Bowel Sounds: Normal Palpation: Normal Tenderness: Suprapubic, Mild. negative: Rebound, Guarding, Rigidity Skin: Normal Psychiatric: Normal Mood Description: Calm Speech Pattern: Clear, Appropriate - Laboratory and Diagnostics Result Diagrams: 09/10/19 05:21 09/10/19 05:21 Labs: 09/07/19 23:17 Urine,Catheterized Urine Culture - Preliminary Laboratory WBC 13.5 X10^3/uL (3.6-10.0) H 09/10/19 05:21 RBC 3.41 X10^6/uL (4.7-6.0) L 09/10/19 05:21 Hgb 10.5 g/dL (13.5-18.0) L 09/10/19 05:21 Hct 30.6 % (42.0-54.0) L 09/10/19 05:21 MCV 89.7 fL (80.0-100.0) 09/10/19 05:21 MCH 30.8 pg (27.0-34.0) 09/10/19 05:21 MCHC 34.4 g/dL (33.0-35.0) 09/10/19 05:21 RDW 14.3 % (11.6-16.5) 09/10/19 05:21 Plt Count 346 X10^3/uL (150.0-450.0) 09/10/19 05:21 Plt Count Comment Adequate (ADEQUATE) 09/09/19 05:20 MPV 7.3 fL (7.4-11.0) L 09/10/19 05:21 Neut % (Auto) 78.7 % (42.0-75.0) H 09/10/19 05:21 Lymph % (Auto) 5.6 % (21.0-51.0) L 09/10/19 05:21 [place] % (Auto) 6.6 % (0.0-13.0) 09/10/19 05:21 Eos % (Auto) 8.6 % (0.9-2.9) H 09/10/19 05:21 Baso % (Auto) 0.5 % (0.2-1.0) 09/10/19 05:21 Neut # (Auto) 10.6 x10^3/uL (2.2-4.8) H 09/10/19 05:21 Lymph # (Auto) 0.8 X10^3/uL (1.3-2.9) L 09/10/19 05:21 [place] # (Auto) 0.9 x10^3/uL (0.3-0.8) H 09/10/19 05:21 Eos # (Auto) 1.2 x10^3/uL (0.0-0.2) H 09/10/19 05:21 Baso # (Auto) 0.1 X10^3/uL (0.0-0.1) 09/10/19 05:21 Absolute Nucleated RBC 0.0 /100WBC 09/10/19 05:21 Total Counted 100 09/09/19 05:20 Neutrophils % (Manual) 62 % (39-76) 09/09/19 05:20 Lymphocytes % (Manual) 18 % (13-43) 09/09/19 05:20 Monocytes % (Manual) 6 % (4-9) 09/09/19 05:20 Eosinophils % (Manual) 14 % (0-6) H 09/09/19 05:20 Plt Clumps, EDTA Rare 09/09/19 05:20 Plt Morphology Comment Normal (NORMAL) 09/09/19 05:20 RBC Morphology Normal (NORMAL) 09/09/19 05:20 Sodium 131 mmol/L (136-145) L 09/10/19 05:21 Corrected Sodium 133 mmol/L (136-145) L 09/10/19 05:21 Potassium 4.9 mmol/L (3.5-5.1) 09/10/19 05:21 Chloride 96 mmol/L (98-107) L 09/10/19 05:21 Carbon Dioxide 29.1 mmol/L (21-32) 09/10/19 05:21 BUN 22 mg/dL (7-18) H 09/10/19 05:21 Creatinine 0.88 mg/dL (0.70-1.30) 09/10/19 05:21 Est GFR (MDRD) Af Amer > 60 (>60) 09/10/19 05:21 Est GFR (MDRD) Non-Af > 60 (>60) 09/10/19 05:21 Glucose 172 mg/dL (65-99) H 09/10/19 05:21 POC Glucose (mg/dL) 123 mg/dL (65-99) H 09/10/19 17:28 Calcium 9.4 mg/dL (8.5-10.1) 09/10/19 05:21 Corrected Calcium 10.0 mg/dL (8.5-10.1) 09/10/19 05:21 Total Bilirubin 0.30 mg/dL (0.2-1.0) 09/10/19 05:21 AST 12 Units/L (15-37) L 09/10/19 05:21 ALT 14 Units/L (12-78) 09/10/19 05:21 Alkaline Phosphatase 69 Units/L (46-116) 09/10/19 05:21 Ammonia < 10 umol/L (11-32) L 09/10/19 10:22 Troponin I 0.03 ng/mL (0-1.5) 09/07/19 20:12 Total Protein 7.2 g/dL (6.4-8.2) 09/10/19 05:21 Albumin 3.3 g/dL (3.4-5.0) L 09/10/19 05:21 Globulin 3.9 g/dL (2.5-4.5) 09/10/19 05:21 Albumin/Globulin Ratio 0.8 Ratio (1.1-2.1) L 09/10/19 05:21 Specimen Type Catherized urine 09/07/19 23:17 Urine Color Yellow (YELLOW) 09/07/19 23:17 Urine Appearance Cloudy (CLEAR) 09/07/19 23:17 Urine pH 6.5 (5.0 - 8.0) 09/07/19 23:17 Ur Specific [place] 1.010 (1.000-1.030) 09/07/19 23:17 Urine Protein 3+ (NEGATIVE) 09/07/19 23:17 Urine Glucose (UA) 3+ (NEGATIVE) 09/07/19 23:17 Urine Ketones Negative (NEGATIVE) 09/07/19 23:17 Urine Occult Blood 3+ (NEGATIVE) 09/07/19 23:17 Urine Nitrite Negative (NEGATIVE) 09/07/19 23:17 Urine Bilirubin Negative (NEGATIVE) 09/07/19 23:17 Urine Urobilinogen Normal (NORMAL) 09/07/19 23:17 Ur Leukocyte Esterase 3+ (NEGATIVE) 09/07/19 23:17 Urine RBC 3-5 /HPF (0-3) A 09/07/19 23:17 Urine WBC 20-30 /HPF (0-5) A 09/07/19 23:17 Ur Squamous Epith Cells Negative /HPF (NEGATIVE) 09/07/19 23:17 Urine Bacteria Trace /HPF (NEGATIVE) 09/07/19 23:17 Urine Yeast Many /HPF (NEGATIVE) 09/07/19 23:17 Ur Culture Indicated? Yes/culture set up 09/07/19 23:17 - Plan (1) Urinary tract infection Status: Acute Qualifiers: Urinary tract infection type: acute cystitis Hematuria presence: without h ematuria Qualified Code(s): N30.00 - Acute cystitis without hematuria Plan: IV FORTAZ, IV LEVAQUIN, IV FLUIDS, CONTINUE TO MONITOR (2) Hyponatremia Status: Acute (3) CRISTINA (acute kidney injury) Status: Acute (4) Constipation Status: Acute Qualifiers: Constipation type: slow transit constipation Qualified Code(s): K59.01 - Slow transit constipation Plan: LACTULOSE 30ML PO QID, OBTAIN KUB
[2019-09-10] MEDS: SNACK - Diabetic Appropriate PO SCH (22:30)
[2019-09-11] MEDS: FORTAZ or TAZICEF VIAL INJ 2 G in NS 100 ML IV + SPIKE MINIBAG* 100 ML IV SCH ×3 (05:45→21:23)
[2019-09-11 05:46] LABS: BASOPHILS # (AUTO) 0.1 X10^3/uL (0.0-0.1); BASOPHILS % (AUTO) 0.4 % (0.2-1.0); EOSINOPHILS # (AUTO) 1.7 x10^3/uL (0.0-0.2); EOSINOPHILS % (AUTO) 11.7 % (0.9-2.9); HEMATOCRIT 28.8 % (42.0-54.0); HEMOGLOBIN 10.1 g/dL (13.5-18.0); LYMPHOCYTES # (AUTO) 0.8 X10^3/uL (1.3-2.9); LYMPHOCYTES % (AUTO) 5.1 % (21.0-51.0); MEAN CORPUSCULAR HEMOGLOBIN 31.4 pg (27.0-34.0); MEAN CORPUSCULAR HGB CONC 35.2 g/dL (33.0-35.0); MEAN CORPUSCULAR VOLUME 89.2 fL (80.0-100.0); MONOCYTES % (AUTO) 6.7 % (0.0-13.0); NEUTROPHILS # (AUTO) 11.2 x10^3/uL (2.2-4.8); NEUTROPHILS % (AUTO) 76.1 % (42.0-75.0); PLATELET COUNT 309 X10^3/uL (150.0-450.0); RED BLOOD COUNT 3.23 X10^6/uL (4.7-6.0); WHITE BLOOD COUNT 14.7 X10^3/uL (3.6-10.0)
[2019-09-11 06:05] LABS: ALANINE AMINOTRANSFERASE 12 Units/L (12-78); ALBUMIN 2.9 g/dL (3.4-5.0); ALKALINE PHOSPHATASE 62 Units/L (46-116); ASPARTATE AMINO TRANSFERASE 13 Units/L (15-37); BLOOD UREA NITROGEN 21 mg/dL (7-18); CALCIUM 9.3 mg/dL (8.5-10.1); CARBON DIOXIDE 27.6 mmol/L (21-32); CHLORIDE 98 mmol/L (98-107); COR CA(FOR HYPOALB) 10.2 mg/dL (8.5-10.1); COR NA(FOR HYPERGLY) 132 mmol/L (136-145); CREATININE 0.75 mg/dL (0.70-1.30); SODIUM 130 mmol/L (136-145); TOTAL PROTEIN 6.5 g/dL (6.4-8.2); eGFR NON BLACK RACES > 60 (>60)
[2019-09-11] MEDS: NS 1000 ML 1,000 ML IV SCH ×2 (06:11→17:26)
[2019-09-11] MEDS: PULMICORT NEB TX 0.5 MG NEB SCH ×2 (08:57→20:50)
[2019-09-11] MEDS: DUONEB 0.5 MG/3 MG NEB SCH ×4 (08:58→20:50)
[2019-09-11] MEDS: DIFLUCAN PO SCH (09:46)
[2019-09-11] MEDS: PATIENT'S HOME MEDICATION PO SCH ×2 (09:47→22:00)
[2019-09-11] MEDS: NexIUM PO SCH (09:47)
[2019-09-11] MEDS: LOPRESSOR TAB 25 MG PO SCH ×2 (09:47→21:24)
[2019-09-11] MEDS: ASPIRIN EC 81 MG PO SCH ×2 (09:47→21:24)
[2019-09-11] MEDS: LOVENOX INJ 30 MG SYR SC SCH (09:47)
[2019-09-11] MEDS: JUVEN PO SCH ×2 (09:48→21:25)
[2019-09-11] MEDS: LEVAQUIN PREMIX IV 750 MG 750 MG/150 ML BAG IV SCH (09:49)
[2019-09-11] MEDS: SOMA TAB 350 MG PO PRN ×2 (10:40→22:02)
[2019-09-11] MEDS: NORCO 10/325 TAB PO PRN ×2 (10:40→17:28)
[2019-09-11] MEDS: HumuLIN 70/30 (NovoLIN 70/30) SC SCH ×2 (10:49→22:01)
[2019-09-11] MEDS: CHRONULAC PO SCH ×5 (10:49→21:24)
[2019-09-11] MEDS: FLONASE NASAL SPRAY ENOSTRIL SCH (10:49)
[2019-09-11] MEDS: HumuLIN R SC PRN ×2 (14:20→17:27)
[2019-09-11] MEDS: XANAX PO PRN ×2 (14:22→22:02)
[2019-09-11] MEDS: DAKINS SOLUTION HALF STRENGTH 0.25% EXT SCH (15:40)
--- NOTE | 2019-09-11 16:48 | PCM.PROG ---
Progress Note - Progress Note for Day of Date of Exam: 09/11/19 - Subjective Subjective: CASIE IS BEING TREATED FOR ACUTE KIDNEY INJURY, HYPERKALEMIA, AND A URINARY TRACT INFECTION. TODAY, HE IS ALERT AND ORIENTED, LYING IN BED ON MORNING ROUNDS. HE REPORTS COMPLAINTS OF LOWER ABDOMINAL PAIN AND WEAKNESS. HE DENIES A BOWEL MOVEMENT THROUGH COLOSTOMY IN SEVERAL DAYS. ON EXAMINATION, HEART IS REGULAR IN RATE AND RHYTHM. BILATERAL LUNGS ARE NOTED WITH DIMINISHED LUNG SOUNDS THROUGHOUT. ABDOMEN IS ROUND, SOFT, AND NON-TENDER WITH NORMAL BOWEL SOUNDS NOTED IN ALL QUADRANTS. HIS VITALS THIS MORNING ARE: 98.8-102-20-97%-150/69. LABS WERE OBTAINED. ABNORMAL LAB VALUES INCLUDE THE FOLLOWING: WBC 14.7, RBC 3.23, HGB 10.1, HCT 28.8, SODIUM 130, BUN 21, GLUCOSE 190, AST 13. ALBUMIN 2.9. URINE CULTURE REPORTED GROWTH OF PURE YEAST. HE IS CURRENTLY RECEIVING IV FORTAZ AND LEVAQUIN. HE IS ALSO RECEIVING DIFLUCAN 200MG PO DAILY. WE WILL CONTINUE WITH CURRENT PLAN OF CARE TODAY. OTHERWISE, WE PLAN TO FOLLOW UP WITH AM LABS AND CONTINUE TO MONITOR. - Past Medical Family Social History Past Med/Fam/Surg Hx: No changes since H&P Allergies: Allergies meropenem Allergy (Verified 12/31/18 01:04) piperacillin [From Zosyn] Allergy (Verified 12/18/18 19:19) Sulfa (Sulfonamide Antibiotics) [SULFA] Allergy (Verified 04/13/18 10:43) tazobactam [From Zosyn] Allergy (Verified 12/18/18 19:19) - Review of Systems ROS: No change since H&P - Vital Signs and I&O's Vital Signs: Temperature 99.3 F Pulse Rate [Left Brachial] 90 Pulse Rate [Left] 99 Pulse Rate 82 Respiratory Rate 20 Blood Pressure [Right Arm] 124/60 Blood Pressure [Left Arm] 112/97 Blood Pressure 178/76 O2 Sat by Pulse Oximetry 94 Intake and Output: Intake & Output 09/09/19 09/10/19 09/11/19 09/12/19 11:59 11:59 11:59 11:59 Intake Total 2826 / 2826 900 / 900 420 / 420 800 / 800 Output Total 1850 / 1850 3025 / 3025 4425 / 4425 1850 / 1850 Balance 976 / 976 -2125 / -2125 -4005 / -4005 -1050 / -1050 - Physical Exam Oriented: Normal Eyes: Normal Ear: Normal Nose: Normal Throat: Normal Respiratory: Normal Cardiovascular: Normal : Normal Auscultation: Bowel Sounds: Normal Palpation: Normal Tenderness: Suprapubic, Mild. negative: Rebound, Guarding, Rigidity Skin: Normal Psychiatric: Normal Mood Description: Calm Speech Pattern: Clear, Appropriate - Laboratory and Diagnostics Result Diagrams: 09/11/19 05:13 09/11/19 05:13 Labs: 09/07/19 23:17 Urine,Catheterized Urine Culture - Final Laboratory WBC 14.7 X10^3/uL (3.6-10.0) H 09/11/19 05:13 RBC 3.23 X10^6/uL (4.7-6.0) L 09/11/19 05:13 Hgb 10.1 g/dL (13.5-18.0) L 09/11/19 05:13 Hct 28.8 % (42.0-54.0) L 09/11/19 05:13 MCV 89.2 fL (80.0-100.0) 09/11/19 05:13 MCH 31.4 pg (27.0-34.0) 09/11/19 05:13 MCHC 35.2 g/dL (33.0-35.0) H 09/11/19 05:13 RDW 14.0 % (11.6-16.5) 09/11/19 05:13 Plt Count 309 X10^3/uL (150.0-450.0) 09/11/19 05:13 Plt Count Comment Adequate (ADEQUATE) 09/09/19 05:20 MPV 7.0 fL (7.4-11.0) L 09/11/19 05:13 Neut % (Auto) 76.1 % (42.0-75.0) H 09/11/19 05:13 Lymph % (Auto) 5.1 % (21.0-51.0) L 09/11/19 05:13 [place] % (Auto) 6.7 % (0.0-13.0) 09/11/19 05:13 Eos % (Auto) 11.7 % (0.9-2.9) H 09/11/19 05:13 Baso % (Auto) 0.4 % (0.2-1.0) 09/11/19 05:13 Neut # (Auto) 11.2 x10^3/uL (2.2-4.8) H 09/11/19 05:13 Lymph # (Auto) 0.8 X10^3/uL (1.3-2.9) L 09/11/19 05:13 [place] # (Auto) 1.0 x10^3/uL (0.3-0.8) H 09/11/19 05:13 Eos # (Auto) 1.7 x10^3/uL (0.0-0.2) H 09/11/19 05:13 Baso # (Auto) 0.1 X10^3/uL (0.0-0.1) 09/11/19 05:13 Absolute Nucleated RBC 0.0 /100WBC 09/11/19 05:13 Total Counted 100 09/09/19 05:20 Neutrophils % (Manual) 62 % (39-76) 09/09/19 05:20 Lymphocytes % (Manual) 18 % (13-43) 09/09/19 05:20 Monocytes % (Manual) 6 % (4-9) 09/09/19 05:20 Eosinophils % (Manual) 14 % (0-6) H 09/09/19 05:20 Plt Clumps, EDTA Rare 09/09/19 05:20 Plt Morphology Comment Normal (NORMAL) 09/09/19 05:20 RBC Morphology Normal (NORMAL) 09/09/19 05:20 Sodium 130 mmol/L (136-145) L 09/11/19 05:13 Corrected Sodium 132 mmol/L (136-145) L 09/11/19 05:13 Potassium 5.1 mmol/L (3.5-5.1) 09/11/19 05:13 Chloride 98 mmol/L (98-107) 09/11/19 05:13 Carbon Dioxide 27.6 mmol/L (21-32) 09/11/19 05:13 BUN 21 mg/dL (7-18) H 09/11/19 05:13 Creatinine 0.75 mg/dL (0.70-1.30) 09/11/19 05:13 Est GFR (MDRD) Af Amer > 60 (>60) 09/11/19 05:13 Est GFR (MDRD) Non-Af > 60 (>60) 09/11/19 05:13 Glucose 190 mg/dL (65-99) H 09/11/19 05:13 POC Glucose (mg/dL) 191 mg/dL (65-99) H 09/11/19 12:00 Calcium 9.3 mg/dL (8.5-10.1) 09/11/19 05:13 Corrected Calcium 10.2 mg/dL (8.5-10.1) H 09/11/19 05:13 Total Bilirubin 0.30 mg/dL (0.2-1.0) 09/11/19 05:13 AST 13 Units/L (15-37) L 09/11/19 05:13 ALT 12 Units/L (12-78) 09/11/19 05:13 Alkaline Phosphatase 62 Units/L (46-116) 09/11/19 05:13 Ammonia < 10 umol/L (11-32) L 09/10/19 10:22 Troponin I 0.03 ng/mL (0-1.5) 09/07/19 20:12 Total Protein 6.5 g/dL (6.4-8.2) 09/11/19 05:13 Albumin 2.9 g/dL (3.4-5.0) L 09/11/19 05:13 Globulin 3.6 g/dL (2.5-4.5) 09/11/19 05:13 Albumin/Globulin Ratio 0.8 Ratio (1.1-2.1) L 09/11/19 05:13 Specimen Type Catherized urine 09/07/19 23:17 Urine Color Yellow (YELLOW) 09/07/19 23:17 Urine Appearance Cloudy (CLEAR) 09/07/19 23:17 Urine pH 6.5 (5.0 - 8.0) 09/07/19 23:17 Ur Specific [place] 1.010 (1.000-1.030) 09/07/19 23:17 Urine Protein 3+ (NEGATIVE) 09/07/19 23:17 Urine Glucose (UA) 3+ (NEGATIVE) 09/07/19 23:17 Urine Ketones Negative (NEGATIVE) 09/07/19 23:17 Urine Occult Blood 3+ (NEGATIVE) 09/07/19 23:17 Urine Nitrite Negative (NEGATIVE) 09/07/19 23:17 Urine Bilirubin Negative (NEGATIVE) 09/07/19 23:17 Urine Urobilinogen Normal (NORMAL) 09/07/19 23:17 Ur Leukocyte Esterase 3+ (NEGATIVE) 09/07/19 23:17 Urine RBC 3-5 /HPF (0-3) A 09/07/19 23:17 Urine WBC 20-30 /HPF (0-5) A 09/07/19 23:17 Ur Squamous Epith Cells Negative /HPF (NEGATIVE) 09/07/19 23:17 Urine Bacteria Trace /HPF (NEGATIVE) 09/07/19 23:17 Urine Yeast Many /HPF (NEGATIVE) 09/07/19 23:17 Ur Culture Indicated? Yes/culture set up 09/07/19 23:17 - Plan (1) Urinary tract infection Status: Acute Qualifiers: Urinary tract infection type: acute cystitis Hematuria presence: without hematuria Qualified Code(s): N30.00 - Acute cystitis without hematuria Plan: IV FORTAZ, IV LEVAQUIN, IV FLUIDS, CONTINUE TO MONITOR (2) Yeast UTI Status: Acute Plan: DIFLUCAN 200MG PO DAILY (3) Hyponatremia Status: Acute (4) CRISTINA (acute kidney injury) Status: Acute (5) Constipation Status: Acute Qualifiers: Constipation type: slow transit constipation Qualified Code(s): K59.01 - Slow transit constipation Plan: LACTULOSE 30ML PO QID, OBTAIN KUB
[2019-09-11] MEDS: SNACK - Diabetic Appropriate PO SCH (21:00)
[2019-09-11] MEDS: ROBITUSSIN AC PO PRN (21:24)
[2019-09-12 05:30] LABS: BASOPHILS # (AUTO) 0.1 X10^3/uL (0.0-0.1); BASOPHILS % (AUTO) 0.6 % (0.2-1.0); EOSINOPHILS # (AUTO) 1.9 x10^3/uL (0.0-0.2); EOSINOPHILS % (AUTO) 19.1 % (0.9-2.9); HEMATOCRIT 30.2 % (42.0-54.0); HEMOGLOBIN 10.5 g/dL (13.5-18.0); LYMPHOCYTES # (AUTO) 0.9 X10^3/uL (1.3-2.9); LYMPHOCYTES % (AUTO) 9.1 % (21.0-51.0); MEAN CORPUSCULAR HEMOGLOBIN 31.4 pg (27.0-34.0); MEAN CORPUSCULAR HGB CONC 34.7 g/dL (33.0-35.0); MEAN CORPUSCULAR VOLUME 90.4 fL (80.0-100.0); MEAN PLATELET VOLUME 7.2 fL (7.4-11.0); MONOCYTES # (AUTO) 0.9 x10^3/uL (0.3-0.8); MONOCYTES % (AUTO) 9.1 % (0.0-13.0); NEUTROPHILS # (AUTO) 6.1 x10^3/uL (2.2-4.8); NEUTROPHILS % (AUTO) 62.1 % (42.0-75.0); PLATELET COUNT 299 X10^3/uL (150.0-450.0); RED BLOOD COUNT 3.34 X10^6/uL (4.7-6.0); RED CELL DISTRIBUTION WIDTH 14.1 % (11.6-16.5); WHITE BLOOD COUNT 9.9 X10^3/uL (3.6-10.0)
[2019-09-12 05:38] LABS: ALANINE AMINOTRANSFERASE 13 Units/L (12-78); ALKALINE PHOSPHATASE 62 Units/L (46-116); ASPARTATE AMINO TRANSFERASE 13 Units/L (15-37); BLOOD UREA NITROGEN 19 mg/dL (7-18); CALCIUM 9.9 mg/dL (8.5-10.1); CARBON DIOXIDE 28.3 mmol/L (21-32); CHLORIDE 97 mmol/L (98-107); COR CA(FOR HYPOALB) 10.7 mg/dL (8.5-10.1); COR NA(FOR HYPERGLY) 133 mmol/L (136-145); CREATININE 0.69 mg/dL (0.70-1.30); SODIUM 131 mmol/L (136-145); TOTAL PROTEIN 7.1 g/dL (6.4-8.2); eGFR NON BLACK RACES > 60 (>60)
[2019-09-12] MEDS: NORCO 10/325 TAB PO PRN ×2 (06:15→09:41)
[2019-09-12] MEDS: XANAX PO PRN (06:15)
[2019-09-12] MEDS: FORTAZ or TAZICEF VIAL INJ 2 G in NS 100 ML IV + SPIKE MINIBAG* 100 ML IV SCH (06:15)
[2019-09-12] MEDS: NS 1000 ML 1,000 ML IV SCH (06:37)
[2019-09-12] MEDS: PULMICORT NEB TX 0.5 MG NEB SCH (09:35)
[2019-09-12] MEDS: DUONEB 0.5 MG/3 MG NEB SCH ×2 (09:35→12:02)
[2019-09-12] MEDS: LOVENOX INJ 30 MG SYR SC SCH (09:39)
[2019-09-12] MEDS: LEVAQUIN PREMIX IV 750 MG 750 MG/150 ML BAG IV SCH (09:39)
[2019-09-12] MEDS: JUVEN PO SCH (09:40)
[2019-09-12] MEDS: CHRONULAC PO SCH (09:40)
[2019-09-12] MEDS: FLONASE NASAL SPRAY ENOSTRIL SCH (09:42)
[2019-09-12] MEDS: DIFLUCAN PO SCH (09:42)
[2019-09-12] MEDS: LOPRESSOR TAB 25 MG PO SCH (09:42)
[2019-09-12] MEDS: NexIUM PO SCH (09:42)
[2019-09-12] MEDS: ASPIRIN EC 81 MG PO SCH (09:42)
[2019-09-12] MEDS: DAKINS SOLUTION HALF STRENGTH 0.25% EXT SCH (10:08)
[2019-09-12] MEDS: HumuLIN 70/30 (NovoLIN 70/30) SC SCH (10:09)
[2019-09-12] MEDS: PATIENT'S HOME MEDICATION PO SCH (10:09)
[2019-09-12] MEDS: HumuLIN R SC PRN (11:43)
[2019-09-12 13:50] VITALS: BP 132/58
== END 2019-09-12 15:38 | disposition home health service (06) | DRG 690 ==
LOC: ER 19:25 → MED/SURG 23:33
PROVIDERS: ADMIT Obstetrics & Gynecology Obstetrics; ATTEND Internal Medicine
DX: R94.31 Abnormal electrocardiogram [ECG] [EKG]; N17.9 Acute kidney failure, unspecified; L89.152 Pressure ulcer of sacral region, stage 2; G82.20 Paraplegia, unspecified; E78.2 Mixed hyperlipidemia; R53.1 Weakness; K59.01 Slow transit constipation; E87.5 Hyperkalemia; E87.1 Hypo-osmolality and hyponatremia; I50.9 Heart failure, unspecified; I95.89 Other hypotension; E11.65 Type 2 diabetes mellitus with hyperglycemia; R07.89 Other chest pain; R55 Syncope and collapse; J44.9 Chronic obstructive pulmonary disease, unspecified; N30.00 Acute cystitis without hematuria; B37.49 Other urogenital candidiasis; I25.10 Atherosclerotic heart disease of native coronary artery without angina pectoris; I11.0 Hypertensive heart disease with heart failure
CPT/HCPCS: 36415; 51701; 51702; 71010; 71045; 74000; 74018; 80048; 80053; 81001; 82140; 84484; 85025; 87086; 93005; 94640; 94760; 96365; 96367; 96374; 96375; 99284; A4216; A4222; G0378; J0610; J0713; J1650; J1815; J1956; J3490; J7030; J7050; J7620; J7626

== ENCOUNTER 2020-11-26 10:29 | Inpatient (IN) ==
[~2020-11-26 10:29] MED LIST changes: -DIPRIVAN VIAL 20 ML ONE; +HumuLIN R ONE; -NS 1000 ML 1,000 ML ONE
--- NOTE | 2020-11-26 10:44 | DR.GENAD ---
HPI Time Seen Time Seen by Provider: 11/26/20 10:43 HPI Comment HPI Comment: PATIENT IS 80YR OLD MALE IN ER WITH AMS, SOB AND FEVER. APPETITE IS POOR, PATIENT IS WEAK AND FATIGUE. HOME HEALTH NURSE WANTED PATIENT EVALUATED FOR UROSEPSIS. PATIENT HAVE HISTORY OF COPD AND IS ON HOME OXYGEN, HE HAVE HIS TORY OF CAD AND HTN. HE HAS PARAPLEGIA AND HAVE INDWELLING FELDER CATH AND G- TUBE. HE IS NOT COMPLAINING OF PAIN CURRENTLY. Complaint/Symptoms Chief Complaint Doctors Comments: AMS, SOB AND WEAKNESS. COVID-19 Coronavirus risk:travel/contact w/high risk person: No Has patient experienced Coronavirus symptoms: No Nurses notes reviewed Nurses Notes Review: Yes Source History Provided: Patient and EMS Mode of Arrival Mode of Arrival: EMS Timing Came on: Suddenly Duration Duration: Constant Duration: Days Severity Severity: Moderate Modifying Factors Worsens:: EXERTION. Improves:: REST. Associated Signs and Symptoms Associated Signs and Symptoms: WEAKNESS. Other History Other History: HTN. PMH PMH Past Medical History: Anxiety and Hypertension Past Surgical History: Yes Surgical History: Abdominal Surgery, Bowel Resection, Ortho Surgery, Weight Loss Surgery and Other Family History Family Medical History: Diabetes Mellitus and Hypertension Social History Do you use any recreational Drugs:: No ROS Review of Systems Constitutional: See HPI, Fever, Weakness and Fatigue Eyes: No Symptoms Reported and See HPI ENTM: See HPI and Nose Congestion; negative Nose Discharge Respiratoy: See HPI, Non-Productive Cough and Short of Breath; negative Wheezing Cardiovascular: No Symptoms Reported and See HPI; negative Chest Pain Gastrointestinal/Abdominal: No Symptoms Reported and See HPI; negative Abdominal Pain, Diarrhea and Vomiting Genitourinary: No Symptoms Reported and See HPI; negative Dysuria Neurological: See HPI and Weakness; negative Headache and Dizziness Musculoskeletal: No Symptoms Reported and See HPI Integumentary: See HPI and Dryness Hematologic/Lymphatic: See HPI and Easy Bruising Endocrine: See HPI, Increased Thirst and Decreased Appetite; negative Increased Urine Psychiatric: See HPI and Other (AMS.) All Other Systems: Reviewed and Negative PE Vital Signs Vitals: Temperature 99.1 F Pulse Rate [Left Radial] 106 Pulse Rate 105 Respiratory Rate 27 Blood Pressure [Right Arm] 153/58 Blood Pressure [Left Arm] 153/58 Blood Pressure 157/65 O2 Sat by Pulse Oximetry 97 General Limitations: Altered Mental Status General Appearance: Alert and In No Apparent Distress Head Head Exam: Normal Inspection and Atraumatic Eyes Eye exam: Normal Appearance and PERRL; negative Scleral Icterus and Conjunctival Injection ENT ENT Exam: Normal Exam, Normal Oropharynx, Normal External Ear Exam and TM's Normal Bilaterally External Ear Exam: Normal External Inspection; negative Mastoid Tenderness TM/Canal Exam: Bilateral: Normal Nose Exam: Normal Nose Exam Mouth Exam: Normal Inspection; negative Lip Swelling and Tongue Swelling Throat Exam: Normal Inspection; negative Tonsillar Erythema, Tonsillomegaly and Tonsillar Exudate Neck Neck Exam: Normal Inspection and Trachea Midline; negative Tenderness and Lymphadenopathy Chest Chest Inspection: Normal Inspection and Symmetric Chest Wall Rise; negative Tenderness Respiratory Respiratory Exam: Normal Lung Sounds Bilat; negative Accessory Muscle Use, Chest Wall Tenderness and Respiratory Distress Respiratory Exam: Bilateral: Rhonchi and Lower: Rhonchi Cardiovascular Cardiovascular Exam: Normal Rhythm, Tachycardia and Normal Heart Sounds; negative Systolic Murmur and Diastolic Murmur Abdominal Exam Abdominal Exam: Normal Inspection, Normal Bowel Sounds and Soft; negative Ten derness Extremities Extremities Exam: Normal Inspection and Normal Capillary Refill; negative Tenderness Back Back Exam: Normal Inspection; negative (R) CVA Tenderness and (L) CVA Tenderness Neurologic Neurological Exam: Alert; negative Motor Sensory Deficit Psychiatric Psychiatric Exam: Flat Affect Skin Skin Exam: Dry MDM Differential Diagnosis Differential Diagnosis: CVA, PNEUMONIA, [place], CHF, BRONCHITIS. SEPSIS. COURSE Treatment Treatment: SEE ORDERS. NS 1L IV, LEVAQUIN 500MG IVPB, DUO NEB IN ER. DISCUSSED LABS, XRAY REPORTS AND TREATMENT PLAN WITH PATIENT. Consultation Consultation Comments: DISCUSSED PATIENT WITH DR. MONACO. HE WILL ADMIT PATIENT. Education/Counseling Education/Counseling: Patient Educated On: Diagnosis ROR Labs Reviewed Laboratory Results Reviewed?: Yes Result Diagrams: 12/03/20 05:22 12/03/20 05:22 Laboratory: 11/26/20 11:39 Blood Blood Culture - Final 11/26/20 11:10 Urine,Catheterized Urine Culture - Final Klebsiella Pneumoniae 11/26/20 11:09 Blood Blood Culture - Final Klebsiella Pneumoniae WBC 28.6 X10^3/uL (3.6-10.0) H 11/26/20 11:09 RBC 3.59 X10^6/uL (4.7-6.0) L 11/26/20 11:09 Hgb 10.6 g/dL (13.5-18.0) L 11/26/20 11:09 Hct 33.0 % (42.0-54.0) L 11/26/20 11:09 MCV 91.8 fL (80.0-100.0) 11/26/20 11:09 MCH 29.5 pg (27.0-34.0) 11/26/20 11:09 MCHC 32.1 g/dL (33.0-35.0) L 11/26/20 11:09 RDW 14.5 % (11.6-16.5) 11/26/20 11:09 Plt Count 271 X10^3/uL (150.0-450.0) 11/26/20 11:09 Plt Count Comment Adequate (ADEQUATE) 11/26/20 11:09 MPV 8.5 fL (7.4-11.0) 11/26/20 11:09 Neut % (Auto) 91.9 % (42.0-75.0) H 11/26/20 11:09 Lymph % (Auto) 1.5 % (21.0-51.0) L 11/26/20 11:09 [place] % (Auto) 6.0 % (0.0-13.0) 11/26/20 11:09 Eos % (Auto) 0.4 % (0.9-2.9) L 11/26/20 11:09 Baso % (Auto) 0.2 % (0.2-1.0) 11/26/20 11:09 Neut # (Auto) 26.2 x10^3/uL (2.2-4.8) H 11/26/20 11:09 Lymph # (Auto) 0.4 X10^3/uL (1.3-2.9) L 11/26/20 11:09 [place] # (Auto) 1.7 x10^3/uL (0.3-0.8) H 11/26/20 11:09 Eos # (Auto) 0.1 x10^3/uL (0.0-0.2) 11/26/20 11:09 Baso # (Auto) 0.0 X10^3/uL (0.0-0.1) 11/26/20 11:09 Absolute Nucleated RBC 0.0 /100WBC 11/26/20 11:09 Total Counted 100 11/26/20 11:09 Neutrophils % (Manual) 85 % (39-76) H 11/26/20 11:09 Band Neutrophils % 6 % (0-10) 11/26/20 11:09 Lymphocytes % (Manual) 2 % (13-43) L 11/26/20 11:09 Monocytes % (Manual) 7 % (4-9) 11/26/20 11:09 Plt Morphology Comment Normal (NORMAL) 11/26/20 11:09 RBC Morphology Normal (NORMAL) 11/26/20 11:09 Sodium 121 mmol/L (136-145) L* 11/26/20 11:09 Corrected Sodium 127 mmol/L (136-145) L 11/26/20 11:09 Potassium 5.4 mmol/L (3.5-5.1) H 11/26/20 14:32 Chloride 89 mmol/L (98-107) L 11/26/20 11:09 Carbon Dioxide 30.1 mmol/L (21-32) 11/26/20 11:09 BUN 43 mg/dL (7-18) H 11/26/20 11:09 Creatinine 2.32 mg/dL (0.70-1.30) H 11/26/20 11:09 Est GFR (MDRD) Af Amer 35 (>60) L 11/26/20 11:09 Est GFR (MDRD) Non-Af 29 (>60) L 11/26/20 11:09 Glucose 346 mg/dL (65-99) H 11/26/20 14:32 Lactic Acid 1.8 mmol/L (0.4-2.0) 11/26/20 11:09 Calcium 9.6 mg/dL (8.5-10.1) 11/26/20 11:09 Corrected Calcium 10.6 mg/dL (8.5-10.1) H 11/26/20 11:09 Magnesium 2.1 mg/dL (1.7-2.9) 11/26/20 14:32 Total Bilirubin 0.50 mg/dL (0.2-1.0) 11/26/20 11:09 AST 22 Units/L (15-37) 11/26/20 11:09 ALT 24 Units/L (12-78) 11/26/20 11:09 Alkaline Phosphatase 85 Units/L (46-116) 11/26/20 11:09 Creatine Kinase 159 Units/L (39-308) 11/26/20 11:09 CK-MB (CK-2) 1.4 ng/mL (0-4.0) 11/26/20 11:09 CK/CKMB % Calc 0.9 % (<4) 11/26/20 11:09 Troponin I < 0.02 ng/mL (0-1.5) 11/26/20 11:09 Total Protein 7.2 g/dL (6.4-8.2) 11/26/20 11:09 Albumin 2.8 g/dL (3.4-5.0) L 11/26/20 11:09 Globulin 4.4 g/dL (2.5-4.5) 11/26/20 11:09 Albumin/Globulin Ratio 0.6 Ratio (1.1-2.1) L 11/26/20 11:09 Specimen Type Catherized urine 11/26/20 11:10 Urine Color Yellow (YELLOW) 11/26/20 11:10 Urine Appearance Hazy (CLEAR) 11/26/20 11:10 Urine pH 5.0 (5.0 - 8.0) 11/26/20 11:10 Ur Specific [place] 1.005 (1.000-1.030) 11/26/20 11:10 Urine Protein 3+ (NEGATIVE) 11/26/20 11:10 Urine Glucose (UA) 1+ (NEGATIVE) 11/26/20 11:10 Urine Ketones Negative (NEGATIVE) 11/26/20 11:10 Urine Occult Blood 4+ (NEGATIVE) 11/26/20 11:10 Urine Nitrite Negative (NEGATIVE) 11/26/20 11:10 Urine Bilirubin Negative (NEGATIVE) 11/26/20 11:10 Urine Urobilinogen Normal (NORMAL) 11/26/20 11:10 Ur Leukocyte Esterase 3+ (NEGATIVE) 11/26/20 11:10 Urine RBC 5-10 /HPF (0-3) A 11/26/20 11:10 Urine WBC Tntc /HPF (0-5) A 11/26/20 11:10 Ur Squamous Epith Cells Few /HPF (NEGATIVE) 11/26/20 11:10 Urine Bacteria 3+ /HPF (NEGATIVE) 11/26/20 11:10 Urine Yeast Moderate /HPF (NEGATIVE) 11/26/20 11:10 Ur Culture Indicated? Yes/culture set up 11/26/20 11:10 Acetone, Semi-Quant Negative (NEGATIVE) 11/26/20 11:09 SARS CoV-2 RNA Rapid JESSICA Negative (NEGATIVE) 11/26/20 13:40 XRAY XRAY Interpreted by: Radiologist (REPORT NOTED AND DISCUSSED WITH PATIENT.) and Self EKG Rate: 104 [place]: Normal Rhythm: ST and PVCs Block: None Hypertrophy: None ST: Ant, Lat, Ischemia and Nonsp Opioid Opioid Risk Tool Age (Alexi box if 16-45): No History of Preadolescent Sexual Abuse: No Total: 0 Total Score Risk Category: Low Risk Copyright: Martin ORTEZ predicting aberrant behaviors Diagnosis Discharge Problem: Acute hyperkalemia, Acute hyponatremia, Dehydration, Septic shock due to urinary tract infection AMS (altered mental status) Qualifiers: Altered mental status type: transient alteration of awareness Qualified Code(s): R40.4 - Transient alteration of awareness Instructions Instructions: Diabetes Mellitus and Sick Day Management Hyperglycemia, Ssdi-gb-Dbow Urinary Tract Infection, Adult Chronic Obstructive Pulmonary Disease Exacerbation, Dtna-zf-Bwul Hyponatremia, Aulk-rv-Yjuv Heart Failure, Klhf-lt-[id number] Forms: Excuse From Work or School Precautions for COVID19 Patient Portal Social Distancing
[2020-11-26 11:25] LABS: BILIRUBIN,URINE NEGATIVE (NEGATIVE); BLOOD/HEMOGLOBIN,URINE 4+ (NEGATIVE); GLUCOSE, URINE 1+ (NEGATIVE); KETONES,URINE NEGATIVE (NEGATIVE); LEUKOCYTE ESTERASE ,URINE 3+ (NEGATIVE); NITRITES,URINE NEGATIVE (NEGATIVE); PROTEIN,URINE 3+ (NEGATIVE); UROBILINOGEN,URINE NORMAL (NORMAL)
[2020-11-26 11:30] LABS: APPEARANCE,URINE HAZY (CLEAR); COLOR,URINE YELLOW (YELLOW)
[2020-11-26 11:36] LABS: BACTERIA,URINE 3+ /HPF (NEGATIVE); SQUAMOUS EPITHELIAL CELL,UR FEW /HPF (NEGATIVE); YEAST,URINE MODERATE /HPF (NEGATIVE)
[2020-11-26 11:37] LABS: BASOPHILS % (AUTO) 0.2 % (0.2-1.0); EOSINOPHILS # (AUTO) 0.1 x10^3/uL (0.0-0.2); EOSINOPHILS % (AUTO) 0.4 % (0.9-2.9); HEMOGLOBIN 10.6 g/dL (13.5-18.0); LYMPHOCYTES # (AUTO) 0.4 X10^3/uL (1.3-2.9); LYMPHOCYTES % (AUTO) 1.5 % (21.0-51.0); MEAN CORPUSCULAR HEMOGLOBIN 29.5 pg (27.0-34.0); MEAN CORPUSCULAR HGB CONC 32.1 g/dL (33.0-35.0); MEAN CORPUSCULAR VOLUME 91.8 fL (80.0-100.0); MEAN PLATELET VOLUME 8.5 fL (7.4-11.0); MONOCYTES # (AUTO) 1.7 x10^3/uL (0.3-0.8); NEUTROPHILS # (AUTO) 26.2 x10^3/uL (2.2-4.8); NEUTROPHILS % (AUTO) 91.9 % (42.0-75.0); PLATELET COUNT 271 X10^3/uL (150.0-450.0); RED BLOOD COUNT 3.59 X10^6/uL (4.7-6.0); RED CELL DISTRIBUTION WIDTH 14.5 % (11.6-16.5); WHITE BLOOD COUNT 28.6 X10^3/uL (3.6-10.0)
[2020-11-26 11:42] LABS: LACTIC ACID 1.8 mmol/L (0.4-2.0)
[2020-11-26 11:46] LABS: ALANINE AMINOTRANSFERASE 24 Units/L (12-78); ALBUMIN 2.8 g/dL (3.4-5.0); ALKALINE PHOSPHATASE 85 Units/L (46-116); ASPARTATE AMINO TRANSFERASE 22 Units/L (15-37); BAND NEUTROPHILS % 6 % (0-10); BLOOD UREA NITROGEN 43 mg/dL (7-18); CALCIUM 9.6 mg/dL (8.5-10.1); CARBON DIOXIDE 30.1 mmol/L (21-32); CHLORIDE 89 mmol/L (98-107); CKMB % 0.9 % (<4); COR CA(FOR HYPOALB) 10.6 mg/dL (8.5-10.1); COR NA(FOR HYPERGLY) 127 mmol/L (136-145); CREATINE KINASE 159 Units/L (39-308); CREATINE KINASE MB 1.4 ng/mL (0-4.0); CREATININE 2.32 mg/dL (0.70-1.30); PLATELET MORPHOLOGY COMMENT NORMAL (NORMAL); TOTAL PROTEIN 7.2 g/dL (6.4-8.2); TROPONIN I < 0.02 ng/mL (0-1.5); eGFR NON BLACK RACES 29 (>60)
--- NOTE | 2020-11-26 11:46 | CT ---
HISTORY:Altered mental statusStudy: CT brain without contrastComparison:NoneTechnique:Multiple axial images of the brain were obtained without administration of IV contrast. Dose reduction techniques including Automated Exposure Control (AEC) and adjustment of mA and kV were utilized.Findings:There is cerebral volume loss with nonspecific white matter hypoattenuation that can be associated with chronic microvascular ischemic changes. If there is clinical concern for acute CVA consider further evaluation with MRI. No evidence of acute hemorrhage, midline shift, mass effect or abnormal extra-axial fluid collection. The ventricular system is symmetric and nondilated.The soft tissues and osseous structures are unremarkable. The visualized paranasal sinuses are clear.IMPRESSION:1. No acute intracranial hemorrhage.Electronically signed by: DEUCE LUONG (Nov 26, 2020 11:44:10)
[2020-11-26 11:49] LABS: SODIUM 121 mmol/L (136-145)
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
[2020-11-26] MEDS ORDERED: D50W ABBOJECT SYR ONE (12:38)
[2020-11-26] MEDS ORDERED: HumuLIN R ONE ×2 (12:39→17:28)
[2020-11-26] MEDS ORDERED: D50W ABBOJECT SYR IV ONE (12:49)
[2020-11-26] MEDS ORDERED: HumuLIN R IV ONE (12:51)
[2020-11-26] MEDS ORDERED: LEVAQUIN TAB 500 MG PO ONE (12:54)
[2020-11-26] MEDS ORDERED: LEVAQUIN PREMIX IV 500 MG 500 MG/100 ML BAG IV ONE ×2 (12:56→13:05)
[2020-11-26] MEDS ORDERED: PHARMACY CONSULT - VANCOMYCIN XX SCH (13:00)
[2020-11-26] MEDS: NS 1000 ML 1,000 ML IV SCH ×3 (13:00→23:23)
[2020-11-26] MEDS ORDERED: KAYEXALATE SUSP PO NR (13:00)
[2020-11-26] MEDS ORDERED: NS 1000 ML 1,000 ML ONE (13:04)
[2020-11-26] MEDS: VANCOMYCIN IV *PREMIX 1.5 G/300 ML BAG 1.5 G/300 ML PIGGYBACK IV SCH (16:49)
[2020-11-26] MEDS ORDERED: DUONEB 0.5 MG/3 MG (3 mL) NEB PRN (17:06)
[2020-11-26] MEDS ORDERED: ROBITUSSIN AC PEG PRN (17:06)
[2020-11-26] MEDS ORDERED: NORCO 10/325 TAB PEG PRN (17:06)
[2020-11-26] MEDS ORDERED: PATIENT'S HOME MEDICATION (Alprazolam 0.5 mg tablet) PEG PRN (17:06)
[2020-11-26] MEDS ORDERED: PATIENT'S HOME MEDICATION (Lactulose 10 gram/15 mL solution) PEG PRN (17:06)
[2020-11-26] MEDS ORDERED: SOMA TAB 350 MG PO PRN (17:06)
[2020-11-26] MEDS ORDERED: DIPHENHYDRAMINE HCL PEG SCH (17:06)
[2020-11-26] MEDS ORDERED: CHRONULAC PEG PRN (17:14)
[2020-11-26] MEDS: ULTRAM PEG SCH ×2 (17:42→21:12)
[2020-11-26] MEDS: HumuLIN R SUBCUT PRN ×2 (17:43→21:30)
[2020-11-26] MEDS: XANAX PEG PRN (17:43)
[2020-11-26 17:54] VITALS: BMI 32.1
[2020-11-26] MEDS ORDERED: PULMICORT NEB TX 0.5 MG NEB ONE (19:52)
[2020-11-26] MEDS ORDERED: SNACK - Diabetic Appropriate PO SCH (20:00)
[2020-11-26] MEDS: DUONEB 0.5 MG/3 MG (3 mL) NEB PRN (20:59)
[2020-11-26] MEDS ORDERED: SYMBICORT INH 160/4.5 mcg IN SCH (21:00)
[2020-11-26] MEDS ORDERED: PATIENT'S HOME MEDICATION (Budesonide-Formoterol 160-4.5 mcg/actuation HFA aerosol inhaler IN SCH (21:00)
[2020-11-26] MEDS: PULMICORT NEB TX 0.5 MG NEB SCH (21:00)
[2020-11-26] MEDS: SNACK - Diabetic Appropriate PO SCH (21:12)
[2020-11-26] MEDS: PROTONIX TAB 40 MG PO SCH (21:13)
[2020-11-26] MEDS: JUVEN PO SCH (21:14)
[2020-11-26] MEDS: LOPRESSOR TAB 25 MG PEG SCH (21:14)
[2020-11-26] MEDS: LASIX PEG SCH (21:14)
[2020-11-26] MEDS: GLUCOTROL XL 24-HR PO SCH (21:15)
[2020-11-26] MEDS: BENADRYL ELIXIR 12.5 MG/5 ML PEG SCH (21:15)
[2020-11-26] MEDS: ASPIRIN EC 81 MG PO SCH (21:15)
[2020-11-26] MEDS: HumuLIN 70/30 (NovoLIN 70/30) SC SCH (21:24)
[2020-11-26] MEDS: ADVIL SUSP 100 MG/5 ML PEG SCH (21:27)
[2020-11-26] MEDS: NEURONTIN CAP 300 MG PEG SCH (21:27)
[2020-11-27] MEDS: ADVIL SUSP 100 MG/5 ML PEG SCH ×3 (05:49→21:45)
[2020-11-27] MEDS: NS 1000 ML 1,000 ML IV SCH ×4 (05:49→22:25)
[2020-11-27] MEDS: NEURONTIN CAP 300 MG PEG SCH ×3 (05:50→21:45)
[2020-11-27] MEDS: HumuLIN R SUBCUT PRN (05:51)
[2020-11-27 06:14] LABS: BASOPHILS # (AUTO) 0.1 X10^3/uL (0.0-0.1); BASOPHILS % (AUTO) 0.3 % (0.2-1.0); EOSINOPHILS # (AUTO) 0.1 x10^3/uL (0.0-0.2); EOSINOPHILS % (AUTO) 0.7 % (0.9-2.9); HEMATOCRIT 30.2 % (42.0-54.0); HEMOGLOBIN 10.2 g/dL (13.5-18.0); LYMPHOCYTES # (AUTO) 0.3 X10^3/uL (1.3-2.9); LYMPHOCYTES % (AUTO) 1.8 % (21.0-51.0); MEAN CORPUSCULAR HEMOGLOBIN 30.3 pg (27.0-34.0); MEAN CORPUSCULAR HGB CONC 33.6 g/dL (33.0-35.0); MEAN CORPUSCULAR VOLUME 90.2 fL (80.0-100.0); MEAN PLATELET VOLUME 8.5 fL (7.4-11.0); MONOCYTES # (AUTO) 1.4 x10^3/uL (0.3-0.8); MONOCYTES % (AUTO) 7.7 % (0.0-13.0); NEUTROPHILS # (AUTO) 16.9 x10^3/uL (2.2-4.8); NEUTROPHILS % (AUTO) 89.5 % (42.0-75.0); PLATELET COUNT 231 X10^3/uL (150.0-450.0); RED BLOOD COUNT 3.35 X10^6/uL (4.7-6.0); RED CELL DISTRIBUTION WIDTH 14.6 % (11.6-16.5); WHITE BLOOD COUNT 18.9 X10^3/uL (3.6-10.0)
[2020-11-27 06:46] LABS: ALANINE AMINOTRANSFERASE 24 Units/L (12-78); ALBUMIN 2.6 g/dL (3.4-5.0); ALKALINE PHOSPHATASE 81 Units/L (46-116); ASPARTATE AMINO TRANSFERASE 30 Units/L (15-37); BLOOD UREA NITROGEN 47 mg/dL (7-18); CALCIUM 9.4 mg/dL (8.5-10.1); CARBON DIOXIDE 28.8 mmol/L (21-32); CHLORIDE 92 mmol/L (98-107); CKMB % 0.4 % (<4); COR CA(FOR HYPOALB) 10.5 mg/dL (8.5-10.1); COR NA(FOR HYPERGLY) 129 mmol/L (136-145); CREATINE KINASE 726 Units/L (39-308); CREATINE KINASE MB 3.2 ng/mL (0-4.0); CREATININE 1.99 mg/dL (0.70-1.30); SODIUM 126 mmol/L (136-145); TOTAL PROTEIN 6.7 g/dL (6.4-8.2); TROPONIN I < 0.02 ng/mL (0-1.5); eGFR NON BLACK RACES 35 (>60)
[2020-11-27] MEDS: PULMICORT NEB TX 0.5 MG NEB SCH ×2 (09:08→20:23)
[2020-11-27] MEDS: PROTONIX TAB 40 MG PO SCH ×2 (10:00→21:45)
[2020-11-27] MEDS: LASIX PEG SCH ×2 (10:00→21:45)
[2020-11-27] MEDS: VANCOMYCIN IV *PREMIX 1.5 G/300 ML BAG 1.5 G/300 ML PIGGYBACK IV SCH (10:00)
[2020-11-27] MEDS: LEVAQUIN PREMIX IV 250 MG 250 MG/50 ML BAG IV SCH (10:00)
[2020-11-27] MEDS: ULTRAM PEG SCH ×4 (10:00→21:45)
[2020-11-27] MEDS: ASPIRIN EC 81 MG PO SCH ×2 (10:00→21:45)
[2020-11-27] MEDS: LOPRESSOR TAB 25 MG PEG SCH ×2 (10:05→21:45)
[2020-11-27] MEDS: GLUCOTROL XL 24-HR PO SCH ×2 (10:21→21:45)
[2020-11-27] MEDS: JUVEN PO SCH ×2 (10:21→21:45)
[2020-11-27] MEDS: LOVENOX INJ 30 MG SYR SC SCH ×2 (10:39→21:45)
[2020-11-27] MEDS: MAXZIDE 37.5/25 MG PO SCH (10:43)
[2020-11-27] MEDS: XANAX PEG PRN (10:58)
[2020-11-27] MEDS: HumuLIN 70/30 (NovoLIN 70/30) SC SCH ×2 (11:20→22:13)
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
[2020-11-27] MEDS: DIFLUCAN 200 MG IV PREMIX* 200 MG/100 ML BAG IV SCH (14:00)
[2020-11-27] MEDS: BENADRYL ELIXIR 12.5 MG/5 ML PEG SCH (21:45)
[2020-11-27] MEDS: SNACK - Diabetic Appropriate PO SCH (22:12)
[2020-11-28] MEDS: DUONEB 0.5 MG/3 MG (3 mL) NEB PRN ×4 (03:29→20:20)
[2020-11-28] MEDS: ADVIL SUSP 100 MG/5 ML PEG SCH ×3 (06:15→21:00)
[2020-11-28] MEDS: NEURONTIN CAP 300 MG PEG SCH ×3 (06:15→21:00)
[2020-11-28 06:29] LABS: BASOPHILS % (AUTO) 0.3 % (0.2-1.0); EOSINOPHILS # (AUTO) 0.1 x10^3/uL (0.0-0.2); EOSINOPHILS % (AUTO) 1.3 % (0.9-2.9); HEMATOCRIT 27.4 % (42.0-54.0); HEMOGLOBIN 9.1 g/dL (13.5-18.0); LYMPHOCYTES # (AUTO) 0.4 X10^3/uL (1.3-2.9); LYMPHOCYTES % (AUTO) 3.9 % (21.0-51.0); MEAN CORPUSCULAR VOLUME 90.9 fL (80.0-100.0); MEAN PLATELET VOLUME 8.6 fL (7.4-11.0); MONOCYTES # (AUTO) 1.1 x10^3/uL (0.3-0.8); MONOCYTES % (AUTO) 9.9 % (0.0-13.0); NEUTROPHILS # (AUTO) 9.4 x10^3/uL (2.2-4.8); NEUTROPHILS % (AUTO) 84.6 % (42.0-75.0); PLATELET COUNT 219 X10^3/uL (150.0-450.0); RED BLOOD COUNT 3.01 X10^6/uL (4.7-6.0); RED CELL DISTRIBUTION WIDTH 14.6 % (11.6-16.5); WHITE BLOOD COUNT 11.1 X10^3/uL (3.6-10.0)
[2020-11-28] MEDS: NS 1000 ML 1,000 ML IV SCH ×6 (06:29→21:00)
[2020-11-28 06:38] LABS: CALCIUM 8.6 mg/dL (8.5-10.1); CARBON DIOXIDE 25.8 mmol/L (21-32); COR CA(FOR HYPOALB) 10.2 mg/dL (8.5-10.1); CREATININE 1.96 mg/dL (0.70-1.30); TOTAL PROTEIN 5.7 g/dL (6.4-8.2)
[2020-11-28] MEDS: DIFLUCAN 200 MG IV PREMIX* 200 MG/100 ML BAG IV SCH (08:45)
[2020-11-28] MEDS: PULMICORT NEB TX 0.5 MG NEB SCH ×2 (09:00→20:20)
[2020-11-28] MEDS: MAXZIDE 37.5/25 MG PO SCH (10:00)
[2020-11-28] MEDS: GLUCOTROL XL 24-HR PO SCH ×2 (10:00→21:00)
[2020-11-28] MEDS: LEVAQUIN PREMIX IV 250 MG 250 MG/50 ML BAG IV SCH (10:00)
[2020-11-28] MEDS: PROTONIX TAB 40 MG PO SCH ×2 (10:00→21:00)
[2020-11-28] MEDS: LASIX PEG SCH ×2 (10:00→21:00)
[2020-11-28] MEDS: ASPIRIN EC 81 MG PO SCH ×2 (10:00→21:00)
[2020-11-28] MEDS: LOVENOX INJ 30 MG SYR SC SCH ×2 (10:20→21:00)
[2020-11-28] MEDS: JUVEN PO SCH ×2 (10:43→21:00)
[2020-11-28] MEDS: LOPRESSOR TAB 25 MG PEG SCH (10:52)
[2020-11-28] MEDS: ULTRAM PEG SCH ×4 (10:53→21:00)
--- NOTE | 2020-11-28 11:27 | PCM.PROG ---
Progress Note Progress Note for Day of Date of Exam: 11/28/20 Subjective Subjective: Patient seen at bedside, no overnight events. He is currently being treated for Klebsiella UTI. He is quadriplegic with multiple comorbidities. He also has a feeding tube. Patient's one set of blood cultures is also growing Klebseilla. He is currently on Levaquin and Vancomycin. Labs: WBC 11.1 Hgb 9.1 BUN/Cr: 58/1.96 Na: 134 K: 4 Glucose 245 Urine cx: Klebsiella Blood Cx x 1: Klebseilla sensitivities pending CXR: no acute process CT-head: no acute process Plan: will repeat blood cultures. Continue Levaquin. DC Vancomycin. Continue Diflucan. Decrease IVF to 100cc/hr. Continue tube feeds. Monitor AM labs. Follow final culture results. Past Medical Family Social History Past Med/Fam/Surg Hx: No changes since H&P Allergies: Allergies meropenem Allergy (Verified 08/12/20 07:11) piperacillin [From Zosyn] Allergy (Verified 08/12/20 07:11) Sulfa (Sulfonamide Antibiotics) [SULFA] Allergy (Verified 08/12/20 07:11) tazobactam [From Zosyn] Allergy (Verified 08/12/20 07:11) Review of Systems ROS: No change since H&P Vital Signs and I&O's Vital Signs: Temperature 98.5 F Pulse Rate [Left Radial] 76 Pulse Rate 82 Respiratory Rate 22 Blood Pressure [Right Arm] 112/53 Blood Pressure [Left Arm] 153/58 Blood Pressure 157/65 O2 Sat by Pulse Oximetry 95 Intake and Output: Intake & Output 11/25/20 11/26/20 11/27/20 11/28/20 23:59 23:59 23:59 23:59 Intake Total 480 / 480 6399 / 6399 Output Total 720 / 720 1220 / 1220 600 / 600 Balance -240 / -240 5179 / 5179 -600 / -600 Physical Exam Oriented: Normal Eyes: Normal Ear: Normal Nose: Normal Throat: Normal Respiratory: Generalized and Diminished Cardiovascular: Normal; negative S3, S4 and Murmur Auscultation: Bowel Sounds: Normal Tenderness: Normal Skin: Normal Musculoskeletal: Motor Deficit and Sensory Deficit Psychiatric: Normal Mood Description: Calm Affect: Normal Speech Pattern: Clear and Appropriate Laboratory and Diagnostics Result Diagrams: 11/28/20 06:00 11/28/20 06:00 Labs: 11/26/20 11:10 Urine,Catheterized Urine Culture - Preliminary 11/26/20 11:09 Blood Blood Culture - Preliminary 11/26/20 11:39 Blood Blood Culture - Preliminary Laboratory WBC 11.1 X10^3/uL (3.6-10.0) H 11/28/20 06:00 RBC 3.01 X10^6/uL (4.7-6.0) L 11/28/20 06:00 Hgb 9.1 g/dL (13.5-18.0) L 11/28/20 06:00 Hct 27.4 % (42.0-54.0) L 11/28/20 06:00 MCV 90.9 fL (80.0-100.0) 11/28/20 06:00 MCH 30.0 pg (27.0-34.0) 11/28/20 06:00 MCHC 33.0 g/dL (33.0-35.0) 11/28/20 06:00 RDW 14.6 % (11.6-16.5) 11/28/20 06:00 Plt Count 219 X10^3/uL (150.0-450.0) 11/28/20 06:00 Plt Count Comment Adequate (ADEQUATE) 11/26/20 11:09 MPV 8.6 fL (7.4-11.0) 11/28/20 06:00 Neut % (Auto) 84.6 % (42.0-75.0) H 11/28/20 06:00 Lymph % (Auto) 3.9 % (21.0-51.0) L 11/28/20 06:00 [place] % (Auto) 9.9 % (0.0-13.0) 11/28/20 06:00 Eos % (Auto) 1.3 % (0.9-2.9) 11/28/20 06:00 Baso % (Auto) 0.3 % (0.2-1.0) 11/28/20 06:00 Neut # (Auto) 9.4 x10^3/uL (2.2-4.8) H 11/28/20 06:00 Lymph # (Auto) 0.4 X10^3/uL (1.3-2.9) L 11/28/20 06:00 [place] # (Auto) 1.1 x10^3/uL (0.3-0.8) H 11/28/20 06:00 Eos # (Auto) 0.1 x10^3/uL (0.0-0.2) 11/28/20 06:00 Baso # (Auto) 0.0 X10^3/uL (0.0-0.1) 11/28/20 06:00 Absolute Nucleated RBC 0.0 /100WBC 11/28/20 06:00 Total Counted 100 11/26/20 11:09 Neutrophils % (Manual) 85 % (39-76) H 11/26/20 11:09 Band Neutrophils % 6 % (0-10) 11/26/20 11:09 Lymphocytes % (Manual) 2 % (13-43) L 11/26/20 11:09 Monocytes % (Manual) 7 % (4-9) 11/26/20 11:09 Plt Morphology Comment Normal (NORMAL) 11/26/20 11:09 RBC Morphology Normal (NORMAL) 11/26/20 11:09 PT 15.5 SECONDS (11.8-14.3) 11/27/20 05:45 INR Target Range - 11/27/20 05:45 INR 1.26 (0.8-1.3) 11/27/20 05:45 APTT 40.3 SECONDS (22.9-36.5) H 11/27/20 05:45 PTT Comment - 11/27/20 05:45 Sodium 131 mmol/L (136-145) L 11/28/20 06:00 Corrected Sodium 134 mmol/L (136-145) L 11/28/20 06:00 Potassium 4.0 mmol/L (3.5-5.1) 11/28/20 06:00 Chloride 98 mmol/L (98-107) 11/28/20 06:00 Carbon Dioxide 25.8 mmol/L (21-32) 11/28/20 06:00 BUN 58 mg/dL (7-18) H 11/28/20 06:00 Creatinine 1.96 mg/dL (0.70-1.30) H 11/28/20 06:00 Est GFR (MDRD) Af Amer 43 (>60) L 11/28/20 06:00 Est GFR (MDRD) Non-Af 35 (>60) L 11/28/20 06:00 Glucose 245 mg/dL (65-99) H 11/28/20 06:00 POC Glucose (mg/dL) 229 mg/dL (65-99) H 11/28/20 05:48 Lactic Acid 1.8 mmol/L (0.4-2.0) 11/26/20 11:09 Calcium 8.6 mg/dL (8.5-10.1) 11/28/20 06:00 Corrected Calcium 10.2 mg/dL (8.5-10.1) H 11/28/20 06:00 Magnesium 2.1 mg/dL (1.7-2.9) 11/26/20 14:32 Total Bilirubin 0.40 mg/dL (0.2-1.0) 11/28/20 06:00 AST 61 Units/L (15-37) H 11/28/20 06:00 ALT 46 Units/L (12-78) 11/28/20 06:00 Alkaline Phosphatase 88 Units/L (46-116) 11/28/20 06:00 Creatine Kinase 726 Units/L (39-308) H 11/27/20 05:45 CK-MB (CK-2) 3.2 ng/mL (0-4.0) 11/27/20 05:45 CK/CKMB % Calc 0.4 % (<4) 11/27/20 05:45 Troponin I < 0.02 ng/mL (0-1.5) 11/27/20 05:45 Total Protein 5.7 g/dL (6.4-8.2) L 11/28/20 06:00 Albumin 2.0 g/dL (3.4-5.0) L 11/28/20 06:00 Globulin 3.7 g/dL (2.5-4.5) 11/28/20 06:00 Albumin/Globulin Ratio 0.5 Ratio (1.1-2.1) L 11/28/20 06:00 Specimen Type Catherized urine 11/26/20 11:10 Urine Color Yellow (YELLOW) 11/26/20 11:10 Urine Appearance Hazy (CLEAR) 11/26/20 11:10 Urine pH 5.0 (5.0 - 8.0) 11/26/20 11:10 Ur Specific [place] 1.005 (1.000-1.030) 11/26/20 11:10 Urine Protein 3+ (NEGATIVE) 11/26/20 11:10 Urine Glucose (UA) 1+ (NEGATIVE) 11/26/20 11:10 Urine Ketones Negative (NEGATIVE) 11/26/20 11:10 Urine Occult Blood 4+ (NEGATIVE) 11/26/20 11:10 Urine Nitrite Negative (NEGATIVE) 11/26/20 11:10 Urine Bilirubin Negative (NEGATIVE) 11/26/20 11:10 Urine Urobilinogen Normal (NORMAL) 11/26/20 11:10 Ur Leukocyte Esterase 3+ (NEGATIVE) 11/26/20 11:10 Urine RBC 5-10 /HPF (0-3) A 11/26/20 11:10 Urine WBC Tntc /HPF (0-5) A 11/26/20 11:10 Ur Squamous Epith Cells Few /HPF (NEGATIVE) 11/26/20 11:10 Urine Bacteria 3+ /HPF (NEGATIVE) 11/26/20 11:10 Urine Yeast Moderate /HPF (NEGATIVE) 11/26/20 11:10 Ur Culture Indicated? Yes/culture set up 11/26/20 11:10 Acetone, Semi-Quant Negative (NEGATIVE) 11/26/20 11:09 SARS CoV-2 RNA Rapid JESSICA Negative (NEGATIVE) 11/26/20 13:40 Plan (1) Bacteremia due to Klebsiella pneumoniae: Status: Acute (2) UTI due to Klebsiella species: Status: Acute (3) Dehydration: Status: Acute (4) Acute hyperkalemia: Status: Acute (5) Acute hyponatremia: Status: Acute (6) AMS (altered mental status): Status: Acute Qualifiers: Altered mental status type: transient alteration of awareness Qualified Code(s): R40.4 - Transient alteration of awareness
[2020-11-28] MEDS: HumuLIN 70/30 (NovoLIN 70/30) SC SCH ×2 (12:10→21:00)
[2020-11-28] MEDS: SNACK - Diabetic Appropriate PO SCH (20:00)
[2020-11-28] MEDS ORDERED: PHENERGAN INJ 25 MG IM PRN (20:00)
[2020-11-28] MEDS: BENADRYL ELIXIR 12.5 MG/5 ML PEG SCH (21:00)
[2020-11-29] MEDS: LOPRESSOR TAB 25 MG PEG SCH ×3 (00:07→21:48)
[2020-11-29] MEDS: NEURONTIN CAP 300 MG PEG SCH ×3 (06:00→21:54)
[2020-11-29] MEDS: ADVIL SUSP 100 MG/5 ML PEG SCH ×3 (06:00→21:56)
[2020-11-29] MEDS: HumuLIN R SUBCUT PRN ×3 (06:56→17:29)
[2020-11-29] MEDS: NS 1000 ML 1,000 ML IV SCH ×3 (07:12→21:52)
[2020-11-29 07:13] LABS: BASOPHILS % (AUTO) 0.4 % (0.2-1.0); EOSINOPHILS # (AUTO) 0.3 x10^3/uL (0.0-0.2); HEMATOCRIT 26.5 % (42.0-54.0); HEMOGLOBIN 8.6 g/dL (13.5-18.0); LYMPHOCYTES # (AUTO) 0.3 X10^3/uL (1.3-2.9); LYMPHOCYTES % (AUTO) 2.8 % (21.0-51.0); MEAN CORPUSCULAR HEMOGLOBIN 29.8 pg (27.0-34.0); MEAN CORPUSCULAR HGB CONC 32.5 g/dL (33.0-35.0); MEAN CORPUSCULAR VOLUME 91.8 fL (80.0-100.0); MEAN PLATELET VOLUME 8.8 fL (7.4-11.0); MONOCYTES # (AUTO) 1.2 x10^3/uL (0.3-0.8); MONOCYTES % (AUTO) 10.3 % (0.0-13.0); NEUTROPHILS # (AUTO) 9.5 x10^3/uL (2.2-4.8); NEUTROPHILS % (AUTO) 83.5 % (42.0-75.0); PLATELET COUNT 216 X10^3/uL (150.0-450.0); RED BLOOD COUNT 2.89 X10^6/uL (4.7-6.0); RED CELL DISTRIBUTION WIDTH 14.8 % (11.6-16.5); WHITE BLOOD COUNT 11.3 X10^3/uL (3.6-10.0)
[2020-11-29 07:24] LABS: ALBUMIN 1.8 g/dL (3.4-5.0); CALCIUM 8.8 mg/dL (8.5-10.1); CARBON DIOXIDE 27.9 mmol/L (21-32); COR CA(FOR HYPOALB) 10.6 mg/dL (8.5-10.1); CREATININE 1.59 mg/dL (0.70-1.30); TOTAL PROTEIN 5.4 g/dL (6.4-8.2)
[2020-11-29] MEDS ORDERED: PHARMACY COMMENT IV NR (08:30)
[2020-11-29] MEDS: PULMICORT NEB TX 0.5 MG NEB SCH ×2 (08:50→20:28)
[2020-11-29] MEDS: ASPIRIN EC 81 MG PO SCH ×3 (09:54→21:44)
[2020-11-29] MEDS: GLUCOTROL XL 24-HR PO SCH ×2 (09:55→21:45)
[2020-11-29] MEDS: JUVEN PO SCH ×2 (09:55→21:46)
[2020-11-29] MEDS: LASIX PEG SCH ×2 (09:56→21:48)
[2020-11-29] MEDS: LOVENOX INJ 30 MG SYR SC SCH ×2 (09:57→21:52)
[2020-11-29] MEDS: MAXZIDE 37.5/25 MG PO SCH (09:58)
[2020-11-29] MEDS: PROTONIX TAB 40 MG PO SCH ×2 (09:58→21:53)
[2020-11-29] MEDS: ULTRAM PEG SCH ×4 (09:59→21:00)
[2020-11-29] MEDS: DIFLUCAN 200 MG IV PREMIX* 200 MG/100 ML BAG IV SCH (10:27)
--- NOTE | 2020-11-29 11:12 | PCM.PROG ---
Progress Note Progress Note for Day of Date of Exam: 11/29/20 Subjective Subjective: Patient seen at bedside, no overnight events. He is currently being treated for Klebsiella UTI and bacteremia. He is quadriplegic with multiple comorbidities. He also has a feeding tube. Patient's urine and blood Cx show ESBL Klebsiella. Labs: WBC 11.3 Hgb 8.6 BUN/Cr: 60/1.59 Na: 136 K: 3.8 Glucose 323 Urine cx: ESBL Klebsiella Blood Cx x 1: ESBL Klebseilla , repeat blood Cx (11/28/20) pending CT-head: no acute process Plan: DC Levaquin, start Invanz for ESBL coverage. Follow repeat blood cultures. Increase Insulin 70/30 to 55 units BID. Continue gentle hydration. Monitor AM labs. Monitor H/H. Past Medical Family Social History Past Med/Fam/Surg Hx: No changes since H&P Allergies: Allergies meropenem Allergy (Verified 08/12/20 07:11) piperacillin [From Zosyn] Allergy (Verified 08/12/20 07:11) Sulfa (Sulfonamide Antibiotics) [SULFA] Allergy (Verified 08/12/20 07:11) tazobactam [From Zosyn] Allergy (Verified 08/12/20 07:11) Review of Systems ROS: No change since H&P Vital Signs and I&O's Vital Signs: Temperature 97.8 F Pulse Rate [Left Radial] 97 Pulse Rate 108 Respiratory Rate 18 Blood Pressure [Right Arm] 125/53 Blood Pressure [Left Arm] 153/58 Blood Pressure 157/65 O2 Sat by Pulse Oximetry 96 Intake and Output: Intake & Output 11/26/20 11/27/20 11/28/20 11/29/20 23:59 23:59 23:59 23:59 Intake Total 480 / 480 6399 / 6399 1925 / 1925 0 / 0 Output Total 720 / 720 1220 / 1220 2400 / 2400 400 / 400 Balance -240 / -240 5179 / 5179 -475 / -475 -400 / -400 Physical Exam Oriented: Normal Eyes: Normal Ear: Normal Nose: Normal Throat: Normal Respiratory: Generalized and Diminished Cardiovascular: Normal; negative S3, S4 and Murmur Auscultation: Bowel Sounds: Normal Tenderness: Normal and Other (PEG tube noted, no surrounding erythema ) Skin: Normal Musculoskeletal: Motor Deficit and Sensory Deficit Psychiatric: Normal Mood Description: Calm Affect: Normal Speech Pattern: Clear and Appropriate Laboratory and Diagnostics Result Diagrams: 11/29/20 06:50 11/29/20 06:50 Labs: 11/29/20 05:45 Catheter Site Gram Stain - Final 11/26/20 11:10 Urine,Catheterized Urine Culture - Final Klebsiella Pneumoniae 11/26/20 11:09 Blood Blood Culture - Final Klebsiella Pneumoniae 11/28/20 23:00 G Tube Gram Stain - Final 11/26/20 11:39 Blood Blood Culture - Preliminary Laboratory WBC 11.3 X10^3/uL (3.6-10.0) H 11/29/20 06:50 RBC 2.89 X10^6/uL (4.7-6.0) L 11/29/20 06:50 Hgb 8.6 g/dL (13.5-18.0) L 11/29/20 06:50 Hct 26.5 % (42.0-54.0) L 11/29/20 06:50 MCV 91.8 fL (80.0-100.0) 11/29/20 06:50 MCH 29.8 pg (27.0-34.0) 11/29/20 06:50 MCHC 32.5 g/dL (33.0-35.0) L 11/29/20 06:50 RDW 14.8 % (11.6-16.5) 11/29/20 06:50 Plt Count 216 X10^3/uL (150.0-450.0) 11/29/20 06:50 Plt Count Comment Adequate (ADEQUATE) 11/26/20 11:09 MPV 8.8 fL (7.4-11.0) 11/29/20 06:50 Neut % (Auto) 83.5 % (42.0-75.0) H 11/29/20 06:50 Lymph % (Auto) 2.8 % (21.0-51.0) L 11/29/20 06:50 [place] % (Auto) 10.3 % (0.0-13.0) 11/29/20 06:50 Eos % (Auto) 3.0 % (0.9-2.9) H 11/29/20 06:50 Baso % (Auto) 0.4 % (0.2-1.0) 11/29/20 06:50 Neut # (Auto) 9.5 x10^3/uL (2.2-4.8) H 11/29/20 06:50 Lymph # (Auto) 0.3 X10^3/uL (1.3-2.9) L 11/29/20 06:50 [place] # (Auto) 1.2 x10^3/uL (0.3-0.8) H 11/29/20 06:50 Eos # (Auto) 0.3 x10^3/uL (0.0-0.2) H 11/29/20 06:50 Baso # (Auto) 0.0 X10^3/uL (0.0-0.1) 11/29/20 06:50 Absolute Nucleated RBC 0.0 /100WBC 11/29/20 06:50 Total Counted 100 11/26/20 11:09 Neutrophils % (Manual) 85 % (39-76) H 11/26/20 11:09 Band Neutrophils % 6 % (0-10) 11/26/20 11:09 Lymphocytes % (Manual) 2 % (13-43) L 11/26/20 11:09 Monocytes % (Manual) 7 % (4-9) 11/26/20 11:09 Plt Morphology Comment Normal (NORMAL) 11/26/20 11:09 RBC Morphology Normal (NORMAL) 11/26/20 11:09 PT 15.5 SECONDS (11.8-14.3) 11/27/20 05:45 INR Target Range - 11/27/20 05:45 INR 1.26 (0.8-1.3) 11/27/20 05:45 APTT 40.3 SECONDS (22.9-36.5) H 11/27/20 05:45 PTT Comment - 11/27/20 05:45 Sodium 131 mmol/L (136-145) L 11/29/20 06:50 Corrected Sodium 136 mmol/L (136-145) 11/29/20 06:50 Potassium 3.8 mmol/L (3.5-5.1) 11/29/20 06:50 Chloride 100 mmol/L (98-107) 11/29/20 06:50 Carbon Dioxide 27.9 mmol/L (21-32) 11/29/20 06:50 BUN 60 mg/dL (7-18) H 11/29/20 06:50 Creatinine 1.59 mg/dL (0.70-1.30) H 11/29/20 06:50 Est GFR (MDRD) Af Amer 54 (>60) L 11/29/20 06:50 Est GFR (MDRD) Non-Af 45 (>60) L 11/29/20 06:50 Glucose 323 mg/dL (65-99) H 11/29/20 06:50 POC Glucose (mg/dL) 289 mg/dL (65-99) H 11/29/20 06:09 Lactic Acid 1.8 mmol/L (0.4-2.0) 11/26/20 11:09 Calcium 8.8 mg/dL (8.5-10.1) 11/29/20 06:50 Corrected Calcium 10.6 mg/dL (8.5-10.1) H 11/29/20 06:50 Magnesium 2.1 mg/dL (1.7-2.9) 11/26/20 14:32 Total Bilirubin 0.30 mg/dL (0.2-1.0) 11/29/20 06:50 AST 41 Units/L (15-37) H 11/29/20 06:50 ALT 43 Units/L (12-78) 11/29/20 06:50 Alkaline Phosphatase 93 Units/L (46-116) 11/29/20 06:50 Creatine Kinase 726 Units/L (39-308) H 11/27/20 05:45 CK-MB (CK-2) 3.2 ng/mL (0-4.0) 11/27/20 05:45 CK/CKMB % Calc 0.4 % (<4) 11/27/20 05:45 Troponin I < 0.02 ng/mL (0-1.5) 11/27/20 05:45 Total Protein 5.4 g/dL (6.4-8.2) L 11/29/20 06:50 Albumin 1.8 g/dL (3.4-5.0) L 11/29/20 06:50 Globulin 3.6 g/dL (2.5-4.5) 11/29/20 06:50 Albumin/Globulin Ratio 0.5 Ratio (1.1-2.1) L 11/29/20 06:50 Specimen Type Catherized urine 11/26/20 11:10 Urine Color Yellow (YELLOW) 11/26/20 11:10 Urine Appearance Hazy (CLEAR) 11/26/20 11:10 Urine pH 5.0 (5.0 - 8.0) 11/26/20 11:10 Ur Specific [place] 1.005 (1.000-1.030) 11/26/20 11:10 Urine Protein 3+ (NEGATIVE) 11/26/20 11:10 Urine Glucose (UA) 1+ (NEGATIVE) 11/26/20 11:10 Urine Ketones Negative (NEGATIVE) 11/26/20 11:10 Urine Occult Blood 4+ (NEGATIVE) 11/26/20 11:10 Urine Nitrite Negative (NEGATIVE) 11/26/20 11:10 Urine Bilirubin Negative (NEGATIVE) 11/26/20 11:10 Urine Urobilinogen Normal (NORMAL) 11/26/20 11:10 Ur Leukocyte Esterase 3+ (NEGATIVE) 11/26/20 11:10 Urine RBC 5-10 /HPF (0-3) A 11/26/20 11:10 Urine WBC Tntc /HPF (0-5) A 11/26/20 11:10 Ur Squamous Epith Cells Few /HPF (NEGATIVE) 11/26/20 11:10 Urine Bacteria 3+ /HPF (NEGATIVE) 11/26/20 11:10 Urine Yeast Moderate /HPF (NEGATIVE) 11/26/20 11:10 Ur Culture Indicated? Yes/culture set up 11/26/20 11:10 Acetone, Semi-Quant Negative (NEGATIVE) 11/26/20 11:09 SARS CoV-2 RNA Rapid JESSICA Negative (NEGATIVE) 11/26/20 13:40 Plan (1) Bacteremia due to Klebsiella pneumoniae: Status: Acute (2) UTI due to Klebsiella species: Status: Acute (3) Dehydration: Status: Acute (4) Acute hyperkalemia: Status: Acute (5) Acute hyponatremia: Status: Acute (6) AMS (altered mental status): Status: Acute Qualifiers: Altered mental status type: transient alteration of awareness Qualified Code(s): R40.4 - Transient alteration of awareness
[2020-11-29] MEDS: INVANZ INJ 1 GM VIAL 1 GM in NS 100 ML IV + SPIKE MINIBAG* 100 ML IV SCH (12:06)
[2020-11-29] MEDS: SNACK - Diabetic Appropriate PO SCH ×2 (21:00→21:35)
[2020-11-29] MEDS: BENADRYL ELIXIR 12.5 MG/5 ML PEG SCH (21:44)
[2020-11-29] MEDS: HumuLIN 70/30 (NovoLIN 70/30) SC SCH (21:45)
[2020-11-30] MEDS: NS 1000 ML 1,000 ML IV SCH ×2 (04:00→18:00)
[2020-11-30 05:30] LABS: BASOPHILS % (AUTO) 0.3 % (0.2-1.0); EOSINOPHILS # (AUTO) 0.9 x10^3/uL (0.0-0.2); EOSINOPHILS % (AUTO) 6.5 % (0.9-2.9); HEMATOCRIT 26.4 % (42.0-54.0); HEMOGLOBIN 8.6 g/dL (13.5-18.0); LYMPHOCYTES # (AUTO) 0.7 X10^3/uL (1.3-2.9); LYMPHOCYTES % (AUTO) 4.9 % (21.0-51.0); MEAN CORPUSCULAR HEMOGLOBIN 29.8 pg (27.0-34.0); MEAN CORPUSCULAR HGB CONC 32.8 g/dL (33.0-35.0); MEAN CORPUSCULAR VOLUME 91.1 fL (80.0-100.0); MEAN PLATELET VOLUME 8.8 fL (7.4-11.0); MONOCYTES # (AUTO) 1.5 x10^3/uL (0.3-0.8); MONOCYTES % (AUTO) 11.1 % (0.0-13.0); NEUTROPHILS # (AUTO) 10.3 x10^3/uL (2.2-4.8); NEUTROPHILS % (AUTO) 77.2 % (42.0-75.0); PLATELET COUNT 225 X10^3/uL (150.0-450.0); RED BLOOD COUNT 2.89 X10^6/uL (4.7-6.0); WHITE BLOOD COUNT 13.3 X10^3/uL (3.6-10.0)
[2020-11-30 05:44] LABS: ALBUMIN 1.6 g/dL (3.4-5.0); CALCIUM 8.6 mg/dL (8.5-10.1); CARBON DIOXIDE 28.4 mmol/L (21-32); COR CA(FOR HYPOALB) 10.5 mg/dL (8.5-10.1); CREATININE 1.5 mg/dL (0.70-1.30); TOTAL PROTEIN 5.3 g/dL (6.4-8.2)
[2020-11-30] MEDS: NEURONTIN CAP 300 MG PEG SCH ×2 (06:00→14:00)
[2020-11-30] MEDS: ADVIL SUSP 100 MG/5 ML PEG SCH ×2 (06:00→14:52)
[2020-11-30] MEDS: INVANZ INJ 1 GM VIAL 1 GM in NS 100 ML IV + SPIKE MINIBAG* 100 ML IV SCH (08:30)
[2020-11-30] MEDS: DUONEB 0.5 MG/3 MG (3 mL) NEB PRN ×2 (09:30→20:19)
[2020-11-30] MEDS: PULMICORT NEB TX 0.5 MG NEB SCH ×2 (09:30→20:19)
[2020-11-30] MEDS: ASPIRIN EC 81 MG PO SCH (09:52)
[2020-11-30] MEDS: DIFLUCAN 200 MG IV PREMIX* 200 MG/100 ML BAG IV SCH (09:52)
[2020-11-30] MEDS: ULTRAM PEG SCH ×4 (09:54→20:22)
[2020-11-30] MEDS: PROTONIX TAB 40 MG PO SCH ×2 (09:54→20:22)
[2020-11-30] MEDS: MAXZIDE 37.5/25 MG PO SCH (09:55)
[2020-11-30] MEDS: LOPRESSOR TAB 25 MG PEG SCH ×2 (09:56→21:22)
[2020-11-30] MEDS: GLUCOTROL XL 24-HR PO SCH ×2 (09:56→21:22)
[2020-11-30] MEDS: LASIX PEG SCH ×2 (09:57→21:22)
[2020-11-30] MEDS: JUVEN PO SCH ×2 (09:57→21:22)
[2020-11-30] MEDS: LOVENOX INJ 30 MG SYR SC SCH ×2 (09:58→21:22)
[2020-11-30] MEDS: HumuLIN 70/30 (NovoLIN 70/30) SC SCH ×2 (09:59→21:22)
--- NOTE | 2020-11-30 10:50 | PCM.PROG ---
Progress Note - Progress Note for Day of Date of Exam: 11/30/20 - Subjective Subjective: IS BEING TREATED FOR SEPSIS DUE TO UTI, DEHYDRATION, HYPONATREMIA, HYPERKALEMIA, AND AMS. HE IS QUADRIPLEGIC. HE HAS A FEEDING TUBE AND COLOSTOMY. TODAY, HE IS ALERT AND ORIENTED, LYING IN BED ON MORNING ROUNDS. HE DENIES SHORTNESS OF BREATH THIS MORNING. HE CONTINUES WITH WEAKNESS, BUT REPORTS IMPROVEMENT SINCE WE LAST SAW HIM. ON EXAMINATION, HEART IS REGULAR IN RATE AND RHYTHM. BILATERAL LUNGS ARE NOTED WITH DIMINISHED LUNG SOUNDS THROUGHOUT. ABDOMEN IS ROUND, SOFT, AND NON-TENDER WITH NORMAL BOWEL SOUNDS NOTED IN ALL QUADRANTS. COLOSTOMY AND FEEDING TUBE PRESENT. HIS VITALS THIS MORNING ARE: 97.7-85-18-93%-120/47. LABS WERE OBTAINED. ABNORMAL LAB VALUES INCLUDE THE FOLLOWING: WBC 13.3, RBC 2.89, HGB 8.6, HCT 26.4, SODIUM 133, BUN 64, CREATININE 1.50, GLUCOSE 198, AST 46, TOTAL PROTEIN 5.3, ALBUMIN 1.6. URINE AND BLOOD CULTURES WERE POSITIVE FOR KLEBSIELLA PNEUMONIAE. REPEAT CULTURES WERE SET UP. NS AT 250 ML/HR, INVANZ 1G IV DAILY, DUONEBS TID PRN, PULMICORT NEBS BID, LOVENOX 30MG SC BID, HUMULIN R SLIDING SCALE, DIFLUCAN 200MG IV DAILY, OTBS ACHS, AND HIS HOME MEDICATIONS WERE RESUMED. WE WILL CONTINUE WITH CURRENT PLAN OF CARE TODAY. OTHERWISE, WE WILL FOLLOW UP WITH AM LABS AND CONTINUE TO MONITOR. TIME SPENT ON CLINICAL ASSESSMENT, REVIEWING LABS AND IMAGING, DECISION MAKING, AND DOCUMENTATION GREATER THAN 75 MINUTES. - Past Medical Family Social History Past Med/Fam/Surg Hx: No changes since H&P Allergies: Allergies meropenem Allergy (Verified 08/12/20 07:11) piperacillin [From Zosyn] Allergy (Verified 08/12/20 07:11) Sulfa (Sulfonamide Antibiotics) [SULFA] Allergy (Verified 08/12/20 07:11) tazobactam [From Zosyn] Allergy (Verified 08/12/20 07:11) - Review of Systems ROS: No change since H&P - Vital Signs and I&O's Vital Signs: Temperature 97.7 F Pulse Rate [Left Radial] 85 Pulse Rate 108 Respiratory Rate 20 Blood Pressure [Right Arm] 120/47 Blood Pressure [Left Arm] 153/58 Blood Pressure 157/65 O2 Sat by Pulse Oximetry 93 Intake and Output: Intake & Output 11/27/20 11/28/20 11/29/20 11/30/20 11:59 11:59 11:59 11:59 Intake Total 2498 / 2498 4381 / 4381 1925 / 1925 2333 / 2333 Output Total 1200 / 1200 1340 / 1340 2200 / 2200 1999 / 1999 Balance 1298 / 1298 3041 / 3041 -275 / -275 333 / 333 - Physical Exam Oriented: Normal Eyes: Normal Ear: Normal Nose: Normal Throat: Normal Respiratory: Generalized, Diminished Cardiovascular: Normal. negative: S3, S4, Murmur : Normal Auscultation: Bowel Sounds: Normal Tenderness: Normal, Other (PEG tube noted, no surrounding erythema) Skin: Normal Musculoskeletal: Motor Deficit, Sensory Deficit Psychiatric: Normal Mood Description: Calm Affect: Normal Speech Pattern: Clear, Appropriate - Laboratory and Diagnostics Result Diagrams: 11/30/20 04:15 11/30/20 04:15 Labs: 11/29/20 05:45 Catheter Site Gram Stain - Final 11/29/20 05:45 Catheter Site Wound Culture - Preliminary 11/28/20 12:06 Blood Blood Culture - Preliminary 11/28/20 23:00 G Tube Gram Stain - Final 11/28/20 23:00 G Tube Wound Culture - Preliminary 11/26/20 11:10 Urine,Catheterized Urine Culture - Final Klebsiella Pneumoniae 11/26/20 11:09 Blood Blood Culture - Final Klebsiella Pneumoniae 11/26/20 11:39 Blood Blood Culture - Preliminary Laboratory WBC 13.3 X10^3/uL (3.6-10.0) H 11/30/20 04:15 RBC 2.89 X10^6/uL (4.7-6.0) L 11/30/20 04:15 Hgb 8.6 g/dL (13.5-18.0) L 11/30/20 04:15 Hct 26.4 % (42.0-54.0) L 11/30/20 04:15 MCV 91.1 fL (80.0-100.0) 11/30/20 04:15 MCH 29.8 pg (27.0-34.0) 11/30/20 04:15 MCHC 32.8 g/dL (33.0-35.0) L 11/30/20 04:15 RDW 15.0 % (11.6-16.5) 11/30/20 04:15 Plt Count 225 X10^3/uL (150.0-450.0) 11/30/20 04:15 Plt Count Comment Adequate (ADEQUATE) 11/26/20 11:09 MPV 8.8 fL (7.4-11.0) 11/30/20 04:15 Neut % (Auto) 77.2 % (42.0-75.0) H 11/30/20 04:15 Lymph % (Auto) 4.9 % (21.0-51.0) L 11/30/20 04:15 [place] % (Auto) 11.1 % (0.0-13.0) 11/30/20 04:15 Eos % (Auto) 6.5 % (0.9-2.9) H 11/30/20 04:15 Baso % (Auto) 0.3 % (0.2-1.0) 11/30/20 04:15 Neut # (Auto) 10.3 x10^3/uL (2.2-4.8) H 11/30/20 04:15 Lymph # (Auto) 0.7 X10^3/uL (1.3-2.9) L 11/30/20 04:15 [place] # (Auto) 1.5 x10^3/uL (0.3-0.8) H 11/30/20 04:15 Eos # (Auto) 0.9 x10^3/uL (0.0-0.2) H 11/30/20 04:15 Baso # (Auto) 0.0 X10^3/uL (0.0-0.1) 11/30/20 04:15 Absolute Nucleated RBC 0.1 /100WBC 11/30/20 04:15 Total Counted 100 11/26/20 11:09 Neutrophils % (Manual) 85 % (39-76) H 11/26/20 11:09 Band Neutrophils % 6 % (0-10) 11/26/20 11:09 Lymphocytes % (Manual) 2 % (13-43) L 11/26/20 11:09 Monocytes % (Manual) 7 % (4-9) 11/26/20 11:09 Plt Morphology Comment Normal (NORMAL) 11/26/20 11:09 RBC Morphology Normal (NORMAL) 11/26/20 11:09 PT 15.5 SECONDS (11.8-14.3) 11/27/20 05:45 INR Target Range - 11/27/20 05:45 INR 1.26 (0.8-1.3) 11/27/20 05:45 APTT 40.3 SECONDS (22.9-36.5) H 11/27/20 05:45 PTT Comment - 11/27/20 05:45 Sodium 133 mmol/L (136-145) L 11/30/20 04:15 Corrected Sodium 135 mmol/L (136-145) L 11/30/20 04:15 Potassium 3.8 mmol/L (3.5-5.1) 11/30/20 04:15 Chloride 101 mmol/L (98-107) 11/30/20 04:15 Carbon Dioxide 28.4 mmol/L (21-32) 11/30/20 04:15 BUN 64 mg/dL (7-18) H 11/30/20 04:15 Creatinine 1.50 mg/dL (0.70-1.30) H 11/30/20 04:15 Est GFR (MDRD) Af Amer 58 (>60) L 11/30/20 04:15 Est GFR (MDRD) Non-Af 48 (>60) L 11/30/20 04:15 Glucose 198 mg/dL (65-99) H 11/30/20 04:15 POC Glucose (mg/dL) 174 mg/dL (65-99) H 11/30/20 05:37 Lactic Acid 1.8 mmol/L (0.4-2.0) 11/26/20 11:09 Calcium 8.6 mg/dL (8.5-10.1) 11/30/20 04:15 Corrected Calcium 10.5 mg/dL (8.5-10.1) H 11/30/20 04:15 Magnesium 2.1 mg/dL (1.7-2.9) 11/26/20 14:32 Total Bilirubin 0.30 mg/dL (0.2-1.0) 11/30/20 04:15 AST 46 Units/L (15-37) H 11/30/20 04:15 ALT 48 Units/L (12-78) 11/30/20 04:15 Alkaline Phosphatase 108 Units/L (46-116) 11/30/20 04:15 Creatine Kinase 726 Units/L (39-308) H 11/27/20 05:45 CK-MB (CK-2) 3.2 ng/mL (0-4.0) 11/27/20 05:45 CK/CKMB % Calc 0.4 % (<4) 11/27/20 05:45 Troponin I < 0.02 ng/mL (0-1.5) 11/27/20 05:45 Total Protein 5.3 g/dL (6.4-8.2) L 11/30/20 04:15 Albumin 1.6 g/dL (3.4-5.0) L 11/30/20 04:15 Globulin 3.7 g/dL (2.5-4.5) 11/30/20 04:15 Albumin/Globulin Ratio 0.4 Ratio (1.1-2.1) L 11/30/20 04:15 Specimen Type Catherized urine 11/26/20 11:10 Urine Color Yellow (YELLOW) 11/26/20 11:10 Urine Appearance Hazy (CLEAR) 11/26/20 11:10 Urine pH 5.0 (5.0 - 8.0) 11/26/20 11:10 Ur Specific [place] 1.005 (1.000-1.030) 11/26/20 11:10 Urine Protein 3+ (NEGATIVE) 11/26/20 11:10 Urine Glucose (UA) 1+ (NEGATIVE) 11/26/20 11:10 Urine Ketones Negative (NEGATIVE) 11/26/20 11:10 Urine Occult Blood 4+ (NEGATIVE) 11/26/20 11:10 Urine Nitrite Negative (NEGATIVE) 11/26/20 11:10 Urine Bilirubin Negative (NEGATIVE) 11/26/20 11:10 Urine Urobilinogen Normal (NORMAL) 11/26/20 11:10 Ur Leukocyte Esterase 3+ (NEGATIVE) 11/26/20 11:10 Urine RBC 5-10 /HPF (0-3) A 11/26/20 11:10 Urine WBC Tntc /HPF (0-5) A 11/26/20 11:10 Ur Squamous Epith Cells Few /HPF (NEGATIVE) 11/26/20 11:10 Urine Bacteria 3+ /HPF (NEGATIVE) 11/26/20 11:10 Urine Yeast Moderate /HPF (NEGATIVE) 11/26/20 11:10 Ur Culture Indicated? Yes/culture set up 11/26/20 11:10 Acetone, Semi-Quant Negative (NEGATIVE) 11/26/20 11:09 SARS CoV-2 RNA Rapid JESSICA Negative (NEGATIVE) 11/26/20 13:40 - Plan (1) Urinary tract infection Status: Acute Qualifiers: Urinary tract infection type: acute cystitis Hematuria presence: without hematuria Qualified Code(s): N30.00 - Acute cystitis without hematuria Plan: SUPPLEMENTAL OXYGEN, NS AT 250 ML/HR, INVANZ 1G IV DAILY, DUONEBS TID PRN, PULMICORT NEBS BID, DIFLUCAN 200MG IV DAILY, LOVENOX 30MG SC BID, HUMULIN R SLIDING SCALE, OTBS ACHS, AND HIS HOME MEDICATIONS WERE RESUMED. (2) Dehydration Status: Acute (3) Acute hyperkalemia Status: Acute (4) Acute hyponatremia Status: Acute (5) AMS (altered mental status) Status: Acute Qualifiers: Altered mental status type: transient alteration of awareness Qualified Code(s): R40.4 - Transient alteration of awareness
[2020-11-30] MEDS: BENADRYL ELIXIR 12.5 MG/5 ML PEG SCH (21:22)
[2020-11-30] MEDS: SNACK - Diabetic Appropriate PO SCH (21:25)
[2020-11-30] MEDS: HumuLIN R SUBCUT PRN (21:40)
[2020-12-01] MEDS: NEURONTIN CAP 300 MG PEG SCH ×4 (00:15→23:30)
[2020-12-01] MEDS: ADVIL SUSP 100 MG/5 ML PEG SCH ×4 (00:15→23:30)
[2020-12-01] MEDS: NS 1000 ML 1,000 ML IV SCH ×2 (04:15→13:40)
[2020-12-01 06:31] LABS: BASOPHILS # (AUTO) 0.1 X10^3/uL (0.0-0.1); BASOPHILS % (AUTO) 0.5 % (0.2-1.0); EOSINOPHILS # (AUTO) 0.7 x10^3/uL (0.0-0.2); EOSINOPHILS % (AUTO) 5.1 % (0.9-2.9); HEMATOCRIT 29.4 % (42.0-54.0); HEMOGLOBIN 9.7 g/dL (13.5-18.0); LYMPHOCYTES # (AUTO) 0.6 X10^3/uL (1.3-2.9); LYMPHOCYTES % (AUTO) 4.7 % (21.0-51.0); MEAN CORPUSCULAR HGB CONC 33.1 g/dL (33.0-35.0); MEAN CORPUSCULAR VOLUME 90.6 fL (80.0-100.0); MEAN PLATELET VOLUME 8.3 fL (7.4-11.0); MONOCYTES # (AUTO) 1.3 x10^3/uL (0.3-0.8); NEUTROPHILS # (AUTO) 10.3 x10^3/uL (2.2-4.8); NEUTROPHILS % (AUTO) 79.7 % (42.0-75.0); PLATELET COUNT 306 X10^3/uL (150.0-450.0); RED BLOOD COUNT 3.24 X10^6/uL (4.7-6.0); RED CELL DISTRIBUTION WIDTH 15.1 % (11.6-16.5)
[2020-12-01 06:46] LABS: ALANINE AMINOTRANSFERASE 59 Units/L (12-78); ALBUMIN 1.6 g/dL (3.4-5.0); ALKALINE PHOSPHATASE 138 Units/L (46-116); ASPARTATE AMINO TRANSFERASE 54 Units/L (15-37); BLOOD UREA NITROGEN 62 mg/dL (7-18); CALCIUM 9.3 mg/dL (8.5-10.1); CARBON DIOXIDE 28.9 mmol/L (21-32); CHLORIDE 103 mmol/L (98-107); COR CA(FOR HYPOALB) 11.2 mg/dL (8.5-10.1); CREATININE 1.35 mg/dL (0.70-1.30); SODIUM 137 mmol/L (136-145); TOTAL PROTEIN 5.8 g/dL (6.4-8.2); eGFR NON BLACK RACES 54 (>60)
[2020-12-01 07:01] LABS: MAGNESIUM 2.1 mg/dL (1.7-2.9)
[2020-12-01] MEDS: PULMICORT NEB TX 0.5 MG NEB SCH ×2 (08:37→21:22)
[2020-12-01] MEDS: ASPIRIN EC 81 MG PO SCH ×2 (09:49→21:35)
[2020-12-01] MEDS: ULTRAM PEG SCH ×4 (09:49→21:35)
[2020-12-01] MEDS: LOPRESSOR TAB 25 MG PEG SCH ×2 (09:50→21:40)
[2020-12-01] MEDS: PROTONIX TAB 40 MG PO SCH ×2 (09:50→21:40)
[2020-12-01] MEDS: LASIX PEG SCH ×2 (09:50→21:40)
[2020-12-01] MEDS: MAXZIDE 37.5/25 MG PO SCH (09:50)
[2020-12-01] MEDS: HumuLIN 70/30 (NovoLIN 70/30) SC SCH ×2 (09:51→22:45)
[2020-12-01] MEDS: LOVENOX INJ 30 MG SYR SC SCH ×2 (09:51→21:40)
[2020-12-01] MEDS: GLUCOTROL XL 24-HR PO SCH ×2 (09:52→21:35)
[2020-12-01] MEDS: JUVEN PO SCH ×2 (10:01→21:45)
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
[2020-12-01] MEDS: ALBUMIN HUMAN 25%- 100 ML 100 ML IV SCH (13:41)
--- NOTE | 2020-12-01 13:41 | PCM.PROG ---
Progress Note - Progress Note for Day of Date of Exam: 12/01/20 - Subjective Subjective: IS BEING TREATED FOR SEPSIS DUE TO UTI, DEHYDRATION, HYPONATREMIA, HYPERKALEMIA, AND AMS. HE IS QUADRIPLEGIC. HE HAS A FEEDING TUBE AND COLOSTOMY. TODAY, HE IS ALERT AND ORIENTED, LYING IN BED ON MORNING ROUNDS. HE DENIES SHORTNESS OF BREATH THIS MORNING. HE CONTINUES WITH WEAKNESS THIS MORNING. HE DENIES SIGNIFICANT IMPROVEMENT SINCE YESTERDAY. ON EXAMINATION, HEART IS REGULAR IN RATE AND RHYTHM. BILATERAL LUNGS ARE NOTED WITH DIMINISHED LUNG SOUNDS THROUGHOUT. ABDOMEN IS ROUND, SOFT, AND NON-TENDER WITH NORMAL BOWEL SOUNDS NOTED IN ALL QUADRANTS. COLOSTOMY AND FEEDING TUBE PRESENT. UPPER AND LOWER EXTREMITIES ARE NOTED WITH 1+ EDEMA. HIS VITALS THIS MORNING ARE: 97.5-58-20-94%-114/53. LABS WERE OBTAINED. ABNORMAL LAB VALUES INCLUDE THE FOLLOWING: WBC 13.0, RBC 3.24, HGB 9.7, HCT 29.4, BUN 62, CREATININE 1.35, GLUCOSE 107, AST 54, ALK PHOS 138, TOTAL PROTEIN 5.8, ALBUMIN 1.6. URINE AND BLOOD CULTURES WERE POSITIVE FOR KLEBSIELLA PNEUMONIAE. REPEAT BLOOD CULTURES GREW KLEBSIELLA PNEUMONIAE AND E.COLI. HE IS CURRENTLY RECEIVING NS AT 100 ML/HR, INVANZ 1G IV DAILY, DUONEBS TID PRN, PULMICORT NEBS BID, LOVENOX 30MG SC BID, HUMULIN R SLIDING SCALE, DIFLUCAN 200MG IV DAILY, OTBS ACHS, AND HIS HOME MEDICATIONS WERE RESUMED. TODAY, WE WILL INCREASE IV FLUIDS TO 150 ML/HR AND ADD ALBUMIN 25% IV DAILY. OTHERWISE, WE WILL FOLLOW UP WITH AM LABS AND CONTINUE TO MONITOR. TIME SPENT ON CLINICAL ASSESSMENT, REVIEWING LABS AND IMAGING, DECISION MAKING, AND DOCUMENTATION GREATER THAN 75 MINUTES. - Past Medical Family Social History Past Med/Fam/Surg Hx: No changes since H&P Allergies: Allergies meropenem Allergy (Verified 08/12/20 07:11) piperacillin [From Zosyn] Allergy (Verified 08/12/20 07:11) Sulfa (Sulfonamide Antibiotics) [SULFA] Allergy (Verified 08/12/20 07:11) tazobactam [From Zosyn] Allergy (Verified 08/12/20 07:11) - Review of Systems ROS: No change since H&P - Vital Signs and I&O's Vital Signs: Temperature 97.5 F Pulse Rate [Left Radial] 58 Pulse Rate 79 Respiratory Rate 20 Blood Pressure [Right Arm] 114/53 Blood Pressure [Left Arm] 153/58 Blood Pressure 157/65 O2 Sat by Pulse Oximetry 92 Intake and Output: Intake & Output 11/29/20 11/30/20 12/01/20 12/02/20 11:59 11:59 11:59 11:59 Intake Total 1925 / 1925 2333 / 2333 0 / 0 Output Total 2200 / 2200 1999 / 1999 2250 / 2250 Balance -275 / -275 333 / 333 -2250 / -2250 - Physical Exam Oriented: Normal Eyes: Normal Ear: Normal Nose: Normal Throat: Normal Respiratory: Generalized, Diminished Cardiovascular: Normal. negative: S3, S4, Murmur : Normal Auscultation: Bowel Sounds: Normal Palpation: Normal Tenderness: Normal, Other (PEG tube noted, no surrounding erythema) Skin: Normal Musculoskeletal: Motor Deficit, Sensory Deficit Psychiatric: Normal Mood Description: Calm Affect: Normal Speech Pattern: Clear, Appropriate - Laboratory and Diagnostics Result Diagrams: 12/01/20 06:02 12/01/20 06:02 Labs: 11/26/20 11:39 Blood Blood Culture - Final 11/28/20 12:06 Blood Blood Culture - Preliminary 11/28/20 23:00 G Tube Gram Stain - Final 11/28/20 23:00 G Tube Wound Culture - Preliminary Escherichia Coli 11/29/20 05:45 Catheter Site Gram Stain - Final 11/29/20 05:45 Catheter Site Wound Culture - Final Klebsiella Pneumoniae Escherichia Coli 11/28/20 11:59 Blood Blood Culture - Preliminary 11/26/20 11:10 Urine,Catheterized Urine Culture - Final Klebsiella Pneumoniae 11/26/20 11:09 Blood Blood Culture - Final Klebsiella Pneumoniae Laboratory WBC 13.0 X10^3/uL (3.6-10.0) H 12/01/20 06:02 RBC 3.24 X10^6/uL (4.7-6.0) L 12/01/20 06:02 Hgb 9.7 g/dL (13.5-18.0) L 12/01/20 06:02 Hct 29.4 % (42.0-54.0) L 12/01/20 06:02 MCV 90.6 fL (80.0-100.0) 12/01/20 06:02 MCH 30.0 pg (27.0-34.0) 12/01/20 06:02 MCHC 33.1 g/dL (33.0-35.0) 12/01/20 06:02 RDW 15.1 % (11.6-16.5) 12/01/20 06:02 Plt Count 306 X10^3/uL (150.0-450.0) 12/01/20 06:02 Plt Count Comment Adequate (ADEQUATE) 11/26/20 11:09 MPV 8.3 fL (7.4-11.0) 12/01/20 06:02 Neut % (Auto) 79.7 % (42.0-75.0) H 12/01/20 06:02 Lymph % (Auto) 4.7 % (21.0-51.0) L 12/01/20 06:02 [place] % (Auto) 10.0 % (0.0-13.0) 12/01/20 06:02 Eos % (Auto) 5.1 % (0.9-2.9) H 12/01/20 06:02 Baso % (Auto) 0.5 % (0.2-1.0) 12/01/20 06:02 Neut # (Auto) 10.3 x10^3/uL (2.2-4.8) H 12/01/20 06:02 Lymph # (Auto) 0.6 X10^3/uL (1.3-2.9) L 12/01/20 06:02 [place] # (Auto) 1.3 x10^3/uL (0.3-0.8) H 12/01/20 06:02 Eos # (Auto) 0.7 x10^3/uL (0.0-0.2) H 12/01/20 06:02 Baso # (Auto) 0.1 X10^3/uL (0.0-0.1) 12/01/20 06:02 Absolute Nucleated RBC 0.2 /100WBC 12/01/20 06:02 Total Counted 100 11/26/20 11:09 Neutrophils % (Manual) 85 % (39-76) H 11/26/20 11:09 Band Neutrophils % 6 % (0-10) 11/26/20 11:09 Lymphocytes % (Manual) 2 % (13-43) L 11/26/20 11:09 Monocytes % (Manual) 7 % (4-9) 11/26/20 11:09 Plt Morphology Comment Normal (NORMAL) 11/26/20 11:09 RBC Morphology Normal (NORMAL) 11/26/20 11:09 PT 15.5 SECONDS (11.8-14.3) 11/27/20 05:45 INR Target Range - 11/27/20 05:45 INR 1.26 (0.8-1.3) 11/27/20 05:45 APTT 40.3 SECONDS (22.9-36.5) H 11/27/20 05:45 PTT Comment - 11/27/20 05:45 Sodium 137 mmol/L (136-145) 12/01/20 06:02 Corrected Sodium TNP 12/01/20 06:02 Potassium 3.8 mmol/L (3.5-5.1) 12/01/20 06:02 Chloride 103 mmol/L (98-107) 12/01/20 06:02 Carbon Dioxide 28.9 mmol/L (21-32) 12/01/20 06:02 BUN 62 mg/dL (7-18) H 12/01/20 06:02 Creatinine 1.35 mg/dL (0.70-1.30) H 12/01/20 06:02 Est GFR (MDRD) Af Amer > 60 (>60) 12/01/20 06:02 Est GFR (MDRD) Non-Af 54 (>60) L 12/01/20 06:02 Glucose 107 mg/dL (65-99) H 12/01/20 06:02 POC Glucose (mg/dL) 99 mg/dL (65-99) 12/01/20 11:13 Lactic Acid 1.0 mmol/L (0.4-2.0) 12/01/20 06:02 Calcium 9.3 mg/dL (8.5-10.1) 12/01/20 06:02 Corrected Calcium 11.2 mg/dL (8.5-10.1) H 12/01/20 06:02 Magnesium 2.1 mg/dL (1.7-2.9) 12/01/20 06:02 Total Bilirubin 0.40 mg/dL (0.2-1.0) 12/01/20 06:02 AST 54 Units/L (15-37) H 12/01/20 06:02 ALT 59 Units/L (12-78) 12/01/20 06:02 Alkaline Phosphatase 138 Units/L (46-116) H 12/01/20 06:02 Creatine Kinase 726 Units/L (39-308) H 11/27/20 05:45 CK-MB (CK-2) 3.2 ng/mL (0-4.0) 11/27/20 05:45 CK/CKMB % Calc 0.4 % (<4) 11/27/20 05:45 Troponin I < 0.02 ng/mL (0-1.5) 11/27/20 05:45 Total Protein 5.8 g/dL (6.4-8.2) L 12/01/20 06:02 Albumin 1.6 g/dL (3.4-5.0) L 12/01/20 06:02 Globulin 4.2 g/dL (2.5-4.5) 12/01/20 06:02 Albumin/Globulin Ratio 0.4 Ratio (1.1-2.1) L 12/01/20 06:02 Specimen Type Catherized urine 11/26/20 11:10 Urine Color Yellow (YELLOW) 11/26/20 11:10 Urine Appearance Hazy (CLEAR) 11/26/20 11:10 Urine pH 5.0 (5.0 - 8.0) 11/26/20 11:10 Ur Specific [place] 1.005 (1.000-1.030) 11/26/20 11:10 Urine Protein 3+ (NEGATIVE) 11/26/20 11:10 Urine Glucose (UA) 1+ (NEGATIVE) 11/26/20 11:10 Urine Ketones Negative (NEGATIVE) 11/26/20 11:10 Urine Occult Blood 4+ (NEGATIVE) 11/26/20 11:10 Urine Nitrite Negative (NEGATIVE) 11/26/20 11:10 Urine Bilirubin Negative (NEGATIVE) 11/26/20 11:10 Urine Urobilinogen Normal (NORMAL) 11/26/20 11:10 Ur Leukocyte Esterase 3+ (NEGATIVE) 11/26/20 11:10 Urine RBC 5-10 /HPF (0-3) A 11/26/20 11:10 Urine WBC Tntc /HPF (0-5) A 11/26/20 11:10 Ur Squamous Epith Cells Few /HPF (NEGATIVE) 11/26/20 11:10 Urine Bacteria 3+ /HPF (NEGATIVE) 11/26/20 11:10 Urine Yeast Moderate /HPF (NEGATIVE) 11/26/20 11:10 Ur Culture Indicated? Yes/culture set up 11/26/20 11:10 Acetone, Semi-Quant Negative (NEGATIVE) 11/26/20 11:09 SARS CoV-2 RNA Rapid JESSICA Negative (NEGATIVE) 11/26/20 13:40 - Plan (1) Urinary tract infection Status: Acute Qualifiers: Urinary tract infection type: acute cystitis Hematuria presence: without he maturia Qualified Code(s): N30.00 - Acute cystitis without hematuria Plan: SUPPLEMENTAL OXYGEN, NS AT 150 ML/HR, ALBUMIN 25% IV DAILY, INVANZ 1G IV DAILY, DUONEBS TID PRN, PULMICORT NEBS BID, DIFLUCAN 200MG IV DAILY, LOVENOX 30MG SC BID, HUMULIN R SLIDING SCALE, OTBS ACHS, AND HIS HOME MEDICATIONS WERE RESUMED. (2) Dehydration Status: Acute (3) Acute hyperkalemia Status: Acute (4) Acute hyponatremia Status: Acute (5) AMS (altered mental status) Status: Acute Qualifiers: Altered mental status type: transient alteration of awareness Qualified Code(s): R40.4 - Transient alteration of awareness
[2020-12-01] MEDS: INVANZ INJ 1 GM VIAL 1 GM in NS 100 ML IV + SPIKE MINIBAG* 100 ML IV SCH (14:50)
[2020-12-01] MEDS: DIFLUCAN 200 MG IV PREMIX* 200 MG/100 ML BAG IV SCH (16:15)
[2020-12-01] MEDS: DUONEB 0.5 MG/3 MG (3 mL) NEB PRN (21:22)
[2020-12-01] MEDS: BENADRYL ELIXIR 12.5 MG/5 ML PEG SCH (21:35)
[2020-12-02] MEDS: NS 1000 ML 1,000 ML IV SCH ×4 (00:40→22:22)
[2020-12-02 06:10] LABS: BASOPHILS % (AUTO) 0.4 % (0.2-1.0); EOSINOPHILS # (AUTO) 0.6 x10^3/uL (0.0-0.2); EOSINOPHILS % (AUTO) 4.5 % (0.9-2.9); HEMATOCRIT 28.7 % (42.0-54.0); HEMOGLOBIN 9.5 g/dL (13.5-18.0); LYMPHOCYTES # (AUTO) 0.6 X10^3/uL (1.3-2.9); LYMPHOCYTES % (AUTO) 4.7 % (21.0-51.0); MEAN CORPUSCULAR HGB CONC 33.2 g/dL (33.0-35.0); MEAN CORPUSCULAR VOLUME 90.2 fL (80.0-100.0); MONOCYTES # (AUTO) 1.2 x10^3/uL (0.3-0.8); MONOCYTES % (AUTO) 9.3 % (0.0-13.0); NEUTROPHILS # (AUTO) 10.1 x10^3/uL (2.2-4.8); NEUTROPHILS % (AUTO) 81.1 % (42.0-75.0); PLATELET COUNT 357 X10^3/uL (150.0-450.0); RED BLOOD COUNT 3.18 X10^6/uL (4.7-6.0); RED CELL DISTRIBUTION WIDTH 15.2 % (11.6-16.5); WHITE BLOOD COUNT 12.4 X10^3/uL (3.6-10.0)
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
[2020-12-02] MEDS: NEURONTIN CAP 300 MG PEG SCH ×3 (06:23→21:30)
[2020-12-02] MEDS: ADVIL SUSP 100 MG/5 ML PEG SCH ×3 (06:23→21:30)
[2020-12-02 06:33] LABS: ALANINE AMINOTRANSFERASE 59 Units/L (12-78); ALBUMIN 1.9 g/dL (3.4-5.0); ALKALINE PHOSPHATASE 158 Units/L (46-116); ASPARTATE AMINO TRANSFERASE 57 Units/L (15-37); BLOOD UREA NITROGEN 56 mg/dL (7-18); CALCIUM 9.7 mg/dL (8.5-10.1); CARBON DIOXIDE 29.4 mmol/L (21-32); CHLORIDE 105 mmol/L (98-107); COR CA(FOR HYPOALB) 11.4 mg/dL (8.5-10.1); COR NA(FOR HYPERGLY) 144 mmol/L (136-145); CREATININE 1.23 mg/dL (0.70-1.30); SODIUM 143 mmol/L (136-145); eGFR NON BLACK RACES > 60 (>60)
[2020-12-02] MEDS: PULMICORT NEB TX 0.5 MG NEB SCH ×2 (08:20→20:05)
[2020-12-02] MEDS: ALBUMIN HUMAN 25%- 100 ML 100 ML IV SCH (10:02)
[2020-12-02] MEDS: ULTRAM PEG SCH ×4 (10:02→21:30)
[2020-12-02] MEDS: PROTONIX TAB 40 MG PO SCH ×2 (10:03→21:30)
[2020-12-02] MEDS: MAXZIDE 37.5/25 MG PO SCH (10:04)
[2020-12-02] MEDS: LOVENOX INJ 30 MG SYR SC SCH ×2 (10:04→21:30)
[2020-12-02] MEDS: LASIX PEG SCH ×2 (10:05→21:30)
[2020-12-02] MEDS: LOPRESSOR TAB 25 MG PEG SCH ×2 (10:05→21:30)
[2020-12-02] MEDS: JUVEN PO SCH ×2 (10:06→21:30)
[2020-12-02] MEDS: INVANZ INJ 1 GM VIAL 1 GM in NS 100 ML IV + SPIKE MINIBAG* 100 ML IV SCH (10:06)
[2020-12-02] MEDS: HumuLIN 70/30 (NovoLIN 70/30) SC SCH ×2 (10:07→22:15)
[2020-12-02] MEDS: GLUCOTROL XL 24-HR PO SCH ×2 (10:08→21:30)
[2020-12-02] MEDS: DIFLUCAN 200 MG IV PREMIX* 200 MG/100 ML BAG IV SCH (10:08)
[2020-12-02] MEDS: ASPIRIN EC 81 MG PO SCH ×2 (10:09→21:30)
[2020-12-02] MEDS: ZYVOX 600MG IV 600 MG/300 ML BAG IV SCH ×2 (13:20→21:30)
[2020-12-02] MEDS: DUONEB 0.5 MG/3 MG (3 mL) NEB PRN (20:05)
[2020-12-02] MEDS: SNACK - Diabetic Appropriate PO SCH (21:30)
[2020-12-02] MEDS: BENADRYL ELIXIR 12.5 MG/5 ML PEG SCH (21:30)
[2020-12-03] MEDS: NS 1000 ML 1,000 ML IV SCH ×2 (04:00→10:56)
[2020-12-03 06:06] LABS: BASOPHILS % (AUTO) 0.4 % (0.2-1.0); EOSINOPHILS % (AUTO) 0.3 % (0.9-2.9); LYMPHOCYTES # (AUTO) 0.5 X10^3/uL (1.3-2.9); LYMPHOCYTES % (AUTO) 4.6 % (21.0-51.0); MEAN CORPUSCULAR HEMOGLOBIN 30.2 pg (27.0-34.0); MEAN CORPUSCULAR HGB CONC 33.4 g/dL (33.0-35.0); MEAN CORPUSCULAR VOLUME 90.3 fL (80.0-100.0); MEAN PLATELET VOLUME 7.6 fL (7.4-11.0); MONOCYTES # (AUTO) 0.6 x10^3/uL (0.3-0.8); MONOCYTES % (AUTO) 5.2 % (0.0-13.0); NEUTROPHILS # (AUTO) 9.5 x10^3/uL (2.2-4.8); NEUTROPHILS % (AUTO) 89.5 % (42.0-75.0); PLATELET COUNT 424 X10^3/uL (150.0-450.0); RED BLOOD COUNT 3.32 X10^6/uL (4.7-6.0); RED CELL DISTRIBUTION WIDTH 15.4 % (11.6-16.5); WHITE BLOOD COUNT 10.7 X10^3/uL (3.6-10.0)
[2020-12-03] MEDS: ADVIL SUSP 100 MG/5 ML PEG SCH (06:16)
[2020-12-03] MEDS: NEURONTIN CAP 300 MG PEG SCH (06:17)
[2020-12-03] MEDS: HumuLIN R SUBCUT PRN (06:20)
[2020-12-03 06:32] LABS: ALANINE AMINOTRANSFERASE 55 Units/L (12-78); ALBUMIN 2.2 g/dL (3.4-5.0); ALKALINE PHOSPHATASE 151 Units/L (46-116); ASPARTATE AMINO TRANSFERASE 44 Units/L (15-37); BLOOD UREA NITROGEN 56 mg/dL (7-18); CALCIUM 9.2 mg/dL (8.5-10.1); CARBON DIOXIDE 27.7 mmol/L (21-32); CHLORIDE 105 mmol/L (98-107); COR CA(FOR HYPOALB) 10.6 mg/dL (8.5-10.1); COR NA(FOR HYPERGLY) 146 mmol/L (136-145); CREATININE 1.14 mg/dL (0.70-1.30); SODIUM 143 mmol/L (136-145); TOTAL PROTEIN 6.3 g/dL (6.4-8.2); eGFR NON BLACK RACES > 60 (>60)
[2020-12-03] MEDS: DUONEB 0.5 MG/3 MG (3 mL) NEB PRN (08:32)
[2020-12-03] MEDS: PULMICORT NEB TX 0.5 MG NEB SCH (08:32)
[2020-12-03] MEDS: ASPIRIN EC 81 MG PO SCH (10:15)
[2020-12-03] MEDS: MAXZIDE 37.5/25 MG PO SCH (10:15)
[2020-12-03] MEDS: LOPRESSOR TAB 25 MG PEG SCH (10:15)
[2020-12-03] MEDS: GLUCOTROL XL 24-HR PO SCH (10:15)
[2020-12-03] MEDS: LASIX PEG SCH (10:15)
[2020-12-03] MEDS: PROTONIX TAB 40 MG PO SCH (10:15)
[2020-12-03] MEDS: ULTRAM PEG SCH ×2 (10:55→13:12)
[2020-12-03] MEDS: ALBUMIN HUMAN 25%- 100 ML 100 ML IV SCH (10:56)
[2020-12-03] MEDS: LOVENOX INJ 30 MG SYR SC SCH (10:57)
[2020-12-03] MEDS: JUVEN PO SCH (10:59)
[2020-12-03] MEDS: HumuLIN 70/30 (NovoLIN 70/30) SC SCH (11:00)
[2020-12-03] MEDS: INVANZ INJ 1 GM VIAL 1 GM in NS 100 ML IV + SPIKE MINIBAG* 100 ML IV SCH (11:14)
[2020-12-03 12:06] VITALS: BP 136/63
[2020-12-03] MEDS: ZYVOX 600MG IV 600 MG/300 ML BAG IV SCH (12:20)
[2020-12-03] MEDS: DIFLUCAN 200 MG IV PREMIX* 200 MG/100 ML BAG IV SCH (13:00)
--- NOTE | 2021-01-19 13:46 | PCM.PROG ---
Progress Note - Progress Note for Day of Date of Exam: 12/02/20 - Subjective Subjective: IS BEING TREATED FOR SEPSIS DUE TO UTI, DEHYDRATION, HYPONATREMIA, HYPERKALEMIA, AND AMS. HE IS QUADRIPLEGIC. HE HAS A FEEDING TUBE AND COLOSTOMY. TODAY, HE IS ALERT AND ORIENTED, LYING IN BED ON MORNING ROUNDS. HE DENIES SHORTNESS OF BREATH THIS MORNING. HE CONTINUES WITH WEAKNESS THIS MORNING. HE DENIES SIGNIFICANT IMPROVEMENT SINCE YESTERDAY. ON EXAMINATION, HEART IS REGULAR IN RATE AND RHYTHM. BILATERAL LUNGS ARE NOTED WITH DIMINISHED LUNG SOUNDS THROUGHOUT. ABDOMEN IS ROUND, SOFT, AND NON-TENDER WITH NORMAL BOWEL SOUNDS NOTED IN ALL QUADRANTS. COLOSTOMY AND FEEDING TUBE PRESENT. UPPER AND LOWER EXTREMITIES ARE NOTED WITH 1+ EDEMA. HIS VITALS THIS MORNING ARE: 98.4-88-20-94%-150/66. LABS WERE OBTAINED. ABNORMAL LAB VALUES INCLUDE THE FOLLOWING: WBC 12.4, RBC 3.18, HGB 9.5, HCT 28.7, BUN 56, GLUCOSE 135, AST 57, ALK PHOS 158, TOTAL PROTEIN 6.0, ALBUMIN 1.9. URINE AND BLOOD CULTURES WERE POSITIVE FOR KLEBSIELLA PNEUMONIAE. REPEAT BLOOD CULTURES GREW KLEBSIELLA PNEUM ONIAE AND E.COLI. HE IS CURRENTLY RECEIVING NS AT 100 ML/HR, INVANZ 1G IV DAILY, DUONEBS TID PRN, PULMICORT NEBS BID, LOVENOX 30MG SC BID, HUMULIN R SLIDING SCALE, DIFLUCAN 200MG IV DAILY, OTBS ACHS, AND HIS HOME MEDICATIONS WERE RESUMED. TODAY, WE WILL INCREASE IV FLUIDS TO 150 ML/HR AND ADD ALBUMIN 25% IV DAILY. OTHERWISE, WE WILL FOLLOW UP WITH AM LABS AND CONTINUE TO MONITOR. TIME SPENT ON CLINICAL ASSESSMENT, REVIEWING LABS AND IMAGING, DECISION MAKING, AND DOCUMENTATION GREATER THAN 75 MINUTES. - Past Medical Family Social History Past Med/Fam/Surg Hx: No changes since H&P Allergies: Allergies meropenem Allergy (Verified 08/12/20 07:11) piperacillin [From Zosyn] Allergy (Verified 08/12/20 07:11) Sulfa (Sulfonamide Antibiotics) [SULFA] Allergy (Verified 08/12/20 07:11) tazobactam [From Zosyn] Allergy (Verified 08/12/20 07:11) - Review of Systems ROS: No change since H&P - Vital Signs and I&O's Vital Signs: Temperature 98.7 F Pulse Rate [Left Radial] 73 Pulse Rate 89 Respiratory Rate 20 Blood Pressure [Right Arm] 136/63 Blood Pressure [Left Arm] 199/88 Blood Pressure 157/65 O2 Sat by Pulse Oximetry 98 - Physical Exam Oriented: Normal Eyes: Normal Ear: Normal Nose: Normal Throat: Normal Respiratory: Generalized, Diminished Cardiovascular: Normal. negative: S3, S4, Murmur : Normal Auscultation: Bowel Sounds: Normal Tenderness: Normal, Other (PEG tube noted, no surrounding erythema) Skin: Normal Musculoskeletal: Motor Deficit, Sensory Deficit Psychiatric: Normal Mood Description: Calm Affect: Normal Speech Pattern: Clear, Appropriate - Laboratory and Diagnostics Result Diagrams: 12/03/20 05:22 12/03/20 05:22 Labs: 11/28/20 11:59 Blood Blood Culture - Final 11/28/20 23:00 G Tube Gram Stain - Final 11/28/20 23:00 G Tube Wound Culture - Final Escherichia Coli Escherichia Coli#2 11/28/20 12:06 Blood Blood Culture - Final Staph Auricularis Staphylococcus Epidermidis 11/26/20 11:39 Blood Blood Culture - Final 11/29/20 05:45 Catheter Site Gram Stain - Final 11/29/20 05:45 Catheter Site Wound Culture - Final Klebsiella Pneumoniae Escherichia Coli 11/26/20 11:10 Urine,Catheterized Urine Culture - Final Klebsiella Pneumoniae 11/26/20 11:09 Blood Blood Culture - Final Klebsiella Pneumoniae Laboratory WBC 10.7 X10^3/uL (3.6-10.0) H 12/03/20 05:22 RBC 3.32 X10^6/uL (4.7-6.0) L 12/03/20 05:22 Hgb 10.0 g/dL (13.5-18.0) L 12/03/20 05:22 Hct 30.0 % (42.0-54.0) L 12/03/20 05:22 MCV 90.3 fL (80.0-100.0) 12/03/20 05:22 MCH 30.2 pg (27.0-34.0) 12/03/20 05:22 MCHC 33.4 g/dL (33.0-35.0) 12/03/20 05:22 RDW 15.4 % (11.6-16.5) 12/03/20 05:22 Plt Count 424 X10^3/uL (150.0-450.0) 12/03/20 05:22 Plt Count Comment Adequate (ADEQUATE) 11/26/20 11:09 MPV 7.6 fL (7.4-11.0) 12/03/20 05:22 Neut % (Auto) 89.5 % (42.0-75.0) H 12/03/20 05:22 Lymph % (Auto) 4.6 % (21.0-51.0) L 12/03/20 05:22 [place] % (Auto) 5.2 % (0.0-13.0) 12/03/20 05:22 Eos % (Auto) 0.3 % (0.9-2.9) L 12/03/20 05:22 Baso % (Auto) 0.4 % (0.2-1.0) 12/03/20 05:22 Neut # (Auto) 9.5 x10^3/uL (2.2-4.8) H 12/03/20 05:22 Lymph # (Auto) 0.5 X10^3/uL (1.3-2.9) L 12/03/20 05:22 [place] # (Auto) 0.6 x10^3/uL (0.3-0.8) 12/03/20 05:22 Eos # (Auto) 0.0 x10^3/uL (0.0-0.2) 12/03/20 05:22 Baso # (Auto) 0.0 X10^3/uL (0.0-0.1) 12/03/20 05:22 Absolute Nucleated RBC 0.1 /100WBC 12/03/20 05:22 Total Counted 100 11/26/20 11:09 Neutrophils % (Manual) 85 % (39-76) H 11/26/20 11:09 Band Neutrophils % 6 % (0-10) 11/26/20 11:09 Lymphocytes % (Manual) 2 % (13-43) L 11/26/20 11:09 Monocytes % (Manual) 7 % (4-9) 11/26/20 11:09 Plt Morphology Comment Normal (NORMAL) 11/26/20 11:09 RBC Morphology Normal (NORMAL) 11/26/20 11:09 PT 15.5 SECONDS (11.8-14.3) 11/27/20 05:45 INR Target Range - 11/27/20 05:45 INR 1.26 (0.8-1.3) 11/27/20 05:45 APTT 40.3 SECONDS (22.9-36.5) H 11/27/20 05:45 PTT Comment - 11/27/20 05:45 Sodium 143 mmol/L (136-145) 12/03/20 05:22 Corrected Sodium 146 mmol/L (136-145) H 12/03/20 05:22 Potassium 4.2 mmol/L (3.5-5.1) 12/03/20 05:22 Chloride 105 mmol/L (98-107) 12/03/20 05:22 Carbon Dioxide 27.7 mmol/L (21-32) 12/03/20 05:22 BUN 56 mg/dL (7-18) H 12/03/20 05:22 Creatinine 1.14 mg/dL (0.70-1.30) 12/03/20 05:22 Est GFR (MDRD) Af Amer > 60 (>60) 12/03/20 05:22 Est GFR (MDRD) Non-Af > 60 (>60) 12/03/20 05:22 Glucose 239 mg/dL (65-99) H 12/03/20 05:22 POC Glucose (mg/dL) 205 mg/dL (65-99) H 12/03/20 11:28 Lactic Acid 1.0 mmol/L (0.4-2.0) 12/01/20 06:02 Calcium 9.2 mg/dL (8.5-10.1) 12/03/20 05:22 Corrected Calcium 10.6 mg/dL (8.5-10.1) H 12/03/20 05:22 Magnesium 2.1 mg/dL (1.7-2.9) 12/01/20 06:02 Total Bilirubin 0.40 mg/dL (0.2-1.0) 12/03/20 05:22 AST 44 Units/L (15-37) H 12/03/20 05:22 ALT 55 Units/L (12-78) 12/03/20 05:22 Alkaline Phosphatase 151 Units/L (46-116) H 12/03/20 05:22 Creatine Kinase 726 Units/L (39-308) H 11/27/20 05:45 CK-MB (CK-2) 3.2 ng/mL (0-4.0) 11/27/20 05:45 CK/CKMB % Calc 0.4 % (<4) 11/27/20 05:45 Troponin I < 0.02 ng/mL (0-1.5) 11/27/20 05:45 Total Protein 6.3 g/dL (6.4-8.2) L 12/03/20 05:22 Albumin 2.2 g/dL (3.4-5.0) L 12/03/20 05:22 Globulin 4.1 g/dL (2.5-4.5) 12/03/20 05:22 Albumin/Globulin Ratio 0.5 Ratio (1.1-2.1) L 12/03/20 05:22 Specimen Type Catherized urine 11/26/20 11:10 Urine Color Yellow (YELLOW) 11/26/20 11:10 Urine Appearance Hazy (CLEAR) 11/26/20 11:10 Urine pH 5.0 (5.0 - 8.0) 11/26/20 11:10 Ur Specific [place] 1.005 (1.000-1.030) 11/26/20 11:10 Urine Protein 3+ (NEGATIVE) 11/26/20 11:10 Urine Glucose (UA) 1+ (NEGATIVE) 11/26/20 11:10 Urine Ketones Negative (NEGATIVE) 11/26/20 11:10 Urine Occult Blood 4+ (NEGATIVE) 11/26/20 11:10 Urine Nitrite Negative (NEGATIVE) 11/26/20 11:10 Urine Bilirubin Negative (NEGATIVE) 11/26/20 11:10 Urine Urobilinogen Normal (NORMAL) 11/26/20 11:10 Ur Leukocyte Esterase 3+ (NEGATIVE) 11/26/20 11:10 Urine RBC 5-10 /HPF (0-3) A 11/26/20 11:10 Urine WBC Tntc /HPF (0-5) A 11/26/20 11:10 Ur Squamous Epith Cells Few /HPF (NEGATIVE) 11/26/20 11:10 Urine Bacteria 3+ /HPF (NEGATIVE) 11/26/20 11:10 Urine Yeast Moderate /HPF (NEGATIVE) 11/26/20 11:10 Ur Culture Indicated? Yes/culture set up 11/26/20 11:10 Acetone, Semi-Quant Negative (NEGATIVE) 11/26/20 11:09 SARS CoV-2 RNA Rapid JESSICA Negative (NEGATIVE) 11/26/20 13:40 - Plan (1) Urinary tract infection Status: Acute Qualifiers: Urinary tract infection type: acute cystitis Hematuria presence: without hematuria Qualified Code(s): N30.00 - Acute cystitis without hematuria Plan: SUPPLEMENTAL OXYGEN, NS AT 150 ML/HR, ALBUMIN 25% IV DAILY, INVANZ 1G IV DAILY, DUONEBS TID PRN, PULMICORT NEBS BID, DIFLUCAN 200MG IV DAILY, LOVENOX 30MG SC BID, HUMULIN R SLIDING SCALE, OTBS ACHS, AND HIS HOME MEDICATIONS WERE RESUMED. (2) Dehydration Status: Acute (3) Acute hyperkalemia Status: Acute (4) Acute hyponatremia Status: Acute (5) AMS (altered mental status) Status: Acute Qualifiers: Altered mental status type: transient alteration of awareness Qualified Code(s): R40.4 - Transient alteration of awareness
== END 2020-12-03 14:00 | disposition home health service (06) | DRG 872 ==
LOC: ER 10:29 → MED/SURG 15:13
PROVIDERS: ADMIT Internal Medicine; ATTEND Internal Medicine
DX: R40.4 Transient alteration of awareness; Z43.1 Encounter for attention to gastrostomy; A41.89 Other specified sepsis; E87.1 Hypo-osmolality and hyponatremia; Z99.81 Dependence on supplemental oxygen; E86.0 Dehydration; R00.0 Tachycardia, unspecified; R26.2 Difficulty in walking, not elsewhere classified; R06.02 Shortness of breath; G82.20 Paraplegia, unspecified; N28.9 Disorder of kidney and ureter, unspecified; N30.00 Acute cystitis without hematuria; E66.01 Morbid (severe) obesity due to excess calories; E87.5 Hyperkalemia; J44.9 Chronic obstructive pulmonary disease, unspecified; Z98.0 Intestinal bypass and anastomosis status; Z20.822 Contact with and (suspected) exposure to COVID-19; B96.1 Klebsiella pneumoniae [K. pneumoniae] as the cause of diseases classified elsewhere; Z85.29 Personal history of malignant neoplasm of other respiratory and intrathoracic organs; D68.9 Coagulation defect, unspecified; Z87.440 Personal history of urinary (tract) infections; I87.2 Venous insufficiency (chronic) (peripheral)